=== PATIENT | female | born 1945 | race Caucasian/White ===

== ENCOUNTER → 2016-02-09 | Outpatient (CLI) | payer BC ==
[~2016-02-09] MED LIST: AMT50 PO; CALC1CHW24 PO; CALC1TAB9 PO; CHOL20007 PO; CYCL0.052 OP; FNTTP25 EX; FOLIC ACID PO; HYDR0.5T PO; HYDR200T5 PO; IBUP-1050 PO; LOSA1TAB PO; MELA1TAB3 PO; METH-848 PO; METH2.5T PO; OMEG10007 PO; ONDA4TAB46 PO; PILO5TAB2 PO; POLY1DRO OPB; ULT/50 PO; WHITOIN2 OPB; ZNTT/150 PO; [UNRECOGNIZED DRUG - OTHER] PO
[2016-02-09 11:07] LABS: BASO % 0.4 %; BASO ABS # 0.02 K/uL (0-0.2); COMPLETE YES; EOS % 2.5 %; HEMATOCRIT 38.7 % (37-47); IG% 0.4 %; LYMPH ABS # 1.76 K/uL (1.2-3.4); MEAN CELL VOLUME 89.2 fL (80-100); MEAN CORPUSCULAR HEMOGLOBIN 31.6 pg (25-34); MEAN CORPUSCULAR HGB CONC 35.4 g/dl (32-36); MEAN PLATELET VOLUME 9.4 fL (7.4-10.4); MONO % 10.6 %; NEUT % 55.1 %; PLATELET COUNT 147 K/uL (130-400); RED BLOOD COUNT 4.34 M/uL (4.2-5.4); WHITE BLOOD COUNT 5.68 K/uL (4.8-10.8)
[2016-02-09 11:36] LABS: ALT/SGPT 26 U/L (12-78); AST/SGOT 17 U/L (15-37); BLOOD UREA NITROGEN 15 mg/dl (7-18); BUN/CREATININE RATIO 23.3 (10-20); CALCIUM 8.8 mg/dl (8.5-10.1); CARBON DIOXIDE 28 mmol/L (21-32); CHLORIDE 106 mmol/L (98-107); CREATININE 0.64 mg/dl (0.60-1.20); GLUCOSE 94 mg/dl (70-99); SODIUM 142 mmol/L (136-145)
[2016-02-09 11:39] LABS: CHOLESTEROL 269 mg/dl (0-200); HDL CHOLESTEROL 67 mg/dl; LDL CHOLESTEROL CALCULATED 177 mg/dl; TRIGLYCERIDES 123 mg/dl (0-150); VERY LOW DENSITY LIPOPROT CALC 25 mg/dl
== END | disposition home or self-care (01) ==
LOC: C.LAB 09:45
DX: E78.5 Hyperlipidemia, unspecified (principal); I10 Essential (primary) hypertension; M19.90 Unspecified osteoarthritis, unspecified site

== ENCOUNTER → 2016-04-22 | Outpatient (CLI) | payer BC ==
[~2016-04-22] MED LIST changes: -AMT50 PO; -CALC1TAB9 PO; -CYCL0.052 OP; -FNTTP25 EX; -FOLIC ACID PO; -HYDR200T5 PO; -IBUP-1050 PO; -METH2.5T PO; -OMEG10007 PO; -ONDA4TAB46 PO; -ULT/50 PO; -ZNTT/150 PO; -[UNRECOGNIZED DRUG - OTHER] PO
--- NOTE | 2016-04-22 14:33 | MAMMOGRAPHY REPORT ---
UNILATERAL LEFT DIGITAL DIAGNOSTIC MAMMOGRAM WITH CAD: 04/22/2016 CLINICAL HISTORY: History of right breast cancer status post mastectomy. History of left breast can cer status post lumpectomy. The patient reports no current complaints. TECHNIQUE: Current study was also evaluated with a Computer Aided Detection (CAD) system. Left CC and MLO 2-D and tomosynthesis images were obtained. COMPARISON: Comparison is made to exams dated: 04/22/2016 breast MRI, 04/14/2015 mammogram, 05/21/2014 mammogram, 04/21/2014 mammogram, and 04/11/2014 mammogram - [facility]. BREAST COMPOSITION: The tissue of the left breast is heterogeneously dense, which may obscure small masses. FINDINGS: Status post right mastectomy. There are stable post surgical changes in the left upper in ner quadrant, including stable architectural distortion and surgical clips at the lumpectomy bed. S cattered benign-appearing calcifications are not significantly changed. There are no suspicious mas ses, calcifications, or areas of nonsurgical architectural distortion noted in the left breast. The re has been no significant interval change. IMPRESSION: ACR BI-RADS CATEGORY 2: BENIGN There is no mammographic evidence of malignancy in the left breast. A 1 year screening mammogram is recommended. The patient has been verbally notified of the results. Approximately 10% of breast cancers are not detected with mammography. A negative mammographic repor t should not delay biopsy if a clinically suggestive mass is present. Krista Souza M.D. ah/:04/22/2016 11:48:23 Facial Operator: Rosa PATEL(Keren)(Rajiv), [facility] letter sent: Normal 1/2 BI-RADS Code: ACR BI-RADS Category 2: Benign
== END | disposition home or self-care (01) ==
LOC: C.MAMM 11:20
PROVIDERS: ATTEND Surgery
DX: Z85.3 Personal history of malignant neoplasm of breast (principal); Z90.11 Acquired absence of right breast and nipple; R92.2 Inconclusive mammogram

== ENCOUNTER → 2016-04-22 | Outpatient (CLI) | payer BC ==
[~2016-04-22] MED LIST changes: +GADAVIST IV PRN
--- NOTE | 2016-04-25 13:55 | MAMMOGRAPHY REPORT ---
BREAST MRI OF BOTH BREASTS : 04/22/2016 CLINICAL HISTORY: History of bilateral breast cancer status post right mastectomy and left lumpectom y. COMPARISON: Comparison is made to exams dated: 04/14/2015 mammogram, 05/21/2014 mammogram, 04/21/2014 m ammogram, 04/11/2014 mammogram, and 04/10/2013 mammogram - [facility]. Technique: The patient was placed prone in a dedicated breast imaging coil. Precontrast axial T1-we ighted, axial T2-weighted fat saturation, and axial T1-weighted fat saturation images were obtained. After the administration of 6 mL of Gadavist IV contrast, sequential T1-weighted fat saturation im ages were obtained. Subtraction images were obtained of the dynamic contrast enhanced sequences, an d 3-D reformations were performed. The Rhythm [employer] software was used for kinetic analysis. Findings: There are post surgical changes status post right mastectomy and right axillary lymph node sampling. Additionally, there are stable postsurgical changes in the left upper inner quadrant from prior karmen mpectomy. There is mild background parenchymal enhancement involving the left breast. There are no suspicious enhancing masses or areas of abnormal non-mass enhancement involving the left breast or the right mastectomy bed. A few scattered foci of enhancement are seen within the left breast, whic h are stable compared to the 05/01/2014 MRI and are benign and consistent with normal background pare nchymal enhancement. There is no evidence of axillary adenopathy. Visualized portions of the extramammary soft tissues a re unremarkable. IMPRESSION: ACR BI-RADS CATEGORY 2: BENIGN No MRI evidence of malignancy involving the left breast or the right mastectomy bed. Recommend rout ine bilateral mammograms in one year. Also recommend screening bilateral breast MRI in one year, gi corine the history of bilateral breast cancer. Krista Souza M.D. /:04/23/2016 11:40:25 Carrier Driver: shopper's aide, [facility] letter sent: Normal 1/2 BI-RADS Code: ACR BI-RADS Category 2: Benign
== END | disposition home or self-care (01) ==
LOC: C.MRI 09:11
PROVIDERS: ATTEND Surgery
DX: Z85.3 Personal history of malignant neoplasm of breast (principal); R92.2 Inconclusive mammogram

== ENCOUNTER → 2016-05-10 | Outpatient (CLI) | payer BC ==
[~2016-05-10] MED LIST changes: -GADAVIST IV PRN
[2016-05-10 10:25] LABS: BASO % 0.4 %; BASO ABS # 0.02 K/uL (0-0.2); COMPLETE YES; HEMATOCRIT 38.3 % (37-47); IG% 0.4 %; LYMPH % 29.8 %; LYMPH ABS # 1.51 K/uL (1.2-3.4); MEAN CELL VOLUME 89.5 fL (80-100); MEAN CORPUSCULAR HEMOGLOBIN 31.3 pg (25-34); MEAN PLATELET VOLUME 9.3 fL (7.4-10.4); MONO % 8.5 %; NEUT % 57.9 %; PLATELET COUNT 158 K/uL (130-400); RED BLOOD COUNT 4.28 M/uL (4.2-5.4); WHITE BLOOD COUNT 5.06 K/uL (4.8-10.8)
[2016-05-10 10:34] LABS: ALT/SGPT 41 U/L (12-78); AST/SGOT 22 U/L (15-37); BLOOD UREA NITROGEN 12 mg/dl (7-18); BUN/CREATININE RATIO 18.8 (10-20); CALCIUM 8.9 mg/dl (8.5-10.1); CARBON DIOXIDE 32 mmol/L (21-32); CHLORIDE 107 mmol/L (98-107); CREATININE 0.65 mg/dl (0.60-1.20); GLUCOSE 102 mg/dl (70-99); POTASSIUM 3.7 mmol/L (3.5-5.1); SODIUM 144 mmol/L (136-145)
[2016-05-10 10:44] LABS: CHOLESTEROL 239 mg/dl (0-200); CHOLESTEROL/HDL RATIO 3.9; HDL CHOLESTEROL 62 mg/dl; LDL CHOLESTEROL CALCULATED 150 mg/dl; TRIGLYCERIDES 133 mg/dl (0-150); VERY LOW DENSITY LIPOPROT CALC 27 mg/dl
== END | disposition home or self-care (01) ==
LOC: C.LAB 09:18
DX: E55.9 Vitamin D deficiency, unspecified (principal); I10 Essential (primary) hypertension; M19.90 Unspecified osteoarthritis, unspecified site; E78.5 Hyperlipidemia, unspecified; E05.90 Thyrotoxicosis, unspecified without thyrotoxic crisis or storm

== ENCOUNTER → 2016-07-21 | Outpatient (CLI) | payer BC ==
[2016-07-21 16:30] LABS: FERRITIN 301.6 ng/ml (8.0-388.0); MAGNESIUM 2.5 mg/dl (1.8-2.4); THYROID STIMULATING HORMONE 2.91 uIu/ml (0.300-4.500)
[2016-07-21 17:22] LABS: LYME DISEASE AB IGM NEG (NEG)
[2016-07-21 17:25] LABS: LYME DISEASE AB IGG NEG (NEG)
--- NOTE | 2016-07-28 11:05 | CODING QUERY MEDICAL NECESSITY ---
SUPPORTING DIAGNOSIS NEEDED A supporting diagnosis is required for the test/procedure performed on this patient in order for us to be reimbursed by the patient's insurance. Please provide a supporting diagnosis for the following test/procedure listed below next to the test name along with your signature. *If there is no additional diagnosis for this patient that would support the following test/procedure please document that below next to the test/procedure. Test(s)/Procedure(s) that require a supporting diagnosis: * FOLATE DIAGNOSIS: * FERRITIN DIAGNOSIS: Provider Signature: Date: Thank you Alison Jimenez [employer] Once completed, please kindly fax back to [phone] For questions please call [phone]
== END | disposition home or self-care (01) ==
LOC: C.LAB 14:11
DX: G62.9 Polyneuropathy, unspecified (principal); R07.9 Chest pain, unspecified; M19.90 Unspecified osteoarthritis, unspecified site; E61.1 Iron deficiency

== ENCOUNTER → 2016-09-05 | Outpatient (CLI) | payer BC ==
[2016-09-05 15:15] LABS: MAGNESIUM 2.5 mg/dl (1.8-2.4); THYROID STIMULATING HORMONE 4.03 uIu/ml (0.300-4.500)
== END | disposition home or self-care (01) ==
LOC: C.LAB 12:46
DX: E05.90 Thyrotoxicosis, unspecified without thyrotoxic crisis or storm (principal); E83.41 Hypermagnesemia

== ENCOUNTER → 2016-09-08 | Outpatient (CLI) | payer BC ==
--- NOTE | 2016-09-08 11:29 | DIAGNOSTIC IMAGING REPORT ---
PELVIC COMPLETE NON OB CLINICAL HISTORY: 71 years-old Female presenting with HX ENDOMETREAL CA, history of hysterectomy. TECHNIQUE: Real-time grayscale and color and spectral Doppler ultrasound imaging of the pelvis was performed using a transabdominal probe. COMPARISON: 05/01/2014. FINDINGS: Uterus: Surgically absent. Right adnexa: Right ovary not visualized. Left adnexa: Left ovary not visualized. Other: No free fluid. Normal bladder. IMPRESSION: Postsurgical changes of hysterectomy. Nonvisualization of the ovaries. Electronically signed by: Ash Gomez M.D. 09/08/2016 11:27 AM Dictated Date/Time: 09/08/2016 11:26 AM
== END | disposition home or self-care (01) ==
LOC: C.ULTR 10:34
DX: C50.911 Malignant neoplasm of unspecified site of right female breast (principal); C50.912 Malignant neoplasm of unspecified site of left female breast; Z85.42 Personal history of malignant neoplasm of other parts of uterus; Z90.710 Acquired absence of both cervix and uterus

== ENCOUNTER → 2016-12-05 | Outpatient (CLI) | payer BC | END | disposition home or self-care (01) | LOC: C.LAB 10:01 | DX: Z08 Encounter for follow-up examination after completed treatment for malignant neoplasm (principal) ==

== ENCOUNTER → 2017-01-05 | Outpatient (CLI) | payer BC ==
--- NOTE | 2017-01-05 15:18 | DIAGNOSTIC IMAGING REPORT ---
SACROILIAC JOINTS 3 VIEWS CLINICAL HISTORY: Cough and back pain. FINDINGS: 3 views of the sacrum and sacroiliac joints are correlated with pelvic CT dated 07/30/2008. The skeletal structures are osteopenic. Mild sclerotic degenerative change is seen in the sacroiliac joints and pubic symphysis. No erosive change is seen. No fracture is identified. There is a nonobstructed abdominal bowel gas pattern. IMPRESSION: No acute bony abnormality is identified. Mild sclerotic change is noted in the sacroiliac joints. Electronically signed by: Josh Jacome M.D. 01/05/2017 3:17 PM Dictated Date/Time: 01/05/2017 3:16 PM
--- NOTE | 2017-01-05 15:19 | DIAGNOSTIC IMAGING REPORT ---
KUB CLINICAL HISTORY: Constipation. FINDINGS: 2 AP supine abdominal radiographs are correlated with abdominal CT dated 07/30/2008. There is a nonobstructed abdominal bowel gas pattern noting moderate to severe constipation. No bowel obstruction is seen. There is no evidence of intraperitoneal free air on these supine images. Vascular calcifications are seen in the left upper quadrant. The skeletal structures are osteopenic. Mild degenerative change is noted in the lumbar spine. IMPRESSION: Moderate to severe constipation. Electronically signed by: Josh Jacome M.D. 01/05/2017 3:18 PM Dictated Date/Time: 01/05/2017 3:17 PM
--- NOTE | 2017-01-05 15:25 | DIAGNOSTIC IMAGING REPORT ---
LUMBAR SPINE 5 VIEWS CLINICAL HISTORY: Low back pain. FINDINGS: Five views of the lumbar spine are correlated with abdominal CT dated 07/30/2008. The skeletal structures are osteopenic. There is no radiographic evidence of fracture or malalignment. Vertebral body height is maintained throughout the lumbar spine. Alignment is preserved. There is mild straightening of the lumbar lordosis. Minimal dextrocurvature is observed. The transverse and spinous processes appear intact. There is no evidence of spondylolysis. Only mild degenerative disc space narrowing is observed. Minimal facet arthropathy is seen in the lower lumbar region. The visualized sacrum and bony pelvis appear intact. There is a nonobstructed abdominal bowel gas pattern noting moderate to severe constipation. IMPRESSION: 1. No acute bony abnormality is seen involving the lumbar spine. 2. Osteopenia and mild spondylotic change as above. 3. Moderate to severe constipation. Dictated: 01/05/2017 3:11 PM Transcribed: 01/05/2017 3:25 PM WILLIAM_Rosalie Electronically signed by: Josh Jacome M.D. 01/05/2017 3:32 PM Dictated Date/Time: 01/05/2017 3:11 PM
--- NOTE | 2017-01-05 15:31 | DIAGNOSTIC IMAGING REPORT ---
L SHOULDER MIN 2 VIEWS ROUTINE HISTORY: 71 years-old Female COUGH,BACK PAIN,L SHOULDER/HIP PAIN,CONSTIPATION, acute cough with left shoulder pain COMPARISON: Chest radiograph of same day TECHNIQUE: 3 views of the left shoulder FINDINGS: The bones are mildly demineralized. Mild acromioclavicular and glenohumeral degenerative changes. 5 mm linear calcification caudal to the acromium suggests calcific tendinosis or bony spurring. No acute fracture or dislocation. Surgical clips project over the left axilla. Imaged lung quintero appear clear. IMPRESSION: Degenerative changes without acute fracture or dislocation. The above report was generated using voice recognition software. It may contain grammatical, syntax or spelling errors. Electronically signed by: Reid Lechuga M.D. 01/05/2017 3:29 PM Dictated Date/Time: 01/05/2017 3:28 PM
--- NOTE | 2017-01-05 15:32 | DIAGNOSTIC IMAGING REPORT ---
L HIP UNILATERAL 2 VIEWS HISTORY: 71 years-old Female COUGH,BACK PAIN,L SHOULDER/HIP PAIN,CONSTIPATION, acute left hip pain COMPARISON: Radiographs of the SI joints of same day TECHNIQUE: 2 views of the left hip FINDINGS: Moderate femoral acetabular osteoarthritis. Bones are mildly demineralized. No acute fracture or dislocation. Soft tissues are unremarkable. IMPRESSION: Moderate left hip osteoarthritis without acute fracture or dislocation. The above report was generated using voice recognition software. It may contain grammatical, syntax or spelling errors. Electronically signed by: Reid Lechuga M.D. 01/05/2017 3:31 PM Dictated Date/Time: 01/05/2017 3:29 PM
--- NOTE | 2017-01-05 15:34 | DIAGNOSTIC IMAGING REPORT ---
CHEST 2 VIEWS ROUTINE HISTORY: 71 years-old Female acute cough COMPARISON: Chest radiograph 03/13/2015 TECHNIQUE: PA and lateral views of the chest FINDINGS: Cardiac silhouette is mildly enlarged, unchanged. Surgical clips project over the left heart and left axilla. No pneumothorax or pleural effusion. Linear subsegmental left basilar and right lateral midlung opacities are noted. No lobar airspace consolidations. Bones of the chest appear grossly intact. There are degenerative changes of the shoulders and spine. IMPRESSION: Subsegmental left basilar and lateral right midlung opacities suggest atelectasis/scarring with pneumonia thought to be less likely. No lobar airspace consolidations identified. The above report was generated using voice recognition software. It may contain grammatical, syntax or spelling errors. Electronically signed by: Reid Lechuga M.D. 01/05/2017 3:33 PM Dictated Date/Time: 01/05/2017 3:31 PM
[2017-01-05 15:37] LABS: BASO % 0.3 %; BASO ABS # 0.02 K/uL (0-0.2); COMPLETE YES; EOS % 2.7 %; HEMATOCRIT 37.3 % (37-47); IG% 0.4 %; LYMPH % 24.8 %; LYMPH ABS # 1.83 K/uL (1.2-3.4); MEAN CELL VOLUME 92.8 fL (80-100); MEAN CORPUSCULAR HEMOGLOBIN 31.6 pg (25-34); MONO % 8.3 %; NEUT % 63.5 %; PLATELET COUNT 197 K/uL (130-400); RED BLOOD COUNT 4.02 M/uL (4.2-5.4); WHITE BLOOD COUNT 7.38 K/uL (4.8-10.8)
[2017-01-05 16:02] LABS: ALT/SGPT 24 U/L (12-78); AST/SGOT 10 U/L (15-37); BLOOD UREA NITROGEN 12 mg/dl (7-18); BUN/CREATININE RATIO 20.5 (10-20); CARBON DIOXIDE 29 mmol/L (21-32); CHLORIDE 103 mmol/L (98-107); GLUCOSE 91 mg/dl (70-99); POTASSIUM 3.7 mmol/L (3.5-5.1); SODIUM 135 mmol/L (136-145)
[2017-01-05 16:12] LABS: ALKALINE PHOSPHATASE 99 U/L (45-117); C-REACTIVE PROTEIN 0.44 mg/dl (0-0.29)
== END | disposition home or self-care (01) ==
LOC: C.RAD 14:10
DX: R10.9 Unspecified abdominal pain (principal); E05.90 Thyrotoxicosis, unspecified without thyrotoxic crisis or storm; R05 Cough; M54.9 Dorsalgia, unspecified; M16.12 Unilateral primary osteoarthritis, left hip; M25.512 Pain in left shoulder; K59.00 Constipation, unspecified; Z85.3 Personal history of malignant neoplasm of breast; M85.88 Other specified disorders of bone density and structure, other site

== ENCOUNTER → 2017-01-12 | Outpatient (CLI) | payer BC ==
[~2017-01-12] MED LIST changes: +OPTIRAY 320 IV PRN
--- NOTE | 2017-01-12 15:32 | DIAGNOSTIC IMAGING REPORT ---
CHEST CT WITH CONTRAST CT DOSE: 479.11 mGy.cm HISTORY: Elevated CA-125 with history of breast cancer. History of uterine cancer with prior hysterectomy NEOPLASM BREAST, CA TECHNIQUE: Multiaxial CT images of the chest were performed following the intravenous administration of contrast. A dose lowering technique was utilized adhering to the principles of ALARA. COMPARISON: CT abdomen and pelvis of same day, CTA of the chest 07/30/2008. FINDINGS: Nodules of the right thyroid are noted measuring up to 4 mm. Post surgical changes of the bilateral axilla suggest prior yusuf dissection. There are postsurgical changes of the left breast. Prior right mastectomy. Mild prominence of the bronchial arteries are again seen. Calcified mediastinal and hilar lymph nodes are seen. Lymph node of the subcarinal space measuring the upper limits of normal at 9 mm. Mildly enlarged right hilar lymph nodes are seen measuring up to 1.2 x 1.0 cm. The right hilar lymph nodes appear unchanged from comparison study 07/30/2008. Mild multichamber cardiac enlargement. There is mild fusiform dilation of the ascending thoracic aorta, 4.0 x 3.8 cm. No dissection. Imaged great vessels appear patent. The opacified pulmonary arterial tree is unremarkable. Trace right pleural effusion. Spiculated irregular soft tissue attenuating masslike consolidation of the right lower lobe measures 3.1 x 2.1 cm on image 221 series 6. 3 mm solid nodule right lower lobe seen on image 250 series 6. Multifocal areas of pleural nodularity are noted throughout the right lung base with nodules measuring up to 7 mm as seen on image 86 series 6. These findings are most pronounced at the level the right lung base. No significant pleural nodularity identified on the left. Subpleural reticular opacities are noted on the left suggesting areas of scarring. Bibasilar parenchymal cystic changes of the lungs are noted. Central airways are patent. No acute amount of the imaged upper abdomen. Soft tissues are unremarkable. No definite suspicious or lytic blastic bony lesions. IMPRESSION: 1. Focal masslike consolidative opacity of the right lower lobe with irregular margins measuring up to 3.1 cm suggests metastasis. Trace right pleural effusion is noted with multifocal pleural nodularity throughout the right lung suggesting pleural metastasis. 2. Mildly prominent subcarinal and right hilar lymph nodes with the right hilar adenopathy appearing stable from comparison chest CT 07/30/2008. 3. Prior bilateral axillary yusuf dissection with right mastectomy and left breast lumpectomy. 4. Prior granulomatous disease. Electronically signed by: Reid Lechuga M.D. 01/12/2017 3:31 PM Dictated Date/Time: 01/12/2017 3:13 PM
--- NOTE | 2017-01-12 15:34 | DIAGNOSTIC IMAGING REPORT ---
CT SCAN OF THE ABDOMEN AND PELVIS WITH IV CONTRAST CLINICAL HISTORY: Breast cancer. COMPARISON STUDY: Abdominal CT dated 07/30/2008. TECHNIQUE: Following the IV administration of 93 cc of Optiray 320, CT scan of the abdomen and pelvis is performed from the lung bases to the proximal femora. Images are reviewed in the axial, sagittal, and coronal planes. IV contrast was administered without complication. A dose lowering technique was utilized adhering to the principles of ALARA. FINDINGS: Lung bases: The heart is enlarged and without pericardial effusion. There is a small right pleural effusion. There is a heterogeneous lesion at the right lung base seen on image #16 measuring 3.1 x 2.4 cm. There is a 1.4 cm nodule suggested in the left breast on axial image #18. There are numerous foci of pleural-based nodularity seen at the right lung base involving the major and minor fissures as well as small accessory fissures. The appearance is highly concerning for pleural-based metastatic disease (axial images #20, #29, #36). The left lung base appears clear. The right breast is surgically absent. Liver: The contrast-enhanced liver is normal in size, contour, and attenuation. There is no intrahepatic biliary ductal dilatation. The hepatic veins and portal veins are patent. Gallbladder: Unremarkable. Spleen: Normal in size and attenuation. There are scattered calcified splenic granulomas. Pancreas: Unremarkable. Adrenal glands: Unremarkable. Kidneys: The contrast enhanced kidneys are normal in size and without hydronephrosis. The kidneys enhance symmetrically. A 2.3 cm cyst is noted in the right kidney. Abdominal vasculature: The abdominal aorta is normal in course and caliber noting moderate atherosclerotic calcification. Bowel: There is moderate to advanced colonic diverticulosis without CT evidence of acute diverticulitis. Moderate colonic fecal retention is observed. No bowel obstruction is seen. The appendix is well-visualized and normal. Peritoneum: There is no intraperitoneal free air or abdominal ascites. Lymphadenopathy: There are prominent retroperitoneal lymph nodes. These measure up to 8 mm in short axis as seen on images #175 and #210 there is no upper abdominal, mesenteric, pelvic sidewall, or inguinal lymphadenopathy. Pelvic viscera: The bladder is normal as visualized. The uterus is surgically absent. No adnexal lesion is seen. Skeletal structures: The skeletal structures are osteopenic. There is mild lumbosacral spondylosis. There is an osteolytic lesion within the anterior aspect of L5 seen on image #246. This measures up to 11 mm. No additional destructive bony lesion is clearly seen. IMPRESSION: 1. There is a 3.1 cm heterogeneous lesion at the right lung base consistent with metastatic disease. 2. There are numerous small foci of pleural-based nodularity at the right lung base. These are typical in appearance for pleural-based metastases. There is a trace associated right pleural effusion. 3. There is an osteolytic lesion identified in the body of L5 that is consistent with bony metastatic disease. This was not seen on the 2009 examination. No additional bony lesions are identified. 4. There is no evidence of visceral metastatic disease in the abdomen or pelvis. 5. Prominent retroperitoneal lymph nodes are indeterminant and measure up to 8 mm in short axis. 6. Moderate to advanced colonic diverticulosis without CT evidence of acute diverticulitis. 7. A 1.4 cm nodule is suggested in the left breast. This is indeterminant and neoplasm is not excluded. Correlation with any prior breast imaging will be required. 8. Additional findings as above. Electronically signed by: Josh Jacome M.D. 01/12/2017 3:33 PM Dictated Date/Time: 01/12/2017 3:18 PM
== END | disposition home or self-care (01) ==
LOC: C.CTS 14:49
PROVIDERS: ATTEND Internal Medicine Hematology & Oncology
DX: N63.20 Unspecified lump in the left breast, unspecified quadrant (principal); R91.8 Other nonspecific abnormal finding of lung field; Z85.3 Personal history of malignant neoplasm of breast; K57.90 Diverticulosis of intestine, part unspecified, without perforation or abscess without bleeding; Z85.42 Personal history of malignant neoplasm of other parts of uterus

== ENCOUNTER → 2017-01-23 | Outpatient (CLI) | payer BC ==
[~2017-01-23] MED LIST changes: -OPTIRAY 320 IV PRN
--- NOTE | 2017-01-23 14:21 | DIAGNOSTIC IMAGING REPORT ---
PET/CT SKULL-THIGH CLINICAL HISTORY: 71 years-old Female with R91.1. Solitary pulmonary nodule with history of breast cancer. Lytic lesion of L5 suspicious for metastasis. COMPARISON: CT chest, abdomen and pelvis 01/12/2017 TECHNIQUE: The patient was injected with 13.6 mCi of F-18 fluorodeoxyglucose (FDG) and an emission scan was performed from the skull vertex to the toes. Noncontrast CT was performed for attenuation correction and anatomic localization. The blood glucose level was 112 mg/dl. FINDINGS: HEAD AND NECK: There is a physiologic distribution of activity, with no hypermetabolic foci. CHEST: Hypermetabolic subcarinal lymph node measures 2.4 x 1.1 cm with SUV max of 4.6 nicely seen on image 81 series 2. 3.1 x 2.2 cm right hilar adenopathy is also markedly hypermetabolic, SUV max of 4.9. This is nicely seen on image 84 series 2. Additional lower right hilar adenopathy is seen measuring up to approximately 1 cm on image 90 series 2 with SUV max of 3.3. There is a markedly hypermetabolic irregular mass of the right lower lobe with spiculated margins and heterogeneous attenuation, 3.3 x 2.3 cm, previously 3.0 x 2.1 cm on study dated 01/12/2017. This is nicely seen on image 103 series 2 and is markedly hypermetabolic with SUV max of 5.9. Mildly hypermetabolic periesophageal lymph node seen on image 101 series 2 with ill-defined margins is only minimally hypermetabolic, SUV max 2.4 which is indeterminate. There is diffuse pleural uptake about the right lung base nicely seen on image 90 of page 267. The previously described subcentimeter pleural-based nodules of the right lung base do not demonstrate appreciable FDG uptake likely below resolution in size for PET. Focal area of increased radiotracer uptake adjacent to the left second rib is noted as seen on image 58 of series 267 without correlate on the CT portion, possibly secondary to adjacent vasculature. Mildly metabolic right pleural effusion. ABDOMEN AND PELVIS: There is a physiologic distribution of activity within the liver, spleen, adrenal glands, gastrointestinal and urinary tracts, with no hypermetabolic foci. The previously described mildly prominent retroperitoneal lymph nodes measuring up to 8 mm in short axis do not demonstrate significant hypermetabolic activity. MUSCULOSKELETAL SYSTEM AND EXTREMITIES: Hypermetabolic skeletal metastasis noted at several levels throughout the spine notably involving the vertebral bodies at T2, T3, T9, L3 and L5 and the right lamina at T10. Additional lucent metastasis involve the right iliac wing and right acetabulum. ADDITIONAL CT FINDINGS: Multifocal pleural nodularity again seen throughout the right lung. Additionally, there is a 5 mm pleural-based nodule of the superior segment left lower lobe on image 86 series 2 without definite hypermetabolic activity. Postoperative changes of the left axilla. Calcifications of the spleen. Normal appendix. Colonic diverticulosis without diverticulitis. Soft tissues are unremarkable. IMPRESSION: 1. Hypermetabolic irregular mass of the right lower lobe measuring up to 3.2 cm is compatible with metastasis. Multiple additional pleural metastasis throughout the right lung base with small mildly hypermetabolic malignant right pleural effusion. 2. Hypermetabolic metastatic mediastinal and right hilar adenopathy. 3. Multifocal skeletal metastasis as above. The above report was generated using voice recognition software. It may contain grammatical, syntax or spelling errors. Electronically signed by: Reid Lechuga M.D. 01/23/2017 2:19 PM Dictated Date/Time: 01/23/2017 12:30 PM
== END | disposition home or self-care (01) ==
LOC: C.PET 07:44
PROVIDERS: ATTEND Physician Assistant
DX: R91.1 Solitary pulmonary nodule (principal)

== ENCOUNTER → 2017-02-03 | Day surgery (SDC) | payer BC ==
[2017-02-01 15:23] VITALS: BMI 21.0
[~2017-02-03] VITALS: Ht 170.2 cm; Wt 62.7 kg
[~2017-02-03] MED LIST changes: +AMT50 PO; +ATROPINE SULFATE 0.1 MG/ML 5ML SYR IV PRN; -CALC1CHW24 PO; +CALC1TAB9 PO; +CYCL0.052 OP; +DEXAMETHASONE SOD INJ 4 MG/ML VIAL ONE; +EpHEDrine SULFATE INJ 50 MG/ML AMP IV PRN; +FENTANYL CITRATE INJ 50 MCG/1 ML 2 ML VIAL IV PRN; +FENTANYL CITRATE INJ 50 MCG/1 ML 2 ML VIAL ONE; +FNTTP25 EX; +FOLIC ACID PO; +GLYCOPYRROLATE INJ 0.2 MG/ML VIAL ONE; -HYDR0.5T PO; +HYDR200T5 PO; +IBUP-1050 PO; +LACTATED RINGER'S 1000ML 1,000 ML IV SCH; +LIDOCAINE 2% 20 MG/ML 5ML SYR IV ONE; -LOSA1TAB PO; +METH2.5T PO; +NEOSTIGMINE METHYLSULFATE 5 MG/5 ML SYR ONE; +OMEG10007 PO; +ONDA4TAB46 PO; +ONDANSETRON INJ 2 MG/ML 2 ML VIAL IV PRN; +ONDANSETRON INJ 2 MG/ML 2 ML VIAL ONE; +PHENYLEPHRINE HCL INJ 10 MG/ML VIAL ONE; -PILO5TAB2 PO; -POLY1DRO OPB; +PROMETHAZINE HCL INJ 6.25 MG in SODIUM CHLORIDE 0.9% 50ML 50 ML IV PRN; +PROPOFOL IV EMULSION 10 MG/ML 20 ML VIAL IV ONE; +ROCURONIUM BROMIDE 10 MG/ML 5 ML VIAL IV ONE; +ULT/50 PO; -WHITOIN2 OPB; +ZNTT/150 PO; +[UNRECOGNIZED DRUG - OTHER] PO
--- NOTE | 2017-02-03 07:09 | History & Physical Bridge Note ---
H&P Re-Evaluation Bridge Note: I have examined the patient, reviewed the History & Physical and in the interval since the performance of the History & Physical I have noted the following changes of clinical significance: No changes noted
[2017-02-03 07:22] VITALS: BP 179/91; PULSE 91; TEMP 36.7; O2SAT 98; Ht 170.2 cm; Wt 62.7 kg
--- NOTE | 2017-02-03 08:25 | Discharge Instructions ---
Discharge Instructions Date of Service Feb 03, 2017. Visit Reason for Visit: Right Lower Lobe Mass;Pulmonary Nodule Discharge Discharge Diagnosis / Problem: Right Lower Lobe Mass;Pulmonary Nodule Discharge Goals Goal(s): Learn about illness Activity Recommendations Activity Limitations: resume your previous activity (in 24 hours) Anesthesia . Post Anesthesia Instructions: If you have had General Anesthesia or IV Sedation: * Do not drive today. * Resume driving when surgeon permits. * Do not make important decisions or sign legal documents today. * Call surgeon for: 1. Temperature elevations greater than 101 degrees F. 2. Uncontrollable pain. 3. Excessive bleeding. 4. Persistent nausea and vomiting. 5. Medication intolerance (nausea, vomiting or rash). * For nausea and vomiting use only clear liquids such as: tea, soda, bouillon until nausea subsides, then gradually increase diet as tolerated. * If you have any concerns or questions, call your surgeon's office. If physician is unavailable and it is an emergency, call 911 or go to the nearest emergency room. . Instructions / Follow-Up Instructions / Follow-Up 1. You may cough up some blood. Call physician if excessive amount noted. 2. keep your scheduled appointment with Dr. Delacruz on February 13, 2017 @ 10: 45 am. Diet Recommendations Recommended Home Diet: resume previous diet Pending Studies Studies pending at discharge: no Medical Emergencies . Who to Call and When: Medical Emergencies: If at any time you feel your situation is an emergency, please call 911 immediately. . Non-Emergent Contact Non-Emergency issues call your: Surgeon Call Non-Emergent contact if: you have a fever, your pain is not controlled . . "Provider Documentation" section prepared by Curtis Mendes. .
[2017-02-03 12:36] VITALS: BP 156/77; PULSE 92; TEMP 36.4; O2SAT 97
--- NOTE | 2017-02-03 12:45 | DIAGNOSTIC IMAGING REPORT ---
CHEST ONE VIEW PORTABLE HISTORY: Pulmonary nodule. COMPARISON: Chest 01/05/2017. FINDINGS: No pneumothorax. No pleural effusions. The heart remains stable in size. Progressive interstitial thickening and patchy densities at the right lung base. IMPRESSION: 1. No pneumothorax. 2. Progressive interstitial thickening and right basilar densities. Electronically signed by: Jaspreet Harrell M.D. 02/03/2017 12:44 PM Dictated Date/Time: 02/03/2017 12:33 PM
--- NOTE | 2017-02-03 12:46 | DIAGNOSTIC IMAGING REPORT ---
INTRAOPERATIVE RADIOGRAPHS CLINICAL HISTORY: Navigational bronchoscopy with biopsy. Fluoroscopy time: 124 seconds. FINDINGS: 3 spot fluoroscopic images of the right lower chest are correlated with chest CT dated 01/12/2017. The bronchoscope projects over the right lower lobe. IMPRESSION: Intraoperative images from right lower lobe bronchoscopy as above. See operative report for detailed findings. Electronically signed by: Josh Jacome M.D. 02/03/2017 12:45 PM Dictated Date/Time: 02/03/2017 12:44 PM
--- NOTE | 2017-02-03 12:49 | Anesthesiology Progress Note ---
Anesthesia Post Op Note Date & Time Feb 03, 2017 at 12:49 Vital Signs Pain Intensity: 0 Vital Signs Past 12 Hours Date Time Temp Pulse Resp B/P (MAP) Pulse Ox O2 Delivery O2 Flow Rate FiO2 02/03/17 12:36 36.4 92 18 156/77 97 Room Air 02/03/17 12:30 36.4 95 14 160/92 95 Room Air 02/03/17 12:20 95 16 158/94 95 Room Air 02/03/17 12:10 87 21 160/91 100 Oxymask 10 02/03/17 12:00 97 22 160/99 99 Oxymask 10 02/03/17 11:53 36.0 95 18 173/97 100 Oxymask 10 02/03/17 07:22 36.7 91 18 179/91 (120) 98 Room Air Notes Mental Status: alert / awake / arousable, participated in evaluation Pt Amnestic to Procedure: Yes Nausea / Vomiting: adequately controlled Pain: adequately controlled Airway Patency, RR, SpO2: stable & adequate BP & HR: stable & adequate Hydration State: stable & adequate Anesthetic Complications: no major complications apparent
[2017-02-03 13:10] VITALS: BP 153/74; PULSE 90; TEMP 36.5; O2SAT 96
--- NOTE | 2017-02-03 14:00 | OPERATIVE REPORT ---
DATE OF OPERATION: 02/03/2017 PREOPERATIVE DIAGNOSIS: Hypermetabolic right lower lobe mass with mediastinal adenopathy and possible bony metastases. POSTOPERATIVE DIAGNOSIS: Same. PROCEDURE: 1. Endobronchial ultrasound with biopsy. 2. Electromagnetic navigational bronchoscopy with biopsy right lower lobe mass. SURGEON: Dr. Delacruz. TANK BUILDER: SAWYER Thomas. ANESTHESIA: General anesthesia with endotracheal intubation. SPECIFICS OF PROCEDURE: Cherelle Husain is a 71-year-old female who has a history of breast cancer and now has evidence of spine and right hip with probable bony metastases. Workup was done and she had a right lower lobe mass and had some subcarinal and hilar adenopathy on the right, which were hypermetabolic. We felt it necessary to make a diagnosis of this as we would require tissue so we recommended a navigational bronchoscopy and an endobronchial ultrasound. On 02/03/2017, the patient underwent an uncomplicated endobronchial ultrasound. I was a bit surprised that I did multiple passes without a definitive diagnosis. I did 10 passes in the level 7 node and we never did get a diagnosis of malignancy. We had good lymphocytes indicating good sampling. She really had no adenopathy on the left, I did biopsy the left level 10 side but really did not get much in the way of lymphocytes. On the right, I biopsied the right level 10 and right level 11 nodes extensively, finally I made 13th needle pass, we had a diagnosis of malignancy from the level 11 node. We had adequate lymphocytes in the level 10 node. As we had a diagnosis, I went ahead and did a navigational bronchoscopy in an attempt to get more tissue. for immunohistochemical stains and genomic testing. We did this and she tolerated it well. DESCRIPTION OF THE PROCEDURE: The patient brought to the operating room and laid in supine position. General anesthesia induced and endotracheal intubation was performed with an 8.5 endotracheal tube. After appropriate timeout had been called and clindamycin given prophylactically, the endobronchial ultrasound scope was placed and we saw no endobronchial abnormalities out to the tertiary bronchi. I then immediately went to the left side and evaluated the left level 10 nodes and this were very small. I did biopsy this one level 10 node several times but really got no lymphocytes. I then turned the scope and evaluated a large level 7 node and biopsied it on 3 separate times. I was surprised on the rapid on site evaluation that we got lymphocytes back which were benign and no evidence of malignancy. I ended up doing this 10 separate times and got lymphocytes in 3 separate passes and I did multiple nodes in the level 7 area. I then went to the level 11 area of the right, biopsied this about many times before we had adequate lymphocytes and then finally 13 biopsies were done before we had malignant cells. I also biopsied level 10 node several times and it could be seen that we had adequate lymphocytes, but no evidence of malignancy. I then switched from the endobronchial ultrasound to the navigational bronchoscopy. The endobronchial ultrasound scope was removed and a regular fiberoptic bronchoscope was placed. From going down, we really did not see much in the way of bleeding. Sucked out some old blood with the scope. Then placed a navigational probe through the working channel of scope and registered the airways. We then navigated out to the right lower lobe, medial segment and went right to the mass. A radial ultrasound showed we were in the middle of this mass. I then did brushings x3, needle biopsies x3 and forceps biopsies x3, and we did washings. We then irrigated this out and she really had no bleeding. She tolerated it well. We discharge her today and I will see her back next week to go over the results. I attest to the content of the Intraoperative Record and any orders documented therein. Any exceptions are noted below. RENA
== END | disposition home or self-care (01) ==
LOC: C.ACU 06:58
PROVIDERS: ATTEND Surgery
DX: R91.8 Other nonspecific abnormal finding of lung field (principal); J45.909 Unspecified asthma, uncomplicated; M81.0 Age-related osteoporosis without current pathological fracture; Z90.710 Acquired absence of both cervix and uterus; Z82.49 Family history of ischemic heart disease and other diseases of the circulatory system; Z82.0 Family history of epilepsy and other diseases of the nervous system; K21.9 Gastro-esophageal reflux disease without esophagitis; Z85.820 Personal history of malignant melanoma of skin; Z85.44 Personal history of malignant neoplasm of other female genital organs; Z85.3 Personal history of malignant neoplasm of breast

== ENCOUNTER 2017-02-15 10:22 | Day surgery (SDC) | payer BC ==
[~2017-02-15] VITALS: Ht 170.2 cm; Wt 62.0 kg
[~2017-02-15 10:22] MED LIST changes: -ATROPINE SULFATE 0.1 MG/ML 5ML SYR IV PRN; -DEXAMETHASONE SOD INJ 4 MG/ML VIAL ONE; -EpHEDrine SULFATE INJ 50 MG/ML AMP IV PRN; -FENTANYL CITRATE INJ 50 MCG/1 ML 2 ML VIAL IV PRN; -FENTANYL CITRATE INJ 50 MCG/1 ML 2 ML VIAL ONE; -GLYCOPYRROLATE INJ 0.2 MG/ML VIAL ONE; -LACTATED RINGER'S 1000ML 1,000 ML IV SCH; -LIDOCAINE 2% 20 MG/ML 5ML SYR IV ONE; -NEOSTIGMINE METHYLSULFATE 5 MG/5 ML SYR ONE; -ONDA4TAB46 PO; -ONDANSETRON INJ 2 MG/ML 2 ML VIAL IV PRN; -ONDANSETRON INJ 2 MG/ML 2 ML VIAL ONE; -PHENYLEPHRINE HCL INJ 10 MG/ML VIAL ONE; -PROMETHAZINE HCL INJ 6.25 MG in SODIUM CHLORIDE 0.9% 50ML 50 ML IV PRN; -PROPOFOL IV EMULSION 10 MG/ML 20 ML VIAL IV ONE; -ROCURONIUM BROMIDE 10 MG/ML 5 ML VIAL IV ONE; -ULT/50 PO
[2017-02-15] MEDS ORDERED: ONDA4TAB46 PO (10:41)
[2017-02-15 10:51] VITALS: BP 153/84; PULSE 83; TEMP 37.2; O2SAT 95; Ht 170.2 cm; Wt 62.0 kg
[2017-02-15] MEDS ORDERED: PROPOFOL IV EMULSION 10 MG/ML 20 ML VIAL IV ONE (10:51)
[2017-02-15] MEDS ORDERED: GLYCOPYRROLATE INJ 0.2 MG/ML VIAL ONE (10:51)
[2017-02-15] MEDS ORDERED: DEXAMETHASONE SOD INJ 4 MG/ML VIAL ONE (10:51)
[2017-02-15] MEDS ORDERED: NEOSTIGMINE METHYLSULFATE 5 MG/5 ML SYR ONE (10:51)
[2017-02-15] MEDS ORDERED: ONDANSETRON INJ 2 MG/ML 2 ML VIAL ONE (10:51)
[2017-02-15] MEDS ORDERED: ROCURONIUM BROMIDE 10 MG/ML 5 ML VIAL IV ONE (10:51)
[2017-02-15] MEDS ORDERED: MIDAZOLAM HCL 1 MG/ML 2ML VIAL ONE (10:52)
[2017-02-15] MEDS ORDERED: FENTANYL CITRATE INJ 50 MCG/1 ML 2 ML VIAL ONE (10:52)
--- NOTE | 2017-02-15 11:08 | Discharge Instructions ---
Discharge Instructions Date of Service Feb 15, 2017. Visit Reason for Visit: Lung Cancer Discharge Discharge Diagnosis / Problem: Lung Cancer Discharge Goals Goal(s): Learn about illness Activity Recommendations Activity Limitations: resume your previous activity (in 24 hours) [address] if taking ultram Anesthesia . Post Anesthesia Instructions: If you have had General Anesthesia or IV Sedation: * Do not drive today. * Resume driving when surgeon permits. * Do not make important decisions or sign legal documents today. * Call surgeon for: 1. Temperature elevations greater than 101 degrees F. 2. Uncontrollable pain. 3. Excessive bleeding. 4. Persistent nausea and vomiting. 5. Medication intolerance (nausea, vomiting or rash). * For nausea and vomiting use only clear liquids such as: tea, soda, bouillon until nausea subsides, then gradually increase diet as tolerated. * If you have any concerns or questions, call your surgeon's office. If physician is unavailable and it is an emergency, call 911 or go to the nearest emergency room. . Instructions / Follow-Up Instructions / Follow-Up 1. Keep your scheduled appointment with Dr. Delacruz on February 23 @ 10:00am. Diet Recommendations Recommended Home Diet: resume previous diet Pending Studies Studies pending at discharge: no Medical Emergencies . Who to Call and When: Medical Emergencies: If at any time you feel your situation is an emergency, please call 911 immediately. . Non-Emergent Contact Non-Emergency issues call your: Surgeon Call Non-Emergent contact if: you have a fever, your pain is not controlled, wound has increased drainage . . "Provider Documentation" section prepared by Curtis Mendes. .
[2017-02-15] MEDS ORDERED: ULT/50 PO (11:09)
[2017-02-15] MEDS ORDERED: CLINDAMYCIN PHOS 150 MG/ML 2 ML VIAL ONE (11:40)
[2017-02-15] MEDS ORDERED: LARYING-O-JET KIT (LTA) ONE (11:41)
[2017-02-15] MEDS ORDERED: PHENYLEPHRINE 100MCG/ML 5ML SYR ONE (11:41)
[2017-02-15] MEDS ORDERED: EpHEDrine SULFATE 50MG/5ML SYR ONE (11:41)
[2017-02-15] MEDS ORDERED: EpHEDrine SULFATE INJ 50 MG/ML AMP IV PRN (11:45)
[2017-02-15] MEDS ORDERED: FENTANYL CITRATE INJ 50 MCG/1 ML 2 ML VIAL IV PRN (11:45)
[2017-02-15] MEDS ORDERED: PROMETHAZINE HCL INJ 6.25 MG in SODIUM CHLORIDE 0.9% 50ML 50 ML IV PRN (11:45)
[2017-02-15] MEDS ORDERED: ATROPINE SULFATE 0.1 MG/ML 5ML SYR IV PRN (11:45)
[2017-02-15] MEDS ORDERED: ONDANSETRON INJ 2 MG/ML 2 ML VIAL IV PRN (11:45)
[2017-02-15] MEDS ORDERED: PHENYLEPHRINE HCL INJ 10 MG/ML VIAL ONE (11:51)
[2017-02-15] MEDS ORDERED: SURGICEL ABSORB HEMOSTAT 2IN X 14IN TOP ONE (12:00)
--- NOTE | 2017-02-15 12:10 | [facility] Post Operative Brief Note ---
Immediate Operative Summary Operative Date Feb 15, 2017. Pre-Operative Diagnosis Metastatic nonsmall cell lung carcinoma Post-Operative Diagnosis Metastatic nonsmall cell lung carcinoma Procedure(s) Performed Video Mediastinoscopy with lymph node biopsies Surgeon Dr. Micah Delacruz Food And Nutrition Professor Surgeon(s) Curtis Mendes PA-C Estimated Blood Loss mL Findings Metastatic adenocarcinoma Specimens Frozen Section #1: Level 7 Lymph node Sent to lab at 1152; carried by JULIA Horan Fresh Specimens A: R2 Lymph Node B: R10 Lymph Node
[2017-02-15] MEDS ORDERED: TRAMADOL HCL 50 MG TAB PO PRN (12:15)
--- NOTE | 2017-02-15 12:53 | OPERATIVE REPORT ---
DATE OF OPERATION: 02/15/2017 PREOPERATIVE DIAGNOSES: 1. Right lower lobe mass with mediastinal adenopathy. 2. History of breast cancer. 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 SURGEON: Dr. Delacruz. PICK UP TRUCK DRIVER: Curtis Mendes PA-C (Mr. Mendes was present during the entire case and helped with retraction and instrument passing and closing the incision at the end). ANESTHESIA: General anesthesia endotracheal intubation. SPECIFICS OF PROCEDURE: Cherelle Husain is a 72-year-old female with a history of breast cancer came in with skeletal metastases. We are looking for tissue diagnosis with an endobronchial ultrasound and a navigational bronchoscopy and got cells back on the rapid on site evaluation; however, we were unable to delineate not only the etiology but actually the exact cell type angina and did not have enough tissue for genomic testing or any history of chemical staining. For this reason, I saw the patient yesterday in the office and explained that. They would like get started the therapy and she has asked if can do video mediastinoscopy. We scheduled her for today. On 02/15/2017, the patient underwent an uncomplicated video mediastinoscopy. I biopsied it very hard level 7 node as well as a level 2 node on the right and a level 10 node on the right. I really did not biopsy level 4 as it was very fibrotic. I was just above the azygos and it was stuck to the trachea and the azygos and so I did not biopsy this node. 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 I left a small piece of Surgicel in the level 7 area. I really did not dissect anything on the left side. Really we had no bleeding. I slowly withdrew the video mediastinoscope and 3-0 Vicryl was used in running continuous fashion to close the strap muscles. A 4-0 Monocryl was used in a running subcuticular fashion to approximate the wound edges. It should be noted that I made a transverse incision one fingerbreadth above the sternal notch, the patient's neck had been extended. I was able to easily get the scope down after dividing the strap muscles in the direction of their fibers them and going below the thyroid isthmus. I used blunt dissection and dissected this down to the pretracheal plane and get the video mediastinoscope in without difficulty. This was a large level 2 node and I biopsied this multiple times. The level 7 was also very hard, enlarged and biopsied that several times. There was no significant bleeding at the conclusion of the case. A 4-0 Monocryl was used in a subcuticular fashion approximately through this. She tolerated it very well. I attest to the content of the Intraoperative Record and any orders documented therein. Any exception s are noted below.
--- NOTE | 2017-02-15 13:03 | DIAGNOSTIC IMAGING REPORT ---
CHEST ONE VIEW PORTABLE CLINICAL HISTORY: Lung carcinoma. Postop median sternotomy. COMPARISON STUDY: 02/03/2017 FINDINGS: The heart is enlarged. There is persistent interstitial thickening/edema. There is a hazy opacity of the right lung which could represent a posteriorly layering pleural effusion. Right lung airspace opacities could appear similar. There is no pneumothorax.[ IMPRESSION: 1. No evidence of pneumothorax 2. Persistent interstitial thickening/edema 3. Nonspecific hazy increased density of the right lung. This could be secondary to either airspace disease or pleural fluid. Electronically signed by: Jerod Martinez M.D. 02/15/2017 1:02 PM Dictated Date/Time: 02/15/2017 1:01 PM
--- NOTE | 2017-02-15 13:21 | Anesthesiology Progress Note ---
Anesthesia Post Op Note Date & Time Feb 15, 2017 at 13:20 Vital Signs Pain Intensity: 0 Vital Signs Past 12 Hours Date Time Temp Pulse Resp B/P (MAP) Pulse Ox O2 Delivery O2 Flow Rate FiO2 02/15/17 13:15 36.6 100 14 172/91 99 Nasal Cannula 3 02/15/17 13:05 99 14 174/94 100 Nasal Cannula 3 02/15/17 12:55 97 14 161/87 100 Oxymask 5 02/15/17 12:48 36.8 97 14 144/83 99 Oxymask 5 02/15/17 10:51 37.2 83 18 153/84 (107) 95 Room Air Notes Mental Status: alert / awake / arousable, participated in evaluation Pt Amnestic to Procedure: Yes Nausea / Vomiting: adequately controlled Pain: adequately controlled Airway Patency, RR, SpO2: stable & adequate BP & HR: stable & adequate Hydration State: stable & adequate Anesthetic Complications: no major complications apparent
[2017-02-15 13:29] VITALS: BP 142/98; PULSE 107; TEMP 36.2; O2SAT 99
[2017-02-15 14:00] VITALS: BP 152/85; PULSE 96; TEMP 36.2; O2SAT 98
[2017-02-15 14:30] VITALS: BP 149/84; PULSE 97; O2SAT 97
== END 2017-02-15 15:55 | disposition home or self-care (01) ==
LOC: C.ACU 10:22
PROVIDERS: ATTEND Surgery
DX: C34.90 Malignant neoplasm of unspecified part of unspecified bronchus or lung (principal); C77.1 Secondary and unspecified malignant neoplasm of intrathoracic lymph nodes; C79.51 Secondary malignant neoplasm of bone; Z85.3 Personal history of malignant neoplasm of breast; E05.00 Thyrotoxicosis with diffuse goiter without thyrotoxic crisis or storm; J45.909 Unspecified asthma, uncomplicated; G60.3 Idiopathic progressive neuropathy; M35.00 Sjogren syndrome, unspecified; E55.9 Vitamin D deficiency, unspecified; Z79.899 Other long term (current) drug therapy; I25.10 Atherosclerotic heart disease of native coronary artery without angina pectoris; K21.9 Gastro-esophageal reflux disease without esophagitis

== ENCOUNTER → 2017-03-01 | Outpatient (CLI) | payer BC ==
[~2017-03-01] MED LIST changes: +ACET-1311 PO; +AMIT10TA6 PO; +BENZ100C7 PO; +CEFU250T15 PO; +CMP/10 PO; -CYCL0.052 OP; +CYCL0.052 OPB; +DRGTP12 TOP; +DXM/4 PO; +FLV1 PO; +HYCUDL5 PO; +LPR25 PO; +MBXC PO; +MELA3TAB PO; +MGNO400 PO; +MTH25 PO; +ONDA4TAB46 PO; +ONDA4TAB9 PO; +POTA10LI12 PO; +PROM25SU28 PR; +PRT40 PO; +RANI150T2 PO; +TMF75 PO; +ULT/50 PO
== END | disposition home or self-care (01) ==
LOC: C.LAB 10:17
DX: D49.1 Neoplasm of unspecified behavior of respiratory system (principal)

== ENCOUNTER → 2017-03-01 | Outpatient (CLI) | payer BC ==
[~2017-03-01] MED LIST changes: -ACET-1311 PO; -AMIT10TA6 PO; -BENZ100C7 PO; -CEFU250T15 PO; -CMP/10 PO; +CYCL0.052 OP; -CYCL0.052 OPB; -DRGTP12 TOP; -DXM/4 PO; -FLV1 PO; -HYCUDL5 PO; -LPR25 PO; -MBXC PO; -MELA3TAB PO; -MGNO400 PO; -MTH25 PO; -ONDA4TAB9 PO; -POTA10LI12 PO; -PROM25SU28 PR; -PRT40 PO; -RANI150T2 PO; -TMF75 PO
--- NOTE | 2017-03-01 17:19 | DIAGNOSTIC IMAGING REPORT ---
TWO VIEW CHEST CLINICAL HISTORY: Lung cancer. FINDINGS: PA and lateral chest radiographs are compared to study dated 02/15/2017 and correlated with chest CT dated 01/12/2017. The heart is enlarged and there is atherosclerotic calcification of the thoracic aorta. The pulmonary vasculature is noncongested. Emphysema is observed. Chronic interstitial thickening and nodularity is similar to previous. A small pleural effusion is seen at the right lung base with associated consolidation. Atelectasis is noted at the left lung base. There is no pneumothorax. The skeletal structures are osteopenic. The bony thorax appears intact. Surgical clips are noted in the left axilla. IMPRESSION: 1. Cardiomegaly and emphysema. 2. Interstitial thickening and nodularity is similar to previous. 3. There is a small right pleural effusion with consolidative change at the right lung base. Electronically signed by: Josh Jacome M.D. 03/01/2017 5:17 PM Dictated Date/Time: 03/01/2017 5:15 PM
== END | disposition home or self-care (01) ==
LOC: C.RAD 16:23
DX: C34.90 Malignant neoplasm of unspecified part of unspecified bronchus or lung (principal)

== ENCOUNTER 2017-03-07 16:16 | Inpatient (IN) | payer BC, OTHER ==
[~2017-03-07] VITALS: Ht 170.2 cm; Wt 57.5 kg
[~2017-03-07 16:16] MED LIST changes: -CYCL0.052 OP; +CYCL0.052 OPB
[2017-03-07] MEDS ORDERED: SODIUM CHLORIDE 0.9% 1000ML 1,000 ML IV STA (16:38)
--- NOTE | 2017-03-07 16:53 | EMERGENCY ROOM VISIT NOTE ---
History Report prepared by Ruben: Domingo Corbin Under the Supervision of: Dr. Michael Kruger M.D. First contact with patient: 16:35 Chief Complaint: DEHYDRATION Stated Complaint: DEHYDRATION, POSS FLU, CHEMO PATIENT History of Present Illness The patient is a 72 year old white female with a past medical history of HTN, hyperthyroidism, breast and endometria CA, and melanoma who presents to the ED with a cc of intermittent vomiting beginning a couple days ago. The patient states she cannot eat or drink anything with acid because it worsens her symptoms. She reports she cannot keep anything down. Positive chemo 5 days ago, radiation prior to chemotherapy, vomiting 4 times today, fever a few days ago, being around her and sister with a fever and wet cough. Negative bowel movement in the past week, surgery on her abdomen other than a hysterectomy, sorethroat, urinary symptoms, cough, nausea, recent antibiotic use, recent travel, abdominal pain, a history of smoking. Review of EMR shows the patient follows up with Dr. Romero, Oncology, and had a recent lymph node biopsy by Dr. Delacruz on February 12. Source of History: patient Onset: couple days ago Position: other (global) Symptom Intensity: 4 times Quality: other (vomiting) Timing: intermittent Modifying Factors (Worsening): eating (anything with acid), drinking ( anything with acid) Associated Symptoms: + fevers (currently resolved), No sorethroat, No cough , No nausea, No abdominal pain, No urinary symptoms Note: Denies: recent travel Review of Systems See HPI for pertinent positives and negatives. A total of ten systems were reviewed and were otherwise negative. Past Medical & Surgical Medical Problems: (1) HTN (hypertension) (2) Hyperthyroidism (3) Influenza A (4) Melanoma (5) Troponin I above reference range Family History Cancer FHx: gallbladder disease Heart disease Hypertension Lung disease Social History Smoking Status: Never Smoker Marital Status: Housing Status: lives with significant other Current/Historical Medications Scheduled Calcium Citrate-Vitamin D (Citracal + D3 Maximum), 2 TABS PO HOLD Cholecalciferol (Vitamin D3), 1 CAP PO HOLD Cyclosporine (Ophth) (Restasis), 1 DROP OPB Q12H Fish Oil ([place]-3), 1 CAP PO HOLD Folic Acid (Folic Acid), 1 MG PO DAILY Hydroxychloroquine Sulfate (Plaquenil), 100 MG PO HS Methimazole (Methimazole), 5 MG PO HS Methotrexate (Methotrexate), 12.5 MG PO WK Scheduled PRN Acetaminophen (Tylenol), 1 DOSE PO UD PRN for Pain or Fever Amitriptyline Hcl (Elavil), 20 MG PO HS PRN for Sleep Benzonatate (Benzonatate), 100-200 MG PO TID PRN for Cough Dexamethasone (Decadron), 4 MG PO UD PRN for Chemo Treatment Fentanyl (Fentanyl), 12 MCG TOP CQ72HR PRN for Pain Melatonin (Melatonin), 3 MG PO HS PRN for Sleep Ondansetron (Ondansetron HCl), 4 MG PO Q4H PRN for Nausea Prochlorperazine Maleate (Prochlorperazine Maleate), 10 MG PO Q6H PRN for Nausea Promethazine Hcl (Phenergan Suppository), 25 MG VT Q6H PRN for Nausea Ranitidine HCl (Ranitidine HCl), 150 MG PO DAILY PRN for Heartburn/Indigestion Allergies Coded Allergies: Penicillins (Verified Allergy, Unknown, RASH, 02/01/17) Codeine (Verified Adverse Reaction, Unknown, GI UPSET, 02/01/17) Morphine and Related (Verified Adverse Reaction, Unknown, SEVERE NAUSEA, 02/01/17) Physical Exam Vital Signs Date Time Temp Pulse Resp B/P (MAP) Pulse Ox O2 Delivery O2 Flow Rate FiO2 03/07/17 18:51 100 16 122/77 98 Room Air 03/07/17 17:38 98 Room Air 03/07/17 17:33 110 03/07/17 16:27 36.5 115 20 116/76 92 Room Air Physical Exam GENERAL: Awake, alert, thin, cachetic HENT: Normocephalic, atraumatic. EYES: Normal conjunctiva. Sclera non-icteric. NECK: Supple. No nuchal rigidity. FROM. RESPIRATORY: no rhonchi, no wheezing, crackles throughout lung quintero CARDIAC: Tachy and regular, no MRG ABDOMEN: Soft, NTND, BS+ MSK: No chest wall TTP, no LE edema NEURO: GCS 15, CN 2-12 intact, moves all 4s on command SKIN: No rash or jaundice noted. Medical Decision & Procedures ER Provider Diagnostic Interpretation: X-ray: Per my interpretation, radiologist review. CHEST ONE VIEW PORTABLE CLINICAL HISTORY: Evaluate Fever/Sepsis COMPARISON STUDY: 03/01/2017 FINDINGS: The heart is normal in size. There is interval decrease in size of the small right pleural effusion. There is emphysema. There is chronic interstitial thickening. There is improving aeration of the right lung base. There is no lobar consolidation IMPRESSION: 1. Emphysema and chronic interstitial thickening 2. Interval decrease in the size of the small right pleural effusion with improving aeration of the right lung base Electronically signed by: Jerod Martinez M.D. 03/07/2017 4:55 PM Dictated Date/Time: 03/07/2017 4:54 PM Laboratory Results 03/07/17 17:22 Red Blood Count 4.26, Mean Corpuscular Volume 86.6, Mean Corpuscular Hemoglobin 31.7, Mean Corpuscular Hemoglobin Concent 36.6, Mean Platelet Volume 8.7, Neutrophils (%) (Auto) 69.8, Lymphocytes (%) (Auto) 12.4, Monocytes (%) (Auto) 14.7, Eosinophils (%) (Auto) 2.3, Basophils (%) (Auto) 0.0, Neutrophils # (Auto ) 0.90, Lymphocytes # (Auto) 0.16, Monocytes # (Auto) 0.19, Eosinophils # (Auto ) 0.03, Basophils # (Auto) 0.00 Test 03/07/17 17:22 03/07/17 17:28 03/07/17 19:30 White Blood Count 1.29 K/uL (4.8-10.8) Red Blood Count 4.26 M/uL (4.2-5.4) Hemoglobin 13.5 g/dL (12.0-16.0) Hematocrit 36.9 % (37-47) Mean Corpuscular Volume 86.6 fL (80-100) Mean Corpuscular Hemoglobin 31.7 pg (25-34) Mean Corpuscular Hemoglobin Concent 36.6 g/dl (32-36) Platelet Count 107 K/uL (130-400) Mean Platelet Volume 8.7 fL (7.4-10.4) Neutrophils (%) (Auto) 69.8 % Lymphocytes (%) (Auto) 12.4 % Monocytes (%) (Auto) 14.7 % Eosinophils (%) (Auto) 2.3 % Basophils (%) (Auto) 0.0 % Neutrophils # (Auto) 0.90 K/uL (1.4-6.5) Lymphocytes # (Auto) 0.16 K/uL (1.2-3.4) Monocytes # (Auto) 0.19 K/uL (0.11-0.59) Eosinophils # (Auto) 0.03 K/uL (0-0.5) Basophils # (Auto) 0.00 K/uL (0-0.2) RDW Standard Deviation 42.8 fL (36.4-46.3) RDW Coefficient of Variation 13.8 % (11.5-14.5) Immature Granulocyte % (Auto) 0.8 % Immature Granulocyte # (Auto) 0.01 K/uL (0.00-0.02) Platelet Estimate DECREASED Red Blood Cell Morphology Unremarkable Prothrombin Time 11.5 SECONDS (9.0-12.0) Prothromb Time International Ratio 1.1 (0.9-1.1) Activated Partial Thromboplast Time 28.7 SECONDS (21.0-31.0) Partial Thromboplastin Ratio 1.1 Lactic Acid Level 1.1 mmol/L (0.4-2.0) Total Bilirubin 0.5 mg/dl (0.2-1) Direct Bilirubin 0.1 mg/dl (0-0.2) Aspartate Amino Transf (AST/SGOT) 27 U/L (15-37) Alanine Aminotransferase (ALT/SGPT) 18 U/L (12-78) Alkaline Phosphatase 79 U/L (45-117) Total Protein 7.3 gm/dl (6.4-8.2) Albumin 3.3 gm/dl (3.4-5.0) Lipase 308 U/L (73-393) Influenza Type A Antigen POS for Influ A (NEG) Influenza Type B Antigen Neg for Influ B (NEG) Urine Color DK YELLOW Urine Appearance CLOUDY (CLEAR) Urine pH 5.5 (4.5-7.5) Urine Specific [place] 1.025 (1.000-1.030) Urine Protein 2+ (NEG) Urine Glucose (UA) TRACE (NEG) Urine Ketones 2+ (NEG) Urine Occult Blood NEG (NEG) Urine Nitrite NEG (NEG) Urine Bilirubin NEG (NEG) Urine Urobilinogen NEG (NEG) Urine Leukocyte Esterase NEG (NEG) Urine WBC (Auto) 5-10 /hpf (0-5) Urine RBC (Auto) 10-30 /hpf (0-4) Urine Hyaline Casts (Auto) 10-30 /lpf (0-5) Urine Epithelial Cells (Auto) >30 /lpf (0-5) Urine Bacteria (Auto) NEG (NEG) Urine Renal Epithelial Cells /lpf (0-5) Urine Pathogenic Casts See comments /lpf (0) Urine Mucus PRESENT (NONE PRSENT) Laboratory results reviewed by me Medications Administered Medications (Trade) Dose Ordered Sig/Stephanie Route Start Time Stop Time Status Last Admin Dose Admin Sodium Chloride 1,000 ml @ 999 mls/hr Q1H1M STAT IV 03/07/17 16:38 03/07/17 17:38 DC 03/07/17 16:38 999 MLS/HR Ondansetron HCl (Zofran Inj) 4 mg NOW STAT IV 03/07/17 17:03 03/07/17 17:04 DC 03/07/17 17:03 4 MG Magnesium Sulfate (Magnesium Sulfate) 1 gm NOW STAT IV 03/07/17 18:14 03/07/17 18:15 DC 03/07/17 18:14 1 GM Potassium Chloride (Klor-Con Tab) 40 meq NOW STAT PO 03/07/17 18:14 03/07/17 18:15 DC 03/07/17 18:14 40 MEQ Potassium Chloride (Kcl 10 Meq / Wtr) 10 meq NOW STAT IV 03/07/17 18:14 03/07/17 18:15 DC 03/07/17 18:14 10 MEQ Aspirin (Aspirin Chew) 324 mg NOW STAT PO 03/07/17 18:20 03/07/17 18:21 DC 03/07/17 18:20 324 MG Sodium Chloride 500 ml @ 500 mls/hr Q1H STAT IV 03/07/17 18:48 03/07/17 19:47 DC 03/07/17 18:48 500 MLS/HR Oseltamivir Phosphate (Tamiflu Cap) 75 mg NOW STAT PO 03/07/17 18:48 03/07/17 18:52 DC 03/07/17 18:48 75 MG Prochlorperazine Edisylate (Compazine Inj) 5 mg NOW STAT IV 03/07/17 18:48 03/07/17 18:52 DC 03/07/17 18:48 5 MG ECG Indication: vomiting Rate (beats per minute): 112 Rhythm: sinus tachycardia Findings: Q waves (V2), T-wave inversion (Lateral), left axis deviation, other (T-wave depressions in the lateral leads) Comparison ECG Date: 02/01/17 Change: left axis deviation is old. TWI and depressions are new. Patient's electrocardiogram interpreted by me. ED Course 1639: The patient was evaluated in room C07. A complete history and physical exam was performed. 182: I discussed the patient's case with Dr. Bartlett, [facility] Cardiology. He states in the absence of symptoms, it is okay to administer aspirin. 183: I reevaluated the patient. She is resting comfortably. I answered all remaining questions and explained the treatment plan. The patient will be evaluated for further management and care. 1926: I discussed the patient's case with Dr. Morris, [facility] Hospitalist. The patient will be evaluated for further management and care. Medical Decision The patient is a 72 year old white female with a past medical history of HTN, hyperthyroidism, breast and endometria CA, and melanoma who presents to the ED with a cc of intermittent vomiting beginning a couple days ago. Differential diagnosis: Etiologies such as gastroenteritis, food borne illness, infections, appendicitis , diverticulitis, inflammatory bowel disease, obstruction, GI bleed, biliary pathology, as well as others were entertained. Patient was seen and evaluated the bedside. Patient is 72-year-old who does have stage IV lung cancer with bony metastases. Of note the patient does see Dr. Wheatley with oncology had recent chemotherapy last and radiation approximately 10 days prior. Patient has had 3 nonbloody nonbilious bouts of emesis. Patient states that she feels like there is a burning. Patient denies any abdominal pain but only complains of nausea. Patient did have blood work completed along with IVF and anti-emetics. Patient did show that she was leukopenic. Patient did have neutropenia however she had a count greater than 900. Patient did have hypokalemia patient was given mag and potassium. Patient did have mild low sodium. This may be related to her lung cancer. Patient was given IVF. Patient's tachycardia improved. I discussed the patient with the roof assembler given the patient's concerning EKG changes and positive troponin. The patient does complain of some shortness of breath however this is chronic in nature without any acute changes. Given the lack of symptoms and the possible infectious etiology patient was given full dose aspirin and no other medical treatment at this time. I discussed the patient with the hospitalist and after discussion the patient was sent for CT. Patient had no evidence of PE on the CT. Patient was admitted to the medicine service. Medication Reconcilliation Current Medication List: was personally reviewed by me Blood Pressure Screening Patient's blood pressure: Normal blood pressure Blood pressure disposition: Did not require urgent referral Consults Time Called: 1823 Consulting Physician: Dr. Bartlett, [facility] Card[facility] Returned Call: 1826 I discussed the patient's case with Dr. Bartlett, [facility] Card[facility]. He states in the absence of symptoms, it is okay to administer aspirin. Additional Consults: Time Called: 1825 Consulted Physician: Dr. Morris, [facility] Hospitalist Returned Call: 1926 Additional Comments: I discussed the patient's case with Dr. Morris [facility] Hospitalist. The patient will be evaluated for further management and care. Impression Primary Impression: Influenza A Additional Impressions: Elevated troponin Hypokalemia Scribe Attestation The scribe's documentation has been prepared under my direction and personally reviewed by me in its entirety. I confirm that the note above accurately reflects all work, treatment, procedures, and medical decision making performed by me. Departure Information Dispostion Being Evaluated By Hospitalist Referrals Oni Cortes Jr,D.O. (PCP) Patient Instructions [facility] Problem Qualifiers
--- NOTE | 2017-03-07 16:56 | DIAGNOSTIC IMAGING REPORT ---
CHEST ONE VIEW PORTABLE CLINICAL HISTORY: Evaluate Fever/Sepsis COMPARISON STUDY: 03/01/2017 FINDINGS: The heart is normal in size. There is interval decrease in size of the small right pleural effusion. There is emphysema. There is chronic interstitial thickening. There is improving aeration of the right lung base. There is no lobar consolidation[ IMPRESSION: 1. Emphysema and chronic interstitial thickening 2. Interval decrease in the size of the small right pleural effusion with improving aeration of the right lung base Electronically signed by: Jerod Martinez M.D. 03/07/2017 4:55 PM Dictated Date/Time: 03/07/2017 4:54 PM
[2017-03-07] MEDS ORDERED: ONDANSETRON INJ 2 MG/ML 2 ML VIAL IV STA (17:03)
[2017-03-07] MEDS ORDERED: MTH25 PO (17:13)
[2017-03-07] MEDS ORDERED: AMIT10TA6 PO (17:13)
[2017-03-07] MEDS ORDERED: BENZ100C7 PO (17:13)
[2017-03-07] MEDS ORDERED: CMP/10 PO (17:13)
[2017-03-07] MEDS ORDERED: DXM/4 PO (17:13)
[2017-03-07] MEDS ORDERED: RANI150T2 PO (17:13)
[2017-03-07] MEDS ORDERED: ONDA4TAB9 PO (17:13)
[2017-03-07] MEDS ORDERED: FLV1 PO (17:13)
[2017-03-07] MEDS ORDERED: MELA3TAB PO (17:18)
[2017-03-07] MEDS ORDERED: PROM25SU28 PR (17:21)
[2017-03-07] MEDS ORDERED: DRGTP12 TOP (17:21)
[2017-03-07] MEDS ORDERED: ACET-1311 PO (17:22)
[2017-03-07 18:10] LABS: ALBUMIN 3.3 gm/dl (3.4-5.0); CALCIUM 9.2 mg/dl (8.5-10.1); CREATININE 0.76 mg/dl (0.60-1.20); POTASSIUM 2.7 mmol/L (3.5-5.1)
[2017-03-07 18:13] LABS: INFLUENZA B ANTIGEN Neg for Influ B (NEG)
[2017-03-07] MEDS ORDERED: POTASSIUM CHLORIDE 20 MEQ TABCR PO STA (18:14)
[2017-03-07] MEDS ORDERED: MAGNESIUM SULFATE 1GM / D5W 1 GM BAG IV STA (18:14)
[2017-03-07] MEDS ORDERED: POTASSIUM CHLORIDE 10 MEQ / 100ML WTR IV STA (18:14)
[2017-03-07 18:17] LABS: TOTAL PROTEIN 7.3 gm/dl (6.4-8.2)
[2017-03-07] MEDS ORDERED: ASPIRIN 324 MG CHEW PO STA (18:20)
[2017-03-07 18:21] LABS: HEMATOCRIT 36.9 % (37-47); HEMOGLOBIN 13.5 g/dL (12.0-16.0); MEAN CELL VOLUME 86.6 fL (80-100); MEAN CORPUSCULAR HEMOGLOBIN 31.7 pg (25-34); MEAN CORPUSCULAR HGB CONC 36.6 g/dl (32-36); MEAN PLATELET VOLUME 8.7 fL (7.4-10.4); PLATELET COUNT 107 K/uL (130-400); RED CELL DISTRIBUTION WIDTH CV 13.8 % (11.5-14.5); RED CELL DISTRIBUTION WIDTH SD 42.8 fL (36.4-46.3); WHITE BLOOD COUNT 1.29 K/uL (4.8-10.8)
[2017-03-07 18:23] LABS: EOS % 2.3 %; EOS ABS # 0.03 K/uL (0-0.5); IG# 0.01 K/uL (0.00-0.02); LYMPH % 12.4 %; LYMPH ABS # 0.16 K/uL (1.2-3.4); MONO % 14.7 %; MONO ABS # 0.19 K/uL (0.11-0.59); NEUT % 69.8 %
[2017-03-07 18:26] LABS: INR 1.1 (0.9-1.1); PTT PATIENT 28.7 SECONDS (21.0-31.0)
[2017-03-07] MEDS ORDERED: SODIUM CHLORIDE 0.9% 500ML 500 ML IV STA (18:48)
[2017-03-07] MEDS ORDERED: OSELTAMIVIR PHOSPHATE 75 MG CAP PO STA (18:48)
[2017-03-07] MEDS ORDERED: PROCHLORPERAZINE 5 MG/ML 2 ML VIAL IV STA (18:48)
--- NOTE | 2017-03-07 19:54 | History and Physical ---
History & Physical Date & Time of Service: Mar 07, 2017 at 19:51 Chief Complaint: Dehydration, Poss Flu, Chemo Patient Primary Care Physician: Oni Cortes Jr,D.O. History of Present Illness Source: patient Past Medical/Surgical History Medical Problems: (1) Hyperthyroidism Status: Chronic (2) Melanoma Status: Chronic Family History Cancer FHx: gallbladder disease Heart disease Hypertension Lung disease Social History Smoking Status: Never Smoker Marital Status: Multi-Drug Resistant Organisms History of MDRO: No Allergies Coded Allergies: Penicillins (Verified Allergy, Unknown, RASH, 02/01/17) Codeine (Verified Adverse Reaction, Unknown, GI UPSET, 02/01/17) Morphine and Related (Verified Adverse Reaction, Unknown, SEVERE NAUSEA, 02/01/17) Home Medications Scheduled Calcium Citrate-Vitamin D (Citracal + D3 Maximum), 2 TABS PO HOLD Cholecalciferol (Vitamin D3), 1 CAP PO HOLD Cyclosporine (Ophth) (Restasis), 1 DROP OPB Q12H Fish Oil ([place]-3), 1 CAP PO HOLD Folic Acid (Folic Acid), 1 MG PO DAILY Hydroxychloroquine Sulfate (Plaquenil), 100 MG PO HS Methimazole (Methimazole), 5 MG PO HS Methotrexate (Methotrexate), 12.5 MG PO WK Scheduled PRN Acetaminophen (Tylenol), 1 DOSE PO UD PRN for Pain or Fever Amitriptyline Hcl (Elavil), 20 MG PO HS PRN for Sleep Benzonatate (Benzonatate), 100-200 MG PO TID PRN for Cough Dexamethasone (Decadron), 4 MG PO UD PRN for Chemo Treatment Fentanyl (Fentanyl), 12 MCG TOP CQ72HR PRN for Pain Melatonin (Melatonin), 3 MG PO HS PRN for Sleep Ondansetron (Ondansetron HCl), 4 MG PO Q4H PRN for Nausea Prochlorperazine Maleate (Prochlorperazine Maleate), 10 MG PO Q6H PRN for Nausea Promethazine Hcl (Phenergan Suppository), 25 MG SC Q6H PRN for Nausea Ranitidine HCl (Ranitidine HCl), 150 MG PO DAILY PRN for Heartburn/Indigestion Physical Exam Vital Signs Date Time Temp Pulse Resp B/P (MAP) Pulse Ox O2 Delivery O2 Flow Rate FiO2 03/07/17 18:51 100 16 122/77 98 Room Air 03/07/17 17:38 98 Room Air 03/07/17 17:33 110 03/07/17 16:27 36.5 115 20 116/76 92 Room Air Diagnostics Laboratory Results Results Past 24 Hours Test 03/07/17 17:22 03/07/17 17:28 03/07/17 19:30 Range/Units White Blood Count 1.29 4.8-10.8 K/uL Red Blood Count 4.26 4.2-5.4 M/uL Hemoglobin 13.5 12.0-16.0 g/dL Hematocrit 36.9 37-47 % Mean Corpuscular Volume 86.6 80-100 fL Mean Corpuscular Hemoglobin 31.7 25-34 pg Mean Corpuscular Hemoglobin Concent 36.6 32-36 g/dl Platelet Count 107 130-400 K/uL Mean Platelet Volume 8.7 7.4-10.4 fL Neutrophils (%) (Auto) 69.8 % Lymphocytes (%) (Auto) 12.4 % Monocytes (%) (Auto) 14.7 % Eosinophils (%) (Auto) 2.3 % Basophils (%) (Auto) 0.0 % Neutrophils # (Auto) 0.90 1.4-6.5 K/uL Lymphocytes # (Auto) 0.16 1.2-3.4 K/uL Monocytes # (Auto) 0.19 0.11-0.59 K/uL Eosinophils # (Auto) 0.03 0-0.5 K/uL Basophils # (Auto) 0.00 0-0.2 K/uL RDW Standard Deviation 42.8 36.4-46.3 fL RDW Coefficient of Variation 13.8 11.5-14.5 % Immature Granulocyte % (Auto) 0.8 % Immature Granulocyte # (Auto) 0.01 0.00-0.02 K/uL Platelet Estimate DECREASED Red Blood Cell Morphology Unremarkable Prothrombin Time 11.5 9.0-12.0 SECONDS Prothromb Time International Ratio 1.1 0.9-1.1 Activated Partial Thromboplast Time 28.7 21.0-31.0 SECONDS Partial Thromboplastin Ratio 1.1 Sodium Level 130 136-145 mmol/L Potassium Level 2.7 3.5-5.1 mmol/L Chloride Level 87 98-107 mmol/L Carbon Dioxide Level 31 21-32 mmol/L Anion Gap 12.0 3-11 mmol/L Blood Urea Nitrogen 33 7-18 mg/dl Creatinine 0.76 0.60-1.20 mg/dl Est Creatinine Clear Calc Drug Dose 61.1 ml/min Estimated GFR () 91.5 Estimated GFR (Non- 78.9 BUN/Creatinine Ratio 43.1 10-20 Random Glucose 126 70-99 mg/dl Lactic Acid Level 1.1 0.4-2.0 mmol/L Calcium Level 9.2 8.5-10.1 mg/dl Total Bilirubin 0.5 0.2-1 mg/dl Direct Bilirubin 0.1 0-0.2 mg/dl Aspartate Amino Transf (AST/SGOT) 27 15-37 U/L Alanine Aminotransferase (ALT/SGPT) 18 12-78 U/L Alkaline Phosphatase 79 45-117 U/L Troponin I 0.212 0-0.045 ng/ml Total Protein 7.3 6.4-8.2 gm/dl Albumin 3.3 3.4-5.0 gm/dl Lipase 308 73-393 U/L Influenza Type A Antigen POS for Influ A NEG Influenza Type B Antigen Neg for Influ B NEG Urine Color DK YELLOW Urine Appearance CLOUDY CLEAR Urine pH 5.5 4.5-7.5 Urine Specific [place] 1.025 1.000-1.030 Urine Protein 2+ NEG Urine Glucose (UA) TRACE NEG Urine Ketones 2+ NEG Urine Occult Blood NEG NEG Urine Nitrite NEG NEG Urine Bilirubin NEG NEG Urine Urobilinogen NEG NEG Urine Leukocyte Esterase NEG NEG Microbiology Results 03/07/17 Blood Culture, Received Pending 03/07/17 Blood Culture, Received Pending Diagnostic Radiology CXR: 1. Emphysema and chronic interstitial thickening. 2. Interval decrease in the size of the small right pleural effusion with improving aeration of the right lung base. EKG Sinus tach at rate of 112 , lat and inf T wv inversions with minimal ST depressions - may resemble a strain pattern, LVH, QTc 521
[2017-03-07] MEDS ORDERED: ALUMINUM/MAGNESIUM/SIMETH (MAALOX MAX) 30 ML UDC PO PRN (20:00)
[2017-03-07] MEDS ORDERED: NITROGLYCERIN 0.4 MG SL PER TAB CHARGE SL PRN (20:00)
[2017-03-07] MEDS ORDERED: NON-FORMULARY MEDICATION (Melatonin 3 MG) PO PRN (20:00)
[2017-03-07] MEDS ORDERED: POLYETHYLENE (MIRALAX) 17 GM PACK PO PRN (20:00)
[2017-03-07] MEDS ORDERED: ACETAMINOPHEN 325 MG TAB PO PRN (20:00)
[2017-03-07] MEDS ORDERED: MAGNESIUM HYDROXIDE SUSP 30 ML UDC PO PRN (20:00)
[2017-03-07] MEDS ORDERED: AMITRIPTYLINE HCL 10 MG TAB PO PRN (20:00)
[2017-03-07] MEDS ORDERED: ONDANSETRON INJ 2 MG/ML 2 ML VIAL IV PRN (20:00)
--- NOTE | 2017-03-07 20:36 | History and Physical ---
History & Physical Date & Time of Service: Mar 07, 2017 at 20:17 Chief Complaint: Dehydration, Poss Flu, Chemo Patient Primary Care Physician: Oni Cortes JrD.O. History of Present Illness Source: patient, spouse 72 y/o F Hx multiple Kim including breast, endometrial, melanoma. Recent diagnosis of metastatic R lung adenocarcinoma confirmed on biopsy/pathology 11/23. Pt has commenced a tunica-biloxi-based chemo regimen. She received chemotherapy the prior and has had persistent nausea and vomiting since that time. She presents with weakness, n/v primarily and also reports a fever 2 days prior and a cough which has been present for a few months but may have worsened over the past few days. Initial labs obtained in the ER are notable for a (+) rapid flu, hypokalemia, hyponatremia, neutropenia, an elevated trop and are otherwise consistent with dehydration. An EKG displays tachycardia with widespread depressions. She denies CP. She feels chronically SOB. Past Medical/Surgical History 1) Hyperthyroidism 2) History of melanoma 3) Histroy of endometrial CA 4) Hostroy of breast CA 5) Active metastatic adenocarcinoma of lung with mets to spine. Receiving chemo and radiation 6) RA Family History Cancer FHx: gallbladder disease Heart disease Hypertension Lung disease Social History Smoking Status: Never Smoker Marital Status: Multi-Drug Resistant Organisms History of MDRO: No Allergies Coded Allergies: Penicillins (Verified Allergy, Unknown, RASH, 02/01/17) Codeine (Verified Adverse Reaction, Unknown, GI UPSET, 02/01/17) Morphine and Related (Verified Adverse Reaction, Unknown, SEVERE NAUSEA, 02/01/17) Home Medications Scheduled Calcium Citrate-Vitamin D (Citracal + D3 Maximum), 2 TABS PO HOLD Cholecalciferol (Vitamin D3), 1 CAP PO HOLD Cyclosporine (Ophth) (Restasis), 1 DROP OPB Q12H Fish Oil ([place]-3), 1 CAP PO HOLD Folic Acid (Folic Acid), 1 MG PO DAILY Hydroxychloroquine Sulfate (Plaquenil), 100 MG PO HS Methimazole (Methimazole), 5 MG PO HS Methotrexate (Methotrexate), 12.5 MG PO WK Scheduled PRN Acetaminophen (Tylenol), 1 DOSE PO UD PRN for Pain or Fever Amitriptyline Hcl (Elavil), 20 MG PO HS PRN for Sleep Benzonatate (Benzonatate), 100-200 MG PO TID PRN for Cough Dexamethasone (Decadron), 4 MG PO UD PRN for Chemo Treatment Fentanyl (Fentanyl), 12 MCG TOP [id number] PRN for Pain Melatonin (Melatonin), 3 MG PO HS PRN for Sleep Ondansetron (Ondansetron HCl), 4 MG PO Q4H PRN for Nausea Prochlorperazine Maleate (Prochlorperazine Maleate), 10 MG PO Q6H PRN for Nausea Promethazine Hcl (Phenergan Suppository), 25 MG ND Q6H PRN for Nausea Ranitidine HCl (Ranitidine HCl), 150 MG PO DAILY PRN for Heartburn/Indigestion Review of Systems Constitutional: + fever, + weakness, No chills, No sweats Eyes: No worsening of vision ENT: No hearing loss, No unusual epistaxis, No nasal symptoms Respiratory: + cough, + sputum, + shortness of breath, + dyspnea on exertion, + dyspnea at rest, No wheezing Cardiovascular: No chest pain, No orthopnea, No PND Abdomen: + nausea, + vomiting, No pain Musculoskeletal: No joint pain Genitourinary - Female: No dysuria, No urinary frequency, No urinary urgency Neurologic: + weakness, No memory loss, No paralysis Psychiatric: + depression symptoms Endocrine: + fatigue Hematologic / Lymphatic: No abnormal bleeding/bruising Integumentary: No rash Allergic / Immunologic: No environmental allergies, No seasonal allergies Physical Exam Vital Signs Date Time Temp Pulse Resp B/P (MAP) Pulse Ox O2 Delivery O2 Flow Rate FiO2 03/07/17 18:51 100 16 122/77 98 Room Air 03/07/17 17:38 98 Room Air 03/07/17 17:33 110 03/07/17 16:27 36.5 115 20 116/76 92 Room Air General Appearance: + thin, + pertinent finding (Thin, slighly distressed elderly female - coughing during exam) Eyes: normal inspection, PERRL, EOMI ENT: normal ENT inspection Neck: supple, no JVD Respiratory/Chest: chest non-tender, + pertinent finding (No air entry at R base) Cardiovascular: regular rate, rhythm, no edema Abdomen/GI: normal bowel sounds, non tender, soft Extremities/Musculoskelatal: normal inspection, no calf tenderness Neurologic/Psych: vegetable cook II-XII nml as tested, no motor/sensory deficits, oriented x 3 Skin: normal color, warm/dry Diagnostics Laboratory Results Results Past 24 Hours Test 03/07/17 17:22 03/07/17 17:28 03/07/17 19:30 Range/Units White Blood Count 1.29 4.8-10.8 K/uL Red Blood Count 4.26 4.2-5.4 M/uL Hemoglobin 13.5 12.0-16.0 g/dL Hematocrit 36.9 37-47 % Mean Corpuscular Volume 86.6 80-100 fL Mean Corpuscular Hemoglobin 31.7 25-34 pg Mean Corpuscular Hemoglobin Concent 36.6 32-36 g/dl Platelet Count 107 130-400 K/uL Mean Platelet Volume 8.7 7.4-10.4 fL Neutrophils (%) (Auto) 69.8 % Lymphocytes (%) (Auto) 12.4 % Monocytes (%) (Auto) 14.7 % Eosinophils (%) (Auto) 2.3 % Basophils (%) (Auto) 0.0 % Neutrophils # (Auto) 0.90 1.4-6.5 K/uL Lymphocytes # (Auto) 0.16 1.2-3.4 K/uL Monocytes # (Auto) 0.19 0.11-0.59 K/uL Eosinophils # (Auto) 0.03 0-0.5 K/uL Basophils # (Auto) 0.00 0-0.2 K/uL RDW Standard Deviation 42.8 36.4-46.3 fL RDW Coefficient of Variation 13.8 11.5-14.5 % Immature Granulocyte % (Auto) 0.8 % Immature Granulocyte # (Auto) 0.01 0.00-0.02 K/uL Platelet Estimate DECREASED Red Blood Cell Morphology Unremarkable Prothrombin Time 11.5 9.0-12.0 SECONDS Prothromb Time International Ratio 1.1 0.9-1.1 Activated Partial Thromboplast Time 28.7 21.0-31.0 SECONDS Partial Thromboplastin Ratio 1.1 Sodium Level 130 136-145 mmol/L Potassium Level 2.7 3.5-5.1 mmol/L Chloride Level 87 98-107 mmol/L Carbon Dioxide Level 31 21-32 mmol/L Anion Gap 12.0 3-11 mmol/L Blood Urea Nitrogen 33 7-18 mg/dl Creatinine 0.76 0.60-1.20 mg/dl Est Creatinine Clear Calc Drug Dose 61.1 ml/min Estimated GFR () 91.5 Estimated GFR (Non- 78.9 BUN/Creatinine Ratio 43.1 10-20 Random Glucose 126 70-99 mg/dl Lactic Acid Level 1.1 0.4-2.0 mmol/L Calcium Level 9.2 8.5-10.1 mg/dl Total Bilirubin 0.5 0.2-1 mg/dl Direct Bilirubin 0.1 0-0.2 mg/dl Aspartate Amino Transf (AST/SGOT) 27 15-37 U/L Alanine Aminotransferase (ALT/SGPT) 18 12-78 U/L Alkaline Phosphatase 79 45-117 U/L Troponin I 0.212 0-0.045 ng/ml Total Protein 7.3 6.4-8.2 gm/dl Albumin 3.3 3.4-5.0 gm/dl Lipase 308 73-393 U/L Influenza Type A Antigen POS for Influ A NEG Influenza Type B Antigen Neg for Influ B NEG Urine Color DK YELLOW Urine Appearance CLOUDY CLEAR Urine pH 5.5 4.5-7.5 Urine Specific [place] 1.025 1.000-1.030 Urine Protein 2+ NEG Urine Glucose (UA) TRACE NEG Urine Ketones 2+ NEG Urine Occult Blood NEG NEG Urine Nitrite NEG NEG Urine Bilirubin NEG NEG Urine Urobilinogen NEG NEG Urine Leukocyte Esterase NEG NEG Urine WBC (Auto) 5-10 0-5 /hpf Urine RBC (Auto) 10-30 0-4 /hpf Urine Hyaline Casts (Auto) 10-30 0-5 /lpf Urine Epithelial Cells (Auto) >30 0-5 /lpf Urine Bacteria (Auto) NEG NEG Urine Renal Epithelial Cells 0-5 /lpf Urine Pathogenic Casts See comments 0 /lpf Urine Mucus PRESENT NONE PRSENT Microbiology Results 03/07/17 Blood Culture, Received Pending 03/07/17 Blood Culture, Received Pending Diagnostic Radiology CXR:IMPRESSION: 1. Emphysema and chronic interstitial thickening 2. Interval decrease in the size of the small right pleural effusion with improving aeration of the right lung base EKG Sinus tach at rate of 112 , lat and inf T wv inversions with minimal ST depressions - may resemble a strain pattern, LVH, QTc 521 Impression Assessment and Plan 72 y/o F Hx multiple Kim including breast, endometrial, melanoma. Recent diagnosis of metastatic R lung adenocarcinoma confirmed on biopsy/pathology 11/23. Pt has commenced a tunica-biloxi-based chemo regimen. She received chemotherapy the prior and has had persistent nausea and vomiting since that time. She presents with weakness, n/v primarily and also reports a fever 2 days prior and a cough which has been present for a few months but may have worsened over the past few days. Initial labs obtained in the ER are notable for a (+) rapid flu, hypokalemia, hyponatremia, neutropenia, an elevated trop and are otherwise consistent with dehydration. An EKG displays tachycardia with widespread depressions. She denies CP. She feels chronically SOB. 1) SOB, tachycardia - abnormal EKG and trop elevation. This may be the effect of rate related changes and dehydration in the setting of acute illness. The EKG may also be consistent with a strain pattern and she has confirmed underlying CA and an elevated trop. We are inclined therefore to send her for a CTA. This would rule out a PE and may also reveal an occult PNM which would then have to be treated as post-viral. We will provide her with PRN nebs and place her on an 02 protocol pending the results. 2) Regarding her elevated trop. We will trend her enzymes on telemetry and provide full-dose anticoagulation. This can be DCd if no PE is present and the trop is trending down on a repeat. She will be placed on daily ASA as well and an echo will be ordered. 3) Influenza A - confirmed - receiving Tamiflu 4) Dehydration, hypokalemia, hyponatremia - aggressive IVF provided - electrolytes replaced. 5) Met CA - neutropenia - would consult oncology if there is worsening - treat N /V with IVF and antiemetics as this is likely the result of her chemo 6) Hyperthyroidism - cont Methimazole 7) RA - can cont Plaquenil, MTX as outpt if needed - she is immunosuppressed from chemo Full code - full dose Heparin Total time for this admit including review of labs, meds, imaging, records - discussion with pt, , ER attending - 45 min Level of Care Telemetry Resuscitation Status FULL RESUSCITATION VTE Prophylaxis VTE Risk Assessment Done? Y/N: Yes Risk Level: High Given or contraindicated: Other Anticoagulation
[2017-03-07] MEDS ORDERED: MAGNESIUM SULFATE 1GM / D5W 1 GM in PREMIXED IN D5W 100 ML IV SCH (20:45)
[2017-03-07] MEDS ORDERED: METOCLOPRAMIDE HCL INJ 5 MG/ML 2 ML VIAL IV. PRN (21:00)
[2017-03-07] MEDS ORDERED: OPTIRAY 320 IV PRN (21:15)
--- NOTE | 2017-03-07 21:17 | DIAGNOSTIC IMAGING REPORT ---
CT ANGIOGRAM OF THE CHEST CLINICAL HISTORY: Dehydration. Breast cancer. COMPARISON STUDY: Chest CT dated 01/12/2017. Chest x-ray dated 03/07/2017 and 07/30/2008. PET/CT dated 01/23/2017. TECHNIQUE: Following the IV administration of 76 cc of Optiray 320, CT angiogram of the chest was performed from the upper abdomen to the thoracic inlet utilizing the pulmonary embolus protocol. Images are reviewed in the axial, sagittal, and coronal planes. 3-D MIPS images are created and assessed. IV contrast was administered without complication. A dose lowering technique was utilized adhering to the principles of ALARA. CT DOSE: 189.10 mGy.cm FINDINGS: Thyroid: Imaged portions of the thyroid gland are normal in size and attenuation. Thoracic aorta: There is mild atherosclerotic calcification of the thoracic aorta, which is normal in caliber and demonstrates standard 3-vessel arch anatomy. No dissection is seen. Pulmonary vasculature: The pulmonary trunk is normal in caliber. There are no filling defects identified in main, lobar, or segmental pulmonary branches to suggest pulmonary embolus. Heart: The heart is normal in size and configuration, and without pericardial effusion. Lungs and pleural spaces: Emphysema is identified. The trachea and central airways are clear. There is a small to moderate right pleural effusion with associated basilar consolidation. A right lower lobe mass lesion is again seen on image #77. This measures approximately 4.4 x 2.5 cm. Intralobular septal thickening is seen throughout the right lower lobe. Foci of pleural-based nodularity are seen along the right major fissure. The appearance suggests lymphangitic spread of tumor. Foci of atelectasis versus scarring are present throughout both lungs. No left-sided pulmonary lesion is identified. Mediastinum: There is no mediastinal lymphadenopathy. Leslie: There are enlarged right hilar lymph nodes. These measure up to 1.2 cm in short axis. Axillae: There is no axillary lymphadenopathy. Surgical clips are identified in both axillae. Upper abdomen: There are small calcified splenic granulomas. Partially visualized upper abdominal viscera is within normal limits. Skeletal structures: The skeletal structures are osteopenic. Mild degenerative changes seen in the thoracic spine and shoulders. Numerous osteolytic bone lesions are identified. The largest lesion is seen in the body of T9. Additional lesions are seen in the body of T2, T3, and T4. Soft tissues: The right breast is surgically absent. Surgical clips are noted in the left breast. IMPRESSION: 1. There is no evidence of pulmonary embolus in the main, lobar, or segmental pulmonary arteries. 2. A small to moderate right pleural effusion has increased in size from 01/12/2017. There is associated right basilar consolidation. This could represent atelectasis versus pneumonia. Clinical correlation will be required. 3. An irregular mass lesion is again seen at the right lung base. 4. Intralobular septal thickening and nodularity as well as pleural-based nodularity is seen in the right lower lung. This likely represents metastatic disease/lymphangitic spread of tumor. 5. Emphysema. 6. No left-sided pulmonary lesion is identified. 7. 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 8. Right hilar adenopathy. 9. Additional findings as above. Electronically signed by: Josh Jacome M.D. 03/07/2017 9:16 PM Dictated Date/Time: 03/07/2017 9:04 PM
[2017-03-07 21:21] VITALS: BP 162/91; PULSE 108; TEMP 37.4; Ht 170.2 cm; Wt 57.5 kg
[2017-03-07] MEDS ORDERED: FENTANYL 12 MCG/HR TDSY TD PRN (22:00)
[2017-03-07 22:04] LABS: CALCIUM 8.7 mg/dl (8.5-10.1); CREATININE 0.64 mg/dl (0.60-1.20); POTASSIUM 2.7 mmol/L (3.5-5.1)
[2017-03-07] MEDS: HEPARIN 25,000 UNIT/500ML D5W 500 ML IV PRN (23:27)
[2017-03-07] MEDS: NSS + 20MEQ KCL 1000ML 1,000 ML IV SCH (23:29)
[2017-03-07] MEDS: OSELTAMIVIR PHOSPHATE 75 MG CAP PO SCH (23:30)
[2017-03-07] MEDS: METHIMAZOLE 5 MG TAB PO SCH (23:31)
[2017-03-07] MEDS: HYDROXYCHLOROQUINE SULFATE 200 MG TAB PO SCH (23:31)
[2017-03-07 23:48] VITALS: BP 148/89; PULSE 100; TEMP 37.5; O2SAT 95
[2017-03-08] VITALS (7 sets, daily range): BP systolic 129–150; BP diastolic 78–88; PULSE 89–110; TEMP 36.5–37.4; O2SAT 91–96
[2017-03-08] MEDS ORDERED: ALBUT/IPRATROP 3MG/0.5MG NEB 3 ML VIAL INH PRN (00:30)
[2017-03-08] MEDS ORDERED: VANCOMYCIN CONSULT ACTIVE PRN ×2 (00:30→09:15)
[2017-03-08] MEDS ORDERED: LEVOFLOXACIN CONSULT ACTIVE PRN (01:45)
[2017-03-08] MEDS ORDERED: VANCOMYCIN INJ 1,250 MG in SODIUM CHLORIDE 0.9% 250ML 250 ML IV ONE (02:00)
[2017-03-08] MEDS ORDERED: LEVOFLOXACIN / D5W 750 MG in PREMIXED IN D5W 150 ML IV SCH (04:00)
[2017-03-08 05:28] LABS: HEMOGLOBIN 10.8 g/dL (12.0-16.0); MEAN CELL VOLUME 87.7 fL (80-100); MEAN CORPUSCULAR HEMOGLOBIN 31.6 pg (25-34); RED CELL DISTRIBUTION WIDTH CV 13.6 % (11.5-14.5); RED CELL DISTRIBUTION WIDTH SD 43.5 fL (36.4-46.3); WHITE BLOOD COUNT 1.08 K/uL (4.8-10.8)
[2017-03-08 05:57] LABS: PTT PATIENT 54.4 SECONDS (21.0-31.0)
[2017-03-08 05:59] LABS: CALCIUM 7.9 mg/dl (8.5-10.1); CREATININE 0.41 mg/dl (0.60-1.20); POTASSIUM 2.7 mmol/L (3.5-5.1)
[2017-03-08] MEDS: NSS + 20MEQ KCL 1000ML 1,000 ML IV SCH ×2 (06:16→17:33)
[2017-03-08 06:32] LABS: MEAN PLATELET VOLUME 8.4 fL (7.4-10.4); PLATELET COUNT 89 K/uL (130-400)
--- NOTE | 2017-03-08 07:53 | Clinical Documentation Query ---
CLINICAL DOCUMENTATION QUERY A 72 year old white female with a past medical history of HTN, hyperthyroidism, breast and endometria CA, and melanoma who presents to the ED with a cc of intermittent vomiting beginning a couple days ago. She had chemo 5 days ago and radiation therapy. Also c/o SOB, cough and fever. In your clinical opinion is this patient being managed for: ( x ) Type 2 IA due to demand ischemia ( ) Not Agree ( ) Other explanation of clinical findings (Please Explain) ( ) Unable to determine (Please Define) ( ) Need to Discuss The medical record reflects the following clinical findings, treatment, and risk factors. Clinical Indicators: Troponins 0.212 peaking at 0.251, possible inferior/anterolateral ischemia on EKG, tachycardia, SOB, dyspnea, + influenza A, dehydration, vomiting/nausea Treatment: O2, telemetry, serial troponins, echocardiogram, serial EKGs Risk Factors: Age, current chemotherapy, + influenza A, HTN Please clarify and document your clinical opinion in the progress notes and discharge summary. Terms such as "probable", "suspected", "likely", "questionable", "possible", or "still to be ruled out" are acceptable. IF IN AGREEMENT, YOU MUST DOCUMENT ABOVE DIAGNOSTIC STATEMENT IN DAILY PROGRESS NOTES AND DISCHARGE SUMMARY. This document is not part of the patient's record. Thank You, Cheli Nickerson RN [phone]
[2017-03-08] MEDS: CHECK FENTANYL PATCH PLACEMENT SCH ×5 (08:00→22:27)
[2017-03-08] MEDS: RANITIDINE HCL 150 MG TAB PO PRN (08:29)
[2017-03-08] MEDS: OSELTAMIVIR PHOSPHATE 75 MG CAP PO SCH ×2 (08:29→20:17)
[2017-03-08] MEDS: ASPIRIN 81 MG CHEW PO SCH (08:29)
[2017-03-08] MEDS: BENZONATATE 100MG CAP PO PRN ×2 (08:30→16:34)
[2017-03-08] MEDS ORDERED: CEFEPIME IV 2,000 MG in DEXTROSE 5% 100ML 100 ML IV SCH (09:15)
[2017-03-08 09:32] LABS: EOS % 2.6 %; EOS ABS # 0.03 K/uL (0-0.5); IG# 0.01 K/uL (0.00-0.02); LYMPH % 6.9 %; LYMPH ABS # 0.08 K/uL (1.2-3.4); MONO % 22.4 %; MONO ABS # 0.26 K/uL (0.11-0.59); NEUT % 67.2 %; NEUT ABS # 0.78 K/uL (1.4-6.5)
[2017-03-08] MEDS: SUCRALFATE 1 GM/10 ML UDC PO PRN ×2 (10:04→16:35)
[2017-03-08] MEDS: CEFEPIME IV 2,000 MG in SYRINGE 7.5 ML IV SCH ×2 (10:05→17:52)
[2017-03-08] MEDS: POTASSIUM CHLR 10 MEQ / WTR 10 MEQ in PREMIXED WATER 100 ML IV SCH ×6 (10:06→18:34)
--- NOTE | 2017-03-08 11:38 | Pharmacy Progress Note ---
Pharmacy Abx Initial Consult Date of Service Mar 08, 2017. Pharmacy Dosing Scope Date of Consult: 03/08/17 Consultation requested by: Dr. Morris Pharmacy is consulted to initiate Vancomycin IV dosing therapy, order appropriate labs and adjust drug dose/frequency. Subjective The patient is a 72 year old female admitted on Mar 07, 2017 at 19:57. Objective Height (Feet): 5 Height (Inches): 7.00 Weight (Kilograms): 56.600 Vital Signs (Past 12Hrs) Vital Signs Past 12 Hours Date Time Temp Pulse Resp B/P (MAP) Pulse Ox O2 Delivery O2 Flow Rate FiO2 03/08/17 08:00 37.0 108 16 134/80 (98) 92 Room Air 03/08/17 08:00 Room Air 03/08/17 04:00 Room Air 03/08/17 03:38 37.3 99 17 143/78 (99) 91 Room Air 03/08/17 00:01 Room Air 03/07/17 23:48 37.5 100 18 148/89 (108) 95 Lab Results (24Hrs) Laboratory Tests (24 Hours) Test 03/07/17 17:22 03/08/17 04:29 Lactic Acid Level 1.1 mmol/L (0.4-2.0) White Blood Count 1.08 K/uL (4.8-10.8) L Red Blood Count 3.42 M/uL (4.2-5.4) L Hemoglobin 10.8 g/dL (12.0-16.0) L Hematocrit 30.0 % (37-47) L Mean Corpuscular Volume 87.7 fL (80-100) Mean Corpuscular Hemoglobin 31.6 pg (25-34) Mean Corpuscular Hemoglobin Concent 36.0 g/dl (32-36) Platelet Count 89 K/uL (130-400) L Mean Platelet Volume 8.4 fL (7.4-10.4) Neutrophils (%) (Auto) 67.2 % Lymphocytes (%) (Auto) 6.9 % Monocytes (%) (Auto) 22.4 % Eosinophils (%) (Auto) 2.6 % Basophils (%) (Auto) 0.0 % Neutrophils # (Auto) 0.78 K/uL (1.4-6.5) *L Lymphocytes # (Auto) 0.08 K/uL (1.2-3.4) L Monocytes # (Auto) 0.26 K/uL (0.11-0.59) Eosinophils # (Auto) 0.03 K/uL (0-0.5) Basophils # (Auto) 0.00 K/uL (0-0.2) Micro Results Date/Time Source Procedure Growth Status 03/07/17 17:32 Blood Blood Culture Pending Received 03/07/17 17:22 Blood Blood Culture Pending Received 03/08/17 10:00 Nasal MRSA DNA Surveillance Screen Pending Received Risk Factors for Resistance * Immunocompromised: chemotherapy * Antimicrobial use within the last 90 days: LVQ 750 X1 03/08/17 Assessment & Plan Assessment Pt is a 72yo F p/w SOB. Ms. Husain is immunosuppressed /2 to ChTx. She is being started on Vancomycin and Cefepime. Pt population p'kinetics: t1/2=11.1, ke=0.0625. MRSA nares and BC are both pending. No h/o MDRO. Plan Vancomycin * 1250mg (13mg/kg) IV x1 to achieve a peak ~32mcg/mL * Then 1000mg (18mg/kg) q12 set to start at 1400 * Vanco trough ordered for 03/10/17 @ 0130 * Goal trough for pulmonary source in the setting of immunocompromised pt :15- 20mcg/mL Cefepime * Not consulted but appropriately dosed for Pulmonary source Pharmacy will continue to follow and will adjust dose/frequency as necessary. Thank you.
[2017-03-08] MEDS: PANTOprazole INJ 40 MG in SYRINGE 0 ML IV SCH (12:43)
[2017-03-08 13:24] LABS: PTT PATIENT 87.7 SECONDS (21.0-31.0)
[2017-03-08] MEDS: HEPARIN 25,000 UNIT/500ML D5W 500 ML IV PRN (14:06)
[2017-03-08] MEDS: VANCOMYCIN INJ 1,000 MG in SODIUM CHLORIDE 0.9% 250ML 250 ML IV SCH (14:19)
--- NOTE | 2017-03-08 15:21 | ECHOCARDIOGRAM REPORT ---
*NOTICE TO RECEIVING [employer] This information is strictly Confidential and protected under [place] law. [place] law prohibits you from making any further disclosure of this information unless further disclosure is expressly permitted by the written consent of the person to whom it pertains or is authorized by law. A general authorization for the release of medical or other information is not sufficient for this purpose. Hospital accepts no responsibility if the information is made available to any other person, INCLUDING THE PATIENT. Interpretation Summary * Name: DIEGO WADE Study Date: 03/08/2017 02:02 PM BP: 143/78 mmHg * Patient Location: .2T\S\S232\S\1 HR: 106 * : 1945 (M/d/yyyy) Gender: Female Height: 67 in * Age: 72 yrs Ethnicity: CA Weight: 121 lb * Ordering Physician: Brandon Morris * Referring Physician: Self, Referred * Performed By: Lee Ann Bullock RCS * * Reason For Study: ELEVATED TROPONIN * BSA: 1.6 m2 * -- Conclusions -- * 1. Normal LV size. Mild concentric LVH. * 2. Normal LV systolic function. LVEF 55-60 %. Base to mid moderate inferior hypokinesis. * 3. Normal RV size and function. * 4. Mild aortic regurgitation. Trace mitral regurgitation. * 5. Normal estimated PA and RA pressures. * 6. Borderline dilated ascending aorta (3.9 cms) * 7. Compared with prior resting images from study on 04/12/2012: Inferior wall motion abnormality is new. Procedure Details * A complete two-dimensional transthoracic echocardiogram was performed (2D, M-mode, Doppler and color flow Doppler). Left Ventricle * The left ventricle is grossly normal size. * There is mild concentric left ventricular hypertrophy. * Ejection Fraction = 55-60%. * Base to mid moderate inferior hypokinesis Right Ventricle * The right ventricle is grossly normal size. Atria * The left atrial size is normal. * Right atrial size is normal. * No ASD detected; PFO is not assessed. Mitral Valve * The mitral valve is grossly normal. * There is no mitral valve stenosis. * There is trace mitral regurgitation. Tricuspid Valve * There is trace tricuspid regurgitation. * Right ventricular systolic pressure is elevated at 30-40mmHg. Aortic Valve * The aortic valve opens well. * The aortic valve is trileaflet. * No hemodynamically significant valvular aortic stenosis. * Mild aortic regurgitation. Pulmonic Valve * The pulmonary valve is inadequately visualized, but the Doppler data is adequate for interpretation. * Pulmonic stenosis is absent. * Trace pulmonic valvular regurgitation. Great Vessels * Borderline dilated ascending aorta. * Asc aorta 3.9 cm Pericardium/Pleural * There is no pericardial effusion. Great Vessels * Normal inferior vena cava size and collapsability with sniff indicates a normal right atrial pressure of 3 mmHg * There is no evidence of pulmonary hypertension. The PA systolic pressure is less than 36 mmHg. MMode 2D Measurements and Calculations IVSd 1.4 cm IVSs 1.7 cm LVIDd 4.5 cm LVIDs 3.1 cm LVPWd 1.2 cm LVPWs 1.4 cm IVS/LVPW 1.2 FS 31.7 % EDV(Teich) 93.7 ml ESV(Teich) 37.7 ml EF(Teich) 59.8 % EDV(cubed) 92.7 ml ESV(cubed) 29.6 ml EF(cubed) 68.1 % % IVS thick 23.6 % % LVPW thick 15.8 % LV mass(C)d 217.2 grams LV mass(C)dI 133.0 grams/m\S\2 LV mass(C)s 168.8 grams LV mass(C)sI 103.4 grams/m\S\2 SV(Teich) 56.0 ml SI(Teich) 34.3 ml/m\S\2 SV(cubed) 63.2 ml SI(cubed) 38.7 ml/m\S\2 Ao root diam 3.2 cm Ao root area 7.9 cm\S\2 ACS 2.1 cm LA dimension 2.7 cm LA/Ao 0.86 LVOT diam 2.0 cm LVOT area 3.3 cm\S\2 LVAd ap4 33.0 cm\S\2 LVLd ap4 7.8 cm EDV(MOD-sp4) 112.0 ml EDV(sp4-el) 117.9 ml LVAs ap4 21.9 cm\S\2 LVLs ap4 7.0 cm ESV(MOD-sp4) 57.1 ml ESV(sp4-el) 58.1 ml EF(MOD-sp4) 49.0 % EF(sp4-el) 50.7 % LVAd ap2 25.1 cm\S\2 LVLd ap2 7.0 cm EDV(MOD-sp2) 74.2 ml EDV(sp2-el) 76.8 ml LVAs ap2 14.2 cm\S\2 LVLs ap2 5.8 cm ESV(MOD-sp2) 28.0 ml ESV(sp2-el) 29.2 ml EF(MOD-sp2) 62.3 % EF(sp2-el) 61.9 % LVLd %diff -12.53 % EDV(MOD-bp) 97.2 ml LVLs %diff -20.37 % ESV(MOD-bp) 42.6 ml EF(MOD-bp) 56.2 % SV(MOD-sp4) 54.9 ml SI(MOD-sp4) 33.6 ml/m\S\2 SV(MOD-sp2) 46.3 ml SI(MOD-sp2) 28.3 ml/m\S\2 SV(MOD-bp) 54.6 ml SI(MOD-bp) 33.4 ml/m\S\2 SV(sp4-el) 59.7 ml SI(sp4-el) 36.6 ml/m\S\2 SV(sp2-el) 47.6 ml SI(sp2-el) 29.1 ml/m\S\2 Doppler Measurements and Calculations MV E max shonda 4.6 cm/sec MV A max shonda 10.5 cm/sec MV E/A 0.43 Ao V2 max 152.7 cm/sec Ao max PG 9.3 mmHg Ao max PG (full) 4.4 mmHg DAVID(V,A) 2.4 cm\S\2 DAVID(V,D) 2.4 cm\S\2 LV V1 max PG 4.9 mmHg LV V1 max 111.1 cm/sec TR max shonda 255.8 cm/sec
--- NOTE | 2017-03-08 15:24 | Palliative Care Consultation ---
Consultation Date of Consultation: Mar 08, 2017. Requesting Physician: Dr. Rodriguez Attending Physician: Dr. Rodriguez Reason for Consultation: Code status, goals of care History of Present Illness This 72 year old female patient with PMH breast cancer, endometrial cancer, melanoma, recent dx adenocarcinoma of the lung currently on chemotherapy, and s/ p radiation, presented to the hospital yesterday with dehydration, influenza A, electrolyte imbalance, N/V, weakness, and electrolyte imbalance. She has elevated troponin and EKG changes, so she was admitted to telemetry on heparin infusion. Cardiology is on board, echocardiogram to be done today. Troponin is trending down-- per cardiology, if echo is okay, will discontinue heparin infusion. Her potassium is being replaced via IV. Patient reports feeling quite ill since starting her chemotherapy. She has never had a discussion about advance care planning or code status. Palliative care is consulted to discuss goals of care. I met with the patient in room 232. She is awake, alert and oriented x4. Denies any pain or discomfort at this time. Patient states, "I feel better from when I came in." Patient expressed to me that she has not been feeling well since starting chemotherapy. She is weak, feels run down, and was experiencing nausea. She also had 10 radiation treatments and was experiencing some pain in esophagus as a result which has since subsided. She states, "I know this isn't curable, and I know it's not going to end well. I've had cancer 4 times, and this has been the worst." However, Cherelle is not ready to "throw in the towel." She says she was shocked when she was asked about code status when she was admitted, but now says she understands why. We discussed code status in detail and she states for now she wishes to remain full code/resuscitation status. However, if she were to ever end up in ICU intubated, and she was not able to recover, she would never want to live on machines long-term and would want to be made comfortable at that point. Her first, then sons, are her chosen decision makers if she is unable. Past Medical/Surgical History Medical History: Hyperthyroidism Breast cancer Endometrial cancer Melanoma Metastatic adenocarcinoma of the lung Arthritis Social History Smoking Status: Never Smoker History of Alcohol Use: Yes Marital Status: Review of Systems Constitutional: + weakness, No fever, No chills ENT: No trouble swallowing Respiratory: + cough, + dyspnea on exertion, No sputum, No wheezing, No dyspnea at rest Cardiac: No chest pain, No edema Abdomen: + nausea, No pain, No vomiting Female : No problem reported Psychiatric: No depression symptoms, No anxiety Allergies Coded Allergies: Penicillins (Verified Allergy, Unknown, RASH, 02/01/17) Codeine (Verified Adverse Reaction, Unknown, GI UPSET, 02/01/17) Morphine and Related (Verified Adverse Reaction, Unknown, SEVERE NAUSEA, 02/01/17) Medications Current Inpatient Medications Medications (Trade) Dose Ordered Sig/Stephanie Route Start Time Stop Time Status Last Admin Dose Admin Oseltamivir Phosphate (Tamiflu Cap) 75 mg BID PO 03/07/17 21:00 03/12/17 20:59 03/08/17 08:29 75 MG Benzonatate (Tessalon Perles Cap) 200 mg TID PRN PO 03/07/17 20:00 04/06/17 19:59 03/08/17 08:30 200 MG Fentanyl (Duragesic Patch) 12 mcg Q72H PRN TD 03/07/17 22:00 03/21/17 21:59 Folic Acid (Folvite Tab) 1 mg DAILY PO 03/08/17 09:00 04/07/17 08:59 03/08/17 08:29 1 MG Hydroxychloroquine Sulfate (Plaquenil Tab) 100 mg HS PO 03/07/17 21:00 04/06/17 20:59 03/07/17 23:31 100 MG Methimazole (Methimazole Tab) 5 mg HS PO 03/07/17 21:00 04/06/17 20:59 03/07/17 23:31 5 MG Ranitidine HCl (zANTac TAB) 150 mg DAILY PRN PO 03/07/17 20:00 04/06/17 19:59 03/08/17 08:29 150 MG Miscellaneous Information (Order Awaiting Action) 1 ea QS N/A 03/08/17 08:00 04/07/17 07:59 Aspirin (Aspirin Chew) 81 mg DAILY PO 03/08/17 09:00 04/07/17 08:59 03/08/17 08:29 81 MG Acetaminophen (Tylenol Tab) 650 mg Q4H PRN PO 03/07/17 20:00 04/06/17 19:59 Al Hydrox/Mg Hydrox/Simethicone (Maalox Max Susp) 15 ml Q4H PRN PO 03/07/17 20:00 04/06/17 19:59 Magnesium Hydroxide (Milk Of Magnesia Susp) 30 ml Q12H PRN PO 03/07/17 20:00 04/06/17 19:59 Ondansetron HCl (Zofran Inj) 4 mg Q6H PRN IV 03/07/17 20:00 04/06/17 19:59 03/08/17 06:16 4 MG Nitroglycerin (Nitrostat Tab) 0.4 mg UD PRN SL 03/07/17 20:00 04/06/17 19:59 Polyethylene (Miralax Powder Packet) 17 gm DAILY PRN PO 03/07/17 20:00 04/06/17 19:59 Metoclopramide HCl (Reglan Inj) 5 mg Q8H PRN IV. 03/07/17 21:00 04/06/17 20:59 03/08/17 08:33 5 MG Ioversol (Optiray 320) 76 ml UD PRN IV 03/07/17 21:15 03/11/17 21:14 Heparin Sodium/ Dextrose 500 ml @ 19 mls/hr Q24H PRN IV 03/07/17 21:30 04/06/17 21:29 03/08/17 14:06 19 MLS/HR Miscellaneous (Fentanyl Patch Remove & Waste) 1 ea Q3D@2159 N/A 03/10/17 21:59 04/09/17 21:58 Miscellaneous Information (Check Fentanyl Patch Placement) 1 ea QS N/A 03/08/17 00:00 04/07/17 00:00 Miscellaneous Information (Consult) 1 ea UD PRN N/A 03/08/17 00:30 04/07/17 00:29 Albuterol/ Ipratropium (Duoneb) 3 ml Q6H PRN INH 03/08/17 00:30 04/07/17 00:29 Sucralfate (Carafate Susp) 1 gm QID PRN PO 03/08/17 09:00 04/07/17 08:59 03/08/17 10:04 1 GM Pantoprazole Sodium 40 mg/ Syringe 10 ml @ 5 mls/min DAILY@11 IV 03/08/17 11:00 04/07/17 10:59 03/08/17 12:43 5 MLS/MIN Cefepime HCl 2000 mg/Syringe 20 ml @ 5 mls/min Q8H IV 03/08/17 10:00 03/15/17 09:59 03/08/17 10:05 5 MLS/MIN Vancomycin HCl 1000 mg/Sodium Chloride 270 ml @ 125 mls/hr Q12H IV 03/08/17 14:00 03/15/17 13:59 Physical Exam Date Time Temp Pulse Resp B/P (MAP) Pulse Ox O2 Delivery O2 Flow Rate FiO2 03/08/17 12:16 37.0 101 20 129/81 (97) 93 Room Air 03/08/17 12:00 Room Air 03/08/17 08:00 37.0 108 16 134/80 (98) 92 Room Air 03/08/17 08:00 Room Air 03/08/17 04:00 Room Air 03/08/17 03:38 37.3 99 17 143/78 (99) 91 Room Air 03/08/17 00:01 Room Air 03/07/17 23:48 37.5 100 18 148/89 (108) 95 03/07/17 21:21 37.4 108 18 162/91 Room Air 03/07/17 18:51 100 16 122/77 98 Room Air 03/07/17 17:38 98 Room Air 03/07/17 17:33 110 03/07/17 16:27 36.5 115 20 116/76 92 Room Air General Appearance: no apparent distress, + thin ENT: hearing grossly normal Neck: supple, no JVD Respiratory: lungs clear, no respiratory distress, no accessory muscle use Cardiovascular: regular rate, rhythm, no edema, + tachycardia, + normal peripheral pulses Abdomen: normal bowel sounds, non tender, soft Neurologic/Psychiatric: alert, normal mood/affect, oriented x 3 Skin: normal color Laboratory Results Last 24 Hours Test 03/07/17 17:22 03/07/17 17:28 03/07/17 19:30 03/07/17 21:25 White Blood Count 1.29 K/uL Red Blood Count 4.26 M/uL Hemoglobin 13.5 g/dL Hematocrit 36.9 % Mean Corpuscular Volume 86.6 fL Mean Corpuscular Hemoglobin 31.7 pg Mean Corpuscular Hemoglobin Concent 36.6 g/dl Platelet Count 107 K/uL Mean Platelet Volume 8.7 fL Neutrophils (%) (Auto) 69.8 % Lymphocytes (%) (Auto) 12.4 % Monocytes (%) (Auto) 14.7 % Eosinophils (%) (Auto) 2.3 % Basophils (%) (Auto) 0.0 % Neutrophils # (Auto) 0.90 K/uL Lymphocytes # (Auto) 0.16 K/uL Monocytes # (Auto) 0.19 K/uL Eosinophils # (Auto) 0.03 K/uL Basophils # (Auto) 0.00 K/uL RDW Standard Deviation 42.8 fL RDW Coefficient of Variation 13.8 % Immature Granulocyte % (Auto) 0.8 % Immature Granulocyte # (Auto) 0.01 K/uL Platelet Estimate DECREASED Red Blood Cell Morphology Unremarkable Prothrombin Time 11.5 SECONDS Prothromb Time International Ratio 1.1 Activated Partial Thromboplast Time 28.7 SECONDS Partial Thromboplastin Ratio 1.1 Sodium Level 130 mmol/L 132 mmol/L Potassium Level 2.7 mmol/L 2.7 mmol/L Chloride Level 87 mmol/L 92 mmol/L Carbon Dioxide Level 31 mmol/L 30 mmol/L Anion Gap 12.0 mmol/L 10.0 mmol/L Blood Urea Nitrogen 33 mg/dl 30 mg/dl Creatinine 0.76 mg/dl 0.64 mg/dl Est Creatinine Clear Calc Drug Dose 61.1 ml/min 70.0 ml/min Estimated GFR () 91.5 104.1 Estimated GFR (Non- 78.9 89.8 BUN/Creatinine Ratio 43.1 46.4 Random Glucose 126 mg/dl 105 mg/dl Lactic Acid Level 1.1 mmol/L Calcium Level 9.2 mg/dl 8.7 mg/dl Total Bilirubin 0.5 mg/dl Direct Bilirubin 0.1 mg/dl Aspartate Amino Transf (AST/SGOT) 27 U/L Alanine Aminotransferase (ALT/SGPT) 18 U/L Alkaline Phosphatase 79 U/L Troponin I 0.212 ng/ml 0.251 ng/ml Total Protein 7.3 gm/dl Albumin 3.3 gm/dl Lipase 308 U/L Influenza Type A Antigen POS for Influ A Influenza Type B Antigen Neg for Influ B Urine Color DK YELLOW Urine Appearance CLOUDY Urine pH 5.5 Urine Specific [place] 1.025 Urine Protein 2+ Urine Glucose (UA) TRACE Urine Ketones 2+ Urine Occult Blood NEG Urine Nitrite NEG Urine Bilirubin NEG Urine Urobilinogen NEG Urine Leukocyte Esterase NEG Urine WBC (Auto) 5-10 /hpf Urine RBC (Auto) 10-30 /hpf Urine Hyaline Casts (Auto) 10-30 /lpf Urine Epithelial Cells (Auto) >30 /lpf Urine Bacteria (Auto) NEG Urine Renal Epithelial Cells /lpf Urine Pathogenic Casts See comments /lpf Urine Mucus PRESENT Test 03/08/17 04:29 03/08/17 12:39 White Blood Count 1.08 K/uL Red Blood Count 3.42 M/uL Hemoglobin 10.8 g/dL Hematocrit 30.0 % Mean Corpuscular Volume 87.7 fL Mean Corpuscular Hemoglobin 31.6 pg Mean Corpuscular Hemoglobin Concent 36.0 g/dl Platelet Count 89 K/uL Mean Platelet Volume 8.4 fL Neutrophils (%) (Auto) 67.2 % Lymphocytes (%) (Auto) 6.9 % Monocytes (%) (Auto) 22.4 % Eosinophils (%) (Auto) 2.6 % Basophils (%) (Auto) 0.0 % Neutrophils # (Auto) 0.78 K/uL Lymphocytes # (Auto) 0.08 K/uL Monocytes # (Auto) 0.26 K/uL Eosinophils # (Auto) 0.03 K/uL Basophils # (Auto) 0.00 K/uL RDW Standard Deviation 43.5 fL RDW Coefficient of Variation 13.6 % Immature Granulocyte % (Auto) 0.9 % Immature Granulocyte # (Auto) 0.01 K/uL Platelet Estimate DECREASED Activated Partial Thromboplast Time 54.4 SECONDS 87.7 SECONDS Partial Thromboplastin Ratio 2.1 3.4 Sodium Level 132 mmol/L Potassium Level 2.7 mmol/L Chloride Level 93 mmol/L Carbon Dioxide Level 32 mmol/L Anion Gap 7.0 mmol/L Blood Urea Nitrogen 25 mg/dl Creatinine 0.41 mg/dl Est Creatinine Clear Calc Drug Dose 109.3 ml/min Estimated GFR () 120.5 Estimated GFR (Non- 103.9 BUN/Creatinine Ratio 60.3 Random Glucose 105 mg/dl Calcium Level 7.9 mg/dl Magnesium Level 2.3 mg/dl Troponin I 0.175 ng/ml Assessment & Plan Palliative Performance Scale: 60 % Problem list: Cough Fever- none since admission Nausea- improving Anemia Neutropenia Hypokalemia Hyponatremia Elevated troponin- trending down Influenza A Goals of care (Z51.5) Palliative care recs: discussed with patient and Dr. Rodriguez. -Patient wishes to remain full code at this time. -She understands that incurable nature of her disease, but wants to continue to fight for the time being. Patient still plans to pursue chemotherapy when discharged. Wants to stick with home health at discharge. -Patient asked, "So what do I do when I want to stop everything? I just want to be comfortable when the end is near." We discussed end of life planning and hospice for when the time comes. I explained hospice, their philosophy and the service they typically offer. Patient states she will talk with her oncologist when that time comes. -I did inform her of Dr. Galdamez's outpatient service which she will pursue if needed. - is first POA, then sons. If patient were to ever end up intubated in ICU, she was adamant that she would never want to be sustained on life support if there were no hope of meaningful recovery. She would want to be made comfort measures only at that point. Thank you kindly for this consult. I will follow peripherally for now. Please contact me with any further palliative care needs during this admission.
[2017-03-08 16:16] LABS: CALCIUM 7.8 mg/dl (8.5-10.1); CREATININE 0.36 mg/dl (0.60-1.20); POTASSIUM 3.2 mmol/L (3.5-5.1)
[2017-03-08] MEDS ORDERED: POTASSIUM CHLORIDE 10 MEQ TABCR PO STA (16:52)
[2017-03-08] MEDS ORDERED: PROCHLORPERAZINE INJ 5 MG in SYRINGE 4 ML IV PRN (17:15)
--- NOTE | 2017-03-08 17:31 | Hospitalist Progress Note ---
Hospitalist Progress Note Date of Service Mar 08, 2017. Subjective Pt evaluation today including: conversation w/ patient, conversation w/ specification consultant (Palliative Care, Cardiology) Was very nauseated earlier today and now tolerating some po. No chest pain. Has a bad cough. Tele with sinus tach from 90s-100s. Discussed case with Cardiology. All Other Systems: Reviewed and Negative Objective Vital Signs Date Time Temp Pulse Resp B/P (MAP) Pulse Ox O2 Delivery O2 Flow Rate FiO2 03/08/17 15:38 37.4 109 20 143/88 (106) 96 Room Air 03/08/17 12:16 37.0 101 20 129/81 (97) 93 Room Air 03/08/17 12:00 Room Air 03/08/17 08:00 37.0 108 16 134/80 (98) 92 Room Air 03/08/17 08:00 Room Air 03/08/17 04:00 Room Air 03/08/17 03:38 37.3 99 17 143/78 (99) 91 Room Air 03/08/17 00:01 Room Air 03/07/17 23:48 37.5 100 18 148/89 (108) 95 03/07/17 21:21 37.4 108 18 162/91 Room Air 03/07/17 18:51 100 16 122/77 98 Room Air 03/07/17 17:38 98 Room Air 03/07/17 17:33 110 Physical Exam General Appearance: no apparent distress (appears ill), + thin Eyes: normal inspection, sclerae normal ENT: hearing grossly normal, pharynx normal Neck: trachea midline Respiratory/Chest: no respiratory distress, no accessory muscle use, + rhonchi (diffuse) Cardiovascular: no edema, no murmur, + tachycardia (reg rhythm) Abdomen: normal bowel sounds, non tender, soft, no organomegaly Extremities: non-tender, normal inspection, no pedal edema, no calf tenderness Neurologic/Psychiatric: alert, normal mood/affect, oriented x 3 Skin: normal color, warm/dry, no rash Laboratory Results Last 24 Hours Test 03/07/17 17:22 03/07/17 17:28 03/07/17 19:30 03/07/17 21:25 White Blood Count 1.29 K/uL Red Blood Count 4.26 M/uL Hemoglobin 13.5 g/dL Hematocrit 36.9 % Mean Corpuscular Volume 86.6 fL Mean Corpuscular Hemoglobin 31.7 pg Mean Corpuscular Hemoglobin Concent 36.6 g/dl Platelet Count 107 K/uL Mean Platelet Volume 8.7 fL Neutrophils (%) (Auto) 69.8 % Lymphocytes (%) (Auto) 12.4 % Monocytes (%) (Auto) 14.7 % Eosinophils (%) (Auto) 2.3 % Basophils (%) (Auto) 0.0 % Neutrophils # (Auto) 0.90 K/uL Lymphocytes # (Auto) 0.16 K/uL Monocytes # (Auto) 0.19 K/uL Eosinophils # (Auto) 0.03 K/uL Basophils # (Auto) 0.00 K/uL RDW Standard Deviation 42.8 fL RDW Coefficient of Variation 13.8 % Immature Granulocyte % (Auto) 0.8 % Immature Granulocyte # (Auto) 0.01 K/uL Platelet Estimate DECREASED Red Blood Cell Morphology Unremarkable Prothrombin Time 11.5 SECONDS Prothromb Time International Ratio 1.1 Activated Partial Thromboplast Time 28.7 SECONDS Partial Thromboplastin Ratio 1.1 Sodium Level 130 mmol/L 132 mmol/L Potassium Level 2.7 mmol/L 2.7 mmol/L Chloride Level 87 mmol/L 92 mmol/L Carbon Dioxide Level 31 mmol/L 30 mmol/L Anion Gap 12.0 mmol/L 10.0 mmol/L Blood Urea Nitrogen 33 mg/dl 30 mg/dl Creatinine 0.76 mg/dl 0.64 mg/dl Est Creatinine Clear Calc Drug Dose 61.1 ml/min 70.0 ml/min Estimated GFR () 91.5 104.1 Estimated GFR (Non- 78.9 89.8 BUN/Creatinine Ratio 43.1 46.4 Random Glucose 126 mg/dl 105 mg/dl Lactic Acid Level 1.1 mmol/L Calcium Level 9.2 mg/dl 8.7 mg/dl Total Bilirubin 0.5 mg/dl Direct Bilirubin 0.1 mg/dl Aspartate Amino Transf (AST/SGOT) 27 U/L Alanine Aminotransferase (ALT/SGPT) 18 U/L Alkaline Phosphatase 79 U/L Troponin I 0.212 ng/ml 0.251 ng/ml Total Protein 7.3 gm/dl Albumin 3.3 gm/dl Lipase 308 U/L Influenza Type A Antigen POS for Influ A Influenza Type B Antigen Neg for Influ B Urine Color DK YELLOW Urine Appearance CLOUDY Urine pH 5.5 Urine Specific [place] 1.025 Urine Protein 2+ Urine Glucose (UA) TRACE Urine Ketones 2+ Urine Occult Blood NEG Urine Nitrite NEG Urine Bilirubin NEG Urine Urobilinogen NEG Urine Leukocyte Esterase NEG Urine WBC (Auto) 5-10 /hpf Urine RBC (Auto) 10-30 /hpf Urine Hyaline Casts (Auto) 10-30 /lpf Urine Epithelial Cells (Auto) >30 /lpf Urine Bacteria (Auto) NEG Urine Renal Epithelial Cells /lpf Urine Pathogenic Casts See comments /lpf Urine Mucus PRESENT Test 03/08/17 04:29 03/08/17 12:39 03/08/17 15:46 White Blood Count 1.08 K/uL Red Blood Count 3.42 M/uL Hemoglobin 10.8 g/dL Hematocrit 30.0 % Mean Corpuscular Volume 87.7 fL Mean Corpuscular Hemoglobin 31.6 pg Mean Corpuscular Hemoglobin Concent 36.0 g/dl Platelet Count 89 K/uL Mean Platelet Volume 8.4 fL Neutrophils (%) (Auto) 67.2 % Lymphocytes (%) (Auto) 6.9 % Monocytes (%) (Auto) 22.4 % Eosinophils (%) (Auto) 2.6 % Basophils (%) (Auto) 0.0 % Neutrophils # (Auto) 0.78 K/uL Lymphocytes # (Auto) 0.08 K/uL Monocytes # (Auto) 0.26 K/uL Eosinophils # (Auto) 0.03 K/uL Basophils # (Auto) 0.00 K/uL RDW Standard Deviation 43.5 fL RDW Coefficient of Variation 13.6 % Immature Granulocyte % (Auto) 0.9 % Immature Granulocyte # (Auto) 0.01 K/uL Platelet Estimate DECREASED Activated Partial Thromboplast Time 54.4 SECONDS 87.7 SECONDS Partial Thromboplastin Ratio 2.1 3.4 Sodium Level 132 mmol/L 132 mmol/L Potassium Level 2.7 mmol/L 3.2 mmol/L Chloride Level 93 mmol/L 97 mmol/L Carbon Dioxide Level 32 mmol/L 26 mmol/L Anion Gap 7.0 mmol/L 9.0 mmol/L Blood Urea Nitrogen 25 mg/dl 19 mg/dl Creatinine 0.41 mg/dl 0.36 mg/dl Est Creatinine Clear Calc Drug Dose 109.3 ml/min 128.1 ml/min Estimated GFR () 120.5 125.7 Estimated GFR (Non- 103.9 108.5 BUN/Creatinine Ratio 60.3 51.4 Random Glucose 105 mg/dl 113 mg/dl Calcium Level 7.9 mg/dl 7.8 mg/dl Magnesium Level 2.3 mg/dl Troponin I 0.175 ng/ml Assessment and Plan 72 y/o F Hx multiple Kim including breast, endometrial, melanoma. Recent diagnosis of metastatic R lung adenocarcinoma confirmed on biopsy/pathology 11/23 with mets in the bones. Pt has commenced a little [place] [employer]-based chemo regimen. She received chemotherapy the prior and has had persistent nausea and vomiting since that time. She presents with weakness, n/v primarily and also reports a fever 2 days prior and a cough which has been present for a few months but may have worsened over the past few days. Initial labs obtained in the ER are notable for a (+) rapid flu, hypokalemia, hyponatremia, neutropenia, an elevated trop and are otherwise consistent with dehydration. An EKG displays tachycardia with widespread depressions. She denies CP. She feels chronically SOB. SOB, tachycardia, Pneumonia, Sepsis, Influenza A - fevers at home, CTA Chest neg for PE but showed right lung mass, emphysema, and consolidation which is likely consistent with post-viral PNA. With leukopenia, neutropenia, thrombocytopenia-could be secondary to viral illness vs chemotherapy -dcd Levaquin due to prolonged QTc > 500 -start Cefepime, Vanco -continue PRN nebs -consider steroids if wheezing persists given emphysema seen on CT -continue IVFs for resuscitation as remains dry -neutropenic precautions Elevated troponin, abnormal EKG- troponin trended downward and likely secondary to demand ischemia. This may be the effect of rate related changes and dehydration in the setting of acute illness. The EKG may also be consistent with a strain pattern and she has confirmed underlying CA and an elevated trop. Seen by Cardiology, this is not consistent with ACS, but may indicate underlying CAD. ECHO with a new WMA in inferior wall, normal EF Was placed on heparin gtt but can now dc -continue ASA 81mg daily but hold if platelets decrease further -consider starting statin once influenza illness resolves as can cause myositis -start metoprolol 25mg po bid Appreciate Cardiology consult Dehydration, hypokalemia, hyponatremia - aggressive IVF provided - electrolytes replaced and are improving -follow PRP Met Lung CA/N/V likely related to recent chemotherapy/Pancytopenia- as this is likely the result of her chemo - would consult oncology if there is worsening -treat N/V with IVF and antiemetics-avoid Zofran due to prolonged QT Hyperthyroidism - cont Methimazole RA - can cont Plaquenil, hold MTX as she is immunosuppressed from chemo Full code - change to SQ Heparin Palliative Care consult requested by pt and family-plans to remain Full Code for now
--- NOTE | 2017-03-08 19:43 | CARDIOLOGY CONSULTATION ---
DATE OF CONSULTATION: 03/08/2017 CONSULTATION REQUESTED BY: Dr. Morris. REASON FOR CONSULTATION: Elevated troponin. HISTORY OF PRESENT ILLNESS: Ms. Husain is a very pleasant 72-year-old woman with a history of multiple prior malignancies including breast cancer, endometrial cancer, melanoma and now with metastatic lung adenocarcinoma with metastases to her pleura and lumbar spine actively receiving radiation and chemotherapy, who was admitted yesterday in the setting of decreased p.o. intake and was found to have active flu. As part of initial workup, was noted to have an elevated troponin which seth from 0.21 up to 0.25 and has subsequently trended down. Her initial EKG was remarkable for sinus tachycardia with diffuse ST depressions, most notably in the inferior leads. She was treated with IV fluids, Tamiflu, was started on heparin infusion for possible acute coronary syndrome. During all of this patient denies any chest pain. She reports dyspnea on exertion over the last 3 days. Denies any orthopnea, PND, palpitations or presyncope. Her prior cardiac history is remarkable for a negative stress test in 2012. She reports a remote cardiac catheterization which she was told had no significant coronary artery disease. PAST MEDICAL HISTORY: 1. Metastatic adenocarcinoma of the lung with metastases to the pleura and spine. 2. History of melanoma. 3. History of endometrial cancer. 4. History of breast cancer. 5. Rheumatoid arthritis. 6. Hypothyroidism. 7. Asthma. FAMILY HISTORY: No family history of premature coronary artery disease or sudden cardiac . SOCIAL HISTORY: No history of tobacco use. Denies any significant alcohol use or illicit drugs. She is , lives with her . HOME MEDICATIONS: Include amitriptyline, Citrucel, folic acid, hydroxychloroquine, ibuprofen, lorazepam, melatonin, methimazole, methotrexate, ranitidine, Systane and Zofran. ALLERGIES: INCLUDE CODEINE, PENICILLINS AND MORPHINE. REVIEW OF SYSTEMS: Ten point review of systems completed and otherwise negative unless stated in HPI. PHYSICAL EXAMINATION: VITAL SIGNS: Temperature 37.4, pulse 109, blood pressure 143/88 she is satting 96% on room air. GENERAL: The patient appears comfortable in no acute distress. HEENT: Sclerae are anicteric. Oropharynx is clear. Mucous membranes are moist. NECK: Supple with no lymphadenopathy. LUNGS: She has a few scattered crackles bilaterally. CARDIAC: Tachycardic but regular with no appreciable murmurs. ABDOMEN: Soft, nontender, nondistended with positive bowel sounds. EXTREMITIES: Warm. She had no significant lower extremity edema. She had intact distal pulses. SKIN: Shows no rash or lesions. NEUROLOGIC: Nonfocal. LABORATORY DATA: Sodium 132, potassium 2.7, BUN of 25, creatinine of 0.4. Troponins of 0.21-0.25-0.175, hemoglobin of 10.8, white blood cell count of 1.1 and platelets of 89. UA was unremarkable. Flu was positive. Imaging included a chest x-ray which showed emphysematous changes but no acute cardiopulmonary process. Chest CTA showed no evidence of PE. There was a small to moderate right pleural effusion which increased in size from January. Irregular mass was again seen in the right lung base. Echocardiogram showed normal LV function with new mild to moderate inferior hypokinesis. There was mild aortic regurgitation. Overall, EF was 55-60%. EKG on presentation showed sinus tachycardia with diffuse ST depressions, most notably in inferior leads and also across the precordium as well as LVH. IMPRESSION AND PLAN: 1. Metastatic adenocarcinoma of the lung. 2. Acute influenza infection. 3. Elevated troponin. 4. Dehydration. 5. Pancytopenia. 6. Rheumatoid arthritis. 7. Left ventricular wall motion abnormalities. Mrs. Husain is here in the setting of acute influenza infection after recently completing a course of radiation and chemotherapy. She has had significant decreased PO intake with dehydration and on presentation was tachycardic with notable ST changes on her presenting EKG. Her initial troponin was positive and subsequently trended down. During all of this, she has had no chest pain. Review of the patient's echocardiogram shows preserved LV function with a new subtle inferior wall motion abnormality. With the patient's EKG and wall motion abnormality on echo, likely that does have some underlying coronary artery disease however, overall suspicion for active acute coronary syndrome is relatively low. In that setting, would discontinue heparin infusion for ACS; Recommend starting low dose beta-camila and continuing aspirin. Further address cardiac risk factors when acute illness resolved. Otherwise, no additional cardiac testing necessary at this time. We will continue to follow while in the hospital. RENA
[2017-03-08] MEDS ORDERED: DEXTROMETHORPHAN POLYMR COMPLX 30 MG/5 ML UDP PO PRN (19:45)
[2017-03-08] MEDS: METOPROLOL TARTRATE 25 MG TAB PO SCH (20:16)
[2017-03-08] MEDS: METHIMAZOLE 5 MG TAB PO SCH (20:18)
[2017-03-08] MEDS: HYDROXYCHLOROQUINE SULFATE 200 MG TAB PO SCH (20:19)
[2017-03-08] MEDS: HEPARIN SOD 5000 UNIT/0.5 ML CARP SQ SCH (20:20)
[2017-03-08 20:28] LABS: PTT PATIENT 34.3 SECONDS (21.0-31.0)
[2017-03-08] MEDS ORDERED: VANCOMYCIN INJ 1,000 MG in SODIUM CHLORIDE 0.9% 250ML 250 ML IV SCH (21:00)
[2017-03-09] MEDS: NSS + 20MEQ KCL 1000ML 1,000 ML IV SCH ×3 (02:43→23:59)
[2017-03-09] MEDS: VANCOMYCIN INJ 1,000 MG in SODIUM CHLORIDE 0.9% 250ML 250 ML IV SCH ×2 (02:43→13:32)
[2017-03-09] MEDS: CEFEPIME IV 2,000 MG in SYRINGE 7.5 ML IV SCH ×3 (02:44→18:16)
[2017-03-09] MEDS ORDERED: NURSING DECISION MEDICATION ORDER SCH (03:00)
[2017-03-09 04:07] VITALS: BP 129/70; PULSE 92; TEMP 37.3; O2SAT 95
[2017-03-09 04:50] LABS: HEMATOCRIT 27.2 % (37-47); HEMOGLOBIN 9.7 g/dL (12.0-16.0); MEAN CELL VOLUME 86.3 fL (80-100); MEAN CORPUSCULAR HEMOGLOBIN 30.8 pg (25-34); RED CELL DISTRIBUTION WIDTH CV 13.4 % (11.5-14.5); RED CELL DISTRIBUTION WIDTH SD 42.3 fL (36.4-46.3); WHITE BLOOD COUNT 1.18 K/uL (4.8-10.8)
[2017-03-09 04:58] LABS: PTT PATIENT 33.5 SECONDS (21.0-31.0)
[2017-03-09 05:02] LABS: MEAN CORPUSCULAR HGB CONC 35.7 g/dl (32-36); MEAN PLATELET VOLUME 8.2 fL (7.4-10.4); PLATELET COUNT 62 K/uL (130-400)
[2017-03-09 05:06] LABS: CALCIUM 7.8 mg/dl (8.5-10.1); CREATININE 0.33 mg/dl (0.60-1.20)
[2017-03-09] MEDS ORDERED: COUGH DROP (SUGAR FREE) LOZ 24 LOZ/1 BOX LOZ PRN (05:30)
[2017-03-09] MEDS ORDERED: POTASSIUM CHLORIDE 20 MEQ TABCR PO ONE (05:45)
[2017-03-09] MEDS ORDERED: MAGNESIUM SULFATE 1GM / D5W 1 GM in PREMIXED IN D5W 100 ML IV ONE (05:45)
[2017-03-09 07:16] VITALS: BP 130/73; PULSE 99; TEMP 37; O2SAT 97
[2017-03-09] MEDS ORDERED: POTASSIUM CHLORIDE 20 MEQ TABCR PO STA (07:43)
[2017-03-09] MEDS: MAGNESIUM OXIDE 400 MG TAB PO SCH ×4 (07:51→21:11)
[2017-03-09] MEDS: OSELTAMIVIR PHOSPHATE 75 MG CAP PO SCH ×2 (07:51→21:12)
[2017-03-09] MEDS: METOPROLOL TARTRATE 25 MG TAB PO SCH ×2 (07:51→21:09)
[2017-03-09] MEDS: RANITIDINE HCL 150 MG TAB PO PRN (07:52)
[2017-03-09] MEDS: CHECK FENTANYL PATCH PLACEMENT SCH ×3 (07:53→21:17)
[2017-03-09] MEDS: ASPIRIN 81 MG CHEW PO SCH (07:53)
--- NOTE | 2017-03-09 08:29 | Hospitalist Progress Note ---
Hospitalist Progress Note Date of Service Mar 09, 2017. Subjective Pt evaluation today including: conversation w/ patient, conversation w/ family , physical exam, chart review, lab review, review of studies Pain: Back pain PO Intake: Fair Voiding: no voiding problems The patient was seen and examined this morning. Pt reports doing a little better today compared to yesterday. She has complaints of fatigue and generalized weakness today. Overnight her sleep was poor due to an ongoing dry cough. She has irritation in her throat as well from all the coughing. There is no sputum production. We discussed use of codeine cough syrup due to pts allergies. She has gotten nauseous with percocets in the past, but has not had any other reaction to codeine and certainly not anaphylaxis. She is agreeable to trial of hycodin cough syrup tonight to alleviate cough and help her sleep. She is up and ambulating but slowly compared to her baseline. She denies any lightheadedness or dizziness with standing. Her appetite is improved today. , Burt is present at bedside. All their questions and concerns were addressed. ROS: 6 point ROS reviewed and otherwise negative. Objective Vital Signs Date Time Temp Pulse Resp B/P (MAP) Pulse Ox O2 Delivery O2 Flow Rate FiO2 03/09/17 07:16 37.0 99 18 130/73 (92) 97 Room Air 03/09/17 04:07 37.3 92 18 129/70 (89) 95 Room Air 03/09/17 04:00 Room Air 03/08/17 23:59 Room Air 03/08/17 23:21 37.0 89 18 150/80 (103) 95 Room Air 03/08/17 20:00 Room Air 03/08/17 19:40 36.5 110 20 148/81 (103) 93 Room Air 03/08/17 18:03 110 18 95 Room Air 03/08/17 16:00 Room Air 03/08/17 15:38 37.4 109 20 143/88 (106) 96 Room Air 03/08/17 12:16 37.0 101 20 129/81 (97) 93 Room Air 03/08/17 12:00 Room Air Physical Exam General Appearance: WD/WN, no apparent distress, + thin, + pertinent finding ( affect somewhat flat) Eyes: PERRL, EOMI ENT: hearing grossly normal, pharynx normal, + pertinent finding (MMM) Neck: supple, no JVD Respiratory/Chest: chest non-tender, no respiratory distress, no accessory muscle use, + pertinent finding (on RA. +Rhonchi throughout ) Cardiovascular: no JVD, no murmur, + tachycardia (HR in mid 90s) Abdomen: normal bowel sounds, non tender, soft Extremities: non-tender, no pedal edema, no calf tenderness Neurologic/Psychiatric: alert, oriented x 3 Skin: normal color, warm/dry Laboratory Results Last 24 Hours Test 03/08/17 12:39 03/08/17 15:46 03/08/17 20:01 03/09/17 04:38 Activated Partial Thromboplast Time 87.7 SECONDS 34.3 SECONDS 33.5 SECONDS Partial Thromboplastin Ratio 3.4 1.3 1.3 Sodium Level 132 mmol/L 131 mmol/L Potassium Level 3.2 mmol/L 3.0 mmol/L Chloride Level 97 mmol/L 96 mmol/L Carbon Dioxide Level 26 mmol/L 28 mmol/L Anion Gap 9.0 mmol/L 7.0 mmol/L Blood Urea Nitrogen 19 mg/dl 14 mg/dl Creatinine 0.36 mg/dl 0.33 mg/dl Est Creatinine Clear Calc Drug Dose 128.1 ml/min 139.7 ml/min Estimated GFR () 125.7 129.4 Estimated GFR (Non- 108.5 111.6 BUN/Creatinine Ratio 51.4 41.0 Random Glucose 113 mg/dl 90 mg/dl Calcium Level 7.8 mg/dl 7.8 mg/dl White Blood Count 1.18 K/uL Red Blood Count 3.15 M/uL Hemoglobin 9.7 g/dL Hematocrit 27.2 % Mean Corpuscular Volume 86.3 fL Mean Corpuscular Hemoglobin 30.8 pg Mean Corpuscular Hemoglobin Concent 35.7 g/dl RDW Standard Deviation 42.3 fL RDW Coefficient of Variation 13.4 % Platelet Count 62 K/uL Mean Platelet Volume 8.2 fL Magnesium Level 1.4 mg/dl Assessment and Plan 72 y/o F Hx multiple Kim including breast, endometrial, melanoma. Recent diagnosis of metastatic R lung adenocarcinoma confirmed on biopsy/pathology 11/23 with mets in the bones. Pt has commenced a [place]-based chemo regimen. She received chemotherapy the prior and has had persistent nausea and vomiting since that time. She presents with weakness, n/v primarily and also reports a fever 2 days prior and a cough which has been present for a few months but may have worsened over the past few days. Initial labs obtained in the ER are notable for a (+) rapid flu, hypokalemia, hyponatremia, neutropenia, an elevated trop and are otherwise consistent with dehydration. An EKG displays tachycardia with widespread depressions. She denies CP. She feels chronically SOB. SOB, tachycardia, Pneumonia, Sepsis, Influenza A - CTA Chest neg for PE but showed right lung mass, emphysema, and consolidation which is likely consistent with post-viral PNA. - dcd Levaquin due to prolonged QTc > 500, start Cefepime, Vanco on 03/08 - supportive care with nebs, no steriods as pt appears to be improving - NSS + KCL at 100 ml/hr - neutropenic precautions Leukopenia, neutropenia, thrombocytopenia - could be secondary to viral illness vs chemotherapy - trend cbc - counts are slightly lower today - Pallitative care on board- appreciate recs. Elevated troponin - abnormal EKG- troponin trended downward and likely secondary to demand ischemia. - Cards on board - not consistent with ACS, but may indicate underlying CAD - appreciate recs - ECHO with a new WMA in inferior wall, normal EF, initially on heparin gtt but now off. - Hold ASA 81mg dt to PLT = 62 today - consider starting statin once influenza illness resolves as can cause myositis - start metoprolol 25mg po bid Dehydration Hypokalemia Hyponatremia Hypomagnesemia - aggressive IVF provided - electrolytes replaced as needed - follow PRP Met Lung CA - N/V likely related to recent chemotherapy/Pancytopenia- as this is likely the result of her chemo - would consult oncology if there is worsening - antiemetics on board-avoid Zofran due to prolonged QT Hyperthyroidism - cont Methimazole RA - cont Plaquenil, hold MTX as she is immunosuppressed from chemo DVT ppx: heparin subq CODE: Full code
[2017-03-09] MEDS: HEPARIN SOD 5000 UNIT/0.5 ML CARP SQ SCH ×2 (08:39→21:15)
[2017-03-09] MEDS: POTASSIUM CHLR 10 MEQ / WTR 10 MEQ in PREMIXED WATER 100 ML IV SCH ×2 (08:40→11:50)
[2017-03-09] MEDS ORDERED: MAGNESIUM OXIDE 400 MG TAB PO SCH (09:00)
[2017-03-09] MEDS ORDERED: HYDROCODONE/HOMATROPINE SYRUP 5MG/1.5MG 5ML UDP PO PRN (10:15)
[2017-03-09] MEDS ORDERED: MAGIC SWIZZLE PO PRN (10:15)
[2017-03-09] MEDS ORDERED: CHLORASEPTIC 1.4% SOLN 180 ML BTL MT PRN (10:15)
--- NOTE | 2017-03-09 10:25 | Cardiology Follow-Up ---
Subjective Subjective Date of Service: Mar 09, 2017. Pt evaluation today including: conversation w/ patient, conversation w/ family , physical exam, chart review, lab review, review of studies, review of inpatient medication list Additional Details: Had a rough night, difficulty sleeping, up coughing all night and continued pain with swallowing. Denies any chest pain. Breathing unchanged. Telemetry reviewed--sinus, sinus tachycardia Review of Systems Constitutional: + weakness, No fever, No chills ENT: No trouble swallowing Respiratory: + cough, + dyspnea on exertion, No sputum, No wheezing, No dyspnea at rest Cardiac: No chest pain, No edema Abdomen: + nausea, No pain, No vomiting Female : No problem reported Psychiatric: No depression symptoms, No anxiety Objective Vital Signs Last Vital Signs Documentation Date Time Temp Pulse Resp B/P (MAP) Pulse Ox O2 Delivery O2 Flow Rate FiO2 03/09/17 07:16 37.0 99 18 130/73 (92) 97 Room Air Physical Exam: General Appearance: no apparent distress (appears ill, uncomfortable), + thin ENT: hearing grossly normal, pharynx normal Neck: trachea midline Respiratory/Chest: no respiratory distress, no accessory muscle use, + rhonchi (diffuse) Cardiovascular: no edema, no murmur, + tachycardia (reg rhythm) Abdomen: normal bowel sounds, non tender, soft Extremities: no pedal edema, no calf tenderness Neurologic/Psychiatric: alert, normal mood/affect, oriented x 3 Skin: normal color, warm/dry, no rash Assessment and Plan 1. Metastatic adenocarcinoma of the lung. 2. Acute influenza infection. 3. Dehydration. 4. Pancytopenia. 5. Rheumatoid arthritis. 6. Elevated troponin. 7. Inferior wall motion abnormality, suspected coronary artery disease Patient has remained chest pain-free during recent illness and hospitalization. She is hemodynamically and electrically stable. No evidence of heart failure. --Continue current beta-camila --aspirin on hold in the setting of thrombocytopenia --consider addition of statin at some point when clinically improved --no additional cardiac testing necessary at this time. -- Cardiology to sign-off. Please contact as new issues arise. Medications: Current Inpatient Medications Medications (Trade) Dose Ordered Sig/Stephanie Route Start Time Stop Time Status Last Admin Dose Admin Oseltamivir Phosphate (Tamiflu Cap) 75 mg BID PO 03/07/17 21:00 03/12/17 20:59 03/09/17 07:51 75 MG Benzonatate (Tessalon Perles Cap) 200 mg TID PRN PO 03/07/17 20:00 04/06/17 19:59 03/08/17 16:34 200 MG Fentanyl (Duragesic Patch) 12 mcg Q72H PRN TD 03/07/17 22:00 03/21/17 21:59 Folic Acid (Folvite Tab) 1 mg DAILY PO 03/08/17 09:00 04/07/17 08:59 03/09/17 07:51 1 MG Hydroxychloroquine Sulfate (Plaquenil Tab) 100 mg HS PO 03/07/17 21:00 04/06/17 20:59 03/08/17 20:19 100 MG Methimazole (Methimazole Tab) 5 mg HS PO 03/07/17 21:00 04/06/17 20:59 03/08/17 20:18 5 MG Ranitidine HCl (zANTac TAB) 150 mg DAILY PRN PO 03/07/17 20:00 04/06/17 19:59 03/09/17 07:52 150 MG Miscellaneous Information (Order Awaiting Action) 1 ea QS N/A 03/08/17 08:00 04/07/17 07:59 Aspirin (Aspirin Chew) 81 mg DAILY PO 03/08/17 09:00 04/07/17 08:59 Future Hold 03/09/17 07:53 81 MG Acetaminophen (Tylenol Tab) 650 mg Q4H PRN PO 03/07/17 20:00 04/06/17 19:59 Al Hydrox/Mg Hydrox/Simethicone (Maalox Max Susp) 15 ml Q4H PRN PO 03/07/17 20:00 04/06/17 19:59 Magnesium Hydroxide (Milk Of Magnesia Susp) 30 ml Q12H PRN PO 03/07/17 20:00 04/06/17 19:59 Nitroglycerin (Nitrostat Tab) 0.4 mg UD PRN SL 03/07/17 20:00 04/06/17 19:59 Polyethylene (Miralax Powder Packet) 17 gm DAILY PRN PO 03/07/17 20:00 04/06/17 19:59 Metoclopramide HCl (Reglan Inj) 5 mg Q8H PRN IV. 03/07/17 21:00 04/06/17 20:59 03/08/17 08:33 5 MG Ioversol (Optiray 320) 76 ml UD PRN IV 03/07/17 21:15 03/11/17 21:14 Miscellaneous (Fentanyl Patch Remove & Waste) 1 ea Q3D@2159 N/A 03/10/17 21:59 04/09/17 21:58 Miscellaneous Information (Check Fentanyl Patch Placement) 1 ea QS N/A 03/08/17 00:00 04/07/17 00:00 Miscellaneous Information (Consult) 1 ea UD PRN N/A 03/08/17 00:30 04/07/17 00:29 Albuterol/ Ipratropium (Duoneb) 3 ml Q6H PRN INH 03/08/17 00:30 04/07/17 00:29 03/08/17 18:03 3 ML Sucralfate (Carafate Susp) 1 gm QID PRN PO 03/08/17 09:00 04/07/17 08:59 03/08/17 16:35 1 GM Pantoprazole Sodium 40 mg/ Syringe 10 ml @ 5 mls/min DAILY@11 IV 03/08/17 11:00 04/07/17 10:59 03/08/17 12:43 5 MLS/MIN Cefepime HCl 2000 mg/Syringe 20 ml @ 5 mls/min Q8H IV 03/08/17 10:00 03/15/17 09:59 03/09/17 02:44 5 MLS/MIN Vancomycin HCl 1000 mg/Sodium Chloride 270 ml @ 125 mls/hr Q12H IV 03/08/17 14:00 03/15/17 13:59 03/09/17 02:43 125 MLS/HR Potassium Chloride/Sodium Chloride 1,000 ml @ 100 mls/hr Q10H IV 03/08/17 17:00 04/07/17 16:59 03/09/17 02:43 100 MLS/HR Metoprolol Tartrate (Lopressor Tab) 25 mg BID PO 03/08/17 21:00 04/07/17 20:59 03/09/17 07:51 25 MG Prochlorperazine Edisylate 5 mg/ Syringe 5 ml @ 5 mls/min Q4H PRN IV 03/08/17 17:15 04/07/17 17:14 03/08/17 17:51 5 MLS/MIN Heparin Sodium (Porcine) (Heparin Sq 5000 Unit/0.5ml) 5,000 unit Q12 SQ 03/08/17 21:00 04/07/17 20:59 03/09/17 08:39 5,000 UNIT Dextromethorphan Polymer Complex (Delsym Susp) 30 mg Q8H PRN PO 03/08/17 19:45 04/07/17 19:44 03/08/17 20:15 30 MG Menthol (Nice Lsia) 1 lisa PRN PRN LISA 03/09/17 05:30 04/08/17 05:29 Magnesium Oxide (Mag-Ox Tab) 400 mg BID PO 03/09/17 09:00 03/10/17 21:01 03/09/17 07:51 400 MG Potassium Chloride (Klor-Con Tab) 20 meq BID PO 03/09/17 21:00 04/08/17 20:59 Magnesium Oxide (Mag-Ox Tab) 400 mg BID PO 03/09/17 09:00 04/08/17 08:59 03/09/17 08:01 400 MG Potassium Chloride 10 meq/ Prmx 100 ml @ 100 mls/hr 0830,0930 IV 03/09/17 08:30 03/09/17 10:29 03/09/17 08:40 100 MLS/HR Lab Results: 03/09/17 04:38 03/09/17 04:38 Test 03/09/17 04:38 Red Blood Count 3.15 M/uL (4.2-5.4) Mean Corpuscular Volume 86.3 fL (80-100) Mean Corpuscular Hemoglobin 30.8 pg (25-34) Mean Corpuscular Hemoglobin Concent 35.7 g/dl (32-36) RDW Standard Deviation 42.3 fL (36.4-46.3) RDW Coefficient of Variation 13.4 % (11.5-14.5) Mean Platelet Volume 8.2 fL (7.4-10.4) Activated Partial Thromboplast Time 33.5 SECONDS (21.0-31.0) Partial Thromboplastin Ratio 1.3 Anion Gap 7.0 mmol/L (3-11) Est Creatinine Clear Calc Drug Dose 139.7 ml/min Estimated GFR () 129.4 Estimated GFR (Non- 111.6 BUN/Creatinine Ratio 41.0 (10-20) Calcium Level 7.8 mg/dl (8.5-10.1) Magnesium Level 1.4 mg/dl (1.8-2.4)
[2017-03-09] MEDS ORDERED: LIDOCAINE HCL 2% VISCOUS SOLN 60 ML, DiphenhydrAMINE HCL SYRUP 150 MG, ALUMINUM/MAGNESI... MT PRN ×4 (10:45)
[2017-03-09] MEDS: PANTOprazole INJ 40 MG in SYRINGE 0 ML IV SCH (10:48)
[2017-03-09 11:01] VITALS: BP 134/75; PULSE 81; TEMP 36.5; O2SAT 97
[2017-03-09] MEDS: SUCRALFATE 1 GM/10 ML UDC PO SCH ×3 (11:50→21:08)
--- NOTE | 2017-03-09 12:58 | Clinical Documentation Query ---
CLINICAL DOCUMENTATION QUERY A 72 year old white female with a past medical history of HTN, hyperthyroidism, breast and endometria CA, and melanoma who presents to the ED with a cc of intermittent vomiting beginning a couple days ago. She had chemo 5 days ago and radiation therapy. Also c/o SOB, cough and fever. In your clinical opinion is this patient being managed for: (x ) Possible type 2 AR due to demand ischemia ( ) Not Agree ( ) Other explanation of clinical findings (Please Explain) ( ) Unable to determine (Please Define) ( ) Need to Discuss The medical record reflects the following clinical findings, treatment, and risk factors. Clinical Indicators: Troponins 0.212 peaking at 0.251, possible inferior/anterolateral ischemia on EKG, tachycardia, SOB, dyspnea, + influenza A, dehydration, vomiting/nausea Treatment: O2, telemetry, serial troponins, echocardiogram, serial EKGs Risk Factors: Age, current chemotherapy, + influenza A, HTN Please clarify and document your clinical opinion in the progress notes and discharge summary. Terms such as "probable", "suspected", "likely", "questionable", "possible", or "still to be ruled out" are acceptable. IF IN AGREEMENT, YOU MUST DOCUMENT ABOVE DIAGNOSTIC STATEMENT IN DAILY PROGRESS NOTES AND DISCHARGE SUMMARY. This document is not part of the patient's record. Thank You, Cheli Nickerson RN [phone]
[2017-03-09 15:49] VITALS: BP 154/80; PULSE 86; TEMP 36.8; O2SAT 98
[2017-03-09] MEDS ORDERED: NURSING VERBAL MED ORDER ONE (16:00)
--- NOTE | 2017-03-09 16:13 | Palliative Care Progress Note ---
Palliative Care Progress Note Date of Service Mar 09, 2017. Subjective Met with patient and her , Jeffrey, at bedside today at 's request. Jeffrey had some questions about palliative care/code status/hospice. We talked for about 30 minutes and all questions answered. Again, patient wishes to remain full code. She feels better today and wants to continue to try and get stronger so she can continue chemotherapy. Patient and aware of hospice option as well as outpatient palliative service. No further needs at this time.
[2017-03-09 19:29] VITALS: BP 157/77; PULSE 99; TEMP 36.9; O2SAT 98
[2017-03-09] MEDS ORDERED: FENTANYL PATCH REMOVE & WASTE SCH (20:59)
[2017-03-09] MEDS: POTASSIUM CHLORIDE 20 MEQ TABCR PO SCH (21:09)
[2017-03-09] MEDS: HYDROXYCHLOROQUINE SULFATE 200 MG TAB PO SCH (21:11)
[2017-03-09] MEDS: METHIMAZOLE 5 MG TAB PO SCH (21:11)
[2017-03-09 23:45] VITALS: BP 132/77; PULSE 84; TEMP 36.6; O2SAT 95
[2017-03-10] MEDS ORDERED: CHECK FENTANYL PATCH PLACEMENT SCH
[2017-03-10] MEDS ORDERED: VANCOMYCIN TROUGH ONE (01:30)
[2017-03-10] MEDS: VANCOMYCIN INJ 1,000 MG in SODIUM CHLORIDE 0.9% 250ML 250 ML IV SCH (02:07)
[2017-03-10] MEDS: CEFEPIME IV 2,000 MG in SYRINGE 7.5 ML IV SCH ×2 (02:07→12:20)
[2017-03-10 04:05] VITALS: BP 154/77; PULSE 99; TEMP 37.4; O2SAT 99
[2017-03-10 05:15] LABS: PTT PATIENT 37.2 SECONDS (21.0-31.0)
[2017-03-10] MEDS: CHECK FENTANYL PATCH PLACEMENT SCH ×2 (07:57→15:34)
[2017-03-10] MEDS: MAGNESIUM OXIDE 400 MG TAB PO SCH ×4 (07:59→09:00)
[2017-03-10] MEDS: OSELTAMIVIR PHOSPHATE 75 MG CAP PO SCH (08:00)
[2017-03-10] MEDS: METOPROLOL TARTRATE 25 MG TAB PO SCH (08:00)
[2017-03-10] MEDS: SUCRALFATE 1 GM/10 ML UDC PO SCH ×3 (08:00→16:12)
[2017-03-10 08:02] VITALS: BP 150/79; PULSE 100; TEMP 36.7; O2SAT 95
[2017-03-10 08:30] LABS: HEMATOCRIT 27.9 % (37-47); MEAN CELL VOLUME 85.8 fL (80-100); MEAN CORPUSCULAR HEMOGLOBIN 30.8 pg (25-34); MEAN CORPUSCULAR HGB CONC 35.8 g/dl (32-36); RED CELL DISTRIBUTION WIDTH CV 13.5 % (11.5-14.5); RED CELL DISTRIBUTION WIDTH SD 41.9 fL (36.4-46.3); WHITE BLOOD COUNT 1.87 K/uL (4.8-10.8)
--- NOTE | 2017-03-10 08:36 | Hospitalist Progress Note ---
Hospitalist Progress Note Date of Service Mar 10, 2017. Objective Vital Signs Date Time Temp Pulse Resp B/P (MAP) Pulse Ox O2 Delivery O2 Flow Rate FiO2 03/10/17 08:14 Room Air 03/10/17 08:02 36.7 100 16 150/79 (102) 95 Room Air 03/10/17 04:05 37.4 99 18 154/77 (102) 99 Room Air 03/10/17 04:00 Room Air 03/10/17 00:01 Room Air 03/09/17 23:45 36.6 84 16 132/77 (95) 95 Room Air 03/09/17 20:00 Room Air 03/09/17 19:29 36.9 99 20 157/77 (103) 98 Room Air 03/09/17 16:04 Room Air 03/09/17 15:49 36.8 86 20 154/80 (104) 98 Room Air 03/09/17 12:00 Room Air 03/09/17 11:01 36.5 81 20 134/75 (94) 97 Room Air Laboratory Results Last 24 Hours Test 03/10/17 01:17 03/10/17 04:44 03/10/17 08:13 Vancomycin Level Trough 6.9 mcg/ml Activated Partial Thromboplast Time 37.2 SECONDS Partial Thromboplastin Ratio 1.4 White Blood Count 1.87 K/uL Red Blood Count 3.25 M/uL Hemoglobin 10.0 g/dL Hematocrit 27.9 % Mean Corpuscular Volume 85.8 fL Mean Corpuscular Hemoglobin 30.8 pg Mean Corpuscular Hemoglobin Concent 35.8 g/dl RDW Standard Deviation 41.9 fL RDW Coefficient of Variation 13.5 % Assessment and Plan 72 y/o F Hx multiple Kim including breast, endometrial, melanoma. Recent diagnosis of metastatic R lung adenocarcinoma confirmed on biopsy/pathology 11/23 with mets in the bones. Pt has commenced a [place]-based chemo regimen. She received chemotherapy the prior and has had persistent nausea and vomiting since that time. She presents with weakness, n/v primarily and also reports a fever 2 days prior and a cough which has been present for a few months but may have worsened over the past few days. Initial labs obtained in the ER are notable for a (+) rapid flu, hypokalemia, hyponatremia, neutropenia, an elevated trop and are otherwise consistent with dehydration. An EKG displays tachycardia with widespread depressions. She denies CP. She feels chronically SOB. SOB, tachycardia, Pneumonia, Sepsis, Influenza A - CTA Chest neg for PE but showed right lung mass, emphysema, and consolidation which is likely consistent with post-viral PNA. - dcd Levaquin due to prolonged QTc > 500, start Cefepime, Vanco on 03/08 - supportive care with nebs, no steriods as pt appears to be improving - NSS + KCL at 100 ml/hr - neutropenic precautions Leukopenia, neutropenia, thrombocytopenia - could be secondary to viral illness vs chemotherapy - trend cbc - counts are stable today - Pallitative care on board- appreciate recs. Pt remains Full code. Elevated troponin - abnormal EKG- troponin trended downward and likely secondary to demand ischemia. - Cards on board - not consistent with ACS, but may indicate underlying CAD - appreciate recs - ECHO with a new WMA in inferior wall, normal EF, initially on heparin gtt but now off. - Hold ASA 81mg dt to PLT = 62 today - consider starting statin once influenza illness resolves as can cause myositis - start metoprolol 25mg po bid Dehydration Hypokalemia Hyponatremia Hypomagnesemia - aggressive IVF provided - electrolytes replaced as needed - follow PRP Met Lung CA - N/V likely related to recent chemotherapy/Pancytopenia- as this is likely the result of her chemo - would consult oncology if there is worsening - antiemetics on board-avoid Zofran due to prolonged QT Hyperthyroidism - cont Methimazole RA - cont Plaquenil, hold MTX as she is immunosuppressed from chemo DVT ppx: heparin subq CODE: Full code
[2017-03-10 08:41] LABS: MEAN PLATELET VOLUME 8.8 fL (7.4-10.4); PLATELET COUNT 57 K/uL (130-400)
[2017-03-10 08:53] LABS: CALCIUM 7.9 mg/dl (8.5-10.1); CREATININE 0.36 mg/dl (0.60-1.20); POTASSIUM 2.7 mmol/L (3.5-5.1)
[2017-03-10] MEDS: POTASSIUM CHLORIDE 20 MEQ TABCR PO SCH (09:00)
[2017-03-10] MEDS ORDERED: PANTOprazole SOD 40 MG TAB PO SCH (09:00)
[2017-03-10] MEDS ORDERED: NURSING VERBAL MED ORDER ONE ×2 (09:30→14:00)
[2017-03-10] MEDS ORDERED: VANCOMYCIN INJ 1,000 MG in SODIUM CHLORIDE 0.9% 250ML 250 ML IV SCH (10:00)
[2017-03-10] MEDS ORDERED: CEFU250T15 PO (10:10)
[2017-03-10] MEDS ORDERED: POTA10LI12 PO (10:10)
[2017-03-10] MEDS ORDERED: MBXC PO (10:10)
[2017-03-10] MEDS ORDERED: LPR25 PO (10:10)
[2017-03-10] MEDS ORDERED: PRT40 PO (10:10)
[2017-03-10] MEDS ORDERED: MGNO400 PO (10:10)
[2017-03-10] MEDS ORDERED: TMF75 PO (10:10)
[2017-03-10] MEDS ORDERED: HYCUDL5 PO (10:10)
--- NOTE | 2017-03-10 10:25 | Discharge Instructions ---
Discharge Instructions Date of Service Mar 10, 2017. Admission Reason for Admission: Influenza A, Troponin 1 Above Reference Range Discharge Discharge Diagnosis / Problem: Influenza A, pneumonia, neutropenia Discharge Goals Goal(s): Decrease discomfort, Improve function, Increase independence, Improve disease control Activity Recommendations Activity Limitations: resume your previous activity Lifting Limitations: no more than 10 pounds, gradually increase as tolerated Exercise/Sports Limitations: rest today, gradually increase as tolerated Shower/Bathe: no limitations (with assistance) Driving or Machine Use: Do not drive. . Instructions / Follow-Up Instructions / Follow-Up You were admitted to [facility] with Influenza A, pneumonia and had neutropenia due to acute infection in the setting of cancer history. During your stay here you were treated with supportive care, intravenous antibiotics, breathing treatments, tamiflu for the flu. You were evaluated by physical therapy and occupational therapy during your stay - a script for a rolling walker has been provided to you. Continue following with home health Cardiology was consulted due to an elevated troponin, this was determined to NOT be a heart attack. It was likely due to elevated heart rate in the setting of illness (the flu). Lab Work: Have blood work drawn on 03/11 to check a CBC with differential and CMP. Have these results faxed to your PCP. A script has been provided to you. Medications: Continue taking tamiflu x 3 more days, with the first dose tonight. Finish on 03/12. Take Ceftin (antibiotic) 500 mg twice daily x 7 more days to complete a 10 day course total. Finish on 03/16. You can use hycodin cough syrup, cough drops, and magic swizzle for throat irritation and cough relief as directed. Continue taking anti-emetics (anti-nausea) medications as needed. Continue metoprolol 25 mg twice daily per cardiology - this was started during this admission for elevated heart rate. HOLD aspirin until your platelet count improves, discuss this with your family physician at next follow up and when you may resume this. Follow up: Follow up with your Primary Care Provider within 3-4 days, an appointment has been requested for you. If you feel your status is worsening, you are weaker, have less energy or have any concerns, please call your PCP or return to the ER. Current Hospital Diet Patient's current hospital diet: AHA Diet (Heart Healthy) Discharge Diet Recommended Diet: AHA Diet (Heart Healthy) Pending Studies Studies pending at discharge: no Medical Emergencies . Who to Call and When: Medical Emergencies: If at any time you feel your situation is an emergency, please call 911 immediately. . Non-Emergent Contact Non-Emergency issues call your: Primary Care Provider Call Non-Emergent contact if: you have a fever, temperature is above 100.5, your pain is not controlled, your pain is worsening, your pain is unusual for you, your pain is concerning you, you have any medication questions other concerns with your health. Call 911 or go directly to the Emergency Department if you experience any of the following: Chest pain, chest tightness, shortness of breath, abdominal pain , lightheadedness, dizziness, gastrointestinal bleeding, or have any other concerns regarding your health. . Past History Medical & Surgical History: (1) Pneumonia (2) Influenza A (3) Troponin I above reference range (4) Breast cancer metastasized to bone (5) HTN (hypertension) (6) Hyperthyroidism . "Provider Documentation" section prepared by Olivia Longo. . VTE Core Measure Inpt VTE Proph given/why not?: Other Anticoagulation, T.E.D. Stockings, SCD's
[2017-03-10] MEDS: POTASSIUM CHLR 10MEQ / WTR IV SCH ×4 (11:08→14:21)
[2017-03-10] MEDS: MAGNESIUM SULFATE 1GM / D5W 1 GM in PREMIXED IN D5W 100 ML IV SCH ×2 (11:08→12:20)
[2017-03-10 11:39] VITALS: BP 131/79; PULSE 87; TEMP 36.7; O2SAT 96
--- NOTE | 2017-03-10 11:56 | Discharge Summary ---
Discharge Summary Date of Service Mar 10, 2017. Discharge Summary Admission Date: Mar 07, 2017 at 19:57 Discharge Date: Mar 10, 2017 Discharge Disposition: Home with services Principal Diagnosis: Influenza A, pneumonia and had neutropenia Problems/Secondary Diagnoses: Medical Problems: (1) HTN (hypertension) (2) Hyperthyroidism (3) Influenza A (4) Melanoma (5) Pneumonia (6) Troponin I above reference range (7) Breast cancer with metastasis to bone Procedures: CHEST ONE VIEW PORTABLE 03/07/17 MPRESSION: 1. Emphysema and chronic interstitial thickening 2. Interval decrease in the size of the small right pleural effusion with improving aeration of the right lung base CT ANGIOGRAM OF THE CHEST 03/07/17 IMPRESSION: 1. There is no evidence of pulmonary embolus in the main, lobar, or segmental pulmonary arteries. 2. A small to moderate right pleural effusion has increased in size from 01/12/2017. There is associated right basilar consolidation. This could represent atelectasis versus pneumonia. Clinical correlation will be required. 3. An irregular mass lesion is again seen at the right lung base. 4. Intralobular septal thickening and nodularity as well as pleural-based nodularity is seen in the right lower lung. This likely represents metastatic disease/lymphangitic spread of tumor. 5. Emphysema. 6. No left-sided pulmonary lesion is identified. 7. 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 8. Right hilar adenopathy. 9. Additional findings as above. Consultations: Cardiology Medication Reconciliation New Medications: Cefuroxime Axetil (Ceftin) 250 Mg Tab 500 MG PO BID for 7 Days, #28 TAB Take first dose tonight. Finish on 03/16. Magic Swizzle (Magic Swizzle - SUCRALFA/ALUM/MAG/DIPHEN/LIDO) 240 Ml Susp 3-4 TSP PO ACHS, #240 ML 100ml Sucralfate 50ml Maalox 50ml Diphenhydramine 40ml 2% Aq. Lidocaine Swish and Swallow Potassium Chloride 40 Meq/15 Ml (Potassium Chloride 40 Meq/15 Ml) 20 % Liq 40 MEQ PO QAM for 7 Days, #105 ML Take 15 ml (1 tablespoon) in the morning pending home health labs with low potassium. Mix with juice. Hydrocodone/Homatropine (Hydromet 5-1.5 mg/5Ml) 5 Ml/Cup Syrp 5 ML PO HS PRN for Cough for 30 Days, #100 ML Magnesium Oxide (Magnesium-Oxide) 400 Mg Tab 400 MG PO BID for 7 Days, #14 TAB Metoprolol Tartrate (Lopressor) 25 Mg Tab 25 MG PO BID for 30 Days, #60 TAB Oseltamivir Phosphate (Tamiflu) 75 Mg Cap 75 MG PO BID for 3 Days, #5 CAP Take first dose tonight. Finish on 03/12. Pantoprazole (Pantoprazole Sodium) 40 Mg Tab 40 MG PO QAM for 30 Days, #30 TAB Continued Medications: Acetaminophen (Tylenol) Unknown Strength Tab 1 DOSE PO UD PRN for Pain or Fever, TAB Amitriptyline Hcl (Elavil) 10 Mg Tab 20 MG PO HS PRN for Sleep Benzonatate (Benzonatate) 100 Mg Cap 100-200 MG PO TID PRN for Cough Calcium Citrate-Vitamin D (Citracal + D3 Maximum) 1 Tab Tab 2 TABS PO HOLD CURRENTLY BEING HELD UNTIL OTHERWISE DIRECTED TO TAKE BY Cholecalciferol (Vitamin D3) 2,000 Unit Tab 1 CAP PO HOLD CURRENTLY BEING HELD UNTIL OTHERWISE DIRECTED TO TAKE BY Cyclosporine (Ophth) (Restasis) 0.05 % Emu 1 DROP OPB Q12H, BTL Dexamethasone (Decadron) 4 Mg Tab 4 MG PO UD PRN for Chemo Treatment TAKE 4 MG ORALLY 2 TIMES PER DAY STARTING THE DAY BEFORE TREATMENT, DAY OF TREATMENT AND DAY AFTER TREATMENT Fentanyl (Fentanyl) 12 Mcg Tdsy 12 MCG TOP [id number] PRN for Pain Fish Oil ([place]-3) 1 Ea Cap 1 CAP PO HOLD, CAP CURRENTLY BEING HELD UNTIL OTHERWISE DIRECTED TO TAKE BY Folic Acid (Folic Acid) 1 Mg Tab 1 MG PO DAILY Hydroxychloroquine Sulfate (Plaquenil) 200 Mg Tab 100 MG PO HS, TAB Melatonin (Melatonin) 3 Mg Tab 3 MG PO HS PRN for Sleep Methimazole (Methimazole) 5 Mg Tab 5 MG PO HS Methotrexate (Methotrexate) 2.5 Mg Tab 12.5 MG PO WK TAKE 5 TABLETS (12.5 MG) EVERY MONDAY Ondansetron (Ondansetron HCl) 4 Mg Tab 4 MG PO Q4H PRN for Nausea Prochlorperazine Maleate (Prochlorperazine Maleate) 10 Mg Tab 10 MG PO Q6H PRN for Nausea Promethazine Hcl (Phenergan Suppository) 25 Mg Supp 25 MG CA Q6H PRN for Nausea, SUPP Ranitidine HCl (Ranitidine HCl) 150 Mg Tab 150 MG PO DAILY PRN for Heartburn/Indigestion Discharge Exam The patient was seen and examined this morning. Pt reports doing better today. Her cough is slightly improved, although still present. Cough syrup seemed to help her last night. She is having back pain and notes this is worse due to the bed in the hospital. Her is present at bedside and notes she didn't sleep much last night. She is tolerating a diet without difficulty, and bowels are moving. No fever, chills or sweats. They are both requesting discharge if at all possible. Discussion was held regarding the risk of her discharge to home today, however at this time they are willing to take the risk. We discussed using a rolling walker at all times , and having assistance with transferring from sit to stand to prevent falls. She is agreeable to this. Discussion was also held regarding having blood work checked tomorrow morning by home health. She has a PCP f/u scheduled for Monday morning. She denies any other acute complaints. ROS:ROS: 10 point ROS reviewed and otherwise negative. Physical Exam: General Appearance: WD/WN, no apparent distress, + thin, + pertinent finding ( affect brighter today) Eyes: PERRL, EOMI ENT: hearing grossly normal, pharynx normal, + pertinent finding (MMM) Neck: supple, no JVD Respiratory/Chest: chest non-tender, no respiratory distress, no accessory muscle use, + pertinent finding (on RA. +Rhonchi throughout but improved with cough, diminished at the R base) Cardiovascular: no JVD, no murmur, + tachycardia (HR in mid 90s) Abdomen: normal bowel sounds, non tender, soft Extremities: non-tender, no pedal edema, no calf tenderness Neurologic/Psychiatric: alert, oriented x 3 Skin: normal color, warm/dry Hospital Course 72 y/o F Hx multiple Kim including breast, endometrial, melanoma. Recent diagnosis of metastatic R lung adenocarcinoma confirmed on biopsy/pathology 11/23 with mets in the bones. Pt has commenced a [place]-based chemo regimen. She received chemotherapy the prior and has had persistent nausea and vomiting since that time. She presents with weakness, n/v primarily and also reports a fever 2 days prior and a cough which has been present for a few months but may have worsened over the past few days. Initial labs obtained in the ER are notable for a (+) rapid flu, hypokalemia, hyponatremia, neutropenia, an elevated trop and are otherwise consistent with dehydration. An EKG displays tachycardia with widespread depressions. She denies CP. She feels chronically SOB. Cardiology determined this was not ACS. SOB, tachycardia, Pneumonia, Sepsis, Influenza A - CTA Chest neg for PE but showed right lung mass, emphysema, and consolidation which is likely consistent with post-viral PNA. - dcd Levaquin due to prolonged QTc > 500, start Cefepime, Vanco on 03/08 - MRSA swab neg so vanc d/c. Can continue on ceftin 500 mg BID x 7 more days to complete a 10 day course. - Continue course of tamiflu, finish on 03/12. - supportive care with nebs, no steriods as pt appears to be improving - on RA at time of discharge. Supportive care with Hycodan cough syrup, magic swizzle, and chloraseptic as needed. - NSS + KCL at 100 ml/hr off. - neutropenic precautions - counts improving Leukopenia, neutropenia, thrombocytopenia - could be secondary to viral illness vs chemotherapy - trend cbc - counts are stable today. - Pallitative care on board- appreciate recs. Pt remains Full code. Elevated troponin - abnormal EKG- troponin trended downward and likely secondary to demand ischemia. - Cards on board - not consistent with ACS, but may indicate underlying CAD - appreciate recs - ECHO with a new WMA in inferior wall, normal EF, initially on heparin gtt but now off. - Hold ASA 81mg dt to PLT = 57 today, Repeat CBC w/ diff and CMP to be drawn by home health on 03/11 and fax to PCP. - consider starting statin once influenza illness resolves as can cause myositis - will ask PCP to determine when to start. - Continue metoprolol 25mg po bid for tachycardia. Pt is asymptomatic. Dehydration Hypokalemia Hyponatremia Hypomagnesemia - aggressive IVF provided - electrolytes replaced as needed - pt required replacement of potassium and mag prior to discharge. KCl- liquid was provided at time of discharge, along with mag ox tablets. Can take potassium as directed by PCP. Pt does not tolerate KCl- tablets as these irritate her throat. - follow PRP Met Lung CA - N/V likely related to recent chemotherapy/Pancytopenia- as this is likely the result of her chemo - Dr. Acevedo made courtesy visit yesterday, no formal consult. Appreciate. - antiemetics on board- can use compazine prn. Zofran - avoid if possible due to QT. Can have repeat EKG as outpatient. Hyperthyroidism - cont Methimazole RA - cont Plaquenil, hold MTX as she is immunosuppressed from chemo DVT ppx: heparin subq CODE: Full code Disposition: Discharge to home today with home health services. Total Time Spent: Greater than 30 minutes This includes examination of the patient, discharge planning, medication reconciliation, and communication with other providers. Discharge Instructions Please refer to the electronic Patient Visit Report (Discharge Instructions) for additional information. Follow-Up Follow up with your Primary Care Provider within 3-4 days, an appointment has been requested for you. Additional Copies To Oni Cortes Jr,AdelaO.
[2017-03-10] MEDS ORDERED: POTASSIUM CHLORIDE 20 MEQ/15 ML UDC PO ONE (14:15)
[2017-03-10 15:46] VITALS: BP 131/79; PULSE 87; TEMP 36.7; O2SAT 96
[2017-03-10] MEDS ORDERED: FENTANYL PATCH REMOVE & WASTE SCH (21:59)
== END 2017-03-10 16:49 | disposition home health service (06) | DRG 871 ==
LOC: C.EDB 16:17 → C.2T 19:57 → EDBEDREQ 20:00 → ENRESERV 20:41
PROVIDERS: ADMIT Internal Medicine; ATTEND Hospitalist
DX: A41.9 Sepsis, unspecified organism (principal); J18.9 Pneumonia, unspecified organism; C79.51 Secondary malignant neoplasm of bone; E87.1 Hypo-osmolality and hyponatremia; Z51.5 Encounter for palliative care; I21.A1 Myocardial infarction type 2; C78.01 Secondary malignant neoplasm of right lung; D61.810 Antineoplastic chemotherapy induced pancytopenia; J10.1 Influenza due to other identified influenza virus with other respiratory manifestations; I10 Essential (primary) hypertension; E05.90 Thyrotoxicosis, unspecified without thyrotoxic crisis or storm; E87.6 Hypokalemia; M06.9 Rheumatoid arthritis, unspecified; E03.9 Hypothyroidism, unspecified; D70.9 Neutropenia, unspecified; E86.0 Dehydration; Z85.3 Personal history of malignant neoplasm of breast; Z85.42 Personal history of malignant neoplasm of other parts of uterus; Z80.9 Family history of malignant neoplasm, unspecified; Z82.49 Family history of ischemic heart disease and other diseases of the circulatory system

== ENCOUNTER → 2017-03-11 | Outpatient (CLI) | payer BC, OTHER ==
[~2017-03-11] MED LIST changes: +ACET-1311 PO; +AMIT10TA6 PO; +AMOX400S2 PO; -AMT50 PO; +BENZ100C7 PO; +CEFU250T15 PO; +CMP/10 PO; +DRGTP12 TOP; +DXM/4 PO; +FLV1 PO; -FNTTP25 EX; -FOLIC ACID PO; +HYCUDL5 PO; -IBUP-1050 PO; +LPR25 PO; +MBXC PO; -MELA1TAB3 PO; +MELA3TAB PO; -METH2.5T PO; +MGNO400 PEG; +MGNO400 PO; +MTH25 PO; -ONDA4TAB46 PO; +ONDA4TAB9 PO; +POTA10LI12 PO; +PROM25SU28 PR; +PRT40 PO; +RANI150T2 PO; +TMF75 PO; -ULT/50 PO; -ZNTT/150 PO; -[UNRECOGNIZED DRUG - OTHER] PO
[2017-03-11 15:31] LABS: HEMATOCRIT 26.7 % (37-47); HEMOGLOBIN 9.7 g/dL (12.0-16.0); MEAN CELL VOLUME 84.2 fL (80-100); MEAN CORPUSCULAR HEMOGLOBIN 30.6 pg (25-34); MEAN CORPUSCULAR HGB CONC 36.3 g/dl (32-36); RED CELL DISTRIBUTION WIDTH CV 13.3 % (11.5-14.5); RED CELL DISTRIBUTION WIDTH SD 40.4 fL (36.4-46.3); WHITE BLOOD COUNT 3.16 K/uL (4.8-10.8)
[2017-03-11 16:16] LABS: ALBUMIN 2.6 gm/dl (3.4-5.0); ALKALINE PHOSPHATASE 75 U/L (45-117); ALT/SGPT 52 U/L (12-78); AST/SGOT 75 U/L (15-37); BLOOD UREA NITROGEN 7 mg/dl (7-18); CALCIUM 7.9 mg/dl (8.5-10.1); CARBON DIOXIDE 33 mmol/L (21-32); CREATININE 0.38 mg/dl (0.60-1.20); GLUCOSE 100 mg/dl (70-99); POTASSIUM 2.4 mmol/L (3.5-5.1); SODIUM 122 mmol/L (136-145); TOTAL PROTEIN 6.2 gm/dl (6.4-8.2)
[2017-03-11 16:42] LABS: PLATELET COUNT 58 K/uL (130-400)
[2017-03-11 16:48] LABS: IG# 0.01 K/uL (0.00-0.02); LYMPH % 5.7 %; LYMPH ABS # 0.18 K/uL (1.2-3.4); MEAN PLATELET VOLUME 9.9 fL (7.4-10.4); MONO ABS # 0.22 K/uL (0.11-0.59); NEUT ABS # 2.75 K/uL (1.4-6.5)
--- NOTE | 2017-03-21 13:06 | CODING QUERY NO DIAGNOSIS ---
TREATMENT RENDERED WITHOUT A DIAGNOSIS : 46 To promote full compliance with coding requirements relating to patient care, physician participation is requested in all cases of fruit harvester uncertainty. Please assist us with providing a diagnosis/symptom for the test(s) below: A diagnosis/symptom was not documented on your Order. A valid diagnosis/symptom is required to bill all insurances. Please remember that we are unable to code a diagnosis of rule out, probable, possible, questionable, or suspected. Tests that require a diagnosis: DOS: 03/11/17 * CBC WITH AUTO DIFFER DIAGNOSIS: * COMPREHENSIVE METABO DIAGNOSIS: Provider Signature: Date: Thank you Savannah Vera Health Information Management Once completed, please kindly fax back to [phone] For questions please call [phone]
== END | disposition home or self-care (01) ==
LOC: C.LABSPEC 12:32
DX: J18.9 Pneumonia, unspecified organism (principal); J10.1 Influenza due to other identified influenza virus with other respiratory manifestations; D72.819 Decreased white blood cell count, unspecified; D70.9 Neutropenia, unspecified; D69.6 Thrombocytopenia, unspecified

== ENCOUNTER → 2017-03-17 | Outpatient (CLI) | payer BC ==
[~2017-03-17] MED LIST changes: -AMOX400S2 PO; -MGNO400 PEG
[2017-03-17 14:25] LABS: BASO ABS # 0.03 K/uL (0-0.2); EOS % 0.7 %; EOS ABS # 0.02 K/uL (0-0.5); HEMATOCRIT 27.3 % (37-47); HEMOGLOBIN 9.7 g/dL (12.0-16.0); IG# 0.06 K/uL (0.00-0.02); LYMPH % 27.3 %; LYMPH ABS # 0.81 K/uL (1.2-3.4); MEAN CELL VOLUME 86.9 fL (80-100); MEAN CORPUSCULAR HEMOGLOBIN 30.9 pg (25-34); MEAN CORPUSCULAR HGB CONC 35.5 g/dl (32-36); MEAN PLATELET VOLUME 9.9 fL (7.4-10.4); MONO % 13.5 %; NEUT % 55.5 %; NEUT ABS # 1.65 K/uL (1.4-6.5); PLATELET COUNT 114 K/uL (130-400); RED CELL DISTRIBUTION WIDTH CV 14.8 % (11.5-14.5); RED CELL DISTRIBUTION WIDTH SD 44.6 fL (36.4-46.3); WHITE BLOOD COUNT 2.97 K/uL (4.8-10.8)
[2017-03-17 14:29] LABS: BLOOD UREA NITROGEN 7 mg/dl (7-18); CALCIUM 8.8 mg/dl (8.5-10.1); CARBON DIOXIDE 31 mmol/L (21-32); CREATININE 0.38 mg/dl (0.60-1.20); GLUCOSE 94 mg/dl (70-99); POTASSIUM 2.6 mmol/L (3.5-5.1); SODIUM 126 mmol/L (136-145)
== END | disposition home or self-care (01) ==
LOC: C.LABSPEC 13:40
DX: E86.0 Dehydration (principal)

== ENCOUNTER 2017-03-19 21:11 | Inpatient (IN) | payer BC, OTHER ==
[~2017-03-19] VITALS: Ht 170.2 cm; Wt 52.0 kg
[~2017-03-19 21:11] MED LIST changes: -CEFU250T15 PO
[2017-03-19] MEDS ORDERED: SODIUM CHLORIDE 0.9% 1000ML 500 ML IV ONE (21:39)
[2017-03-19] MEDS ORDERED: ACETAMINOPHEN 500 MG TAB PO STA (21:39)
[2017-03-19] MEDS ORDERED: CEFEPIME IV 2,000 MG in DEXTROSE 5% 100ML 100 ML IV ONE (21:45)
--- NOTE | 2017-03-19 22:27 | DIAGNOSTIC IMAGING REPORT ---
CHEST ONE VIEW PORTABLE CLINICAL HISTORY: Sepsis dyspnea COMPARISON STUDY: 03/07/2017 FINDINGS: Small developing parenchymal infiltrate right base. Chronic interstitial change both lung bases. Mid and upper lungs are clear. No significant cardiac enlargement. IMPRESSION: Small developing parenchymal infiltrate right base. This is superimposed upon chronic basilar interstitial change. The above report was generated using voice recognition software. It may contain grammatical, syntax or spelling errors. Electronically signed by: Wan Gunter M.D. 03/19/2017 10:26 PM Dictated Date/Time: 03/19/2017 10:25 PM
[2017-03-19 22:32] LABS: HEMATOCRIT 27.2 % (37-47); HEMOGLOBIN 9.8 g/dL (12.0-16.0); MEAN CELL VOLUME 86.9 fL (80-100); MEAN CORPUSCULAR HEMOGLOBIN 31.3 pg (25-34); MEAN PLATELET VOLUME 9.3 fL (7.4-10.4); PLATELET COUNT 112 K/uL (130-400); RED CELL DISTRIBUTION WIDTH CV 15.5 % (11.5-14.5); RED CELL DISTRIBUTION WIDTH SD 46.7 fL (36.4-46.3); WHITE BLOOD COUNT 5.46 K/uL (4.8-10.8)
[2017-03-19 22:45] LABS: INR 1.3 (0.9-1.1); PTT PATIENT 28.6 SECONDS (21.0-31.0)
[2017-03-19] MEDS ORDERED: SODIUM CHLORIDE 0.9% 500ML 500 ML IV STA (22:49)
[2017-03-19 22:52] LABS: ALBUMIN 2.8 gm/dl (3.4-5.0); CALCIUM 8.9 mg/dl (8.5-10.1); CREATININE 0.51 mg/dl (0.60-1.20); POTASSIUM 2.9 mmol/L (3.5-5.1)
[2017-03-19 23:02] LABS: IG# 0.03 K/uL (0.00-0.02); LYMPH % 15.9 %; LYMPH ABS # 0.87 K/uL (1.2-3.4); MONO % 8.6 %; MONO ABS # 0.47 K/uL (0.11-0.59); NEUT ABS # 4.09 K/uL (1.4-6.5)
--- NOTE | 2017-03-19 23:42 | EMERGENCY ROOM VISIT NOTE ---
History Report prepared by Ruben: Jacey Hirsch Under the Supervision of: Dr. Josh Juarez M.D. First contact with patient: 21:36 Chief Complaint: FEVER Stated Complaint: FEVER 102.7 History of Present Illness The patient is a 72 year old female who presents to the Emergency Room with complaints of worsening fever starting 5 hours ago. The patient woke up this morning feeling unwell. She had a sharp pain in her mid lower chest. 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 This pain worsened with inhaling and improved with exhaling. At 1600, they measured a temperature of 100.4. She was given Tylenol at 1630. Her temperature has increased to 102.7. She has a sore throat. She has had a cough, but it is improving. She denies any rash or urinary symptoms. The patient was discharged from the hospital 9 days ago after a 3 day admission for flu. She currently is being treated for breast cancer. Her last radiation was 2 weeks ago and she started chemo 2 weeks ago. Source of History: patient, family Onset: 5 hours ago Position: other (global) Symptom Intensity: 102.7 Quality: other (fever) Timing: worsening Associated Symptoms: + sorethroat, + cough, + chest pain, No urinary symptoms, No rash Review of Systems See HPI for pertinent positives & negatives. A total of 10 systems reviewed and were otherwise negative. Past Medical & Surgical Medical Problems: (1) HTN (hypertension) (2) Hyperthyroidism (3) Influenza A (4) Melanoma (5) Pneumonia (6) Troponin I above reference range Family History Cancer FHx: gallbladder disease Heart disease Hypertension Lung disease Social History Smoking Status: Never Smoker Marital Status: Housing Status: lives with significant other Occupation Status: retired Current/Historical Medications Scheduled Calcium Citrate-Vitamin D (Citracal + D3 Maximum), 2 TABS PO HOLD Cholecalciferol (Vitamin D3), 1 CAP PO HOLD Cyclosporine (Ophth) (Restasis), 1 DROP OPB Q12H Fish Oil ([place]-3), 1 CAP PO HOLD Folic Acid (Folic Acid), 1 MG PO DAILY Hydroxychloroquine Sulfate (Plaquenil), 100 MG PO HS Magic Swizzle (Magic Swizzle - SUCRALFA/ALUM/MAG/DIPHEN/LIDO), 3-4 TSP PO ACHS Methimazole (Methimazole), 5 MG PO HS Methotrexate (Methotrexate), 12.5 MG PO WK Metoprolol Tartrate (Lopressor), 25 MG PO BID Pantoprazole (Pantoprazole Sodium), 40 MG PO QAM Potassium Chloride 40 Meq/15 Ml (Potassium Chloride 40 Meq/15 Ml), 40 MEQ PO QAM Scheduled PRN Acetaminophen (Tylenol), 1 DOSE PO UD PRN for Pain or Fever Amitriptyline Hcl (Elavil), 20 MG PO HS PRN for Sleep Benzonatate (Benzonatate), 100-200 MG PO TID PRN for Cough Dexamethasone (Decadron), 4 MG PO UD PRN for Chemo Treatment Fentanyl (Fentanyl), 12 MCG TOP CQ72HR PRN for Pain Hydrocodone/Homatropine (Hydromet 5-1.5 mg/5Ml), 5 ML PO HS PRN for Cough Melatonin (Melatonin), 3 MG PO HS PRN for Sleep Ondansetron (Ondansetron HCl), 4 MG PO Q4H PRN for Nausea Prochlorperazine Maleate (Prochlorperazine Maleate), 10 MG PO Q6H PRN for Nausea Promethazine Hcl (Phenergan Suppository), 25 MG SC Q6H PRN for Nausea Ranitidine HCl (Ranitidine HCl), 150 MG PO DAILY PRN for Heartburn/Indigestion Allergies Coded Allergies: Penicillins (Verified Allergy, Unknown, RASH, 02/01/17) Codeine (Verified Adverse Reaction, Unknown, GI UPSET, 02/01/17) Morphine and Related (Verified Adverse Reaction, Unknown, SEVERE NAUSEA, 02/01/17) Physical Exam Vital Signs Date Time Temp Pulse Resp B/P (MAP) Pulse Ox O2 Delivery O2 Flow Rate FiO2 03/20/17 01:13 110 18 107/61 99 03/20/17 00:09 115 18 107/61 96 Room Air 03/19/17 22:31 96 Nasal Cannula 2.0 03/19/17 22:25 129 03/19/17 21:20 37.2 144 21 122/69 96 Room Air Physical Exam GENERAL: Patient is in no acute distress. HEENT: No acute trauma, normocephalic atraumatic, mucous membranes dry, no nasal congestion, no scleral icterus. NECK: No stridor, no adenopathy, no meningismus, trachea is midline. LUNGS: Diminished breath sounds bilaterally. Bilateral wheezing and bilateral crackles heard. HEART: Tachycardic with a 2/6 systolic murmur, regular rhythm ABDOMEN: Soft, nontender, bowel sounds positive, no hernias, no peritonitis. EXTREMITIES: No cyanosis or edema, full range of motion of all the joints without pain or difficulty, no signs for acute trauma. NEUROLOGIC: Oriented x 3, no acute motor or sensory deficits, no focal weakness. SKIN: No rash, no jaundice, no diaphoresis. Medical Decision & Procedures ER Provider Diagnostic Interpretation: X-ray results as stated below per interpretation by me and the radiologist: CHEST ONE VIEW PORTABLE CLINICAL HISTORY: Sepsis dyspnea COMPARISON STUDY: 03/07/2017 FINDINGS: Small developing parenchymal infiltrate right base. Chronic interstitial change both lung bases. Mid and upper lungs are clear. No significant cardiac enlargement. IMPRESSION: Small developing parenchymal infiltrate right base. This is superimposed upon chronic basilar interstitial change. The above report was generated using voice recognition software. It may contain grammatical, syntax or spelling errors. Electronically signed by: Wan Gunter M.D. 03/19/2017 10:26 PM Dictated Date/Time: 03/19/2017 10:25 PM Laboratory Results 03/19/17 21:57 Red Blood Count 3.13, Mean Corpuscular Volume 86.9, Mean Corpuscular Hemoglobin 31.3, Mean Corpuscular Hemoglobin Concent 36.0, Mean Platelet Volume 9.3, Neutrophils (%) (Auto) 75.0, Lymphocytes (%) (Auto) 15.9, Monocytes (%) (Auto) 8.6, Eosinophils (%) (Auto) 0.0, Basophils (%) (Auto) 0.0, Neutrophils # (Auto) 4.09, Lymphocytes # (Auto) 0.87, Monocytes # (Auto) 0.47, Eosinophils # (Auto) 0.00, Basophils # (Auto) 0.00 03/19/17 21:57 Test 03/19/17 21:57 03/19/17 22:18 White Blood Count 5.46 K/uL (4.8-10.8) Red Blood Count 3.13 M/uL (4.2-5.4) Hemoglobin 9.8 g/dL (12.0-16.0) Hematocrit 27.2 % (37-47) Mean Corpuscular Volume 86.9 fL (80-100) Mean Corpuscular Hemoglobin 31.3 pg (25-34) Mean Corpuscular Hemoglobin Concent 36.0 g/dl (32-36) Platelet Count 112 K/uL (130-400) Mean Platelet Volume 9.3 fL (7.4-10.4) Neutrophils (%) (Auto) 75.0 % Lymphocytes (%) (Auto) 15.9 % Monocytes (%) (Auto) 8.6 % Eosinophils (%) (Auto) 0.0 % Basophils (%) (Auto) 0.0 % Neutrophils # (Auto) 4.09 K/uL (1.4-6.5) Lymphocytes # (Auto) 0.87 K/uL (1.2-3.4) Monocytes # (Auto) 0.47 K/uL (0.11-0.59) Eosinophils # (Auto) 0.00 K/uL (0-0.5) Basophils # (Auto) 0.00 K/uL (0-0.2) RDW Standard Deviation 46.7 fL (36.4-46.3) RDW Coefficient of Variation 15.5 % (11.5-14.5) Immature Granulocyte % (Auto) 0.5 % Immature Granulocyte # (Auto) 0.03 K/uL (0.00-0.02) Hyposegmented Neutrophils 1+ Prothrombin Time 13.1 SECONDS (9.0-12.0) Prothromb Time International Ratio 1.3 (0.9-1.1) Activated Partial Thromboplast Time 28.6 SECONDS (21.0-31.0) Partial Thromboplastin Ratio 1.1 Anion Gap 11.0 mmol/L (3-11) Est Creatinine Clear Calc Drug Dose 83.1 ml/min Estimated GFR () 112.1 Estimated GFR (Non- 96.7 BUN/Creatinine Ratio 26.5 (10-20) Calcium Level 8.9 mg/dl (8.5-10.1) Magnesium Level 2.1 mg/dl (1.8-2.4) Total Bilirubin 0.7 mg/dl (0.2-1) Aspartate Amino Transf (AST/SGOT) 18 U/L (15-37) Alanine Aminotransferase (ALT/SGPT) 19 U/L (12-78) Alkaline Phosphatase 98 U/L (45-117) Troponin I 0.022 ng/ml (0-0.045) Total Protein 7.0 gm/dl (6.4-8.2) Albumin 2.8 gm/dl (3.4-5.0) Globulin 4.2 gm/dl (2.5-4.0) Albumin/Globulin Ratio 0.7 (0.9-2) Bedside Lactic Acid Venous 1.19 mmol/L (0.90-1.70) Laboratory results reviewed by me. Medications Administered Medications (Trade) Dose Ordered Sig/Stephanie Route Start Time Stop Time Status Last Admin Dose Admin Sodium Chloride 500 ml @ 999 mls/hr Q31M ONCE IV 03/19/17 21:39 03/19/17 22:09 DC 03/19/17 21:39 999 MLS/HR Cefepime HCl 2000 mg/Dextrose 112.5 ml @ 225 mls/hr NOW ONCE IV 03/19/17 21:45 03/19/17 22:14 DC 03/19/17 21:45 225 MLS/HR Acetaminophen (Tylenol Tab) 1,000 mg NOW STAT PO 03/19/17 21:39 03/19/17 21:44 DC 03/19/17 21:39 1,000 MG Sodium Chloride 500 ml @ 999 mls/hr Q31M STAT IV 03/19/17 22:49 03/19/17 23:19 DC 03/19/17 22:49 999 MLS/HR Potassium Chloride (Klor-Con M10) 40 meq NOW STAT PO 03/20/17 00:23 03/20/17 00:25 DC 03/20/17 01:03 40 MEQ ECG Indication: tachycardia Rate (beats per minute): 125 Rhythm: sinus tachycardia Findings: T-wave inversion (Anterolateral), other (LVH, no PVC) Comparison ECG Date: 08-Mar-2017 Change: Rate increased otherwise no significant change. Patient's electrocardiogram interpreted by me. ED Course 2136: The patient was evaluated in room A9B. A complete history and physical exam was performed. 2138: Acetaminophen 1000 mg PO, NSS 500 ml @ 999 mls/hr IV. 2144: Cefepime HCl 2000 mg/Dextrose 112.5 ml @ 225 mls/hr IV. 2249: NSS 500 ml @ 999 mls/hr IV. 2310: I discussed the patient's case with BELLE Mullins hospitalist. The patient will be evaluated for further management. 2313: Upon reexamination the patient is stable. I discussed results and treatment plan with the patient and her family. They verbalize agreement and understanding. The patient will be evaluated for further management. Medical Decision Differential diagnoses considered include pneumonia, failed outpatient treatment , persistent influenza, UTI, sepsis, dehydration, flu like illness, electrolyte imbalance, anemia. There is no leukocytosis. The patient is anemic but this appears baseline looking back at previous testing. Platelet count slightly low. Renal panel testing shows a low potassium, no kidney failure. There is no hepatitis. EKG shows a sinus tachycardia, no acute ischemia. Cardiac enzyme testing times one is not consistent with acute cardiac injury. Lactic acid level is not elevated making sepsis less likely. Blood cultures are pending. Chest film does show a right sided lower lung pneumonia. Urinalysis result is pending. The patient was given oral Tylenol, IV saline. She received 2 IV boluses. She was given IV cefepime as antibiotic coverage. She was given oral potassium. The patient presents with fever, tachycardia and weakness. She was just in the hospital around 10 days ago. Workup here suggests some dehydration and pneumonia. She does require a hospital stay. I did speak with the patient and the supportive employment case manager. The on-call hospitalist was consulted. The patient has improved since being treated here in the ED. Her heart rate has improved, she seems to be resting comfortably. Medication Reconcilliation Current Medication List: was personally reviewed by me Blood Pressure Screening Patient's blood pressure: Normal blood pressure Blood pressure disposition: Did not require urgent referral Consults Time Called: [id number] Consulting Physician: BELLE Mullins hospitalist Returned Call: 0 Discussed the patient's case. The patient will be evaluated for further management. Impression Primary Impression: Pneumonia Additional Impressions: Fever Tachycardia Metastatic breast cancer Scribe Attestation The scribe's documentation has been prepared under my direction and personally reviewed by me in its entirety. I confirm that the note above accurately reflects all work, treatment, procedures, and medical decision making performed by me. Departure Information Dispostion Being Evaluated By Hospitalist Referrals Oni Cortes Jr,D.O. (PCP) Patient Instructions My [facility] Problem Qualifiers
[2017-03-20] VITALS (8 sets, daily range): BP systolic 108–118; BP diastolic 72–78; PULSE 85–120; TEMP 36.4–36.9; O2SAT 97–100; Ht 170.2 cm; Wt 52.0 kg
[2017-03-20] MEDS ORDERED: RANITIDINE HCL 150 MG TAB PO PRN
[2017-03-20] MEDS ORDERED: VANCOMYCIN CONSULT ACTIVE PRN
[2017-03-20] MEDS ORDERED: MAGNESIUM HYDROXIDE SUSP 30 ML UDC PO PRN
[2017-03-20] MEDS ORDERED: PROCHLORPERAZINE MALEATE 10 MG TAB PO PRN
[2017-03-20] MEDS ORDERED: PROMETHAZINE HCL 25 MG SUPP PR PRN
[2017-03-20] MEDS ORDERED: POLYETHYLENE (MIRALAX) 17 GM PACK PO PRN
[2017-03-20] MEDS ORDERED: ALUMINUM/MAGNESIUM/SIMETH (MAALOX MAX) 30 ML UDC PO PRN
[2017-03-20] MEDS ORDERED: ONDANSETRON INJ 2 MG/ML 2 ML VIAL IV PRN
[2017-03-20] MEDS ORDERED: POTASSIUM CHLORIDE 10 MEQ TABCR PO STA (00:23)
[2017-03-20] MEDS ORDERED: IV FLUIDS COMPLETED PRN (01:00)
[2017-03-20] MEDS ORDERED: VANCOMYCIN INJ 1,250 MG in SODIUM CHLORIDE 0.9% 250ML 250 ML IV SCH (02:30)
[2017-03-20] MEDS ORDERED: CEFEPIME CONSULT ACTIVE PRN (03:45)
[2017-03-20] MEDS: LIDOCAINE HCL 2% VISCOUS SOLN 60 ML, DiphenhydrAMINE HCL SYRUP 150 MG, ALUMINUM/MAGNESI... MT SCH ×16 (05:53→21:00)
[2017-03-20 06:08] LABS: HEMATOCRIT 22.8 % (37-47); HEMOGLOBIN 8.1 g/dL (12.0-16.0); MEAN CELL VOLUME 86.4 fL (80-100); MEAN CORPUSCULAR HEMOGLOBIN 30.7 pg (25-34); MEAN CORPUSCULAR HGB CONC 35.5 g/dl (32-36); RED CELL DISTRIBUTION WIDTH CV 15.9 % (11.5-14.5); RED CELL DISTRIBUTION WIDTH SD 47.5 fL (36.4-46.3); WHITE BLOOD COUNT 3.71 K/uL (4.8-10.8)
[2017-03-20 06:12] LABS: MEAN PLATELET VOLUME 8.8 fL (7.4-10.4); PLATELET COUNT 80 K/uL (130-400)
--- NOTE | 2017-03-20 06:16 | History and Physical ---
History & Physical Date & Time of Service: Mar 20, 2017 at 00:37 Chief Complaint: Fever 102.7 Primary Care Physician: Oni Cortes Jr,D.O. History of Present Illness Source: patient, family 72 y/o F Hx multiple Kim including breast, endometrial, melanoma, metastatic R lung adenocarcinoma [place]-based chemo regimen She is s/p Radiation mar 02 followed by chemotherapy on mar 03. She was recently admitted for FLu admission Mar 07- 03/10. She is a patient of [facility] Oncology Dr. Galvan. During previous admission on Mar 07, She had presented with weakness, n/v h/o fever 2 days prior and a cough and found to be Flu positive. CT Chest was negative for PE but showed right lung mass, emphysema, and consolidation suggestive of post-viral PNA. She was treated with Cefepime, Vancomycin for PNA in addition to Tamiflu Currently She reports earlier this morning she experienced SOB, pleuritic chest pain 8/10, non-radiating intensity, fever around 6 pm 102-103. She tried Tylenol for pain but it gave her no relief. She also reports non-productive coughing. She contacted pcp and was instructed to come into hospital. She also reports ongoing epigastric burnings sensation with fluids. She is on Ranitidine , Protonix, Magic Swizzle. She denies N/v, abdominal pain, diarrhea In he ED ,she was found to be febrile, tachycardic. She received 2 IV boluses of NS. She was given dose of Cefepime IV as well. Past Medical/Surgical History Medical Problems: (1) Hyperthyroidism Status: Chronic (2) Melanoma Status: Chronic Family History Cancer FHx: gallbladder disease Heart disease Hypertension Lung disease Breast cancer Lung cancer Social History Smoking Status: Never Smoker Marital Status: Occupational Status: retired Multi-Drug Resistant Organisms History of MDRO: No Allergies Coded Allergies: Penicillins (Verified Allergy, Unknown, RASH, 02/01/17) Codeine (Verified Adverse Reaction, Unknown, GI UPSET, 02/01/17) Morphine and Related (Verified Adverse Reaction, Unknown, SEVERE NAUSEA, 02/01/17) Home Medications Scheduled Calcium Citrate-Vitamin D (Citracal + D3 Maximum), 2 TABS PO HOLD Cholecalciferol (Vitamin D3), 1 CAP PO HOLD Cyclosporine (Ophth) (Restasis), 1 DROP OPB Q12H Fish Oil ([place]-3), 1 CAP PO HOLD Folic Acid (Folic Acid), 1 MG PO DAILY Hydroxychloroquine Sulfate (Plaquenil), 100 MG PO HS Magic Swizzle (Magic Swizzle - SUCRALFA/ALUM/MAG/DIPHEN/LIDO), 3-4 TSP PO ACHS Methimazole (Methimazole), 5 MG PO HS Methotrexate (Methotrexate), 12.5 MG PO WK Metoprolol Tartrate (Lopressor), 25 MG PO BID Pantoprazole (Pantoprazole Sodium), 40 MG PO QAM Potassium Chloride 40 Meq/15 Ml (Potassium Chloride 40 Meq/15 Ml), 40 MEQ PO QAM Scheduled PRN Acetaminophen (Tylenol), 1 DOSE PO UD PRN for Pain or Fever Amitriptyline Hcl (Elavil), 20 MG PO HS PRN for Sleep Benzonatate (Benzonatate), 100-200 MG PO TID PRN for Cough Dexamethasone (Decadron), 4 MG PO UD PRN for Chemo Treatment Fentanyl (Fentanyl), 12 MCG TOP CQ72HR PRN for Pain Hydrocodone/Homatropine (Hydromet 5-1.5 mg/5Ml), 5 ML PO HS PRN for Cough Melatonin (Melatonin), 3 MG PO HS PRN for Sleep Ondansetron (Ondansetron HCl), 4 MG PO Q4H PRN for Nausea Prochlorperazine Maleate (Prochlorperazine Maleate), 10 MG PO Q6H PRN for Nausea Promethazine Hcl (Phenergan Suppository), 25 MG [place] Q6H PRN for Nausea Ranitidine HCl (Ranitidine HCl), 150 MG PO DAILY PRN for Heartburn/Indigestion Review of Systems Constitutional: + fever, + chills, + weakness Respiratory: + cough, + shortness of breath Cardiovascular: + chest pain Abdomen: No pain, No nausea, No vomiting Genitourinary - Female: No dysuria, No urinary frequency, No urinary urgency Integumentary: No rash, No itch Physical Exam Vital Signs Date Time Temp Pulse Resp B/P (MAP) Pulse Ox O2 Delivery O2 Flow Rate FiO2 03/20/17 00:09 115 18 107/61 96 Room Air 03/19/17 22:31 96 Nasal Cannula 2.0 2/11/18 22:25 129 03/19/17 21:20 37.2 144 21 122/69 96 Room Air GENERAL: alert, no distress EYE EXAM: normal conjunctiva, PERRL and EOM's grossly intact OROPHARYNX: no exudate, no erythema, lips, buccal mucosa, and tongue normal and mucous membranes are moist NECK: supple, no nuchal rigidity, no adenopathy, non-tender LUNGS: Bilateral crackles, scattered wheezing HEART: systolic murmur, S1 normal and S2 normal ABDOMEN: abdomen soft, non-tender, normo-active bowel sounds, no masses, no rebound or guarding. SKIN: no rashes no jaundice UPPER EXTREMITIES: upper extremities are grossly normal. LOWER EXTREMITIES: No pitting edema. NEURO EXAM: Normal sensorium, cranial nerves II-XII grossly intact, normal speech Diagnostics Laboratory Results Results Past 24 Hours Test 03/19/17 21:57 03/19/17 22:18 Range/Units White Blood Count 5.46 4.8-10.8 K/uL Red Blood Count 3.13 4.2-5.4 M/uL Hemoglobin 9.8 12.0-16.0 g/dL Hematocrit 27.2 37-47 % Mean Corpuscular Volume 86.9 80-100 fL Mean Corpuscular Hemoglobin 31.3 25-34 pg Mean Corpuscular Hemoglobin Concent 36.0 32-36 g/dl Platelet Count 112 130-400 K/uL Mean Platelet Volume 9.3 7.4-10.4 fL Neutrophils (%) (Auto) 75.0 % Lymphocytes (%) (Auto) 15.9 % Monocytes (%) (Auto) 8.6 % Eosinophils (%) (Auto) 0.0 % Basophils (%) (Auto) 0.0 % Neutrophils # (Auto) 4.09 1.4-6.5 K/uL Lymphocytes # (Auto) 0.87 1.2-3.4 K/uL Monocytes # (Auto) 0.47 0.11-0.59 K/uL Eosinophils # (Auto) 0.00 0-0.5 K/uL Basophils # (Auto) 0.00 0-0.2 K/uL RDW Standard Deviation 46.7 36.4-46.3 fL RDW Coefficient of Variation 15.5 11.5-14.5 % Immature Granulocyte % (Auto) 0.5 % Immature Granulocyte # (Auto) 0.03 0.00-0.02 K/uL Hyposegmented Neutrophils 1+ Prothrombin Time 13.1 9.0-12.0 SECONDS Prothromb Time International Ratio 1.3 0.9-1.1 Activated Partial Thromboplast Time 28.6 21.0-31.0 SECONDS Partial Thromboplastin Ratio 1.1 Sodium Level 125 136-145 mmol/L Potassium Level 2.9 3.5-5.1 mmol/L Chloride Level 82 98-107 mmol/L Carbon Dioxide Level 32 21-32 mmol/L Anion Gap 11.0 3-11 mmol/L Blood Urea Nitrogen 14 7-18 mg/dl Creatinine 0.51 0.60-1.20 mg/dl Est Creatinine Clear Calc Drug Dose 83.1 ml/min Estimated GFR () 112.1 Estimated GFR (Non- 96.7 BUN/Creatinine Ratio 26.5 10-20 Random Glucose 109 70-99 mg/dl Calcium Level 8.9 8.5-10.1 mg/dl Magnesium Level 2.1 1.8-2.4 mg/dl Total Bilirubin 0.7 0.2-1 mg/dl Aspartate Amino Transf (AST/SGOT) 18 15-37 U/L Alanine Aminotransferase (ALT/SGPT) 19 12-78 U/L Alkaline Phosphatase 98 45-117 U/L Troponin I 0.022 0-0.045 ng/ml Total Protein 7.0 6.4-8.2 gm/dl Albumin 2.8 3.4-5.0 gm/dl Globulin 4.2 2.5-4.0 gm/dl Albumin/Globulin Ratio 0.7 0.9-2 Bedside Lactic Acid Venous 1.19 0.90-1.70 mmol/L Microbiology Results 03/19/17 Blood Culture, Received Pending 03/19/17 Blood Culture, Received Pending Diagnostic Radiology CHEST ONE VIEW PORTABLE CLINICAL HISTORY: Sepsis dyspnea COMPARISON STUDY: 03/07/2017 FINDINGS: Small developing parenchymal infiltrate right base. Chronic interstitial change both lung bases. Mid and upper lungs are clear. No significant cardiac enlargement. IMPRESSION: Small developing parenchymal infiltrate right base. This is superimposed upon chronic basilar interstitial change. Impression Assessment and Plan 72 yo Hx multiple Kim including breast, endometrial, melanoma. Recent diagnosis of metastatic R lung adenocarcinoma confirmed on biopsy/pathology 11/23 on chemotherapy presenting with weakness, tachycardia, cough, pleuritic Chest pain w with CXR showing Small developing parenchymal infiltrate right base. SOB, Pleuritic Chest Pain, Tachycardia -history of fever , crackles on exam, RLL infiltrate consistent with Pneumonia -Started Vancomycin, Cefepime, Azithromycin -previous history of Influenza s/p Tamiflu treatment on previous admission, no swab collected on arrival, CXR more consistent with bacterial cause -Blood cs pending -Sinus Tachycardia, Recent CT for PE on 03/07 negative for PE, PE less likely -Troponin unremarkable Metastatic Cancer - Neutropenia likely secondary to Bone marrow suppression in setting of Chemotherapy Hyperthyroidism -methimazole RA -Cont Plaquenil - MTC held due to immunosuppressed state GERD -Ranitidine, Protonix DVT Prophtylaxis - SCDs Code Status - Full Resuscitation Disposition - Admit to Med/Surg Level of Care Med/Surg Resuscitation Status FULL RESUSCITATION VTE Prophylaxis VTE Risk Assessment Done? Y/N: Yes Risk Level: High Given or contraindicated: SCD's Resident Tracking Resident Involvement: Resident Care Provided Care Provided: Adult Hospital Medicine
[2017-03-20 06:44] LABS: CALCIUM 8.2 mg/dl (8.5-10.1); CREATININE 0.35 mg/dl (0.60-1.20); POTASSIUM 3.1 mmol/L (3.5-5.1)
[2017-03-20 06:57] LABS: BASO % 0.5 %; BASO ABS # 0.02 K/uL (0-0.2); EOS % 0.3 %; EOS ABS # 0.01 K/uL (0-0.5); IG# 0.03 K/uL (0.00-0.02); LYMPH % 19.4 %; LYMPH ABS # 0.72 K/uL (1.2-3.4); MONO % 13.5 %; NEUT % 65.5 %; NEUT ABS # 2.43 K/uL (1.4-6.5)
[2017-03-20] MEDS: ALBUT/IPRATROP 3MG/0.5MG NEB 3 ML VIAL INH SCH ×5 (07:18→20:13)
[2017-03-20] MEDS: RESTASIS~ORDER AWAITING ACTION SCH ×2 (08:00→16:00)
[2017-03-20] MEDS ORDERED: CEFEPIME IV 2,000 MG in DEXTROSE 5% 100ML 100 ML IV SCH (08:00)
[2017-03-20] MEDS: PANTOprazole SOD 40 MG TAB PO SCH (08:10)
[2017-03-20] MEDS: METOPROLOL TARTRATE 25 MG TAB PO SCH ×2 (08:11→21:32)
[2017-03-20] MEDS: AZITHROMYCIN IV 500 MG in DEXTROSE 5% 250ML 250 ML IV SCH (08:12)
[2017-03-20] MEDS: HEPARIN SOD 5000 UNIT/0.5 ML CARP SQ SCH ×2 (08:22→21:38)
[2017-03-20] MEDS: ACETAMINOPHEN 325 MG TAB PO PRN ×2 (08:23→21:36)
--- NOTE | 2017-03-20 09:17 | Pharmacy Progress Note ---
Pharmacy Abx Initial Consult Date of Service Mar 20, 2017. Pharmacy Dosing Scope Date of Consult: 03/20/17 Consultation requested by: Dr. Julien Pharmacy is consulted to initiate vancomycin/Zosyn IV dosing therapy, order appropriate labs and adjust drug dose/frequency. Subjective The patient is a 72 year old female admitted on Mar 20, 2017 at 00:31. Objective Height (Feet): 5 Height (Inches): 7.00 Weight (Kilograms): 52.000 Vital Signs (Past 12Hrs) Vital Signs Past 12 Hours Date Time Temp Pulse Resp B/P (MAP) Pulse Ox O2 Delivery O2 Flow Rate FiO2 03/20/17 07:58 36.4 116 18 110/72 (85) 97 Room Air 03/20/17 01:45 36.9 120 18 118/78 Room Air 03/20/17 01:45 99 Nasal Cannula 2.0 03/20/17 01:13 110 18 107/61 99 03/20/17 00:09 115 18 107/61 96 Room Air 03/19/17 22:31 96 Nasal Cannula 2.0 03/19/17 22:25 129 03/19/17 21:20 37.2 144 21 122/69 96 Room Air Lab Results (24Hrs) Laboratory Tests (24 Hours) Test 03/20/17 05:55 White Blood Count 3.71 K/uL (4.8-10.8) L Red Blood Count 2.64 M/uL (4.2-5.4) L Hemoglobin 8.1 g/dL (12.0-16.0) L Hematocrit 22.8 % (37-47) L Mean Corpuscular Volume 86.4 fL (80-100) Mean Corpuscular Hemoglobin 30.7 pg (25-34) Mean Corpuscular Hemoglobin Concent 35.5 g/dl (32-36) Platelet Count 80 K/uL (130-400) L Mean Platelet Volume 8.8 fL (7.4-10.4) Neutrophils (%) (Auto) 65.5 % Lymphocytes (%) (Auto) 19.4 % Monocytes (%) (Auto) 13.5 % Eosinophils (%) (Auto) 0.3 % Basophils (%) (Auto) 0.5 % Neutrophils # (Auto) 2.43 K/uL (1.4-6.5) Lymphocytes # (Auto) 0.72 K/uL (1.2-3.4) L Monocytes # (Auto) 0.50 K/uL (0.11-0.59) Eosinophils # (Auto) 0.01 K/uL (0-0.5) Basophils # (Auto) 0.02 K/uL (0-0.2) Micro Results Date/Time Source Procedure Growth Status 03/19/17 22:09 Blood Blood Culture Pending Received 03/19/17 21:57 Blood Blood Culture Pending Received Risk Factors for Resistance * Hospitalization for 48 hours or more within the past 90 days * Immunocompromised (chemotherapy, radiation therapy) * Antimicrobial use within the last 90 days cefepime and vancomycin during last hospital admission Assessment & Plan Assessment 72 year old female with a PMH of numerous types of CA on chemo and radiation, recent hospitalization for the flu and treatment with cefepime, vancomycin, and Tamiflu who presents with increasing weakness and SOB. Concern for post-viral pneumonia. Plan vancomycin/cefepime/azithromycin for treatment of post-viral pneumonia Vancomycin IV * Loading dose: 1250 mg (24 mg/kg) * Maintenance dose: 1000 mg IV (17 mg/kg) every 8 hours (previous patient specific pharmacokinetic values indicate that a vancomycin 1 gm IV q12 hours produces trough of 6.9 mcg/mL which is not appropriate for pneumonia. Attempt q8 dosing) * Goal trough level for pneumonia : 15 to 20 mcg/mL * Trough ordered for 03/20/17 * MRSA nasal swab and procalcitonin ordered. Pharmacy will continue to follow and will adjust dose/frequency as necessary. Thank you.
[2017-03-20] MEDS: VANCOMYCIN INJ 1,000 MG in SODIUM CHLORIDE 0.9% 250ML 250 ML IV SCH ×2 (10:34→19:11)
[2017-03-20] MEDS: CEFEPIME IV 2,000 MG in SYRINGE 7.5 ML IV SCH ×2 (10:34→21:34)
[2017-03-20] MEDS ORDERED: POTASSIUM CHLORIDE PWD 20 MEQ PACK PO ONE (15:15)
[2017-03-20] MEDS ORDERED: MAGIC SWIZZLE PO PRN (15:15)
[2017-03-20] MEDS ORDERED: LIDOCAINE HCL 2% VISCOUS SOLN 1.25 ML, DiphenhydrAMINE HCL SYRUP 3.125 MG, ALUMINUM/MAG... MT PRN ×4 (15:30)
[2017-03-20] MEDS ORDERED: LIDOCAINE HCL 2% VISCOUS SOLN 60 ML, DiphenhydrAMINE HCL SYRUP 150 MG, ALUMINUM/MAGNESI... MT PRN ×4 (15:45)
--- NOTE | 2017-03-20 17:13 | Gastrointestinal Consultation ---
Gastrointestinal Consultation Date of Consultation: Mar 20, 2017 Attending Physician: DR Cory Lara Consulting Physician: Dr Serjio Thakur Reason for Consultation: dysphagia post radiation History of Present Illness Patient is a 72 year old female with CC of pain with swallowing. HPI Pt getting chemo and completed 10 day radiation of lung mass 03/02/17. Shortly after completing radiation she developed burning pain with swallowing and has avoided food with 30 lbs wt loss. No abd pain. Some fever from recent flu and pneumonia. Hx of GERD. Review of EMR EGD 06/2014 for hx of premalignant condition does not give findings but states GE and antrum bx done. Colonoscopy 01/2015 for hx of polyps sigmoid diverticula an internal hemorrhoids. Pt with hx of breast cancer and now metastatic lung cancer. CXR on admit infiltrate R lung base. 03/07/[address] RLL mass, emphsema.01/2017 A/P CT diverticulosis, lung nodule, breast mass. Some N/V but no hematemsis. No blood nor black stools. Past Medical/Surgical History Medical Problems: (1) Fever Status: Acute (2) Metastatic breast cancer Status: Acute (3) Tachycardia Status: Acute Family History Cancer FHx: gallbladder disease Heart disease Hypertension Lung disease Social History Smoking Status: Never Smoker Marital Status: Housing Status: lives with significant other Occupation Status: retired Allergies Coded Allergies: Penicillins (Verified Allergy, Unknown, RASH, 02/01/17) Codeine (Verified Adverse Reaction, Unknown, GI UPSET, 02/01/17) Morphine and Related (Verified Adverse Reaction, Unknown, SEVERE NAUSEA, 02/01/17) Current Medications Home Meds and Scripts Medications Dose Route/Sig Max Daily Dose Days Date Category Dose Instructions Potassium Chloride 40 Meq/15 Ml (Potassium Chloride) 20 % Liq 40 Meq PO QAM 7 03/10/17 Rx Take 15 ml (1 tablespoon) in the morning pending home health labs with low potassium. Mix with juice. Hydromet 5-1.5 mg/5Ml (Hydrocodone Bit/Homatropine Methylb) 5 Ml/Cup Syrp 5 Ml PO HS PRN 30 03/10/17 Rx Magic Swizzle - SUCRALFA/ALUM/MAG/DIPHEN/LIDO (Magic Swizzle) 240 Ml Susp 3-4 Tsp PO ACHS 2/2/18 Rx 100ml Sucralfate 50ml Maalox 50ml Diphenhydramine 40ml 2% Aq. Lidocaine Swish and Swallow Pantoprazole Sodium (Pantoprazole) 40 Mg Tab 40 Mg PO QAM 30 03/10/17 Rx Lopressor (Metoprolol Tartrate) 25 Mg Tab 25 Mg PO BID 30 03/10/17 Rx Tylenol (Acetaminophen) Unknown Strength Tab 1 Dose PO UD PRN 03/07/17 Reported Phenergan Suppository (Promethazine HCl) 25 Mg Supp 25 Mg [place] Q6H PRN 03/07/17 Reported Fentanyl 12 Mcg Tdsy 12 Mcg TOP [id number] PRN 03/07/17 Reported Melatonin 3 Mg Tab 3 Mg PO HS PRN 03/07/17 Reported Ranitidine HCl 150 Mg Tab 150 Mg PO DAILY PRN 03/07/17 Reported Elavil (Amitriptyline Hcl) 10 Mg Tab 20 Mg PO HS PRN 03/07/17 Reported Methotrexate 2.5 Mg Tab 12.5 Mg PO WK 03/07/17 Reported TAKE 5 TABLETS (12.5 MG) EVERY MONDAY Ondansetron HCl (Ondansetron) 4 Mg Tab 4 Mg PO Q4H PRN 03/07/17 Reported Prochlorperazine Maleate 10 Mg Tab 10 Mg PO Q6H PRN 03/07/17 Reported Benzonatate 100 Mg Cap 100-200 Mg PO TID PRN 03/07/17 Reported Decadron (Dexamethasone) 4 Mg Tab 4 Mg PO UD PRN 03/07/17 Reported TAKE 4 MG ORALLY 2 TIMES PER DAY STARTING THE DAY BEFORE TREATMENT, DAY OF TREATMENT AND DAY AFTER TREATMENT Folic Acid 1 Mg Tab 1 Mg PO DAILY 03/07/17 Reported Plaquenil (Hydroxychloroquine Sulfate) 200 Mg Tab 100 Mg PO HS 02/01/17 Reported [place]-3 (Fish Oil) 1 Ea Cap 1 Cap PO HOLD 02/01/17 Reported CURRENTLY BEING HELD UNTIL OTHERWISE DIRECTED TO TAKE BY Citracal + D3 Maximum (Calcium Citrate-Vitamin D) 1 Tab Tab 2 Tabs PO HOLD 02/01/17 Reported CURRENTLY BEING HELD UNTIL OTHERWISE DIRECTED TO TAKE BY MD Smiley (Cyclosporine (Ophth)) 0.05 % Emu 1 Drop OPB Q12H 02/01/17 Reported Vitamin D3 (Cholecalciferol) 2,000 Unit Tab 1 Cap PO HOLD 06/25/14 Reported CURRENTLY BEING HELD UNTIL OTHERWISE DIRECTED TO TAKE BY Methimazole 5 Mg Tab 5 Mg PO HS 06/25/14 Reported Review of Systems see HPI. Otherwise 10 ROS neg. Physical Exam Date Time Temp Pulse Resp B/P (MAP) Pulse Ox O2 Delivery O2 Flow Rate FiO2 03/20/17 15:55 36.8 113 18 108/72 (84) 99 2.0 03/20/17 15:13 89 16 99 Nasal Cannula 2.0 03/20/17 11:10 97 16 100 Nasal Cannula 2.0 03/20/17 09:25 97 Room Air 03/20/17 08:15 Nasal Cannula 2.0 03/20/17 07:58 36.4 116 18 110/72 (85) 97 Room Air 03/20/17 07:18 112 16 100 Nasal Cannula 2.0 03/20/17 01:45 36.9 120 18 118/78 Room Air 03/20/17 01:45 99 Nasal Cannula 2.0 03/20/17 01:13 110 18 107/61 99 03/20/17 00:09 115 18 107/61 96 Room Air 03/19/17 22:31 96 Nasal Cannula 2.0 03/19/17 22:25 129 03/19/17 21:20 37.2 144 21 122/69 96 Room Air General Appearance: WD/WN, no apparent distress Eyes: normal inspection, PERRL ENT: hearing grossly normal Neck: no adenopathy, trachea midline Respiratory/Chest: lungs clear, no respiratory distress Cardiovascular: regular rate, rhythm, no edema Abdomen: normal bowel sounds, non tender, soft, no organomegaly, no pulsatile mass Extremities: normal range of motion, non-tender Neurologic/Psych: cryogenics engineer II-XII nml as tested, alert, normal mood/affect, oriented x 3 Skin: normal color, no jaundice Laboratory Results Last 24 Hours Test 03/19/17 21:57 03/19/17 22:18 03/20/17 05:55 White Blood Count 5.46 K/uL 3.71 K/uL Red Blood Count 3.13 M/uL 2.64 M/uL Hemoglobin 9.8 g/dL 8.1 g/dL Hematocrit 27.2 % 22.8 % Mean Corpuscular Volume 86.9 fL 86.4 fL Mean Corpuscular Hemoglobin 31.3 pg 30.7 pg Mean Corpuscular Hemoglobin Concent 36.0 g/dl 35.5 g/dl Platelet Count 112 K/uL 80 K/uL Mean Platelet Volume 9.3 fL 8.8 fL Neutrophils (%) (Auto) 75.0 % 65.5 % Lymphocytes (%) (Auto) 15.9 % 19.4 % Monocytes (%) (Auto) 8.6 % 13.5 % Eosinophils (%) (Auto) 0.0 % 0.3 % Basophils (%) (Auto) 0.0 % 0.5 % Neutrophils # (Auto) 4.09 K/uL 2.43 K/uL Lymphocytes # (Auto) 0.87 K/uL 0.72 K/uL Monocytes # (Auto) 0.47 K/uL 0.50 K/uL Eosinophils # (Auto) 0.00 K/uL 0.01 K/uL Basophils # (Auto) 0.00 K/uL 0.02 K/uL RDW Standard Deviation 46.7 fL 47.5 fL RDW Coefficient of Variation 15.5 % 15.9 % Immature Granulocyte % (Auto) 0.5 % 0.8 % Immature Granulocyte # (Auto) 0.03 K/uL 0.03 K/uL Hyposegmented Neutrophils 1+ Prothrombin Time 13.1 SECONDS Prothromb Time International Ratio 1.3 Activated Partial Thromboplast Time 28.6 SECONDS Partial Thromboplastin Ratio 1.1 Sodium Level 125 mmol/L 132 mmol/L Potassium Level 2.9 mmol/L 3.1 mmol/L Chloride Level 82 mmol/L 93 mmol/L Carbon Dioxide Level 32 mmol/L 30 mmol/L Anion Gap 11.0 mmol/L 9.0 mmol/L Blood Urea Nitrogen 14 mg/dl 11 mg/dl Creatinine 0.51 mg/dl 0.35 mg/dl Est Creatinine Clear Calc Drug Dose 83.1 ml/min 121.0 ml/min Estimated GFR () 112.1 126.9 Estimated GFR (Non- 96.7 109.5 BUN/Creatinine Ratio 26.5 32.0 Random Glucose 109 mg/dl 93 mg/dl Calcium Level 8.9 mg/dl 8.2 mg/dl Magnesium Level 2.1 mg/dl Total Bilirubin 0.7 mg/dl Aspartate Amino Transf (AST/SGOT) 18 U/L Alanine Aminotransferase (ALT/SGPT) 19 U/L Alkaline Phosphatase 98 U/L Troponin I 0.022 ng/ml Total Protein 7.0 gm/dl Albumin 2.8 gm/dl Globulin 4.2 gm/dl Albumin/Globulin Ratio 0.7 Bedside Lactic Acid Venous 1.19 mmol/L Red Blood Cell Morphology Unremarkable Impression Odynophagia--most likely from radiation. fungal and viral in the differential. Discusse options are to treat fungal emprically vs EGD to look for treatable disease vs EGD with PEG. Pt want to speak with before making decision. PPI and Magic Swizzle will continue. Explained EGD/PEG to patient which indclude but not limited to med reaction, bleeding, perforation, aspiration, and infection. Will make pt NPO pos MN so if clinically stable and at least wants and EGD can do it. GERD-PPI anemia--no gross GI bleeding noted clinically
--- NOTE | 2017-03-20 18:52 | Family Medicine Progress Note ---
Progress Note Date of Service Mar 20, 2017. Subjective Pt evaluation today including: conversation w/ patient, physical exam, chart review Pain: Patient denies pain PO Intake: Difficulty swallowing 2/2 dysphagia Voiding: no voiding problems Patient states she as no complaints aside from dysphagia and recent weight loss a/w inability to swallow Constitutional: + weight loss Abdomen: + problem reported (Dysphagia) All Other Systems: Reviewed and Negative Medications Current Inpatient Medications Medications (Trade) Dose Ordered Sig/Stephanie Route Start Time Stop Time Status Last Admin Dose Admin Acetaminophen (Tylenol Tab) 650 mg Q4H PRN PO 03/20/17 00:00 04/19/17 00:00 03/20/17 21:36 650 MG Al Hydrox/Mg Hydrox/Simethicone (Maalox Max Susp) 15 ml Q4H PRN PO 03/20/17 00:00 04/19/17 00:00 Magnesium Hydroxide (Milk Of Magnesia Susp) 30 ml Q6H PRN PO 03/20/17 00:00 04/19/17 00:00 Polyethylene (Miralax Powder Packet) 17 gm DAILY PRN PO 03/20/17 00:00 04/19/17 00:00 Ondansetron HCl (Zofran Inj) 4 mg Q6H PRN IV 03/20/17 00:00 04/19/17 00:00 Heparin Sodium (Porcine) (Heparin Sq 5000 Unit/0.5ml) 5,000 unit Q12H SQ 03/20/17 09:00 04/19/17 08:59 03/20/17 21:38 5,000 UNIT Azithromycin 500 mg/Dextrose 255 ml @ 125 mls/hr DAILY IV 03/20/17 08:00 03/27/17 08:59 03/20/17 08:12 125 MLS/HR Miscellaneous Information (Consult) 1 ea UD PRN N/A 03/20/17 00:00 04/19/17 00:00 Albuterol/ Ipratropium (Duoneb) 3 ml QIDR INH 03/20/17 08:00 04/19/17 07:59 03/20/17 20:13 3 ML Amitriptyline HCl (Elavil Tab) 20 mg HS PRN PO 03/20/17 00:00 04/19/17 00:00 03/20/17 21:33 20 MG Hydroxychloroquine Sulfate (Plaquenil Tab) 100 mg HS PO 03/20/17 21:00 04/19/17 20:59 03/20/17 21:34 100 MG Methimazole (Methimazole Tab) 5 mg HS PO 03/20/17 21:00 04/19/17 20:59 03/20/17 21:33 5 MG Metoprolol Tartrate (Lopressor Tab) 25 mg BID PO 03/20/17 08:00 04/19/17 08:59 03/20/17 21:32 25 MG Pantoprazole Sodium (Protonix Tab) 40 mg QAM PO 03/20/17 08:00 04/19/17 08:59 03/20/17 08:10 40 MG Prochlorperazine Maleate (Compazine Tab) 10 mg Q6H PRN PO 03/20/17 00:00 04/19/17 00:00 Promethazine HCl (Phenergan Supp) 25 mg Q6H PRN CA 03/20/17 00:00 04/19/17 00:00 Ranitidine HCl (zANTac TAB) 150 mg DAILY PRN PO 03/20/17 00:00 04/19/17 00:00 Miscellaneous Information (Order Awaiting Action) 1 ea QS N/A 03/20/17 08:00 04/19/17 07:59 Miscellaneous (Iv Fluids Completed) 1 ea PRN PRN N/A 03/20/17 01:00 03/20/18 00:59 Lidocaine HCl/ Diphenhydramine HCl/Al Hydroxide/ Mg Hydroxide/ Glycerin/Barcode ACHS MT 03/20/17 06:30 04/19/17 06:29 03/20/17 21:00 15 ML Cefepime HCl 2000 mg/Syringe 20 ml @ 5 mls/min Q12H IV 03/20/17 09:00 03/27/17 08:59 03/20/17 21:34 5 MLS/MIN Vancomycin HCl 1000 mg/Sodium Chloride 270 ml @ 125 mls/hr Q8H IV 03/20/17 10:00 03/27/17 09:59 03/20/17 19:11 125 MLS/HR Lidocaine HCl/ Diphenhydramine HCl/Al Hydroxide/ Mg Hydroxide/ Glycerin/Barcode BID PRN MT 03/20/17 15:45 04/19/17 15:44 Objective Vital Signs Date Time Temp Pulse Resp B/P (MAP) Pulse Ox O2 Delivery O2 Flow Rate FiO2 03/20/17 20:13 85 16 100 Nasal Cannula 2.0 03/20/17 16:10 Nasal Cannula 2.0 03/20/17 15:55 36.8 113 18 108/72 (84) 99 2.0 03/20/17 15:13 89 16 99 Nasal Cannula 2.0 03/20/17 11:10 97 16 100 Nasal Cannula 2.0 03/20/17 09:25 97 Room Air 03/20/17 08:15 Nasal Cannula 2.0 03/20/17 07:58 36.4 116 18 110/72 (85) 97 Room Air 03/20/17 07:18 112 16 100 Nasal Cannula 2.0 03/20/17 01:45 36.9 120 18 118/78 Room Air 03/20/17 01:45 99 Nasal Cannula 2.0 03/20/17 01:13 110 18 107/61 99 03/20/17 00:09 115 18 107/61 96 Room Air Physical Exam General Appearance: WD/WN, no apparent distress Eyes: normal inspection, PERRL, EOMI, sclerae normal ENT: normal ENT inspection, hearing grossly normal, pharynx normal Neck: supple, no adenopathy, no JVD, no carotid bruits, trachea midline Respiratory/Chest: chest non-tender, no respiratory distress, no accessory muscle use, + crackles (R>L) Cardiovascular: regular rate, rhythm, no edema, no gallop, no JVD, no murmur Abdomen: normal bowel sounds, non tender, soft, no organomegaly, no pulsatile mass Extremities: normal range of motion, non-tender, normal inspection, no pedal edema Neurologic/Psychiatric: rn telehealth II-XII nml as tested, no motor/sensory deficits, alert, normal mood/affect, oriented x 3 Skin: normal color, warm/dry, no rash Laboratory Results Last Resulted 03/20/17 05:55 Red Blood Count 2.64, Mean Corpuscular Volume 86.4, Mean Corpuscular Hemoglobin 30.7, Mean Corpuscular Hemoglobin Concent 35.5, Mean Platelet Volume 8.8, Neutrophils (%) (Auto) 65.5, Lymphocytes (%) (Auto) 19.4, Monocytes (%) (Auto) 13.5, Eosinophils (%) (Auto) 0.3, Basophils (%) (Auto) 0.5, Neutrophils # (Auto ) 2.43, Lymphocytes # (Auto) 0.72, Monocytes # (Auto) 0.50, Eosinophils # (Auto ) 0.01, Basophils # (Auto) 0.02 Last Resulted 03/20/17 05:55 Assessment and Plan 72 yo Hx multiple Kim including breast, endometrial, melanoma. Recent diagnosis of metastatic R lung adenocarcinoma confirmed on biopsy/pathology 11/23 on chemotherapy presenting with weakness, tachycardia, cough, pleuritic Chest pain w with CXR showing Small developing parenchymal infiltrate right base. SOB, Pleuritic Chest Pain, Tachycardia -history of fever , crackles on exam, RLL infiltrate consistent with Pneumonia -Started Vancomycin, Cefepime -previous history of Influenza s/p Tamiflu treatment on previous admission, no swab collected on arrival, CXR more consistent with bacterial cause -Blood cs pending -Sinus Tachycardia, Recent CT for PE on 03/07 negative for PE, PE less likely -Troponin unremarkable Dysphagia Full liquid diet SALT consult Ayanna ochoa ordered GI consult, appreciate recs: NPO from midnight if patient wishes to proceed with EGD Hypokalemia Repleted Metastatic Cancer - Neutropenia likely secondary to Bone marrow suppression in setting of Chemotherapy Hyperthyroidism -methimazole RA -Cont Plaquenil - MTX held due to immunosuppressed state GERD -Ranitidine, Protonix DVT Prophtylaxis - SCDs Code Status - Full Resuscitation Disposition - Med/Surg Resident Tracking Resident Involvement: Resident Care Provided Care Provided: Adult Hospital Medicine
[2017-03-20] MEDS: METHIMAZOLE 5 MG TAB PO SCH (21:33)
[2017-03-20] MEDS: AMITRIPTYLINE HCL 10 MG TAB PO PRN (21:33)
[2017-03-20] MEDS: HYDROXYCHLOROQUINE SULFATE 200 MG TAB PO SCH (21:34)
[2017-03-21] VITALS (8 sets, daily range): BP systolic 114–126; BP diastolic 73–81; PULSE 84–111; TEMP 36.2–37; O2SAT 96–99
[2017-03-21] MEDS: VANCOMYCIN INJ 1,000 MG in SODIUM CHLORIDE 0.9% 250ML 250 ML IV SCH ×3 (02:40→17:49)
[2017-03-21] MEDS: LIDOCAINE HCL 2% VISCOUS SOLN 60 ML, DiphenhydrAMINE HCL SYRUP 150 MG, ALUMINUM/MAGNESI... MT SCH ×16 (06:30→19:51)
[2017-03-21] MEDS: ALBUT/IPRATROP 3MG/0.5MG NEB 3 ML VIAL INH SCH ×4 (07:25→19:18)
[2017-03-21] MEDS: HEPARIN SOD 5000 UNIT/0.5 ML CARP SQ SCH ×2 (07:42→19:46)
[2017-03-21] MEDS: RESTASIS~ORDER AWAITING ACTION SCH ×4 (07:42→23:05)
[2017-03-21] MEDS: METOPROLOL TARTRATE 25 MG TAB PO SCH ×2 (08:49→19:38)
[2017-03-21] MEDS: CEFEPIME IV 2,000 MG in SYRINGE 7.5 ML IV SCH (08:49)
[2017-03-21] MEDS: PANTOprazole SOD 40 MG TAB PO SCH (08:50)
[2017-03-21] MEDS: AZITHROMYCIN IV 500 MG in DEXTROSE 5% 250ML 250 ML IV SCH (08:50)
[2017-03-21] MEDS ORDERED: VANCOMYCIN TROUGH ONE (09:30)
[2017-03-21 09:51] LABS: HEMATOCRIT 21.1 % (37-47); HEMOGLOBIN 7.5 g/dL (12.0-16.0); MEAN CELL VOLUME 87.9 fL (80-100); MEAN CORPUSCULAR HEMOGLOBIN 31.3 pg (25-34); MEAN CORPUSCULAR HGB CONC 35.5 g/dl (32-36); RED CELL DISTRIBUTION WIDTH CV 16.1 % (11.5-14.5); RED CELL DISTRIBUTION WIDTH SD 49.4 fL (36.4-46.3)
[2017-03-21 09:53] LABS: MEAN PLATELET VOLUME 8.8 fL (7.4-10.4); PLATELET COUNT 82 K/uL (130-400)
[2017-03-21 10:11] LABS: CALCIUM 7.9 mg/dl (8.5-10.1); CREATININE 0.33 mg/dl (0.60-1.20); POTASSIUM 2.8 mmol/L (3.5-5.1)
[2017-03-21 10:13] LABS: BASO % 0.7 %; BASO ABS # 0.02 K/uL (0-0.2); EOS % 0.3 %; EOS ABS # 0.01 K/uL (0-0.5); IG# 0.02 K/uL (0.00-0.02); LYMPH % 10.7 %; LYMPH ABS # 0.32 K/uL (1.2-3.4); MONO ABS # 0.36 K/uL (0.11-0.59); NEUT % 75.6 %; NEUT ABS # 2.27 K/uL (1.4-6.5)
[2017-03-21 10:15] LABS: TOTAL PROTEIN 5.5 gm/dl (6.4-8.2)
--- NOTE | 2017-03-21 11:20 | Pharmacy Progress Note ---
Pharmacy Abx Dose Short Note Date of Service Mar 21, 2017. Assessment & Plan Assessment Ms. Husain's trough came back therapeutic at 18.4mcg/mL for pulmonary etiology. Her renal fxn looks excellent, body habitus not indicative of vancomycin accumulation. Plan Continue current Vanco/Zithromax/Cefepime regimen. Vanco trough ordered for @ 0130 to ensure therapeutic concentrations are being achieved. Pharmacy will continue to follow and will adjust dose/frequency as necessary. Thank you.
[2017-03-21] MEDS ORDERED: POTASSIUM CHLORIDE 20 MEQ TABCR PO STA (11:32)
[2017-03-21] MEDS: POTASSIUM CHLR 10 MEQ / WTR 10 MEQ in PREMIXED WATER 100 ML IV SCH ×2 (12:40→16:59)
[2017-03-21] MEDS ORDERED: LIDOCAINE HCL 2% 2 ML VIAL (20MG/ML) ONE (14:38)
[2017-03-21] MEDS ORDERED: PROPOFOL IV EMULSION 10 MG/ML 20 ML VIAL IV ONE (14:38)
[2017-03-21] MEDS ORDERED: MIDAZOLAM HCL 1 MG/ML 2ML VIAL ONE (14:38)
[2017-03-21] MEDS ORDERED: FENTANYL CITRATE INJ 50 MCG/1 ML 2 ML VIAL ONE (14:38)
--- NOTE | 2017-03-21 14:54 | History & Physical Bridge Note ---
H&P Re-Evaluation Bridge Note: I have examined the patient, reviewed the History & Physical and in the interval since the performance of the History & Physical I have noted the following changes of clinical significance: Chart reviewed pt examined. [t agrreable to EGD/ with PEG placement; risks , benefits and al;ternatives discussed with patient pt agrees to proceed rosalinda
--- NOTE | 2017-03-21 15:46 | GI REPORT ---
Procedure Date: 03/21/2017 2:19 PM Procedure: Upper GI endoscopy Indications: Esophageal dysphagia Medicines: Propofol per Anesthesia, pt receiveing Vanco IV, Azithromycin and Augmentin PO currently Complications: No immediate complications. Estimated blood loss: Minimal. Estimated Blood Loss: Estimated blood loss was minimal. Procedure: Pre-Anesthesia Assessment: - Prior to the procedure, a History and Physical was performed, and patient medications and allergies were reviewed. The patient's tolerance of previous anesthesia was also reviewed. The risks and benefits of the procedure and the sedation options and risks were discussed with the patient. All questions were answered, and informed consent was obtained. Prior Anticoagulants: The patient has taken no previous anticoagulant or antiplatelet agents. ASA Grade Assessment: III - A patient with severe systemic disease. After reviewing the risks and benefits, the patient was deemed in satisfactory condition to undergo the procedure. After obtaining informed consent, the endoscope was passed under direct vision. Throughout the procedure, the patient's blood pressure, pulse, and oxygen saturations were monitored continuously. The scope was introduced through the mouth, and advanced to the second part of duodenum. The upper GI endoscopy was accomplished without difficulty. The patient tolerated the procedure well. Findings: LA Grade A (one or more mucosal breaks less than 5 mm, not extending between tops of 2 mucosal folds) esophagitis with no bleeding was found in the middle third of the esophagus. The entire examined stomach was normal. The duodenal bulb was normal. Diffuse moderate mucosal changes characterized by congestion, erosion, inflammation and scalloping were found in the second portion of the duodenum and in the third portion of the duodenum. Biopsies were taken with a cold forceps for histology. Estimated blood loss was minimal. Biopsies were taken with a cold forceps for histology. Verification of patient identification for the specimen was done by the physician and cardiac catheterization technician using the patient's name and medical record number. The gastric body was normal. The patient was placed in the supine position for PEG placement. The stomach was insufflated to appose gastric and abdominal ayala. A site was located in the body of the stomach with good transillumination and manual external pressure for placement. The abdominal wall was marked and prepped in a sterile manner. The area was anesthetized with 2 mL of 1% lidocaine. The trocar needle was introduced through the abdominal wall and into the stomach under direct endoscopic view. A snare was introduced through the endoscope and opened in the gastric lumen. The guide wire was passed through the trocar and into the open snare. The snare was closed around the guide wire. The endoscope and snare were removed, pulling the wire out through the mouth. A skin incision was made at the site of needle insertion. The externally removable 20 Fr Fernando-Cook gastrostomy tube was lubricated. The G-tube was tied to the guide wire and pulled through the mouth and into the stomach. The trocar needle was removed, and the gastrostomy tube was pulled out from the stomach through the skin. The external bumper was attached to the gastrostomy tube, and the tube was cut to remove the guide wire. The final position of the gastrostomy tube was confirmed by relook endoscopy, and skin marking noted to be 3.5 cm at the external bumper. The final tension and compression of the abdominal wall by the PEG tube and external bumper were checked and revealed that the bumper was loose and lightly touching the skin and that the PEG balloon was loose and lightly touching the stomach. The feeding tube was capped, and the tube site cleaned and dressed. The cardia and gastric fundus were normal on retroflexion. Retained gastric contents are not identified on this exam. Impression: - LA Grade A esophagitis. - Normal stomach. - Normal duodenal bulb. - Mucosal changes in the duodenum. Biopsied. - Normal gastric body. - An externally removable PEG placement was successfully completed. Recommendation: - Return patient to [facility] for [facility] care. - Clear liquid diet. - Please follow the post-PEG recommendations including: may use PEG today for meds and water and check site for bleeding q 4 hrs. - Await pathology results. MD Domingo Aguilar MD 03/21/2017 3:45:44 PM This report has been signed electronically. Note Initiated On: 03/21/2017 2:19 PM I attest to the content of the Intraoperative Record and orders documented therein, exceptions below
--- NOTE | 2017-03-21 16:13 | Anesthesiology Progress Note ---
Anesthesia Post Op Note Date & Time Mar 21, 2017 at 16:12 Vital Signs Pain Intensity: 0.0 Vital Signs Past 12 Hours Date Time Temp Pulse Resp B/P (MAP) Pulse Ox O2 Delivery O2 Flow Rate FiO2 03/21/17 15:57 113 24 123/68 (86) 97 Room Air 03/21/17 15:41 113 24 114/69 (84) 98 Room Air 03/21/17 14:03 36.9 116 24 134/80 (98) 99 Room Air 03/21/17 11:47 103 16 96 Room Air 03/21/17 08:50 Nasal Cannula 2.0 03/21/17 07:25 84 16 99 Nasal Cannula 2.0 03/21/17 07:21 36.6 107 18 126/81 (96) 97 Nasal Cannula 2.0 Notes Mental Status: alert / awake / arousable, participated in evaluation Pt Amnestic to Procedure: Yes Nausea / Vomiting: adequately controlled Pain: adequately controlled Airway Patency, RR, SpO2: stable & adequate BP & HR: stable & adequate Hydration State: stable & adequate Anesthetic Complications: no major complications apparent
--- NOTE | 2017-03-21 17:25 | Family Medicine Progress Note ---
Progress Note Date of Service Mar 21, 2017. Subjective Pt evaluation today including: conversation w/ patient, conversation w/ family , physical exam, chart review, lab review, review of studies, conversation w/ [employer] consultant, review of inpatient medication list Pain: continues to report dysphagia but no other pain PO Intake: unable to swallow food Voiding: no voiding problems Patient states no change from yesterday. She continues to have problems with dysphagia Constitutional: No fever, No chills, No sweats, No weight loss, No weakness , No fatigue, No problem reported Respiratory: + cough Cardiovascular: + problem reported (R-sided Chest wall tenderness) Abdomen: + problem reported (Dysphagia), No pain, No nausea, No vomiting, No diarrhea, No constipation, No GI bleeding All Other Systems: Reviewed and Negative Medications Current Inpatient Medications Medications (Trade) Dose Ordered Sig/Stephanie Route Start Time Stop Time Status Last Admin Dose Admin Acetaminophen (Tylenol Tab) 650 mg Q4H PRN PO 03/20/17 00:00 04/19/17 00:00 03/20/17 21:36 650 MG Al Hydrox/Mg Hydrox/Simethicone (Maalox Max Susp) 15 ml Q4H PRN PO 03/20/17 00:00 04/19/17 00:00 Magnesium Hydroxide (Milk Of Magnesia Susp) 30 ml Q6H PRN PO 03/20/17 00:00 04/19/17 00:00 Polyethylene (Miralax Powder Packet) 17 gm DAILY PRN PO 03/20/17 00:00 04/19/17 00:00 Ondansetron HCl (Zofran Inj) 4 mg Q6H PRN IV 03/20/17 00:00 04/19/17 00:00 Heparin Sodium (Porcine) (Heparin Sq 5000 Unit/0.5ml) 5,000 unit Q12H SQ 03/20/17 09:00 04/19/17 08:59 03/20/17 21:38 5,000 UNIT Azithromycin 500 mg/Dextrose 255 ml @ 125 mls/hr DAILY IV 03/20/17 08:00 03/20/18 21:00 03/21/17 08:50 125 MLS/HR Miscellaneous Information (Consult) 1 ea UD PRN N/A 03/20/17 00:00 03/21/17 21:00 Albuterol/ Ipratropium (Duoneb) 3 ml QIDR INH 03/20/17 08:00 04/19/17 07:59 03/21/17 11:47 3 ML Amitriptyline HCl (Elavil Tab) 20 mg HS PRN PO 03/20/17 00:00 04/19/17 00:00 03/20/17 21:33 20 MG Hydroxychloroquine Sulfate (Plaquenil Tab) 100 mg HS PO 03/20/17 21:00 04/19/17 20:59 03/20/17 21:34 100 MG Methimazole (Methimazole Tab) 5 mg HS PO 03/20/17 21:00 04/19/17 20:59 03/20/17 21:33 5 MG Metoprolol Tartrate (Lopressor Tab) 25 mg BID PO 03/20/17 08:00 04/19/17 08:59 03/21/17 08:49 25 MG Pantoprazole Sodium (Protonix Tab) 40 mg QAM PO 03/20/17 08:00 04/19/17 08:59 03/21/17 08:50 40 MG Prochlorperazine Maleate (Compazine Tab) 10 mg Q6H PRN PO 03/20/17 00:00 04/19/17 00:00 Promethazine HCl (Phenergan Supp) 25 mg Q6H PRN [place] 03/20/17 00:00 04/19/17 00:00 Ranitidine HCl (zANTac TAB) 150 mg DAILY PRN PO 03/20/17 00:00 04/19/17 00:00 Miscellaneous Information (Order Awaiting Action) 1 ea QS N/A 03/20/17 08:00 04/19/17 07:59 Miscellaneous (Iv Fluids Completed) 1 ea PRN PRN N/A 03/20/17 01:00 03/20/18 00:59 Lidocaine HCl/ Diphenhydramine HCl/Al Hydroxide/ Mg Hydroxide/ Glycerin/Barcode ACHS MT 03/20/17 06:30 04/19/17 06:29 03/20/17 21:00 15 ML Vancomycin HCl 1000 mg/Sodium Chloride 270 ml @ 125 mls/hr Q8H IV 03/20/17 10:00 03/21/17 21:00 03/21/17 11:13 125 MLS/HR Lidocaine HCl/ Diphenhydramine HCl/Al Hydroxide/ Mg Hydroxide/ Glycerin/Barcode BID PRN MT 03/20/17 15:45 04/19/17 15:44 Amoxicillin/ Clavulanate Potassium (Augmentin Tab) 875 mg BID PO 03/21/17 21:00 03/28/17 20:59 Objective Vital Signs Date Time Temp Pulse Resp B/P (MAP) Pulse Ox O2 Delivery O2 Flow Rate FiO2 03/21/17 16:47 36.8 111 16 122/73 (89) 97 Room Air 03/21/17 16:11 110 24 122/72 (89) 96 Room Air 03/21/17 15:57 113 24 123/68 (86) 97 Room Air 03/21/17 15:41 113 24 114/69 (84) 98 Room Air 03/21/17 14:03 36.9 116 24 134/80 (98) 99 Room Air 03/21/17 11:47 103 16 96 Room Air 03/21/17 08:50 Nasal Cannula 2.0 03/21/17 07:25 84 16 99 Nasal Cannula 2.0 03/21/17 07:21 36.6 107 18 126/81 (96) 97 Nasal Cannula 2.0 03/21/17 01:25 36.6 98 18 114/73 (87) 98 2.0 03/21/17 00:01 Nasal Cannula 2.0 03/20/17 20:13 85 16 100 Nasal Cannula 2.0 Physical Exam General Appearance: WD/WN, no apparent distress Eyes: normal inspection, PERRL, EOMI, sclerae normal ENT: hearing grossly normal, pharynx normal Neck: supple, no adenopathy, no JVD, no carotid bruits, trachea midline Respiratory/Chest: no respiratory distress, no accessory muscle use, + crackles (bilaterally, r>l), + pertinent finding (tenderness to palpation of sternum and right side of chest where she feels her dysphagia) Cardiovascular: regular rate, rhythm, no edema, no gallop, no JVD, no murmur Abdomen: normal bowel sounds, non tender, soft, no organomegaly, no pulsatile mass Extremities: normal range of motion, non-tender, normal inspection, no pedal edema, no calf tenderness Neurologic/Psychiatric: patient access associate II-XII nml as tested, no motor/sensory deficits, alert, normal mood/affect, oriented x 3 Skin: normal color, warm/dry, no rash Laboratory Results Last Resulted 03/21/17 09:36 Red Blood Count 2.40, Mean Corpuscular Volume 87.9, Mean Corpuscular Hemoglobin 31.3, Mean Corpuscular Hemoglobin Concent 35.5, Mean Platelet Volume 8.8, Neutrophils (%) (Auto) 75.6, Lymphocytes (%) (Auto) 10.7, Monocytes (%) (Auto) 12.0, Eosinophils (%) (Auto) 0.3, Basophils (%) (Auto) 0.7, Neutrophils # (Auto ) 2.27, Lymphocytes # (Auto) 0.32, Monocytes # (Auto) 0.36, Eosinophils # (Auto ) 0.01, Basophils # (Auto) 0.02 Last Resulted 03/21/17 09:36 Assessment and Plan 72 yo Hx multiple Kim including breast, endometrial, melanoma. Recent diagnosis of metastatic R lung adenocarcinoma confirmed on biopsy/pathology 11/23 on chemotherapy presenting with weakness, tachycardia, cough, pleuritic Chest pain w with CXR showing Small developing parenchymal infiltrate right base. SOB, Pleuritic Chest Pain, Tachycardia -history of fever , crackles on exam, RLL infiltrate consistent with Pneumonia -Started Vancomycin, Cefepime, azithromycin on admission and converted to Augmentin today (Day 1, day 2 of overall Abx) -previous history of Influenza s/p Tamiflu treatment on previous admission, no swab collected on arrival, CXR more consistent with bacterial cause -Blood cx pending -Sinus Tachycardia, Recent CT for PE on 03/07 negative for PE, PE less likely -Troponin unremarkable Dysphagia Resultant 10+ lb weight loss in last 3 weeks. GI consulted EGD today to examine esophagus and for PEG placement. Esophagitis seen along with duodenal changes, sent for biopsy Clear liquid diet and peg for meds only today SALT consult Ayanna ochoa ordered Hypokalemia Replace with 20 IV and 40 PO today Recheck BMP this evening along with magnesium Microcytic Anemia Trending downward historically from december 2016 Today 7.5. Will recheck this pm No obvious source on EGD Consider other source, i.e. rectal, chronic disease Consider need for blood transfusion prn tomorrow Metastatic Cancer - Neutropenia likely secondary to Bone marrow suppression in setting of Chemotherapy Hyperthyroidism -methimazole RA -Cont Plaquenil - MTX held due to immunosuppressed state GERD -Ranitidine, Protonix DVT Prophtylaxis - SCDs Code Status - Full Resuscitation Disposition - Med/Surg Resident Tracking Resident Involvement: Resident Care Provided Care Provided: Adult Hospital Medicine
[2017-03-21] MEDS ORDERED: PROMETHAZINE HCL INJ 12.5 MG in SODIUM CHLORIDE 0.9% 50ML 50 ML IV PRN (18:45)
[2017-03-21] MEDS: ACETAMINOPHEN 325 MG TAB PO PRN (19:34)
[2017-03-21] MEDS: AMOXICILLIN/CLAVULANATE TAB 875 MG TAB PO SCH (19:34)
[2017-03-21] MEDS: METHIMAZOLE 5 MG TAB PO SCH (19:40)
[2017-03-21] MEDS: HYDROXYCHLOROQUINE SULFATE 200 MG TAB PO SCH (19:40)
[2017-03-21 19:41] LABS: HEMATOCRIT 21.9 % (37-47); HEMOGLOBIN 7.7 g/dL (12.0-16.0); MEAN CELL VOLUME 88.7 fL (80-100); MEAN CORPUSCULAR HEMOGLOBIN 31.2 pg (25-34); MEAN CORPUSCULAR HGB CONC 35.2 g/dl (32-36); RED CELL DISTRIBUTION WIDTH SD 50.5 fL (36.4-46.3); WHITE BLOOD COUNT 3.14 K/uL (4.8-10.8)
[2017-03-21 20:08] LABS: MEAN PLATELET VOLUME 8.5 fL (7.4-10.4); PLATELET COUNT 85 K/uL (130-400)
[2017-03-21 20:09] LABS: CALCIUM 8.2 mg/dl (8.5-10.1); CREATININE 0.28 mg/dl (0.60-1.20)
[2017-03-21 20:10] LABS: BASO % 0.3 %; BASO ABS # 0.01 K/uL (0-0.2); EOS % 0.3 %; EOS ABS # 0.01 K/uL (0-0.5); IG# 0.02 K/uL (0.00-0.02); LYMPH % 18.2 %; LYMPH ABS # 0.57 K/uL (1.2-3.4); MONO % 11.1 %; MONO ABS # 0.35 K/uL (0.11-0.59); NEUT % 69.5 %; NEUT ABS # 2.18 K/uL (1.4-6.5)
[2017-03-22] VITALS (12 sets, daily range): BP systolic 120–143; BP diastolic 68–89; PULSE 72–125; TEMP 36.9–37.1; O2SAT 94–100
[2017-03-22] MEDS: ACETAMINOPHEN 325 MG TAB PO PRN ×3 (06:12→21:16)
[2017-03-22] MEDS: LIDOCAINE HCL 2% VISCOUS SOLN 60 ML, DiphenhydrAMINE HCL SYRUP 150 MG, ALUMINUM/MAGNESI... MT SCH ×16 (06:13→21:00)
[2017-03-22 06:44] LABS: BASO % 0.6 %; BASO ABS # 0.02 K/uL (0-0.2); EOS % 0.9 %; EOS ABS # 0.03 K/uL (0-0.5); HEMATOCRIT 23.5 % (37-47); HEMOGLOBIN 8.2 g/dL (12.0-16.0); IG# 0.05 K/uL (0.00-0.02); LYMPH % 22.9 %; LYMPH ABS # 0.74 K/uL (1.2-3.4); MEAN CORPUSCULAR HEMOGLOBIN 31.1 pg (25-34); MEAN CORPUSCULAR HGB CONC 34.9 g/dl (32-36); MEAN PLATELET VOLUME 9.1 fL (7.4-10.4); MONO ABS # 0.42 K/uL (0.11-0.59); NEUT % 61.1 %; NEUT ABS # 1.97 K/uL (1.4-6.5); PLATELET COUNT 109 K/uL (130-400); RED CELL DISTRIBUTION WIDTH CV 15.9 % (11.5-14.5); RED CELL DISTRIBUTION WIDTH SD 50.8 fL (36.4-46.3); WHITE BLOOD COUNT 3.23 K/uL (4.8-10.8)
[2017-03-22] MEDS: ALBUT/IPRATROP 3MG/0.5MG NEB 3 ML VIAL INH SCH ×4 (07:12→19:10)
[2017-03-22 07:20] LABS: CALCIUM 8.3 mg/dl (8.5-10.1); CREATININE 0.24 mg/dl (0.60-1.20); POTASSIUM 2.8 mmol/L (3.5-5.1)
[2017-03-22] MEDS: RESTASIS~ORDER AWAITING ACTION SCH ×2 (08:00→16:00)
[2017-03-22] MEDS: METOPROLOL TARTRATE 25 MG TAB PO SCH ×2 (08:21→21:18)
[2017-03-22] MEDS: PANTOprazole SOD 40 MG TAB PO SCH (08:22)
[2017-03-22] MEDS: AMOXICILLIN/CLAVULANATE TAB 875 MG TAB PO SCH ×2 (08:22→21:18)
[2017-03-22] MEDS: HEPARIN SOD 5000 UNIT/0.5 ML CARP SQ SCH ×2 (08:28→21:22)
[2017-03-22] MEDS: POTASSIUM CHLR 10 MEQ / WTR 10 MEQ in PREMIXED WATER 100 ML IV SCH ×4 (09:28→17:17)
--- NOTE | 2017-03-22 10:11 | Gastroenterology Progress Note ---
Progress Note Date of Service: Mar 22, 2017 Subjective Pt evaluation today including: conversation w/ patient, conversation w/ family , physical exam, chart review, lab review, review of studies, review of inpatient medication list CC f/u odynophagia HPI Pt s/p EGD with PEG yesterday. Some incisional abd pain othewise no new symptoms.Still with pain in chest with eating. Review of Systems Respiratory: No shortness of breath Cardiac: No chest pain Medications Current Inpatient Medications Medications (Trade) Dose Ordered Sig/Stephanie Route Start Time Stop Time Status Last Admin Dose Admin Acetaminophen (Tylenol Tab) 650 mg Q4H PRN PO 03/20/17 00:00 04/19/17 00:00 03/22/17 06:12 650 MG Al Hydrox/Mg Hydrox/Simethicone (Maalox Max Susp) 15 ml Q4H PRN PO 03/20/17 00:00 04/19/17 00:00 Magnesium Hydroxide (Milk Of Magnesia Susp) 30 ml Q6H PRN PO 03/20/17 00:00 04/19/17 00:00 Polyethylene (Miralax Powder Packet) 17 gm DAILY PRN PO 03/20/17 00:00 04/19/17 00:00 Ondansetron HCl (Zofran Inj) 4 mg Q6H PRN IV 03/20/17 00:00 04/19/17 00:00 Heparin Sodium (Porcine) (Heparin Sq 5000 Unit/0.5ml) 5,000 unit Q12H SQ 03/20/17 09:00 04/19/17 08:59 03/22/17 08:28 5,000 UNIT Albuterol/ Ipratropium (Duoneb) 3 ml QIDR INH 03/20/17 08:00 04/19/17 07:59 03/22/17 07:12 3 ML Amitriptyline HCl (Elavil Tab) 20 mg HS PRN PO 03/20/17 00:00 04/19/17 00:00 03/20/17 21:33 20 MG Hydroxychloroquine Sulfate (Plaquenil Tab) 100 mg HS PO 03/20/17 21:00 04/19/17 20:59 03/21/17 19:40 100 MG Methimazole (Methimazole Tab) 5 mg HS PO 03/20/17 21:00 04/19/17 20:59 03/21/17 19:40 5 MG Metoprolol Tartrate (Lopressor Tab) 25 mg BID PO 03/20/17 08:00 04/19/17 08:59 03/22/17 08:21 25 MG Pantoprazole Sodium (Protonix Tab) 40 mg QAM PO 03/20/17 08:00 04/19/17 08:59 03/22/17 08:22 40 MG Prochlorperazine Maleate (Compazine Tab) 10 mg Q6H PRN PO 03/20/17 00:00 04/19/17 00:00 Promethazine HCl (Phenergan Supp) [address] 03/20/17 00:00 04/19/17 00:00 Ranitidine HCl (zANTac TAB) 150 mg DAILY PRN PO 03/20/17 00:00 04/19/17 00:00 Miscellaneous Information (Order Awaiting Action) 1 ea QS N/A 03/20/17 08:00 04/19/17 07:59 Miscellaneous (Iv Fluids Completed) 1 ea PRN PRN N/A 03/20/17 01:00 03/20/18 00:59 Lidocaine HCl/ Diphenhydramine HCl/Al Hydroxide/ Mg Hydroxide/ Glycerin/Barcode ACHS MT 03/20/17 06:30 04/19/17 06:29 03/20/17 21:00 15 ML Lidocaine HCl/ Diphenhydramine HCl/Al Hydroxide/ Mg Hydroxide/ Glycerin/Barcode BID PRN MT 03/20/17 15:45 04/19/17 15:44 Amoxicillin/ Clavulanate Potassium (Augmentin Tab) 875 mg BID PO 03/21/17 21:00 03/28/17 20:59 03/22/17 08:22 875 MG Potassium Chloride 10 meq/ Prmx 100 ml @ 100 mls/hr Q1H IV 03/22/17 08:45 03/22/17 12:44 03/22/17 09:28 100 MLS/HR Objective Vital Signs Date Time Temp Pulse Resp B/P (MAP) Pulse Ox O2 Delivery O2 Flow Rate FiO2 03/22/17 07:43 36.9 105 22 125/74 (91) 100 Nebulizer 4.0 03/22/17 07:37 36.9 105 22 125/74 (91) 100 4.0 03/22/17 07:12 84 16 98 Room Air 03/22/17 00:33 37.0 96 18 131/80 (97) 98 Room Air 03/22/17 00:00 Room Air 03/21/17 20:00 Room Air 03/21/17 19:18 85 16 96 Room Air 03/21/17 18:34 37.0 110 18 117/73 (88) 97 Room Air 03/21/17 17:50 36.2 109 18 123/74 (90) 99 Room Air 03/21/17 17:40 Room Air 03/21/17 16:47 36.8 111 16 122/73 (89) 97 Room Air 03/21/17 16:11 110 24 122/72 (89) 96 Room Air 03/21/17 15:57 113 24 123/68 (86) 97 Room Air 03/21/17 15:41 113 24 114/69 (84) 98 Room Air 03/21/17 14:03 36.9 116 24 134/80 (98) 99 Room Air 03/21/17 11:47 103 16 96 Room Air Physical Exam General Appearance: WD/WN, no apparent distress Respiratory/Chest: lungs clear, no respiratory distress Cardiovascular: regular rate, rhythm, no edema Abdomen: normal bowel sounds, soft, no organomegaly, no pulsatile mass, + pertinent finding (mild guarding at PEG site but no rebound, no evidence of infection at PEG site. ) Neurologic/Psych: normal mood/affect, oriented x 3 Skin: warm/dry Laboratory Results Last 24 Hours Test 03/21/17 19:27 03/22/17 05:57 White Blood Count 3.14 K/uL 3.23 K/uL Red Blood Count 2.47 M/uL 2.64 M/uL Hemoglobin 7.7 g/dL 8.2 g/dL Hematocrit 21.9 % 23.5 % Mean Corpuscular Volume 88.7 fL 89.0 fL Mean Corpuscular Hemoglobin 31.2 pg 31.1 pg Mean Corpuscular Hemoglobin Concent 35.2 g/dl 34.9 g/dl Platelet Count 85 K/uL 109 K/uL Mean Platelet Volume 8.5 fL 9.1 fL Neutrophils (%) (Auto) 69.5 % 61.1 % Lymphocytes (%) (Auto) 18.2 % 22.9 % Monocytes (%) (Auto) 11.1 % 13.0 % Eosinophils (%) (Auto) 0.3 % 0.9 % Basophils (%) (Auto) 0.3 % 0.6 % Neutrophils # (Auto) 2.18 K/uL 1.97 K/uL Lymphocytes # (Auto) 0.57 K/uL 0.74 K/uL Monocytes # (Auto) 0.35 K/uL 0.42 K/uL Eosinophils # (Auto) 0.01 K/uL 0.03 K/uL Basophils # (Auto) 0.01 K/uL 0.02 K/uL RDW Standard Deviation 50.5 fL 50.8 fL RDW Coefficient of Variation 16.0 % 15.9 % Immature Granulocyte % (Auto) 0.6 % 1.5 % Immature Granulocyte # (Auto) 0.02 K/uL 0.05 K/uL Red Blood Cell Morphology Unremarkable Sodium Level 130 mmol/L 130 mmol/L Potassium Level 3.0 mmol/L 2.8 mmol/L Chloride Level 92 mmol/L 89 mmol/L Carbon Dioxide Level 28 mmol/L 27 mmol/L Anion Gap 10.0 mmol/L 14.0 mmol/L Blood Urea Nitrogen 6 mg/dl 4 mg/dl Creatinine 0.28 mg/dl 0.24 mg/dl Est Creatinine Clear Calc Drug Dose 151.3 ml/min 176.5 ml/min Estimated GFR () 136.6 143.7 Estimated GFR (Non- 117.8 124.0 BUN/Creatinine Ratio 21.8 17.6 Random Glucose 89 mg/dl 81 mg/dl Calcium Level 8.2 mg/dl 8.3 mg/dl Magnesium Level 1.7 mg/dl 1.7 mg/dl Assessment and Plan odynophagia--reflux esophagitis but no obvious radiation damage on EGD reflux esophagitis---PPI dudoenitis--path pending, check stool for h.pylori, continue ppI wt loss--PEG in place, start tube feeds today. She can eat as desired also po.
[2017-03-22] MEDS ORDERED: MAGNESIUM SULFATE 1GM / D5W 1 GM in PREMIXED IN D5W 100 ML IV ONE (11:30)
[2017-03-22] MEDS: FIBERSOURCE HN 1000ML BAG OG SCH ×2 (16:17→19:00)
[2017-03-22] MEDS ORDERED: THIAMINE HCL 100 MG TAB PEG ONE (17:30)
[2017-03-22 20:39] LABS: CALCIUM 8.2 mg/dl (8.5-10.1); CREATININE 0.36 mg/dl (0.60-1.20); PHOSPHORUS 2.6 mg/dl (2.5-4.9); POTASSIUM 2.9 mmol/L (3.5-5.1)
[2017-03-22] MEDS: HYDROXYCHLOROQUINE SULFATE 200 MG TAB PO SCH (21:19)
[2017-03-22] MEDS: METHIMAZOLE 5 MG TAB PO SCH (21:19)
--- NOTE | 2017-03-22 22:49 | Family Medicine Progress Note ---
Progress Note Date of Service Mar 22, 2017. Subjective Pt evaluation today including: conversation w/ patient, conversation w/ family , physical exam, chart review, lab review, review of inpatient medication list Pain: Continued dysphagia, but minimal pain at PEG insertion PO Intake: PEG meds only , convert to increased diet via PEG tonight Voiding: no voiding problems Patient continues to feel well. Glad she had PEG placed, in no discomfort. Continues to report dysphagia Constitutional: + weight loss, No fever, No chills, No sweats, No weakness, No fatigue, No problem reported ENT: + sore throat, + trouble swallowing Respiratory: + cough Abdomen: No pain, No nausea, No vomiting, No diarrhea, No constipation, No GI bleeding, No problem reported All Other Systems: Reviewed and Negative Medications Current Inpatient Medications Medications (Trade) Dose Ordered Sig/Stephanie Route Start Time Stop Time Status Last Admin Dose Admin Acetaminophen (Tylenol Tab) 650 mg Q4H PRN PO 03/20/17 00:00 04/19/17 00:00 03/22/17 21:16 650 MG Al Hydrox/Mg Hydrox/Simethicone (Maalox Max Susp) 15 ml Q4H PRN PO 03/20/17 00:00 04/19/17 00:00 Magnesium Hydroxide (Milk Of Magnesia Susp) 30 ml Q6H PRN PO 03/20/17 00:00 04/19/17 00:00 Polyethylene (Miralax Powder Packet) 17 gm DAILY PRN PO 03/20/17 00:00 04/19/17 00:00 Ondansetron HCl (Zofran Inj) 4 mg Q6H PRN IV 03/20/17 00:00 04/19/17 00:00 Heparin Sodium (Porcine) (Heparin Sq 5000 Unit/0.5ml) 5,000 unit Q12H SQ 03/20/17 09:00 04/19/17 08:59 03/22/17 21:22 5,000 UNIT Albuterol/ Ipratropium (Duoneb) 3 ml QIDR INH 03/20/17 08:00 04/19/17 07:59 03/22/17 19:10 3 ML Amitriptyline HCl (Elavil Tab) 20 mg HS PRN PO 03/20/17 00:00 04/19/17 00:00 03/20/17 21:33 20 MG Hydroxychloroquine Sulfate (Plaquenil Tab) 100 mg HS PO 03/20/17 21:00 04/19/17 20:59 03/22/17 21:19 100 MG Methimazole (Methimazole Tab) 5 mg HS PO 03/20/17 21:00 04/19/17 20:59 03/22/17 21:19 5 MG Metoprolol Tartrate (Lopressor Tab) 25 mg BID PO 03/20/17 08:00 04/19/17 08:59 03/22/17 21:18 25 MG Pantoprazole Sodium (Protonix Tab) 40 mg QAM PO 03/20/17 08:00 04/19/17 08:59 03/22/17 08:22 40 MG Prochlorperazine Maleate (Compazine Tab) 10 mg Q6H PRN PO 03/20/17 00:00 04/19/17 00:00 03/22/17 21:20 10 MG Promethazine HCl (Phenergan Supp) 25 mg Q6H PRN [place] 03/20/17 00:00 04/19/17 00:00 Ranitidine HCl (zANTac TAB) 150 mg DAILY PRN PO 03/20/17 00:00 04/19/17 00:00 Miscellaneous Information (Order Awaiting Action) 1 ea QS N/A 03/20/17 08:00 04/19/17 07:59 Miscellaneous (Iv Fluids Completed) 1 ea PRN PRN N/A 03/20/17 01:00 03/20/18 00:59 Lidocaine HCl/ Diphenhydramine HCl/Al Hydroxide/ Mg Hydroxide/ Glycerin/Barcode ACHS MT 03/20/17 06:30 04/19/17 06:29 03/20/17 21:00 15 ML Lidocaine HCl/ Diphenhydramine HCl/Al Hydroxide/ Mg Hydroxide/ Glycerin/Barcode BID PRN MT 03/20/17 15:45 04/19/17 15:44 Amoxicillin/ Clavulanate Potassium (Augmentin Tab) 875 mg BID PO 03/21/17 21:00 03/28/17 20:59 03/22/17 21:18 875 MG Enteral Nutritional Formula (Fibersource Hn) 260 ml [id number] OG 03/22/17 16:00 04/21/17 15:59 03/22/17 16:17 260 ML Thiamine HCl (Vitamin B-1 Tab) 200 mg QAM PEG 03/23/17 08:00 03/28/17 07:59 Objective Vital Signs Date Time Temp Pulse Resp B/P (MAP) Pulse Ox O2 Delivery O2 Flow Rate FiO2 03/22/17 21:40 125 136/83 (100) 03/22/17 20:05 Room Air 03/22/17 19:12 112 16 98 Room Air 03/22/17 16:30 Room Air 03/22/17 15:01 36.9 110 14 120/68 (85) 97 Room Air 03/22/17 14:29 104 16 94 Room Air 03/22/17 11:15 72 16 98 Room Air 03/22/17 09:30 92 03/22/17 08:15 125 03/22/17 08:15 Room Air 03/22/17 07:43 36.9 105 22 125/74 (91) 100 Nebulizer 4.0 03/22/17 07:37 36.9 105 22 125/74 (91) 100 4.0 03/22/17 07:12 84 16 98 Room Air 03/22/17 00:33 37.0 96 18 131/80 (97) 98 Room Air 03/22/17 00:00 Room Air Physical Exam General Appearance: WD/WN, no apparent distress Eyes: normal inspection, PERRL, EOMI, sclerae normal ENT: hearing grossly normal, pharynx normal Neck: supple, no adenopathy, no carotid bruits, trachea midline Respiratory/Chest: chest non-tender, no respiratory distress, no accessory muscle use, + crackles (bibasilar) Cardiovascular: regular rate, rhythm, no edema, no gallop, no JVD, no murmur Abdomen: normal bowel sounds, non tender, soft, + pertinent finding (PEG insertion minimally tender; site is clean/dry) Extremities: normal range of motion, non-tender, normal inspection, no pedal edema, no calf tenderness Neurologic/Psychiatric: enzyme chemist II-XII nml as tested, no motor/sensory deficits, alert, normal mood/affect, oriented x 3 Skin: normal color, warm/dry, no rash Laboratory Results Last Resulted 03/22/17 05:57 Red Blood Count 2.64, Mean Corpuscular Volume 89.0, Mean Corpuscular Hemoglobin 31.1, Mean Corpuscular Hemoglobin Concent 34.9, Mean Platelet Volume 9.1, Neutrophils (%) (Auto) 61.1, Lymphocytes (%) (Auto) 22.9, Monocytes (%) (Auto) 13.0, Eosinophils (%) (Auto) 0.9, Basophils (%) (Auto) 0.6, Neutrophils # (Auto ) 1.97, Lymphocytes # (Auto) 0.74, Monocytes # (Auto) 0.42, Eosinophils # (Auto ) 0.03, Basophils # (Auto) 0.02 Last Resulted 03/22/17 20:12 Assessment and Plan 72 yo Hx multiple Kim including breast, endometrial, melanoma. Recent diagnosis of metastatic R lung adenocarcinoma confirmed on biopsy/pathology 11/23 on chemotherapy presenting with weakness, tachycardia, cough, pleuritic Chest pain w with CXR showing Small developing parenchymal infiltrate right base. SOB, Pleuritic Chest Pain, Tachycardia -history of fever , crackles on exam, RLL infiltrate consistent with Pneumonia -Started Vancomycin, Cefepime, azithromycin on admission and converted to Augmentin today (Day 2, day 3 of overall Abx) -previous history of Influenza s/p Tamiflu treatment on previous admission, no swab collected on arrival, CXR more consistent with bacterial cause -Blood cx pending, NGTD -Sinus Tachycardia, Recent CT for PE on 03/07 negative for PE, PE less likely -Troponin unremarkable -PT/OT ordered Dysphagia Resultant 10+ lb weight loss in last 3 weeks. GI consulted PEG placement; dietary consult ordered Esophagitis seen along with duodenal changes, sent for biopsy SALT consult Ayanna ochoa ordered, reiterated need to utilize for symptom relief Hypokalemia Replace with 40 IV today Patient reportedly refused PO potassium yesterday Recheck BMP this evening along with magnesium Hypomagnesemia 1.7 today; replaced 1 gram today Recheck tomorrow am Microcytic Anemia Trending downward historically from december 2016 Today 8.2. Will recheck daily; patient would prefer to not have transfusion unless <7.0 No obvious source on EGD Consider other source, i.e. rectal, chronic disease, recent chemo Metastatic Cancer - Neutropenia likely secondary to Bone marrow suppression in setting of Chemotherapy Hyperthyroidism -methimazole RA -Cont Plaquenil - MTX held due to immunosuppressed state GERD -Ranitidine, Protonix DVT Prophtylaxis - SCDs Code Status - Full Resuscitation Disposition - Med/Surg Resident Tracking Resident Involvement: Resident Care Provided Care Provided: Adult Hospital Medicine
[2017-03-23] VITALS (8 sets, daily range): BP systolic 112–136; BP diastolic 73–81; PULSE 91–130; TEMP 37.1–37.2; O2SAT 96–99
[2017-03-23 00:21] LABS: CALCIUM 8.2 mg/dl (8.5-10.1); CREATININE 0.27 mg/dl (0.60-1.20)
[2017-03-23] MEDS ORDERED: VANCOMYCIN TROUGH ONE (01:30)
[2017-03-23] MEDS: LIDOCAINE HCL 2% VISCOUS SOLN 60 ML, DiphenhydrAMINE HCL SYRUP 150 MG, ALUMINUM/MAGNESI... MT SCH ×16 (05:23→21:00)
[2017-03-23] MEDS: ACETAMINOPHEN 325 MG TAB PO PRN ×3 (06:25→22:39)
[2017-03-23 06:35] LABS: BASO % 0.3 %; BASO ABS # 0.01 K/uL (0-0.2); EOS % 1.3 %; EOS ABS # 0.04 K/uL (0-0.5); HEMATOCRIT 23.5 % (37-47); HEMOGLOBIN 8.3 g/dL (12.0-16.0); IG# 0.05 K/uL (0.00-0.02); LYMPH % 25.4 %; LYMPH ABS # 0.76 K/uL (1.2-3.4); MEAN CORPUSCULAR HEMOGLOBIN 31.1 pg (25-34); MEAN CORPUSCULAR HGB CONC 35.3 g/dl (32-36); MEAN PLATELET VOLUME 8.9 fL (7.4-10.4); MONO ABS # 0.39 K/uL (0.11-0.59); NEUT % 58.3 %; NEUT ABS # 1.74 K/uL (1.4-6.5); PLATELET COUNT 122 K/uL (130-400); RED CELL DISTRIBUTION WIDTH CV 16.1 % (11.5-14.5); RED CELL DISTRIBUTION WIDTH SD 50.2 fL (36.4-46.3); WHITE BLOOD COUNT 2.99 K/uL (4.8-10.8)
[2017-03-23 07:01] LABS: CALCIUM 8.2 mg/dl (8.5-10.1); CREATININE 0.23 mg/dl (0.60-1.20); POTASSIUM 2.8 mmol/L (3.5-5.1)
[2017-03-23] MEDS: FIBERSOURCE HN 1000ML BAG OG SCH ×5 (07:02→20:45)
[2017-03-23 07:04] LABS: PHOSPHORUS 2.8 mg/dl (2.5-4.9); TOTAL PROTEIN 5.8 gm/dl (6.4-8.2)
[2017-03-23] MEDS: ALBUT/IPRATROP 3MG/0.5MG NEB 3 ML VIAL INH SCH ×2 (07:11→11:52)
[2017-03-23] MEDS: THIAMINE HCL 100 MG TAB PEG SCH (07:42)
[2017-03-23] MEDS: METOPROLOL TARTRATE 25 MG TAB PO SCH ×2 (07:43→20:47)
[2017-03-23] MEDS: AMOXICILLIN/CLAVULANATE TAB 875 MG TAB PO SCH ×2 (07:43→20:46)
[2017-03-23] MEDS: RESTASIS~ORDER AWAITING ACTION SCH ×3 (07:43→16:00)
[2017-03-23] MEDS: PANTOprazole SOD 40 MG TAB PO SCH (07:43)
[2017-03-23] MEDS: HEPARIN SOD 5000 UNIT/0.5 ML CARP SQ SCH ×2 (07:49→20:53)
[2017-03-23] MEDS ORDERED: POTASSIUM CHLORIDE 20 MEQ TABCR PO ONE (08:45)
--- NOTE | 2017-03-23 09:04 | GASTROENTEROLOGY PROGRESS NOTE ---
DATE: 03/23/2017 Chart reviewed, the patient examined. The patient is doing well, is tolerating foods well by mouth as well as tube feeds. She has no discomfort at the PEG tube site. Biopsies from the duodenum that had an abnormal appearance endoscopically, revealed nonspecific acute and chronic duodenitis. TODAY'S VITAL SIGNS: Blood pressure 125/76, heart rate 116, respirations 16, temperature 37.2, 97% on room air. LABORATORY STUDIES: White count today 2.99, hemoglobin 8.3 which is up from a low of 7.5, platelets 122,000. BUN and creatinine are 5 and 0.23. Her potassium today is low at 2.8 and this will need replacement. Vanco trough level was 3.7 this morning at 1:00 a.m. There are no new imaging studies. REVIEW OF SYSTEMS: Otherwise noncontributory based on 13-point exam except for mentioned above. MEDICATIONS: Reviewed. She is receiving oral potassium and also is on Augmentin, vancomycin and continues on Zantac, Phenergan, Elavil, Zofran, MiraLax, Lopressor, pantoprazole, subcu heparin for DVT prophylaxis, methimazole, hydroxychloroquine and enteral feeds. PHYSICAL EXAMINATION: GENERAL: The patient is awake, alert and oriented x3. HEENT: Sclerae anicteric. Conjunctivae moist. Oral mucosa moist. HEART: Normal S1, S2. LUNGS: Clear to auscultation without rales, rhonchi or wheeze. ABDOMEN: Soft, nontender, nondistended, with positive bowel sounds. The PEG tube site is inspected and is clean and intact. EXTREMITIES: Without clubbing, cyanosis or edema. RECTAL: Deferred. IMPRESSION AND PLAN: The patient tolerating tube feeds as well as oral intake at the present time. She will continue with her regimen of chemotherapy and XRT as prescribed. At some point in the future, if her oral intake is consistently adequate for nutrition and hydration purposes, then the PEG tube can be discontinued. We will be happy to see the patient in the office at that time once PEG tube removal is considered. Please contact our office. I will sign off at this time. Thank you for allowing us to participate in this pleasant lady's care. RENA
[2017-03-23] MEDS: POTASSIUM CHLR 10 MEQ / WTR 10 MEQ in PREMIXED WATER 100 ML IV SCH ×2 (09:53→14:02)
[2017-03-23] MEDS: LEVALBUTEROL 0.63MG/3 ML NEB INH SCH ×2 (14:54→19:14)
[2017-03-23] MEDS: IPRATROPIUM BROMIDE NEB SOLN 0.02% 2.5 ML VIAL INH SCH ×2 (14:54→19:14)
[2017-03-23] MEDS ORDERED: LEVALBUTEROL/IPRATROPIUM NEB INH SCH (15:00)
--- NOTE | 2017-03-23 16:03 | Family Medicine Progress Note ---
Progress Note Date of Service Mar 23, 2017. Subjective Pt evaluation today including: conversation w/ patient, physical exam, chart review, lab review, review of inpatient medication list Pain: Minimal pain at PEG insertion site PO Intake: Increasing liquids PO and tolerating PEG feeds well Voiding: no voiding problems Patient states she feels well. She is getting used to the PEG tube and feel more and more comfortable with it. She also reports her dysphagia is improving slightly and she has been able to tolerate some liquids. She reports some pain at source of PEG Constitutional: + weight loss, + weakness, + fatigue, No fever, No chills, No sweats, No problem reported Respiratory: + cough, No sputum, No wheezing, No shortness of breath, No dyspnea on exertion, No dyspnea at rest, No hemoptysis, No problem reported Cardiovascular: No chest pain, No orthopnea, No PND, No edema, No claudication, No palpitations, No problem reported Abdomen: + pain (at insertion site) All Other Systems: Reviewed and Negative Medications Current Inpatient Medications Medications (Trade) Dose Ordered Sig/Stephanie Route Start Time Stop Time Status Last Admin Dose Admin Acetaminophen (Tylenol Tab) 650 mg Q4H PRN PO 03/20/17 00:00 04/19/17 00:00 03/23/17 14:01 650 MG Al Hydrox/Mg Hydrox/Simethicone (Maalox Max Susp) 15 ml Q4H PRN PO 03/20/17 00:00 04/19/17 00:00 Magnesium Hydroxide (Milk Of Magnesia Susp) 30 ml Q6H PRN PO 03/20/17 00:00 04/19/17 00:00 Polyethylene (Miralax Powder Packet) 17 gm DAILY PRN PO 03/20/17 00:00 04/19/17 00:00 Ondansetron HCl (Zofran Inj) 4 mg Q6H PRN IV 03/20/17 00:00 04/19/17 00:00 Heparin Sodium (Porcine) (Heparin Sq 5000 Unit/0.5ml) 5,000 unit Q12H SQ 03/20/17 09:00 04/19/17 08:59 03/23/17 07:49 5,000 UNIT Amitriptyline HCl (Elavil Tab) 20 mg HS PRN PO 03/20/17 00:00 3/14/18 00:00 03/20/17 21:33 20 MG Hydroxychloroquine Sulfate (Plaquenil Tab) 100 mg HS PO 03/20/17 21:00 04/19/17 20:59 03/22/17 21:19 100 MG Methimazole (Methimazole Tab) 5 mg HS PO 03/20/17 21:00 04/19/17 20:59 03/22/17 21:19 5 MG Metoprolol Tartrate (Lopressor Tab) 25 mg BID PO 03/20/17 08:00 04/19/17 08:59 03/23/17 07:43 25 MG Pantoprazole Sodium (Protonix Tab) 40 mg QAM PO 03/20/17 08:00 04/19/17 08:59 03/23/17 07:43 40 MG Prochlorperazine Maleate (Compazine Tab) 10 mg Q6H PRN PO 03/20/17 00:00 04/19/17 00:00 03/22/17 21:20 10 MG Promethazine HCl (Phenergan Supp) 25 mg Q6H PRN IA 03/20/17 00:00 04/19/17 00:00 Ranitidine HCl (zANTac TAB) 150 mg DAILY PRN PO 03/20/17 00:00 04/19/17 00:00 Miscellaneous Information (Order Awaiting Action) 1 ea QS N/A 03/20/17 08:00 04/19/17 07:59 Miscellaneous (Iv Fluids Completed) 1 ea PRN PRN N/A 03/20/17 01:00 03/20/18 00:59 Lidocaine HCl/ Diphenhydramine HCl/Al Hydroxide/ Mg Hydroxide/ Glycerin/Barcode ACHS MT 03/20/17 06:30 04/19/17 06:29 03/20/17 21:00 15 ML Lidocaine HCl/ Diphenhydramine HCl/Al Hydroxide/ Mg Hydroxide/ Glycerin/Barcode BID PRN MT 03/20/17 15:45 04/19/17 15:44 Amoxicillin/ Clavulanate Potassium (Augmentin Tab) 875 mg BID PO 03/21/17 21:00 03/28/17 20:59 03/23/17 07:43 875 MG Enteral Nutritional Formula (Fibersource Hn) 260 ml [id number] OG 03/22/17 16:00 04/21/17 15:59 03/23/17 14:01 160 ML Thiamine HCl (Vitamin B-1 Tab) 200 mg QAM PEG 03/23/17 08:00 03/28/17 07:59 03/23/17 07:42 200 MG Potassium Chloride (Cecilia Ciel Elix) 40 meq BID PEG 03/23/17 20:00 04/22/17 19:59 Ipratropium Dixon (Atrovent 0.02% 0.5MG/2.5ML Neb) 0.5 mg Q6R INH 03/23/17 15:00 04/22/17 14:59 Levalbuterol (Xopenex 0.63 Mg/ 3 Ml Neb) 0.63 mg Q6R INH 03/23/17 15:00 04/22/17 14:59 Objective Vital Signs Date Time Temp Pulse Resp B/P (MAP) Pulse Ox O2 Delivery O2 Flow Rate FiO2 03/23/17 11:54 91 15 97 Room Air 03/23/17 11:44 102 98 03/23/17 08:00 Room Air 03/23/17 07:23 37.2 116 16 125/76 (92) 97 Room Air 03/23/17 07:14 118 16 98 Room Air 03/23/17 00:00 Room Air 03/22/17 23:33 37.1 107 16 143/89 (107) 95 Room Air 03/22/17 21:40 125 136/83 (100) 03/22/17 20:05 Room Air 03/22/17 19:12 112 16 98 Room Air 03/22/17 16:30 Room Air Physical Exam General Appearance: WD/WN, no apparent distress Eyes: normal inspection, PERRL, EOMI, sclerae normal ENT: normal ENT inspection, hearing grossly normal, pharynx normal Neck: supple, no adenopathy, no JVD, no carotid bruits, trachea midline Respiratory/Chest: chest non-tender, no respiratory distress, no accessory muscle use, + crackles (bibasilar, r>l; improving) Cardiovascular: regular rate, rhythm, no edema, no gallop, no JVD, no murmur Abdomen: normal bowel sounds, soft, + tenderness (around new PEG), + pertinent finding (PEG tube left center/epigastrium) Extremities: normal range of motion, non-tender, normal inspection, no pedal edema, no calf tenderness Neurologic/Psychiatric: fruit shipper II-XII nml as tested, no motor/sensory deficits, alert, normal mood/affect, oriented x 3 Skin: normal color, warm/dry, no rash Laboratory Results Last Resulted 03/23/17 05:53 Red Blood Count 2.67, Mean Corpuscular Volume 88.0, Mean Corpuscular Hemoglobin 31.1, Mean Corpuscular Hemoglobin Concent 35.3, Mean Platelet Volume 8.9, Neutrophils (%) (Auto) 58.3, Lymphocytes (%) (Auto) 25.4, Monocytes (%) (Auto) 13.0, Eosinophils (%) (Auto) 1.3, Basophils (%) (Auto) 0.3, Neutrophils # (Auto ) 1.74, Lymphocytes # (Auto) 0.76, Monocytes # (Auto) 0.39, Eosinophils # (Auto ) 0.04, Basophils # (Auto) 0.01 Assessment and Plan 72 yo Hx multiple Kim including breast, endometrial, melanoma. Recent diagnosis of metastatic R lung adenocarcinoma confirmed on biopsy/pathology 11/23 on chemotherapy presenting with weakness, tachycardia, cough, pleuritic Chest pain w with CXR showing Small developing parenchymal infiltrate right base. Patient's dysphagia preventing her from oral intake and has had resultant weight loss. PEG placed 03/22/17. SOB, Pleuritic Chest Pain, Tachycardia -history of fever, crackles on exam, RLL infiltrate consistent with Pneumonia -Started Vancomycin, Cefepime, azithromycin on admission and converted to Augmentin today (Day 3, day 4 of overall Abx) -previous history of Influenza s/p Tamiflu treatment on previous admission, no swab collected on arrival, CXR more consistent with bacterial cause -Blood cx pending, NGTD -Sinus Tachycardia, Recent CT for PE on 03/07 negative for PE, PE less likely -Troponin unremarkable -PT/OT ordered Dysphagia Resultant 10+ lb weight loss in last 3 weeks. GI consulted PEG placement; dietary consult ordered Esophagitis seen along with duodenal changes, sent for biopsy If patient starts tolerating PO intake well for nutritional and hydration status, can consider removal; contact outpatient GI office Dietary education regarding tube feeds on discharge and care as outpatient required; chartwell referral placed SALT consult Magic swizzle ordered, reiterated need to utilize for symptom relief Hypokalemia K 2.8 today Replace with 20 IV today and 40 mg PO Daily 40 mg K+ PO BID started; use caution on discharge to ensure hyperkalemia does not ensue Patient reportedly refused PO potassium yesterday Recheck BMP this afternoon Wary of refeeding syndrome Hypomagnesemia 1.9 today Recheck tomorrow am Microcytic Anemia Trending downward historically from december 2016 Today 8.3. Will recheck daily; patient would prefer to not have transfusion unless <7.0 No obvious source on EGD Consider other source, i.e. rectal, chronic disease, recent chemo Metastatic Cancer - Neutropenia likely secondary to Bone marrow suppression in setting of Chemotherapy Hyperthyroidism -methimazole RA - Cont Plaquenil - MTX held due to immunosuppressed state GERD -Ranitidine, Protonix DVT Prophtylaxis - SCDs Code Status - Full Resuscitation Disposition - Med/Surg, likely DC home tomorrow Resident Tracking Resident Involvement: Resident Care Provided Care Provided: Adult Hospital Medicine
[2017-03-23 19:42] LABS: CALCIUM 8.6 mg/dl (8.5-10.1); CREATININE 0.37 mg/dl (0.60-1.20); POTASSIUM 3.5 mmol/L (3.5-5.1)
[2017-03-23 20:00] LABS: PHOSPHORUS 1.3 mg/dl (2.5-4.9)
[2017-03-23] MEDS: POTASSIUM CHLORIDE 20 MEQ/15 ML UDC PEG SCH (20:45)
[2017-03-23] MEDS: METHIMAZOLE 5 MG TAB PO SCH (20:49)
[2017-03-23] MEDS: HYDROXYCHLOROQUINE SULFATE 200 MG TAB PO SCH (20:49)
[2017-03-23] MEDS ORDERED: POTASSIUM PHOS 3 MMOL/1 ML INFUSION IV STA (21:39)
[2017-03-23] MEDS ORDERED: POTASSIUM PHOSPHATE INJ 15 MMOL in SODIUM CHLORIDE 0.9% 250ML 250 ML IV ONE (22:15)
[2017-03-23] MEDS: AMITRIPTYLINE HCL 10 MG TAB PO PRN (23:14)
[2017-03-24] MEDS: RESTASIS~ORDER AWAITING ACTION SCH ×3 (01:02→16:00)
[2017-03-24] MEDS: LEVALBUTEROL 0.63MG/3 ML NEB INH SCH ×3 (02:00→14:22)
[2017-03-24] MEDS: IPRATROPIUM BROMIDE NEB SOLN 0.02% 2.5 ML VIAL INH SCH ×3 (02:00→14:22)
[2017-03-24] MEDS ORDERED: LORAZEPAM 0.5 MG TAB PO ONE (02:30)
[2017-03-24] MEDS ORDERED: NURSING VERBAL MED ORDER ONE (02:30)
[2017-03-24] MEDS: LIDOCAINE HCL 2% VISCOUS SOLN 60 ML, DiphenhydrAMINE HCL SYRUP 150 MG, ALUMINUM/MAGNESI... MT SCH ×12 (06:30→16:30)
[2017-03-24 06:33] LABS: CALCIUM 8.3 mg/dl (8.5-10.1); CREATININE 0.37 mg/dl (0.60-1.20); PHOSPHORUS 2.1 mg/dl (2.5-4.9); POTASSIUM 4.1 mmol/L (3.5-5.1)
--- NOTE | 2017-03-24 06:59 | Clinical Documentation Query ---
GERMAN Trotter : CLINICAL DOCUMENTATION QUERIES QUERY 1 OF 3 Patient is a 72 year old female undergoing chemo and radiation for multiple loci of cancer including metastatic lung CA, admitted with fever, shortness of breath, pleuritic chest pain, and a non-productive cough. Chest radiograph demonstrated a RLL infiltrate and exam demonstrated crackles. As appropriate, consider clarification of types of specific pneumonia for which you were treating as this affects accurate DRG assignment. Thank you. In your clinical opinion is this patient being managed for: ( ) Pneumonia (possibly) due to gram-negative and/or MRSA pneumonia, treated with Cefepime and Vancomycin ( ) Not Agree (x ) Other explanation of clinical findings (Please Explain)-likely CAP ( ) Unable to determine (Please Define) ( ) Need to Discuss The medical record reflects the following clinical findings, treatment, and risk factors. Clinical Indicators: As above Treatment: Blood cultures, Cefepime, Vancomycin Risk Factors: Age, cancer, immunosuppression, recent hospitalization QUERY 2 OF 3 As stated, patient undergoing chemotherapy and radiation. Patient reported burning pain with swallowing and avoided foods with a noted "30 pound weight loss". GI workers compensation consultant performed EGD and subsequently inserted a PEG tube. Weight loss noted to be "from food avoidance secondary to odynophagia". Freight Associate consulted. Noted ~12% weight loss in last 30 days. Estimated meal intake only 25-50% of meals. Freight Associate noted "Pt. meets criteria for severe malnutrition in the context of acute illness d/t recent viral illness (influenza) and secondary bacterial infection (PNA) with a PMH of metastatic CA s/p CTX & RT. Her energy intake is estimated to be < 50% of her est. energy requirements for > 5 days as evidenced by meal intake 0-25% today per I/O sheets, diet hx, c/o dysphagia since 03/02/17 and 12% wt loss w/in the past 30 days. She has evidence of moderate depletion of body fat seen in orbital region and moderate loss of muscle mass seen in the temporal region." In your clinical opinion is this patient being managed for: ( x ) Severe protein-calorie malnutrition, underweight, BMI 18.0 kg/m*m ( ) Not Agree ( ) Other explanation of clinical findings (Please Explain) ( ) Unable to determine (Please Define) ( ) Need to Discuss The medical record reflects the following clinical findings, treatment, and risk factors. Clinical Indicators: As above Treatment: GI, RD consultation. Zantac, PPI, Magic Swizzle, diet downgraded to FL, PEG tube, serial labs, MVI Risk Factors: Age, cancer undergoing chemotherapy and radiation. QUERY 3 OF 3 Documentation includes the following: "Microcytic Anemia Trending downward historically from december 2016 Today 8.3. Will recheck daily; patient would prefer to not have transfusion unless <7.0 No obvious source on EGD Consider other source, i.e. rectal, chronic disease, recent chemo Metastatic Cancer - Neutropenia likely secondary to Bone marrow suppression in setting of Chemotherapy" Additionally, patient noted to be thrombocytopenic as well since admission. As appropriate, consider capture of this clinical picture as suggested below. Thank you. In your clinical opinion is this patient being managed for: ( x ) Antineoplastic chemotherapy induced pancytopenia ( ) Not Agree ( ) Other explanation of clinical findings (Please Explain) ( ) Unable to determine (Please Define) ( ) Need to Discuss The medical record reflects the following clinical findings, treatment, and risk factors. Clinical Indicators: Pancytopenia in the setting of chemotherapy Treatment: Serial hematology, serial hematology Risk Factors: Chemotherapy Please clarify and document your clinical opinion in the progress notes and discharge summary. Terms such as "probable", "suspected", "likely", "questionable", "possible", or "still to be ruled out" are acceptable. IF IN AGREEMENT, YOU MUST DOCUMENT ABOVE DIAGNOSTIC STATEMENT IN DAILY PROGRESS NOTES AND DISCHARGE SUMMARY. This document is not part of the patient's record. Thank You, Serjio Ferrell, RN [phone]
[2017-03-24] MEDS: FIBERSOURCE HN 1000ML BAG OG SCH ×4 (07:00→16:00)
[2017-03-24 07:18] VITALS: PULSE 105; O2SAT 95
[2017-03-24 07:57] VITALS: BP 118/76; PULSE 98; TEMP 36.5; O2SAT 97
[2017-03-24 08:26] VITALS: O2SAT 97
--- NOTE | 2017-03-24 08:35 | Clinical Documentation Query ---
DEREK Fields : CLINICAL DOCUMENTATION QUERIES QUERY 1 OF 3 Patient is a 72 year old female undergoing chemo and radiation for multiple loci of cancer including metastatic lung CA, admitted with fever, shortness of breath, pleuritic chest pain, and a non-productive cough. Chest radiograph demonstrated a RLL infiltrate and exam demonstrated crackles. As appropriate, consider clarification of types of specific pneumonia for which you were treating as this affects accurate DRG assignment. Thank you. In your clinical opinion is this patient being managed for: ( x ) Pneumonia (possibly) due to gram-negative and/or MRSA pneumonia, treated with Cefepime and Vancomycin ( ) Not Agree ( ) Other explanation of clinical findings (Please Explain) ( ) Unable to determine (Please Define) ( ) Need to Discuss The medical record reflects the following clinical findings, treatment, and risk factors. Clinical Indicators: As above Treatment: Blood cultures, Cefepime, Vancomycin Risk Factors: Age, cancer, immunosuppression, recent hospitalization QUERY 2 OF 3 As stated, patient undergoing chemotherapy and radiation. Patient reported burning pain with swallowing and avoided foods with a noted "30 pound weight loss". GI sap basis consultant performed EGD and subsequently inserted a PEG tube. Weight loss noted to be "from food avoidance secondary to odynophagia". Channel Opener consulted. Noted ~12% weight loss in last 30 days. Estimated meal intake only 25-50% of meals. Channel Opener noted "Pt. meets criteria for severe malnutrition in the context of acute illness d/t recent viral illness (influenza) and secondary bacterial infection (PNA) with a PMH of metastatic CA s/p CTX & RT. Her energy intake is estimated to be < 50% of her est. energy requirements for > 5 days as evidenced by meal intake 0-25% today per I/O sheets, diet hx, c/o dysphagia since 03/02/17 and 12% wt loss w/in the past 30 days. She has evidence of moderate depletion of body fat seen in orbital region and moderate loss of muscle mass seen in the temporal region." In your clinical opinion is this patient being managed for: ( x ) Severe protein-calorie malnutrition, underweight, BMI 18.0 kg/m*m ( ) Not Agree ( ) Other explanation of clinical findings (Please Explain) ( ) Unable to determine (Please Define) ( ) Need to Discuss The medical record reflects the following clinical findings, treatment, and risk factors. Clinical Indicators: As above Treatment: GI, RD consultation. Zantac, PPI, Magic Swizzle, diet downgraded to FL, PEG tube, serial labs, MVI Risk Factors: Age, cancer undergoing chemotherapy and radiation. QUERY 3 OF 3 Documentation includes the following: "Microcytic Anemia Trending downward historically from december 2016 Today 8.3. Will recheck daily; patient would prefer to not have transfusion unless <7.0 No obvious source on EGD Consider other source, i.e. rectal, chronic disease, recent chemo Metastatic Cancer - Neutropenia likely secondary to Bone marrow suppression in setting of Chemotherapy" Additionally, patient noted to be thrombocytopenic as well since admission. As appropriate, consider capture of this clinical picture as suggested below. Thank you. In your clinical opinion is this patient being managed for: ( x) Antineoplastic chemotherapy induced pancytopenia ( ) Not Agree ( ) Other explanation of clinical findings (Please Explain) ( ) Unable to determine (Please Define) ( ) Need to Discuss The medical record reflects the following clinical findings, treatment, and risk factors. Clinical Indicators: Pancytopenia in the setting of chemotherapy Treatment: Serial hematology, serial hematology Risk Factors: Chemotherapy Please clarify and document your clinical opinion in the progress notes and discharge summary. Terms such as "probable", "suspected", "likely", "questionable", "possible", or "still to be ruled out" are acceptable. IF IN AGREEMENT, YOU MUST DOCUMENT ABOVE DIAGNOSTIC STATEMENT IN DAILY PROGRESS NOTES AND DISCHARGE SUMMARY. This document is not part of the patient's record. Thank You, Serjio Ferrell, RN [phone]
[2017-03-24] MEDS: THIAMINE HCL 100 MG TAB PEG SCH (08:59)
[2017-03-24] MEDS: PANTOprazole SOD 40 MG TAB PO SCH (08:59)
[2017-03-24] MEDS: POTASSIUM CHLORIDE 20 MEQ/15 ML UDC PEG SCH (08:59)
[2017-03-24] MEDS: METOPROLOL TARTRATE 25 MG TAB PO SCH (09:00)
[2017-03-24] MEDS: AMOXICILLIN/CLAVULANATE TAB 875 MG TAB PO SCH (09:00)
[2017-03-24] MEDS ORDERED: POTASSIUM PHOS 3 MMOL/1 ML INFUSION IV STA (11:07)
[2017-03-24] MEDS: HEPARIN SOD 5000 UNIT/0.5 ML CARP SQ SCH (11:12)
[2017-03-24] MEDS ORDERED: POTASSIUM PHOSPHATE INJ 15 MMOL in SODIUM CHLORIDE 0.9% 250ML 250 ML IV ONE (11:30)
[2017-03-24] MEDS ORDERED: MGNO400 PEG (13:42)
[2017-03-24] MEDS ORDERED: AMOX400S2 PO (13:42)
[2017-03-24 14:23] VITALS: PULSE 111; O2SAT 97
[2017-03-24 14:50] VITALS: BP 117/75; PULSE 112; TEMP 36.9; O2SAT 98
--- NOTE | 2017-03-24 15:56 | Discharge Instructions ---
Discharge Instructions Date of Service Mar 24, 2017. Admission Reason for Admission: Pneumonia Discharge Discharge Diagnosis / Problem: Pneumonia, PEG tube placement Discharge Goals Goal(s): Decrease discomfort, Improve function, Increase independence, Improve disease control Activity Recommendations Activity Limitations: per Instructions/Follow-up section . Instructions / Follow-Up Instructions / Follow-Up During this admission, you were evaluated for pneumonia and painful swallowing. The pneumonia was treated with antibiotics, and you should continue the antibiotic as prescribed. As discussed, the cough from pneumonia may persist for several weeks. For your swallowing, a PEG tube has been placed. Continue to use tube feeds until you are stable from a nutrition and hydration standpoint, which your PCP and oncologist will help to decide. More oral intake will help to hasten this process and can help to eventually remove the PEG tube. Once that time comes, contact Dr. Cornell's office to have the PEG removed. Having a PEG tube means your electrolytes might be a little "off" for the first few days. You should have some labwork drawn on March 27, the order for which will be given on a prescription. These results will go to your primary care doctor who will determine if you need to supplement your electrolytes. Some supplements will also be prescribed for you. Take these twice daily for [address] Cortes tells you otherwise. Use a warm washcloth and bacitracin as needed to clean the area around your PEG tube. Home health has been set up to help with your tube feeds. Follow up with your PCP as scheduled. Current Hospital Diet Patient's current hospital diet: Clear Liquid Diet Discharge Diet Recommended Diet: Full Liquid Diet Procedures Procedures Performed: EGD W/Biopsies and PEG tube placement Pending Studies Studies pending at discharge: no Medical Emergencies . Who to Call and When: Medical Emergencies: If at any time you feel your situation is an emergency, please call 911 immediately. . Non-Emergent Contact Non-Emergency issues call your: Primary Care Provider . . "Provider Documentation" section prepared by Ann Marie Crocker. . VTE Core Measure Inpt VTE Proph given/why not?: SCD's
[2017-03-24 16:15] VITALS: BP 117/75; PULSE 112; TEMP 36.9; O2SAT 98
[2017-03-24] MEDS ORDERED: AMOXICILLIN/CLAVULANATE SUSP 400 MG/5 ML PO SCH (17:00)
[2017-03-24] MEDS ORDERED: MAGNESIUM OXIDE 400 MG TAB PEG SCH (20:00)
--- NOTE | 2017-03-24 23:36 | Discharge Summary ---
Discharge Summary Date of Service Mar 24, 2017. Discharge Summary Admission Date: Mar 20, 2017 at 00:31 Discharge Date: Mar 24, 2017 Discharge Disposition: Home with services Principal Diagnosis: Pneumonia, PEG placement Problems/Secondary Diagnoses: Severe protein-calorie malnutrition, underweight, BMI 18.0 kg/m*m SOB, Pleuritic Chest Pain, Tachycardia Dysphagia Hypokalemia Hypomagnesemia Microcytic Anemia Antineoplastic chemotherapy induced pancytopenia Metastatic Cancer Hyperthyroidism RA GERD Consultations: Gastroenterology Medication Reconciliation New Medications: Amoxicillin & Pot Clavulanate (Amoxicillin/Clavulanate P) 1 Kezia Kezia 10.9 ML PO BIDM for 5 Days, #10 DOSE Magnesium Oxide (Magnesium-Oxide) 400 Mg Tab 400 MG PEG BID for 7 Days, #14 TAB Continued Medications: Acetaminophen (Tylenol) Unknown Strength Tab 1 DOSE PO UD PRN for Pain or Fever, TAB Amitriptyline Hcl (Elavil) 10 Mg Tab 20 MG PO HS PRN for Sleep Benzonatate (Benzonatate) 100 Mg Cap 100-200 MG PO TID PRN for Cough Calcium Citrate-Vitamin D (Citracal + D3 Maximum) 1 Tab Tab 2 TABS PO HOLD CURRENTLY BEING HELD UNTIL OTHERWISE DIRECTED TO TAKE BY Cholecalciferol (Vitamin D3) 2,000 Unit Tab 1 CAP PO HOLD CURRENTLY BEING HELD UNTIL OTHERWISE DIRECTED TO TAKE BY Cyclosporine (Ophth) (Restasis) 0.05 % Emu 1 DROP OPB Q12H, BTL Dexamethasone (Decadron) 4 Mg Tab 4 MG PO UD PRN for Chemo Treatment TAKE 4 MG ORALLY 2 TIMES PER DAY STARTING THE DAY BEFORE TREATMENT, DAY OF TREATMENT AND DAY AFTER TREATMENT Fentanyl (Fentanyl) 12 Mcg Tdsy 12 MCG TOP [id number] PRN for Pain Fish Oil ([place]-3) 1 Ea Cap 1 CAP PO HOLD, CAP CURRENTLY BEING HELD UNTIL OTHERWISE DIRECTED TO TAKE BY Folic Acid (Folic Acid) 1 Mg Tab 1 MG PO DAILY Hydrocodone/Homatropine (Hydromet 5-1.5 mg/5Ml) 5 Ml/Cup Syrp 5 ML PO HS PRN for Cough for 30 Days, #100 ML Hydroxychloroquine Sulfate (Plaquenil) 200 Mg Tab 100 MG PO HS, TAB Magic Swizzle (Magic Swizzle - SUCRALFA/ALUM/MAG/DIPHEN/LIDO) 240 Ml Susp 3-4 TSP PO ACHS, #240 ML 100ml Sucralfate 50ml Maalox 50ml Diphenhydramine 40ml 2% Aq. Lidocaine Swish and Swallow Melatonin (Melatonin) 3 Mg Tab 3 MG PO HS PRN for Sleep Methimazole (Methimazole) 5 Mg Tab 5 MG PO HS Methotrexate (Methotrexate) 2.5 Mg Tab 12.5 MG PO WK TAKE 5 TABLETS (12.5 MG) EVERY MONDAY Metoprolol Tartrate (Lopressor) 25 Mg Tab 25 MG PO BID for 30 Days, #60 TAB Ondansetron (Ondansetron HCl) 4 Mg Tab 4 MG PO Q4H PRN for Nausea Pantoprazole (Pantoprazole Sodium) 40 Mg Tab 40 MG PO QAM for 30 Days, #30 TAB Potassium Chloride 40 Meq/15 Ml (Potassium Chloride 40 Meq/15 Ml) 20 % Liq 40 MEQ PO QAM for 7 Days, #105 ML Take 15 ml (1 tablespoon) in the morning pending home health labs with low potassium. Mix with juice. Prochlorperazine Maleate (Prochlorperazine Maleate) 10 Mg Tab 10 MG PO Q6H PRN for Nausea Promethazine Hcl (Phenergan Suppository) 25 Mg Supp 25 MG NC Q6H PRN for Nausea, SUPP Ranitidine HCl (Ranitidine HCl) 150 Mg Tab 150 MG PO DAILY PRN for Heartburn/Indigestion Discharge Exam ROS: Constitutional: + weight loss, + weakness, + fatigue, No fever, No chills, No sweats, No problem reported Respiratory: + cough, No sputum, No wheezing, No shortness of breath, No dyspnea on exertion, No dyspnea at rest, No hemoptysis, No problem reported Cardiovascular: No chest pain, No orthopnea, No PND, No edema, No claudication, No palpitations, No problem reported Abdomen: + pain (at insertion site) All Other Systems: Reviewed and Negative PE General Appearance: WD/WN, no apparent distress Eyes: normal inspection, PERRL, EOMI, sclerae normal ENT: normal ENT inspection, hearing grossly normal, pharynx normal Neck: supple, no adenopathy, no JVD, no carotid bruits, trachea midline Respiratory/Chest: chest non-tender, no respiratory distress, no accessory muscle use, + crackles (bibasilar, r>l; improving) Cardiovascular: regular rate, rhythm, no edema, no gallop, no JVD, no murmur Abdomen: normal bowel sounds, soft, + tenderness (around new PEG), + pertinent finding (PEG tube left center/epigastrium) Extremities: normal range of motion, non-tender, normal inspection, no pedal edema, no calf tenderness Neurologic/Psychiatric: director workers compensation II-XII nml as tested, no motor/sensory deficits, alert, normal mood/affect, oriented x 3 Skin: normal color, warm/dry, no rash Hospital Course 72 yo Hx multiple Kim including breast, endometrial, melanoma. Recent diagnosis of metastatic R lung adenocarcinoma confirmed on biopsy/pathology 11/23 on chemotherapy presenting with weakness, tachycardia, cough, pleuritic Chest pain with CXR showing Small developing parenchymal infiltrate right base. Patient's dysphagia preventing her from oral intake and has had resultant weight loss. PEG placed 03/22/17 and monitored/treated for refeeding syndrome SOB, Pleuritic Chest Pain, Tachycardia -history of fever, crackles on exam, RLL infiltrate consistent with Pneumonia, likely CAP and not necessarily MRSA or gram negative -Started Vancomycin, Cefepime, azithromycin on admission and converted to Augmentin; complete 10 day course -previous history of Influenza s/p Tamiflu treatment on previous admission, no swab collected on arrival, CXR more consistent with bacterial cause -Blood cx pending, NGTD Dysphagia Resultant 10+ lb weight loss in last 3 weeks. GI consulted PEG placement; dietary consult ordered Esophagitis seen along with duodenal changes, sent for biopsy If patient starts tolerating PO intake well for nutritional and hydration status, can consider removal; contact outpatient GI office Dietary education regarding tube feeds on discharge and care as outpatient required; [facility] referral placed Patient prefers bolus feeds by gravity Magic swizzle ordered, reiterated need to utilize for symptom relief Hypokalemia K stabilized at 4.1 Replace prn; resumed home dose Wary of refeeding syndrome: BMP, Mag, Phos for monday 03/27 Hypomagnesemia 1.7 today Supplement max oxide 400 BID x 7 days recheck monday 03/27 Microcytic Anemia Trending downward historically from december 2016 No obvious source on EGD Consider other source, i.e. rectal, chronic disease, recent chemo, Antineoplastic chemotherapy induced pancytopenia Metastatic Cancer - Neutropenia likely secondary to Bone marrow suppression in setting of Chemotherapy Hyperthyroidism -methimazole, cont home dose Total Time Spent: Less than 30 minutes This includes examination of the patient, discharge planning, medication reconciliation, and communication with other providers. Discharge Instructions Please refer to the electronic Patient Visit Report (Discharge Instructions) for additional information. Follow-Up Labwork on Monday 03/27 Dr. Cortes within 7-10 days Oncology as planned GI for peg removal in future when appropriate Additional Copies To Oni Cortes Jr,D.O. Resident Tracking Resident Involvement: Resident Care Provided Care Provided: [facility]
== END 2017-03-24 18:05 | disposition home health service (06) | DRG 177 ==
LOC: C.EDB 21:12 → OBSVTOIN 03-20 00:31 → C.4E 03-20 00:31 → EDBEDREQ 03-20 00:36 → ENRESERV 03-20 00:58
PROVIDERS: ADMIT Hospitalist; ATTEND Hospitalist
PROC: 0DB98ZX Excision of Duodenum, Via Natural or Artificial Opening Endoscopic, Diagnostic (ICD-10-PCS; principal; 2017-03-21 14:00)
PROC: 0DH64UZ Insertion of Feeding Device into Stomach, Percutaneous Endoscopic Approach (ICD-10-PCS; principal; 2017-03-21 14:00)
DX: J15.6 Pneumonia due to other Gram-negative bacteria (principal); E43 Unspecified severe protein-calorie malnutrition; Z68.1 Body mass index [BMI] 19.9 or less, adult; C78.01 Secondary malignant neoplasm of right lung; R13.10 Dysphagia, unspecified; K21.0 Gastro-esophageal reflux disease with esophagitis; K29.80 Duodenitis without bleeding; D70.1 Agranulocytosis secondary to cancer chemotherapy; E87.6 Hypokalemia; D50.9 Iron deficiency anemia, unspecified; E83.42 Hypomagnesemia; E05.90 Thyrotoxicosis, unspecified without thyrotoxic crisis or storm; M06.9 Rheumatoid arthritis, unspecified; Z85.3 Personal history of malignant neoplasm of breast; Z85.42 Personal history of malignant neoplasm of other parts of uterus; Z85.820 Personal history of malignant melanoma of skin; Z92.3 Personal history of irradiation; Z92.21 Personal history of antineoplastic chemotherapy; Z87.01 Personal history of pneumonia (recurrent); Z79.899 Other long term (current) drug therapy; Z88.0 Allergy status to penicillin; Z88.5 Allergy status to narcotic agent; Z80.3 Family history of malignant neoplasm of breast; Z80.1 Family history of malignant neoplasm of trachea, bronchus and lung; Z83.6 Family history of other diseases of the respiratory system; Z82.49 Family history of ischemic heart disease and other diseases of the circulatory system; Z83.79 Family history of other diseases of the digestive system

== ENCOUNTER → 2017-03-27 | Outpatient (CLI) | payer BC ==
[~2017-03-27] MED LIST changes: +AMOX400S2 PO; +ATV5 PO; +GUAISYP4 PO; +LDDP5 TD; +MGNO400 PEG; -MGNO400 PO; +MRLP17X PO; +ONDA8TAB62 SL; +RXNS10 PO; +SENN-61 PO; -TMF75 PO; +ULT50 PO; +[UNRECOGNIZED DRUG - OTHER]
[2017-03-27 18:11] LABS: ALBUMIN 2.4 gm/dl (3.4-5.0); ALT/SGPT 22 U/L (12-78); BLOOD UREA NITROGEN 15 mg/dl (7-18); CALCIUM 9.1 mg/dl (8.5-10.1); CARBON DIOXIDE 30 mmol/L (21-32); GLUCOSE 106 mg/dl (70-99); POTASSIUM 4.6 mmol/L (3.5-5.1); SODIUM 131 mmol/L (136-145)
[2017-03-27 18:13] LABS: ALKALINE PHOSPHATASE 134 U/L (45-117); AST/SGOT 25 U/L (15-37)
== END | disposition home or self-care (01) ==
LOC: C.LABSPEC 03-11 17:26
PROVIDERS: ATTEND Physician Assistant
DX: Z01.89 Encounter for other specified special examinations (principal)

== ENCOUNTER 2017-04-17 13:54 | Inpatient (IN) | payer BC, OTHER ==
[~2017-04-17] VITALS: Ht 170.2 cm; Wt 51.2 kg
[~2017-04-17 13:54] MED LIST changes: -ACET-1311 PO; -AMIT10TA6 PO; -ATV5 PO; -BENZ100C7 PO; -CMP/10 PO; -CYCL0.052 OPB; -DXM/4 PO; -FLV1 PO; -GUAISYP4 PO; -HYDR200T5 PO; -LDDP5 TD; -MELA3TAB PO; -MRLP17X PO; -ONDA4TAB9 PO; -ONDA8TAB62 SL; -RANI150T2 PO; -RXNS10 PO; -SENN-61 PO; -ULT50 PO; -[UNRECOGNIZED DRUG - OTHER]
--- NOTE | 2017-04-17 14:20 | EMERGENCY ROOM VISIT NOTE ---
History Report prepared by Ruben: Handy Reyes Under the Supervision of: Dr. Cedric Page D.O. First contact with patient: 14:09 Chief Complaint: SHORTNESS OF BREATH Stated Complaint: SOB(HAS LUNG CANCER & HAD PNEUMONIA 2X'S) History of Present Illness The patient is a 72 year old female who presents to the Emergency Room with complaints of persistent shortness of breath for two weeks. She reports a non- productive cough. She notes weakness in arms and legs. She reports weight loss. She notes chest tightness. She feels like her heart is racing. She denies any fevers. She was recently diagnosed with stage 4 metastatic lung cancer. She had chemotherapy five weeks ago. She has a history of influenza. She notes her ankles are swollen. She denies any history of blood clots. She notes shortness of breath worsened with lying flat and on exertion. She denies any history of smoking. She denies any underlying lung problems in the past. Source of History: patient Onset: two weeks Position: other (global) Quality: other (shortness of breath) Timing: other (persistent) Modifying Factors (Worsening): exertion, other (lying flat) Associated Symptoms: + cough, + weakness, No fevers Note: She notes ankle swelling. Review of Systems See HPI for pertinent positives & negatives. A total of 10 systems reviewed and were otherwise negative. Past Medical & Surgical Medical Problems: (1) Adenocarcinoma of lung, stage 4 (2) Breast cancer metastasized to bone (3) Endometrial cancer (4) HTN (hypertension) (5) Hyperthyroidism (6) Influenza A (7) Melanoma (8) Pneumonia (9) Rheumatoid arthritis (10) Shortness of breath (11) Sjoegren syndrome (12) Troponin I above reference range Surgical Problems: (1) S/P right mastectomy Family History Cancer FHx: gallbladder disease Heart disease Hypertension Lung disease Social History Smoking Status: Never Smoker Smokeless Tobacco Use: No Alcohol Use: none Drug Use: none Marital Status: Housing Status: lives with significant other Occupation Status: retired Current/Historical Medications Scheduled Cyclosporine (Ophth) (Restasis), 1 DROP OPB Q12H Folic Acid (Folic Acid), 1 MG PO DAILY Hydroxychloroquine Sulfate (Plaquenil), 100 MG PO HS Methimazole (Methimazole), 5 MG PO HS Metoprolol Tartrate (Lopressor), 25 MG PO BID Pantoprazole (Pantoprazole Sodium), 40 MG PO QAM Scheduled PRN Acetaminophen (Tylenol), 1 DOSE PO UD PRN for Pain or Fever Amitriptyline Hcl (Elavil), 20 MG PO HS PRN for Sleep Benzonatate (Benzonatate), 100-200 MG PO TID PRN for Cough Dexamethasone (Decadron), 4 MG PO UD PRN for Chemo Treatment Melatonin (Melatonin), 3 MG PO HS PRN for Sleep Ondansetron (Ondansetron HCl), 4 MG PO Q4H PRN for Nausea Prochlorperazine Maleate (Prochlorperazine Maleate), 10 MG PO Q6H PRN for Nausea Ranitidine HCl (Ranitidine HCl), 150 MG PO DAILY PRN for Heartburn/Indigestion Tramadol HCl (Tramadol HCl), 50 MG PO Q6H PRN for Pain Miscellaneous Medications [Tube Feed] Allergies Coded Allergies: Penicillins (Verified Allergy, Intermediate, RASH, 04/17/17) Morphine and Related (Verified Adverse Reaction, Intermediate, SEVERE NAUSEA, 04/17/17) Codeine (Verified Adverse Reaction, Mild, GI UPSET, 04/17/17) Physical Exam Vital Signs Date Time Temp Pulse Resp B/P (MAP) Pulse Ox O2 Delivery O2 Flow Rate FiO2 04/17/17 17:30 123 20 148/98 93 Room Air 04/17/17 16:13 126 24 157/84 93 Room Air 04/17/17 15:47 118 22 143/85 92 Room Air 04/17/17 14:42 95 Room Air 04/17/17 14:39 95 Room Air 04/17/17 14:36 120 04/17/17 14:30 123 24 95 04/17/17 14:23 95 Room Air 04/17/17 14:04 36.4 128 20 108/61 94 Room Air Physical Exam GENERAL: Patient is awake, alert, and in no acute distress. Patient is mildly anxious appearing. EYES: The conjunctivae are clear. The pupils are round and reactive. EARS, NOSE, MOUTH AND THROAT: The nose is without any evidence of any deformity. Mucous membranes are moist tongue is midline NECK: The neck is nontender and supple. RESPIRATORY: Lung sounds diminished throughout, absent breath sounds at right base, mild tachypnea appreciated. CARDIOVASCULAR: Tachycardic rate and regular rhythm noted, no definite murmur noted. GASTROINTESTINAL: The abdomen is soft. Bowel sounds are present in all quadrants. Abdomen is nontender MUSCULOSKELETAL/EXTREMITIES: There is no evidence of gross deformity full range of motion is noted in the hips and shoulders SKIN: Trace pedal edema bilaterally. NEUROLOGIC: Patient is awake alert and oriented x3. Medical Decision & Procedures ER Provider Diagnostic Interpretation: Radiology results as stated below per my review and radiologist interpretation: CHEST ONE VIEW PORTABLE HISTORY: 72 years-old Female EVALUATE RESPIRATORY DISTRESS.DYSPNEA acute shortness of breath with respiratory distress COMPARISON: Chest radiograph 03/19/2017, CTA chest 03/07/2017 TECHNIQUE: Portable AP view of the chest FINDINGS: Cardiac silhouette is again mildly enlarged. Atherosclerosis of the aorta. There is no pneumothorax. Moderate-sized right pleural effusion has increased in size from comparison. Previous noted lobular mass of the right lower lobe is not definitively seen on today's study. Bilateral mixed interstitial and alveolar opacities are noted, right greater than left with right basilar consolidation. Surgical clips project over the lower left heart border and bilateral axillary regions. 6 mm lucent lesion of the posterior right second rib. IMPRESSION: 1. Moderate size right pleural effusion with right basilar consolidation. 2. Mixed interstitial and alveolar opacities noted bilaterally suggesting infectious or inflammatory pneumonitis or metastatic disease as described on CT exam dated 03/07/2017. 3. 6 mm lucent lesion of the posterior right rib is suspicious for bony metastasis. The above report was generated using voice recognition software. It may contain grammatical, syntax or spelling errors. Electronically signed by: Reid Lechuga M.D. 04/17/2017 2:45 PM Dictated Date/Time: 04/17/2017 2:40 PM (CHEST FOR PE) ANGIO WITH CT DOSE: 175.59 mGy.cm HISTORY: 72 years-old Female presents with acute atypical chest pain. History of breast cancer. TECHNIQUE: Multiple CTA images of the chest were obtained after the intravenous administration of 83 ml Optiray 320. Coronal and sagittal MIPS were obtained from the axial data set and were submitted for review. A dose lowering technique was utilized adhering to the principles of ALARA. COMPARISON: Chest radiograph of same day, CTA chest 03/07/2017. FINDINGS: CTA: There is mild to moderate multichamber cardiac enlargement. Trace pericardial effusion. Mild to moderate atherosclerosis of the aorta. The imaged great vessels appear to be patent. There is no aortic aneurysm or dissection identified. The pulmonary arterial tree is opacified to level of the distal segmental branches. Study is moderately limited secondary to respiratory motion. No focal filling defects identified to suggest pulmonary thromboembolic disease. CT CHEST: Heterogeneous appearance of the thyroid without dominant nodule identified. Evaluation for adenopathy is limited secondary to respiratory motion. There is suggested large subcarinal lymph node measuring approximately 1.6 x 1.2 cm. Moderate to large sized right pleural effusion. No pneumothorax. There are multifocal groundglass and consolidative opacities throughout the lungs bilaterally with many of the consolidations demonstrating a somewhat peripheral distribution. Additionally, there is mild intralobular septal thickening, notably within the right lung. There is complete right middle lobe and near-complete right lower lobe consolidation with atelectasis and volume loss demonstrating heterogeneous enhancement. No definite obstructing bronchial lesion identified. Somewhat nodular densities are seen layering along the right age or fissure. Calcifications are seen throughout the spleen. No acute amount of the imaged upper abdomen. Postoperative changes from prior right mastectomy. Surgical clips project over the bilateral axilla compatible with prior axillary node dissection. There are multiple lytic metastatic lesions present including a destructive 2.8 x 1.6 cm lesion of the anterior and mid portions of the T2 vertebral body with cortical breakthrough anteriorly. Additional lytic lesion involves the T3 vertebral body. Destructive lytic lesions are also noted within the right second, and fifth ribs with additional lesions seen within the proximal portion of the left 12th rib. There is a suggested ill-defined lytic lesion of the mid sternum, image 91 of series 4. IMPRESSION: 1. Motion degraded exam. Moderate to large right-sided pleural effusion with near-total right upper lobe and total right middle lobe collapse with atelectasis demonstrating heterogeneous enhancement suggesting associated airspace disease. 2. Scattered multifocal groundglass and consolidative opacities throughout the lungs bilaterally suggest infectious or inflammatory pneumonitis with metastatic disease also in the differential. 3. Multiple lytic destructive bony lesions compatible with metastasis. 4. Prior right-sided mastectomy with bilateral axillary node dissection. 5. Cardiomegaly without acute aortic pathology or evidence of pulmonary thromboembolic disease. The above report was generated using voice recognition software. It may contain grammatical, syntax or spelling errors. Electronically signed by: Reid Lechuga M.D. 04/17/2017 4:19 PM Dictated Date/Time: 04/17/2017 4:05 PM Laboratory Results 04/17/17 14:30 Red Blood Count 3.21, Mean Corpuscular Volume 92.2, Mean Corpuscular Hemoglobin 30.8, Mean Corpuscular Hemoglobin Concent 33.4, Mean Platelet Volume 8.2, Neutrophils (%) (Auto) 92.7, Lymphocytes (%) (Auto) 4.6, Monocytes (%) (Auto) 1.9, Eosinophils (%) (Auto) 0.6, Basophils (%) (Auto) 0.0, Neutrophils # (Auto) 9.99, Lymphocytes # (Auto) 0.50, Monocytes # (Auto) 0.20, Eosinophils # (Auto) 0.07, Basophils # (Auto) 0.00 04/17/17 14:30 Test 04/17/17 14:30 04/17/17 14:37 04/17/17 15:15 White Blood Count 10.78 K/uL (4.8-10.8) Red Blood Count 3.21 M/uL (4.2-5.4) Hemoglobin 9.9 g/dL (12.0-16.0) Hematocrit 29.6 % (37-47) Mean Corpuscular Volume 92.2 fL (80-100) Mean Corpuscular Hemoglobin 30.8 pg (25-34) Mean Corpuscular Hemoglobin Concent 33.4 g/dl (32-36) Platelet Count 243 K/uL (130-400) Mean Platelet Volume 8.2 fL (7.4-10.4) Neutrophils (%) (Auto) 92.7 % Lymphocytes (%) (Auto) 4.6 % Monocytes (%) (Auto) 1.9 % Eosinophils (%) (Auto) 0.6 % Basophils (%) (Auto) 0.0 % Neutrophils # (Auto) 9.99 K/uL (1.4-6.5) Lymphocytes # (Auto) 0.50 K/uL (1.2-3.4) Monocytes # (Auto) 0.20 K/uL (0.11-0.59) Eosinophils # (Auto) 0.07 K/uL (0-0.5) Basophils # (Auto) 0.00 K/uL (0-0.2) RDW Standard Deviation 55.7 fL (36.4-46.3) RDW Coefficient of Variation 16.4 % (11.5-14.5) Immature Granulocyte % (Auto) 0.2 % Immature Granulocyte # (Auto) 0.02 K/uL (0.00-0.02) Prothrombin Time 11.0 SECONDS (9.0-12.0) Prothromb Time International Ratio 1.0 (0.9-1.1) Activated Partial Thromboplast Time 25.1 SECONDS (21.0-31.0) Partial Thromboplastin Ratio 1.0 Anion Gap 9.0 mmol/L (3-11) Est Creatinine Clear Calc Drug Dose 91.0 ml/min Estimated GFR () 112.1 Estimated GFR (Non- 96.7 BUN/Creatinine Ratio 37.2 (10-20) Calcium Level 9.0 mg/dl (8.5-10.1) Total Bilirubin 0.4 mg/dl (0.2-1) Aspartate Amino Transf (AST/SGOT) 13 U/L (15-37) Alanine Aminotransferase (ALT/SGPT) 17 U/L (12-78) Alkaline Phosphatase 108 U/L (45-117) Troponin I 0.016 ng/ml (0-0.045) Pro-B-Type Natriuretic Peptide 1448 pg/ml (0-900) Total Protein 7.1 gm/dl (6.4-8.2) Albumin 2.6 gm/dl (3.4-5.0) Globulin 4.5 gm/dl (2.5-4.0) Albumin/Globulin Ratio 0.6 (0.9-2) Bedside D-Dimer > 450 ng/mlFEU (0-450) Urine Color DK YELLOW Urine Appearance CLOUDY (CLEAR) Urine pH 7.5 (4.5-7.5) Urine Specific [place] 1.019 (1.000-1.030) Urine Protein NEG (NEG) Urine Glucose (UA) NEG (NEG) Urine Ketones NEG (NEG) Urine Occult Blood NEG (NEG) Urine Nitrite NEG (NEG) Urine Bilirubin NEG (NEG) Urine Urobilinogen NEG (NEG) Urine Leukocyte Esterase SMALL (NEG) Urine WBC (Auto) 1-5 /hpf (0-5) Urine RBC (Auto) 0-4 /hpf (0-4) Urine Hyaline Casts (Auto) 5-10 /lpf (0-5) Urine Epithelial Cells (Auto) >30 /lpf (0-5) Urine Bacteria (Auto) NEG (NEG) Urine Renal Epithelial Cells 0-5 /lpf (0-5) Urine Crystals See comments (NONE PRSENT) Laboratory results per my review. Medications Administered Medications (Trade) Dose Ordered Sig/Stephanie Route Start Time Stop Time Status Last Admin Dose Admin Sodium Chloride 1,000 ml @ 999 mls/hr Q1H1M STAT IV 04/17/17 16:22 04/17/17 17:22 DC 04/17/17 16:28 999 MLS/HR Levofloxacin (Levaquin / D5W) 750 mg NOW ONCE IV 04/17/17 16:30 04/17/17 16:31 DC 04/17/17 17:09 750 MG ECG Per My Interpretation Indication: SOB/dyspnea Rate (beats per minute): 130 Rhythm: sinus tachycardia Findings: ST depression (Lateral), T-wave inversion, other (LVH noted by voltage criteria) Change: no significant change (when compared to 03/19/2017) ED Course 1415: The patient was evaluated in room C5. A complete history and physical examination were performed. 1622: Ordered NSS 1,000 ml @ 999 mls/hr IV 1630: Ordered Levofloxacin 750 mg IV 1625: I reassessed the patient at this time. She is resting comfortably. I discussed the results and treatment plan with the patient. I answered all pertaining questions that she had. She expressed understanding and verbalized agreement. The patient will be further evaluated. 1636: I spoke with Dr. Bozena Marie, [facility] hospitalist. We discussed the patient's case. The patient will be evaluated by the [facility] for further management. Medical Decision Prior records/ancillary studies reviewed. Triage Nursing notes reviewed. The patient's history was concerning for respiratory difficulties. Differential diagnosis: Etiologies such as infections, reactive airway disease, pneumonia, pneumothorax , COPD, CHF, cardiac ischemia, pulmonary embolism, musculoskeletal, gastrointestinal, as well as others were entertained. The patient is a 72-year-old female who presented to the emergency department with difficulty breathing. The patient unfortunately has very advanced lung cancer. She was found to be tachycardic and her chest x-ray appeared to be consistent with her previous cancer history as well as possible pneumonia. For this reason CT the chest was obtained as well as to ensure there was no thromboembolic disease. The patient was treated with IV fluids and IV antibiotics. She was reevaluated multiple times. I discussed her laboratory and radiographic studies with her and her . I also discussed this case with the on-call [facility] hospitalist group. They have agreed to evaluate the patient in the emergency department for further management and disposition. Medication Reconcilliation Current Medication List: was personally reviewed by me Blood Pressure Screening Patient's blood pressure: Elevated blood pressure Blood pressure disposition: Elevated BP felt to be situational Consults Time Called: 1626 Consulting Physician: Dr. Bozena Marie [facility] hospitalist Returned Call: [address] Bozena Marie [facility] hospitalist. We discussed the patient's case. The patient will be evaluated by the [facility] for further management. Impression Primary Impression: PNA (pneumonia) Additional Impressions: Tachycardia Hypoxia Hyponatremia Scribe Attestation The scribe's documentation has been prepared under my direction and personally reviewed by me in its entirety. I confirm that the note above accurately reflects all work, treatment, procedures, and medical decision making performed by me. Departure Information Dispostion Being Evaluated By Hospitalist Referrals Oni Cortes Jr,D.O. (PCP) Patient Instructions My [facility] Problem Qualifiers Primary Impression: PNA (pneumonia) Pneumonia type: due to unspecified organism Laterality: unspecified laterality Lung location: unspecified part of lung Qualified Codes: J18.9 - Pneumonia, unspecified organism
[2017-04-17] MEDS ORDERED: [UNRECOGNIZED DRUG - OTHER] (14:41)
[2017-04-17] MEDS ORDERED: ULT50 PO (14:41)
[2017-04-17 14:45] LABS: EOS % 0.6 %; EOS ABS # 0.07 K/uL (0-0.5); HEMATOCRIT 29.6 % (37-47); HEMOGLOBIN 9.9 g/dL (12.0-16.0); IG# 0.02 K/uL (0.00-0.02); LYMPH % 4.6 %; MEAN CELL VOLUME 92.2 fL (80-100); MEAN CORPUSCULAR HEMOGLOBIN 30.8 pg (25-34); MEAN CORPUSCULAR HGB CONC 33.4 g/dl (32-36); MEAN PLATELET VOLUME 8.2 fL (7.4-10.4); MONO % 1.9 %; NEUT % 92.7 %; NEUT ABS # 9.99 K/uL (1.4-6.5); PLATELET COUNT 243 K/uL (130-400); RED CELL DISTRIBUTION WIDTH CV 16.4 % (11.5-14.5); RED CELL DISTRIBUTION WIDTH SD 55.7 fL (36.4-46.3); WHITE BLOOD COUNT 10.78 K/uL (4.8-10.8)
--- NOTE | 2017-04-17 14:47 | DIAGNOSTIC IMAGING REPORT ---
CHEST ONE VIEW PORTABLE HISTORY: 72 years-old Female EVALUATE RESPIRATORY DISTRESS.DYSPNEA acute shortness of breath with respiratory distress COMPARISON: Chest radiograph 03/19/2017, CTA chest 03/07/2017 TECHNIQUE: Portable AP view of the chest FINDINGS: Cardiac silhouette is again mildly enlarged. Atherosclerosis of the aorta. There is no pneumothorax. Moderate-sized right pleural effusion has increased in size from comparison. Previous noted lobular mass of the right lower lobe is not definitively seen on today's study. Bilateral mixed interstitial and alveolar opacities are noted, right greater than left with right basilar consolidation. Surgical clips project over the lower left heart border and bilateral axillary regions. 6 mm lucent lesion of the posterior right second rib. IMPRESSION: 1. Moderate size right pleural effusion with right basilar consolidation. 2. Mixed interstitial and alveolar opacities noted bilaterally suggesting infectious or inflammatory pneumonitis or metastatic disease as described on CT exam dated 03/07/2017. 3. 6 mm lucent lesion of the posterior right rib is suspicious for bony metastasis. The above report was generated using voice recognition software. It may contain grammatical, syntax or spelling errors. Electronically signed by: Reid Lechuga M.D. 04/17/2017 2:45 PM Dictated Date/Time: 04/17/2017 2:40 PM
[2017-04-17 14:54] LABS: PTT PATIENT 25.1 SECONDS (21.0-31.0)
[2017-04-17 15:09] LABS: ALBUMIN 2.6 gm/dl (3.4-5.0); CREATININE 0.51 mg/dl (0.60-1.20); POTASSIUM 3.4 mmol/L (3.5-5.1)
[2017-04-17 15:15] LABS: TOTAL PROTEIN 7.1 gm/dl (6.4-8.2)
[2017-04-17] MEDS ORDERED: OPTIRAY 320 IV PRN (15:15)
[2017-04-17] MEDS ORDERED: CYCL0.052 OPB (15:19)
[2017-04-17] MEDS ORDERED: HYDR200T5 PO (15:55)
--- NOTE | 2017-04-17 16:20 | DIAGNOSTIC IMAGING REPORT ---
(CHEST FOR PE) ANGIO WITH CT DOSE: 175.59 mGy.cm HISTORY: 72 years-old Female presents with acute atypical chest pain. History of breast cancer. TECHNIQUE: Multiple CTA images of the chest were obtained after the intravenous administration of 83 ml Optiray 320. Coronal and sagittal MIPS were obtained from the axial data set and were submitted for review. A dose lowering technique was utilized adhering to the principles of ALARA. COMPARISON: Chest radiograph of same day, CTA chest 03/07/2017. FINDINGS: CTA: There is mild to moderate multichamber cardiac enlargement. Trace pericardial effusion. Mild to moderate atherosclerosis of the aorta. The imaged great vessels appear to be patent. There is no aortic aneurysm or dissection identified. The pulmonary arterial tree is opacified to level of the distal segmental branches. Study is moderately limited secondary to respiratory motion. No focal filling defects identified to suggest pulmonary thromboembolic disease. CT CHEST: Heterogeneous appearance of the thyroid without dominant nodule identified. Evaluation for adenopathy is limited secondary to respiratory motion. There is suggested large subcarinal lymph node measuring approximately 1.6 x 1.2 cm. Moderate to large sized right pleural effusion. No pneumothorax. There are multifocal groundglass and consolidative opacities throughout the lungs bilaterally with many of the consolidations demonstrating a somewhat peripheral distribution. Additionally, there is mild intralobular septal thickening, notably within the right lung. There is complete right middle lobe and near-complete right lower lobe consolidation with atelectasis and volume loss demonstrating heterogeneous enhancement. No definite obstructing bronchial lesion identified. Somewhat nodular densities are seen layering along the right age or fissure. Calcifications are seen throughout the spleen. No acute amount of the imaged upper abdomen. Postoperative changes from prior right mastectomy. Surgical clips project over the bilateral axilla compatible with prior axillary node dissection. There are multiple lytic metastatic lesions present including a destructive 2.8 x 1.6 cm lesion of the anterior and mid portions of the T2 vertebral body with cortical breakthrough anteriorly. Additional lytic lesion involves the T3 vertebral body. Destructive lytic lesions are also noted within the right second, and fifth ribs with additional lesions seen within the proximal portion of the left 12th rib. There is a suggested ill-defined lytic lesion of the mid sternum, image 91 of series 4. IMPRESSION: 1. Motion degraded exam. Moderate to large right-sided pleural effusion with near-total right upper lobe and total right middle lobe collapse with atelectasis demonstrating heterogeneous enhancement suggesting associated airspace disease. 2. Scattered multifocal groundglass and consolidative opacities throughout the lungs bilaterally suggest infectious or inflammatory pneumonitis with metastatic disease also in the differential. 3. Multiple lytic destructive bony lesions compatible with metastasis. 4. Prior right-sided mastectomy with bilateral axillary node dissection. 5. Cardiomegaly without acute aortic pathology or evidence of pulmonary thromboembolic disease. The above report was generated using voice recognition software. It may contain grammatical, syntax or spelling errors. Electronically signed by: Reid Lechuga M.D. 04/17/2017 4:19 PM Dictated Date/Time: 04/17/2017 4:05 PM
[2017-04-17] MEDS ORDERED: SODIUM CHLORIDE 0.9% 1000ML 1,000 ML IV STA (16:22)
[2017-04-17] MEDS ORDERED: LEVAQUIN 750MG / 150ML D5W IV ONE (16:30)
[2017-04-17] MEDS ORDERED: FLV1 PO (17:13)
[2017-04-17] MEDS ORDERED: DXM/4 PO (17:13)
[2017-04-17] MEDS ORDERED: BENZ100C7 PO (17:13)
[2017-04-17] MEDS ORDERED: AMIT10TA6 PO (17:13)
[2017-04-17] MEDS ORDERED: RANI150T2 PO (17:13)
[2017-04-17] MEDS ORDERED: ONDA4TAB9 PO (17:13)
[2017-04-17] MEDS ORDERED: CMP/10 PO (17:13)
[2017-04-17] MEDS ORDERED: MELA3TAB PO (17:18)
[2017-04-17] MEDS ORDERED: ACET-1311 PO (17:22)
--- NOTE | 2017-04-17 17:53 | History and Physical ---
History & Physical Date & Time of Service: Apr 17, 2017 at 17:45 Chief Complaint: Sob(Has Lung Cancer & Had Pneumonia 2X's) Primary Care Physician: Oni Cortes Jr, D.O. History of Present Illness This is a 72 yo F with PMHx of breast, endometrial and melanoma with recent diagnosis of metastatic R lung adenocarcinoma stg IV, confirmed on biopsy/ pathology 02/15/17 with multiple mets to the bones. She has completed 10 radiation treatments to the spine for pain relief. Pt has commenced a kiana -based chemo regimen and follows with Dr. Valdovinos. Past medical history also includes anemia, osteoporosis, vitamin D deficiency, Sjogrens syndrome and rheumatoid arthritis. Pt notes her shortness of breath started last evening has worsened over the last 24 hours. She denies any sick or ill contacts and has not ventured outside her home recently. Patient notes that she has been unable to participate minimal activity. She does not wear supplemental O2 at baseline. Patient reports feeling extremely short of breath and is unable to talk in long sentences without feeling winded. She also describes a chest pressure however denies any pain. Patient has a dry cough which has been slightly relieved with taking tramadol for her pain at night. She has tried other agents such as Tessalon Perles and Robitussin but without relief. She recently had chemotherapy last , cycle 2/4, and this was the first session since previous admission. She has been using a tube feed as directed for daily nutritional supplementation, and using free water flushes 4-5x per day. She denies any issues with the tube itself. She denies any difficulty with swallowing food or medications. Recent admits: Mar 07-Mar 10 for influenza, pneumonia, pancytopenia Mar 20-14 for pneumonia and had tube feed placed for poor intake/nutritional deficiency Past Medical/Surgical History Medical Problems: (1) Adenocarcinoma of lung, stage 4 (2) Breast cancer metastasized to bone (3) Endometrial cancer (4) HTN (hypertension) (5) Hyperthyroidism (6) Influenza A (7) Melanoma (8) Pneumonia (9) Rheumatoid arthritis (10) Sjoegren syndrome (11) Troponin I above reference range Surgical Problems: (1) S/P right mastectomy Family History Cancer FHx: gallbladder disease Heart disease Hypertension Lung disease Social History Smoking Status: Never Smoker Smokeless Tobacco Use: No Drug Use: none Marital Status: Housing status: lives with family Occupational Status: retired Allergies Coded Allergies: Penicillins (Verified Allergy, Intermediate, RASH, 04/17/17) Morphine and Related (Verified Adverse Reaction, Intermediate, SEVERE NAUSEA, 04/17/17) Codeine (Verified Adverse Reaction, Mild, GI UPSET, 04/17/17) Home Medications Scheduled Cyclosporine (Ophth) (Restasis), 1 DROP OPB Q12H Folic Acid (Folic Acid), 1 MG PO DAILY Hydroxychloroquine Sulfate (Plaquenil), 100 MG PO HS Methimazole (Methimazole), 5 MG PO HS Metoprolol Tartrate (Lopressor), 25 MG PO BID Pantoprazole (Pantoprazole Sodium), 40 MG PO QAM Scheduled PRN Acetaminophen (Tylenol), 1 DOSE PO UD PRN for Pain or Fever Amitriptyline Hcl (Elavil), 20 MG PO HS PRN for Sleep Benzonatate (Benzonatate), 100-200 MG PO TID PRN for Cough Dexamethasone (Decadron), 4 MG PO UD PRN for Chemo Treatment Melatonin (Melatonin), 3 MG PO HS PRN for Sleep Ondansetron (Ondansetron HCl), 4 MG PO Q4H PRN for Nausea Prochlorperazine Maleate (Prochlorperazine Maleate), 10 MG PO Q6H PRN for Nausea Ranitidine HCl (Ranitidine HCl), 150 MG PO DAILY PRN for Heartburn/Indigestion Tramadol HCl (Tramadol HCl), 50 MG PO Q6H PRN for Pain Miscellaneous Medications [Tube Feed] Review of Systems Constitutional: No fever, sweats or chills Eyes: No diplopia, no worsening or blurred vision ENT: normal hearing, no trouble swallowing - can take pills and food orally Respiratory: + dry cough, no sputum, + dyspnea at rest and minimal exertion Cardiovascular: + chest pressure, No chest pain, tightness or palpitations Abdomen: No pain, nausea, vomiting, diarrhea or constipation Musculoskeletal: No joint pain, calf pain, + peripheral swelling Neurologic: No weakness, numbness/tingling, or balance problems Psychiatric: No anxiety or depression Skin: No rash or itch Physical Exam Vital Signs Date Time Temp Pulse Resp B/P (MAP) Pulse Ox O2 Delivery O2 Flow Rate FiO2 04/17/17 16:13 126 24 157/84 93 Room Air 04/17/17 15:47 118 22 143/85 92 Room Air 04/17/17 14:42 95 Room Air 04/17/17 14:39 95 Room Air 04/17/17 14:36 120 04/17/17 14:30 123 24 95 04/17/17 14:23 95 Room Air 04/17/17 14:04 36.4 128 20 108/61 94 Room Air General: awake, alert, no apparent distress Head: Normocephalic, atraumatic ENT: PERRL, EOMI, no pharyngeal exudate, mucous membranes moist Chest: + on RA, diminished breath sounds bibasilarly and upwards into RML, difficulty with deep breaths, no wheezing or rhonchi. Cardiac: Tachycardic, no murmur, no JVD, normal peripheral pulses, good capillary refill Abdominal: NABS x 4 quadrants, soft, + Peg tube in LUQ intact, no surrounding erythema, nontender to palpation, no rebound, guarding or tenderness Extremities: Normal inspection, + peripheral edema 2+ mid tibial region bilaterally, no erythema, calfs nontender to palpation Psych: Normal mood and affect Neuro: AAO x 3, no motor deficits, speech is clear, no peripheral sensory deficits Diagnostics Laboratory Results Results Past 24 Hours Test 04/17/17 14:30 04/17/17 14:37 04/17/17 15:15 Range/Units White Blood Count 10.78 4.8-10.8 K/uL Red Blood Count 3.21 4.2-5.4 M/uL Hemoglobin 9.9 12.0-16.0 g/dL Hematocrit 29.6 37-47 % Mean Corpuscular Volume 92.2 80-100 fL Mean Corpuscular Hemoglobin 30.8 25-34 pg Mean Corpuscular Hemoglobin Concent 33.4 32-36 g/dl Platelet Count 243 130-400 K/uL Mean Platelet Volume 8.2 7.4-10.4 fL Neutrophils (%) (Auto) 92.7 % Lymphocytes (%) (Auto) 4.6 % Monocytes (%) (Auto) 1.9 % Eosinophils (%) (Auto) 0.6 % Basophils (%) (Auto) 0.0 % Neutrophils # (Auto) 9.99 1.4-6.5 K/uL Lymphocytes # (Auto) 0.50 1.2-3.4 K/uL Monocytes # (Auto) 0.20 0.11-0.59 K/uL Eosinophils # (Auto) 0.07 0-0.5 K/uL Basophils # (Auto) 0.00 0-0.2 K/uL RDW Standard Deviation 55.7 36.4-46.3 fL RDW Coefficient of Variation 16.4 11.5-14.5 % Immature Granulocyte % (Auto) 0.2 % Immature Granulocyte # (Auto) 0.02 0.00-0.02 K/uL Prothrombin Time 11.0 9.0-12.0 SECONDS Prothromb Time International Ratio 1.0 0.9-1.1 Activated Partial Thromboplast Time 25.1 21.0-31.0 SECONDS Partial Thromboplastin Ratio 1.0 Sodium Level 128 136-145 mmol/L Potassium Level 3.4 3.5-5.1 mmol/L Chloride Level 89 98-107 mmol/L Carbon Dioxide Level 30 21-32 mmol/L Anion Gap 9.0 3-11 mmol/L Blood Urea Nitrogen 19 7-18 mg/dl Creatinine 0.51 0.60-1.20 mg/dl Est Creatinine Clear Calc Drug Dose 91.0 ml/min Estimated GFR () 112.1 Estimated GFR (Non- 96.7 BUN/Creatinine Ratio 37.2 10-20 Random Glucose 169 70-99 mg/dl Calcium Level 9.0 8.5-10.1 mg/dl Total Bilirubin 0.4 0.2-1 mg/dl Aspartate Amino Transf (AST/SGOT) 13 15-37 U/L Alanine Aminotransferase (ALT/SGPT) 17 12-78 U/L Alkaline Phosphatase 108 45-117 U/L Troponin I 0.016 0-0.045 ng/ml Pro-B-Type Natriuretic Peptide 1448 0-900 pg/ml Total Protein 7.1 6.4-8.2 gm/dl Albumin 2.6 3.4-5.0 gm/dl Globulin 4.5 2.5-4.0 gm/dl Albumin/Globulin Ratio 0.6 0.9-2 Bedside D-Dimer > 450 0-450 ng/mlFEU Urine Color DK YELLOW Urine Appearance CLOUDY CLEAR Urine pH 7.5 4.5-7.5 Urine Specific [place] 1.019 1.000-1.030 Urine Protein NEG NEG Urine Glucose (UA) NEG NEG Urine Ketones NEG NEG Urine Occult Blood NEG NEG Urine Nitrite NEG NEG Urine Bilirubin NEG NEG Urine Urobilinogen NEG NEG Urine Leukocyte Esterase SMALL NEG Urine WBC (Auto) 1-5 0-5 /hpf Urine RBC (Auto) 0-4 0-4 /hpf Urine Hyaline Casts (Auto) 5-10 0-5 /lpf Urine Epithelial Cells (Auto) >30 0-5 /lpf Urine Bacteria (Auto) NEG NEG Urine Renal Epithelial Cells 0-5 0-5 /lpf Urine Crystals See comments NONE PRSENT Microbiology Results 04/17/17 Blood Culture, Received Pending 04/17/17 Blood Culture, Received Pending Diagnostic Radiology CHEST ONE VIEW PORTABLE HISTORY: 72 years-old Female EVALUATE RESPIRATORY DISTRESS.DYSPNEA acute shortness of breath with respiratory distress COMPARISON: Chest radiograph 03/19/2017, CTA chest 03/07/2017 TECHNIQUE: Portable AP view of the chest FINDINGS: Cardiac silhouette is again mildly enlarged. Atherosclerosis of the aorta. There is no pneumothorax. Moderate-sized right pleural effusion has increased in size from comparison. Previous noted lobular mass of the right lower lobe is not definitively seen on today's study. Bilateral mixed interstitial and alveolar opacities are noted, right greater than left with right basilar consolidation. Surgical clips project over the lower left heart border and bilateral axillary regions. 6 mm lucent lesion of the posterior right second rib. IMPRESSION: 1. Moderate size right pleural effusion with right basilar consolidation. 2. Mixed interstitial and alveolar opacities noted bilaterally suggesting infectious or inflammatory pneumonitis or metastatic disease as described on CT exam dated 03/07/2017. 3. 6 mm lucent lesion of the posterior right rib is suspicious for bony metastasis. The above report was generated using voice recognition software. It may contain grammatical, syntax or spelling errors. Electronically signed by: Reid Lechuga M.D. 04/17/2017 2:45 PM Dictated Date/Time: 04/17/2017 2:40 PM The status of this report is Signed. (CHEST FOR PE) ANGIO WITH CT DOSE: 175.59 mGy.cm HISTORY: 72 years-old Female presents with acute atypical chest pain. History of breast cancer. TECHNIQUE: Multiple CTA images of the chest were obtained after the intravenous administration of 83 ml Optiray 320. Coronal and sagittal MIPS were obtained from the axial data set and were submitted for review. A dose lowering technique was utilized adhering to the principles of ALARA. COMPARISON: Chest radiograph of same day, CTA chest 03/07/2017. FINDINGS: CTA: There is mild to moderate multichamber cardiac enlargement. Trace pericardial effusion. Mild to moderate atherosclerosis of the aorta. The imaged great vessels appear to be patent. There is no aortic aneurysm or dissection identified. The pulmonary arterial tree is opacified to level of the distal segmental branches. Study is moderately limited secondary to respiratory motion. No focal filling defects identified to suggest pulmonary thromboembolic disease. CT CHEST: Heterogeneous appearance of the thyroid without dominant nodule identified. Evaluation for adenopathy is limited secondary to respiratory motion. There is suggested large subcarinal lymph node measuring approximately 1.6 x 1.2 cm. Moderate to large sized right pleural effusion. No pneumothorax. There are multifocal groundglass and consolidative opacities throughout the lungs bilaterally with many of the consolidations demonstrating a somewhat peripheral distribution. Additionally, there is mild intralobular septal thickening, notably within the right lung. There is complete right middle lobe and near-complete right lower lobe consolidation with atelectasis and volume loss demonstrating heterogeneous enhancement. No definite obstructing bronchial lesion identified. Somewhat nodular densities are seen layering along the right age or fissure. Calcifications are seen throughout the spleen. No acute amount of the imaged upper abdomen. Postoperative changes from prior right mastectomy. Surgical clips project over the bilateral axilla compatible with prior axillary node dissection. There are multiple lytic metastatic lesions present including a destructive 2.8 x 1.6 cm lesion of the anterior and mid portions of the T2 vertebral body with cortical breakthrough anteriorly. Additional lytic lesion involves the T3 vertebral body. Destructive lytic lesions are also noted within the right second, and fifth ribs with additional lesions seen within the proximal portion of the left 12th rib. There is a suggested ill-defined lytic lesion of the mid sternum, image 91 of series 4. IMPRESSION: 1. Motion degraded exam. Moderate to large right-sided pleural effusion with near-total right upper lobe and total right middle lobe collapse with atelectasis demonstrating heterogeneous enhancement suggesting associated airspace disease. 2. Scattered multifocal groundglass and consolidative opacities throughout the lungs bilaterally suggest infectious or inflammatory pneumonitis with metastatic disease also in the differential. 3. Multiple lytic destructive bony lesions compatible with metastasis. 4. Prior right-sided mastectomy with bilateral axillary node dissection. 5. Cardiomegaly without acute aortic pathology or evidence of pulmonary thromboembolic disease. The above report was generated using voice recognition software. It may contain grammatical, syntax or spelling errors. Electronically signed by: Reid Lechuga M.D. 04/17/2017 4:19 PM Dictated Date/Time: 04/17/2017 4:05 PM The status of this report is Signed. EKG Sinus tachycardia with occasional Premature ventricular complexes Left ventricular hypertrophy with repolarization abnormality Abnormal ECG When compared with ECG of 19-MAR-2017 22:26, Premature ventricular complexes are now Present ST now depressed in Lateral leads T wave inversion no longer evident in Inferior leads T wave inversion less evident in Anterior leads T wave inversion more evident in Lateral leads Vent. rate 132 BPM AK interval 156 ms QRS duration 84 ms QT/QTc 282/417 ms P-R-T axes 42 -25 163 Impression Assessment and Plan This is a 72 yo F with PMHx of breast, endometrial and melanoma with recent diagnosis of metastatic R lung adenocarcinoma stg IV, confirmed on biopsy/ pathology 02/15/17 with multiple mets to the bones. She has completed 10 radiation treatments to the spine for pain relief. Pt has commenced a kiana -based chemo regimen and follows with Dr. Valdovinos. Past medical history also includes anemia, osteoporosis, vitamin D deficiency, Sjogrens syndrome and rheumatoid arthritis. Pt notes her shortness of breath started last evening has worsened over the last 24 hours. Shortness of breath Tachycardia ? Possible pneumonia vs inflammatory pneumonitis with metastatic disease - Admit the patient to telemetry - Possible that this is an acute lung injury/reaction to recent chemotherapy administered last . - CT PE completed: negative for PE however showing moderate to large right- sided pleural effusion with near-total right upper lobe and total right middle lobe collapse with atelectasis demonstrating heterogeneous enhancement suggesting associated airspace disease. Scattered multifocal groundglass and consolidative opacities throughout the lungs bilaterally. Multiple lytic destructive bony lesions. - WBC = 10K, however this is improved compared to previous admission - will hold on other antibiotics at this time. - Tachycardia remains in with heart rate in the 120s - xopenex nebs Q4Hwa and Q2h prn for shortness of breath - O2 protocol prn Hyponatremia - Patient has been placed on normal saline in the ER, so we will continue this at 80ml/hr x 24 hours - it is possible that this is a response from free water flushes through the tube feed as she has been doing this 4-5 times per day. - Encourage oral intake if possible - Trend prp with am labs - Check urine osm and serum osm Multiple carcinomas: breast, endometrial and melanoma with recent diagnosis of metastatic R lung adenocarcinoma stg IV - Follows with Dr. Valdovinos as an outpatient - Most recent chemotherapy was on 04/13 - Consider palliative care consultation as pt would like to further discuss her CODE status with , this may also aid in further goals of care. Anemia - Hgb stable at 9.9 today, appears improved compared to previous labs however she is likely intravascularly depleted to some extent, so will expect this to drop with IVFs. - Trend am labs Osteoporosis Vitamin D deficiency - Continue vit d Sjogrens syndrome and rheumatoid arthritis - Will hold plaquenil at this time, restart if r/o pneumonia DVT ppx: teds, scds, heparin subq CODE STATUS: DNR - pt has decided after discussion with her to be DNR. - may benefit from palliative consult. Disposition: From home, lives with , CM to assist with dc planning. I personally interviewed and examined the patient. I agree with history of present illness and physical exam mentioned above, I also performed my own history taking and examination. Past medical history and review of system has been obtained by myself I reviewed all pertinent labs and studies Reviewed current medications I discussed and formulated of the assessment and plan mentioned above mentioned by PA Mrs. Olivia Longo. Please refer to the Summary mentioned below. 72 yo F with Hx of metastatic R lung adenocarcinoma stg IV, also has Hx of breast, endometrial cancer and melanoma with recent admission for pneumonia. presented with SOB and tachycardia. likely inflammatory process secondary to her cancer and possible underlying bronchospasm. hold off Abx, start bronchodilators , hold off steroids due to the active cancer have low threshold to start Abx if density got worse. General Appearance: in mild acute distress Eyes: normal Sclerae, extraocular muscle intact ENT: hearing grossly normal Neck: supple Respiratory/Chest: slight decrease air entry bilateral ,no respiratory distress , no accessory muscle use but has scattered Rhonchi Cardiovascular: tachycardia, regular rate, rhythm, no murmur Abdomen: non tender, soft, no masses Extremities: no edema Neurologic/Psychiatric: Awake alert oriented times place and person moves all extremities sensation intact cranial nerves II-12 appear to be intact Skin: normal color, warm/dry, no rash Hong Marie MD, [facility] Resuscitation Status VTE Prophylaxis Will order VTE Prophylaxis: Yes
[2017-04-17] MEDS ORDERED: AMITRIPTYLINE HCL 10 MG TAB PO PRN (18:00)
[2017-04-17] MEDS ORDERED: ONDANSETRON INJ 2 MG/ML 2 ML VIAL IV PRN (18:00)
[2017-04-17] MEDS ORDERED: NON-FORMULARY MEDICATION (Cyclosporine (Ophth) (Restasis) 1 DROP) OPB SCH (18:00)
[2017-04-17] MEDS ORDERED: ONDANSETRON 4 MG TAB PO PRN (18:00)
[2017-04-17] MEDS ORDERED: ACETAMINOPHEN 325 MG TAB PO PRN (18:00)
[2017-04-17] MEDS ORDERED: RANITIDINE HCL 150 MG TAB PO PRN (18:00)
[2017-04-17] MEDS ORDERED: POLYETHYLENE (MIRALAX) 17 GM PACK PO PRN (18:00)
[2017-04-17] MEDS: SODIUM CHLORIDE 0.9% 1000ML 1,000 ML IV SCH (19:41)
[2017-04-17 19:45] VITALS: BP 170/101; PULSE 129; TEMP 36.7; O2SAT 93; BMI 19.6
[2017-04-17 19:49] VITALS: PULSE 118; O2SAT 98
[2017-04-17] MEDS: TRAMADOL HCL 50 MG TAB PO PRN (19:49)
[2017-04-17] MEDS: LEVALBUTEROL 1.25MG/3ML NEB INH SCH (19:49)
[2017-04-17] MEDS ORDERED: BOOST VANILLA PEG ONE (20:00)
[2017-04-17] MEDS: HEPARIN SOD 5000 UNIT/0.5 ML CARP SQ SCH (21:00)
[2017-04-17] MEDS ORDERED: HYDROXYCHLOROQUINE SULFATE 200 MG TAB PO SCH (21:00)
[2017-04-17] MEDS: METOPROLOL TARTRATE 25 MG TAB PO SCH (21:27)
[2017-04-17] MEDS: METHIMAZOLE 5 MG TAB PO SCH (21:27)
[2017-04-17 22:08] VITALS: BP 126/78; PULSE 93; O2SAT 97
[2017-04-17] MEDS: BENZONATATE 100MG CAP PO PRN (22:29)
[2017-04-17 23:49] VITALS: BP 120/78; PULSE 92; TEMP 36.5; O2SAT 96
[2017-04-18] VITALS (10 sets, daily range): BP systolic 127–152; BP diastolic 72–89; PULSE 86–114; TEMP 36.3–37.1; O2SAT 87–98; Ht 170.2 cm; Wt 51.2 kg
[2017-04-18] MEDS ORDERED: TRAZODONE HCL 50 MG TAB PO ONE (01:45)
[2017-04-18] MEDS: TRAMADOL HCL 50 MG TAB PO PRN ×3 (01:51→13:59)
[2017-04-18] MEDS: LEVALBUTEROL 1.25MG/3ML NEB INH SCH ×4 (03:00→19:21)
[2017-04-18 05:49] LABS: EOS % 1.5 %; EOS ABS # 0.11 K/uL (0-0.5); HEMATOCRIT 25.8 % (37-47); HEMOGLOBIN 8.7 g/dL (12.0-16.0); IG# 0.02 K/uL (0.00-0.02); LYMPH % 6.2 %; LYMPH ABS # 0.44 K/uL (1.2-3.4); MEAN CELL VOLUME 91.5 fL (80-100); MEAN CORPUSCULAR HEMOGLOBIN 30.9 pg (25-34); MEAN CORPUSCULAR HGB CONC 33.7 g/dl (32-36); MEAN PLATELET VOLUME 8.2 fL (7.4-10.4); MONO % 2.1 %; MONO ABS # 0.15 K/uL (0.11-0.59); NEUT % 89.9 %; NEUT ABS # 6.43 K/uL (1.4-6.5); PLATELET COUNT 188 K/uL (130-400); RED CELL DISTRIBUTION WIDTH CV 16.3 % (11.5-14.5); RED CELL DISTRIBUTION WIDTH SD 54.9 fL (36.4-46.3); WHITE BLOOD COUNT 7.15 K/uL (4.8-10.8)
[2017-04-18 06:38] LABS: CREATININE 0.31 mg/dl (0.60-1.20)
[2017-04-18 06:39] LABS: CALCIUM 8.5 mg/dl (8.5-10.1); POTASSIUM 3.2 mmol/L (3.5-5.1)
[2017-04-18] MEDS ORDERED: ACETAMINOPHEN 500 MG TAB PO ONE (07:00)
[2017-04-18] MEDS ORDERED: NURSING VERBAL MED ORDER ONE ×3 (07:00→21:00)
[2017-04-18] MEDS: HEPARIN SOD 5000 UNIT/0.5 ML CARP SQ SCH ×2 (07:54→20:20)
[2017-04-18] MEDS: BENZONATATE 100MG CAP PO PRN (07:59)
[2017-04-18] MEDS: METOPROLOL TARTRATE 25 MG TAB PO SCH ×2 (07:59→20:15)
[2017-04-18] MEDS: PANTOprazole SOD 40 MG TAB PO SCH (08:00)
--- NOTE | 2017-04-18 08:28 | Hospitalist Progress Note ---
Hospitalist Progress Note Date of Service Apr 18, 2017. (Vi Kumar PA-C) Subjective Pt evaluation today including: conversation w/ patient, conversation w/ family , physical exam, chart review, lab review, review of studies, conversation w/ independent consultant (CT Surg), review of inpatient medication list Patient seen and evaluated. Had Pleur-X catheter placed. Having some incisional pain. Drained 1300 mL but was stopped due to re- expansion pain and coughing. Plan for further draining tomorrow. Showed and explained the CT to and patient as they had questions about the underlying malignancy. Currently hard to fully assess given significant fluid. Constitutional: No fever, No chills Respiratory: + cough, + shortness of breath Cardiovascular: No chest pain Abdomen: No pain, No nausea, No vomiting, No diarrhea, No constipation Musculoskeletal: No swelling, No calf pain Female : No dysuria Heme: No abnormal bleeding/bruising Skin: No rash (Vi Kumar PA-C) Medications Current Inpatient Medications Medications (Trade) Dose Ordered Sig/Stephanie Route Start Time Stop Time Status Last Admin Dose Admin Ioversol (Optiray 320) 125 ml UD PRN IV 04/17/17 15:15 04/21/17 15:14 Heparin Sodium (Porcine) (Heparin Sq 5000 Unit/0.5ml) 5,000 unit Q12 SQ 04/17/17 21:00 05/17/17 20:59 Acetaminophen (Tylenol Tab) 650 mg Q4H PRN PO 04/17/17 18:00 05/17/17 17:59 04/17/17 22:29 650 MG Polyethylene (Miralax Powder Packet) 17 gm DAILY PRN PO 04/17/17 18:00 05/17/17 17:59 Amitriptyline HCl (Elavil Tab) 20 mg HS PRN PO 04/17/17 18:00 05/17/17 17:59 04/17/17 21:50 20 MG Benzonatate (Tessalon Perles Cap) 100 mg TID PRN PO 04/17/17 18:00 05/17/17 17:59 04/18/17 07:59 100 MG Folic Acid (Folvite Tab) 1 mg DAILY PO 04/18/17 09:00 05/18/17 08:59 04/18/17 07:59 1 MG Methimazole (Methimazole Tab) 5 mg HS PO 04/17/17 21:00 05/17/17 20:59 04/17/17 21:27 5 MG Metoprolol Tartrate (Lopressor Tab) 25 mg BID PO 04/17/17 21:00 05/17/17 20:59 04/18/17 07:59 25 MG Ondansetron HCl (Zofran Tab) 4 mg Q4H PRN PO 04/17/17 18:00 05/17/17 17:59 Pantoprazole Sodium (Protonix Tab) 40 mg QAM PO 04/18/17 09:00 05/18/17 08:59 04/18/17 08:00 40 MG Prochlorperazine Maleate (Compazine Tab) 10 mg Q6H PRN PO 04/17/17 18:00 05/17/17 17:59 Ranitidine HCl (zANTac TAB) 150 mg DAILY PRN PO 04/17/17 18:00 05/17/17 17:59 Sodium Chloride 1,000 ml @ 80 mls/hr [id number] IV 04/17/17 17:55 04/18/17 17:54 04/18/17 09:17 80 MLS/HR Levalbuterol (Xopenex 1.25MG/ 3ML Neb) 1.25 mg Q6R INH 04/17/17 21:00 05/17/17 20:59 04/18/17 14:16 1.25 MG Miscellaneous Information (Order Awaiting Action) 1 ea QS N/A 04/18/17 00:00 05/18/17 00:00 Potassium Chloride (Cecilia Ciel Elix) 40 meq BID PEG 04/18/17 09:00 05/18/17 08:59 04/18/17 09:12 40 MEQ Cholecalciferol (Vitamin D Tab) 1,000 inter.unit QAM PO 04/18/17 09:00 05/18/17 08:59 04/18/17 10:34 1,000 INTER.UNIT Lidocaine HCl (Lidocaine 2% Preserved Inj) 50 ml TODAY INFIL 04/18/17 13:00 04/18/17 23:59 Tramadol HCl (Ultram Tab) 50 mg Q4H PRN PO 04/18/17 13:45 05/17/17 17:59 04/18/17 13:59 50 MG Hydromorphone HCl (Dilaudid Inj) 0.25 mg Q4H PRN IV 04/18/17 14:45 05/02/17 14:44 UNV (Vi Kumar PA-C) Objective Vital Signs Date Time Temp Pulse Resp B/P (MAP) Pulse Ox O2 Delivery O2 Flow Rate FiO2 04/18/17 07:52 37.1 109 16 146/89 (108) 95 Nasal Cannula 2.0 04/18/17 07:10 110 18 96 Nasal Cannula 2.0 04/18/17 04:00 Nasal Cannula 2.0 Humidified Oxygen 04/18/17 02:58 36.3 106 18 144/87 (106) 95 Nasal Cannula 2.0 04/17/17 23:59 Nasal Cannula 2.0 Humidified Oxygen 04/17/17 23:49 36.5 92 18 120/78 (92) 96 Nasal Cannula 2.0 04/17/17 22:08 93 126/78 (94) 97 Nasal Cannula 2.0 04/17/17 19:49 118 18 98 Nasal Cannula 3.0 04/17/17 19:45 36.7 129 22 170/101 93 Nasal Cannula 3.0 04/17/17 18:44 122 24 134/84 93 Room Air 04/17/17 18:39 132 04/17/17 18:06 120 24 162/100 94 Room Air 04/17/17 17:30 123 20 148/98 93 Room Air 04/17/17 16:13 126 24 157/84 93 Room Air 04/17/17 15:47 118 22 143/85 92 Room Air 04/17/17 14:42 95 Room Air 04/17/17 14:39 95 Room Air 04/17/17 14:36 120 04/17/17 14:30 123 24 95 04/17/17 14:23 95 Room Air 04/17/17 14:04 36.4 128 20 108/61 94 Room Air (Vi Kumar PA-C) Physical Exam General Appearance: no apparent distress, + thin Eyes: sclerae normal ENT: hearing grossly normal Neck: supple, no JVD, trachea midline Respiratory/Chest: no respiratory distress, no accessory muscle use, + decreased breath sounds (R lung quintero except for apices) Cardiovascular: regular rate, rhythm, no gallop, no murmur Abdomen: normal bowel sounds, non tender, soft Extremities: no pedal edema Neurologic/Psychiatric: alert Skin: normal color, warm/dry (Vi Kumar, SUZANNE) Laboratory Results Last 24 Hours Test 04/17/17 14:30 04/17/17 14:37 04/17/17 15:15 04/18/17 02:59 White Blood Count 10.78 K/uL Red Blood Count 3.21 M/uL Hemoglobin 9.9 g/dL Hematocrit 29.6 % Mean Corpuscular Volume 92.2 fL Mean Corpuscular Hemoglobin 30.8 pg Mean Corpuscular Hemoglobin Concent 33.4 g/dl Platelet Count 243 K/uL Mean Platelet Volume 8.2 fL Neutrophils (%) (Auto) 92.7 % Lymphocytes (%) (Auto) 4.6 % Monocytes (%) (Auto) 1.9 % Eosinophils (%) (Auto) 0.6 % Basophils (%) (Auto) 0.0 % Neutrophils # (Auto) 9.99 K/uL Lymphocytes # (Auto) 0.50 K/uL Monocytes # (Auto) 0.20 K/uL Eosinophils # (Auto) 0.07 K/uL Basophils # (Auto) 0.00 K/uL RDW Standard Deviation 55.7 fL RDW Coefficient of Variation 16.4 % Immature Granulocyte % (Auto) 0.2 % Immature Granulocyte # (Auto) 0.02 K/uL Prothrombin Time 11.0 SECONDS Prothromb Time International Ratio 1.0 Activated Partial Thromboplast Time 25.1 SECONDS Partial Thromboplastin Ratio 1.0 Sodium Level 128 mmol/L Potassium Level 3.4 mmol/L Chloride Level 89 mmol/L Carbon Dioxide Level 30 mmol/L Anion Gap 9.0 mmol/L Blood Urea Nitrogen 19 mg/dl Creatinine 0.51 mg/dl Est Creatinine Clear Calc Drug Dose 91.0 ml/min Estimated GFR () 112.1 Estimated GFR (Non- 96.7 BUN/Creatinine Ratio 37.2 Random Glucose 169 mg/dl Osmolality 277 mOsm/kg Calcium Level 9.0 mg/dl Total Bilirubin 0.4 mg/dl Aspartate Amino Transf (AST/SGOT) 13 U/L Alanine Aminotransferase (ALT/SGPT) 17 U/L Alkaline Phosphatase 108 U/L Troponin I 0.016 ng/ml Pro-B-Type Natriuretic Peptide 1448 pg/ml Total Protein 7.1 gm/dl Albumin 2.6 gm/dl Globulin 4.5 gm/dl Albumin/Globulin Ratio 0.6 Bedside D-Dimer > 450 ng/mlFEU Urine Color DK YELLOW Urine Appearance CLOUDY Urine pH 7.5 Urine Specific Royal 1.019 Urine Protein NEG Urine Glucose (UA) NEG Urine Ketones NEG Urine Occult Blood NEG Urine Nitrite NEG Urine Bilirubin NEG Urine Urobilinogen NEG Urine Leukocyte Esterase SMALL Urine WBC (Auto) 1-5 /hpf Urine RBC (Auto) 0-4 /hpf Urine Hyaline Casts (Auto) 5-10 /lpf Urine Epithelial Cells (Auto) >30 /lpf Urine Bacteria (Auto) NEG Urine Renal Epithelial Cells 0-5 /lpf Urine Crystals See comments Urine Osmolality 180 mOms/kg Test 04/18/17 05:19 04/18/17 08:10 White Blood Count 7.15 K/uL Red Blood Count 2.82 M/uL Hemoglobin 8.7 g/dL Hematocrit 25.8 % Mean Corpuscular Volume 91.5 fL Mean Corpuscular Hemoglobin 30.9 pg Mean Corpuscular Hemoglobin Concent 33.7 g/dl Platelet Count 188 K/uL Mean Platelet Volume 8.2 fL Neutrophils (%) (Auto) 89.9 % Lymphocytes (%) (Auto) 6.2 % Monocytes (%) (Auto) 2.1 % Eosinophils (%) (Auto) 1.5 % Basophils (%) (Auto) 0.0 % Neutrophils # (Auto) 6.43 K/uL Lymphocytes # (Auto) 0.44 K/uL Monocytes # (Auto) 0.15 K/uL Eosinophils # (Auto) 0.11 K/uL Basophils # (Auto) 0.00 K/uL RDW Standard Deviation 54.9 fL RDW Coefficient of Variation 16.3 % Immature Granulocyte % (Auto) 0.3 % Immature Granulocyte # (Auto) 0.02 K/uL Red Blood Cell Morphology Unremarkable Sodium Level 131 mmol/L Potassium Level 3.2 mmol/L Chloride Level 94 mmol/L Carbon Dioxide Level 29 mmol/L Anion Gap 8.0 mmol/L Blood Urea Nitrogen 8 mg/dl Creatinine 0.31 mg/dl Est Creatinine Clear Calc Drug Dose 149.3 ml/min Estimated GFR () 132.1 Estimated GFR (Non- 114.0 BUN/Creatinine Ratio 25.8 Random Glucose 102 mg/dl Calcium Level 8.5 mg/dl (Vi Kumar PA-C) Assessment and Plan This is a 72 yo F with PMHx of breast, endometrial and melanoma with recent diagnosis of metastatic R lung adenocarcinoma stg IV, confirmed on biopsy/ pathology 02/15/17 with multiple mets to the bones. She has completed 10 radiation treatments to the spine for pain relief. Pt has commenced a [place] -based chemo regimen and follows with Dr. Valdovinos. Past medical history also includes anemia, osteoporosis, vitamin D deficiency, Sjogrens syndrome and rheumatoid arthritis. Pt notes her shortness of breath started last evening has worsened over the last 24 hours. Acute Hypoxic Respiratory Failure 2/2 Large R Pleural Effusion and Subsequent Atelectasis: - Remains afebrile and without leukocytosis - may need further imaging to assess for any superimposed infection however will defer antibiotics at this time - May be the result of recent chemotherapy agents vs exudative given lung CA - Consult CT Surg - planned for R Pleur-X catheter insertion and continued monitoring of output Hyponatremia: Possible SIADH - Na is improving at this time - low urine and serum osm - is possible given lung CA - Will continue to monitor off fluids and re-assess labs in AM Breast/Endometrial/Melanoma/Metastatic R Lung Adenocarcinoma Stage IV - Bone: Follows with Dr. Valdovinos - Last chemotherapy 04/13 Chronic Anemia likely of Chronic Disease: STABLE - Folic acid 1 mg daily - Continue to monitor - no indication for transfusion at this time Osteoporosis/Vitamin D Deficiency/Bone Mets: - Vitamin D supplementation Sjogrens and RA: - Plaquenil 100 mg HS Hyperthyroidism: - Methimazole 5 mg HS HTN: - Lopressor 25 mg BID DVT Prophylaxis: Heparin 5000 units SC Q12H Code Status: DO NOT RESUSCITATE Disposition: From home with - await clinical course - Possible palliative care consultation? Continued [facility] stay due to: abnormal vital signs Discharge planning: home (Vi Kumar PA-C) Attending Attestation: Pt seen/examined, chart reviewed, care plan d/w SAWYER Kumar. I agree w/ the merino components of her documentation. Pt with severe right-sided pleuritic chest pain s/p pleurX insertion this am by Dr. Delacruz. She has dyspnea with minimal exertion. Tele with sinus tach. Pt reports was scheduled for outpatient MRI brain today to r/o mets. c/o nausea vitals - tachy, hypoxic, BP wnl gen - ill-appearing, uncomfortable neck - borderline JVD heart - tachy, s1, s2 lungs - significantly diminished lung sounds on right, minimal airation anteriorly; posteriorly poor air movement; left lung - mild rales base abd - slightly distended, BS+, NT ext - no edema A/P: 1. stage 4 lung cancer 2. large pleural effusion on right, s/p pleurX insertion today - most likely effusion will be malignancy related; defer management to Dr. Delacruz 3. pain related to #2 - increase dilaudid 4. hyperthyroidism - methimazole - TSH 12/2016 wnl 5. acute hypoxic resp failure 2nd to #1, #2 - supportive care 6. I have ordered brain MRI at her request, but this is not urgent by any means 7. h/o CHF - watch for volume overload carefully 8. hyponatremia - agree w/ MsVu Kumar this could be SIADH; would repeat urine osm, urine Na, etc in AM for confirmation updated Neisha DEXTER MD (Brad Dexter MD)
[2017-04-18] MEDS ORDERED: POTASSIUM CHLORIDE 20 MEQ/15 ML UDC PEG SCH (09:00)
[2017-04-18] MEDS: SODIUM CHLORIDE 0.9% 1000ML 1,000 ML IV SCH (09:17)
[2017-04-18] MEDS: CHOLECALCIFEROL 1000 INTER.UNIT TAB PO SCH (10:34)
[2017-04-18] MEDS ORDERED: LIDOCAINE HCL 2% LOCAL 50ML VIAL ONE (11:06)
[2017-04-18] MEDS ORDERED: LIDOCAINE HCL 2% LOCAL 50ML VIAL INFIL SCH (13:00)
--- NOTE | 2017-04-18 13:13 | [facility] Post Operative Brief Note ---
Immediate Operative Summary Operative Date Apr 18, 2017. Pre-Operative Diagnosis right pleural effusion Post-Operative Diagnosis same Procedure(s) Performed Insertion of right pleurx catheter Surgeon Nubia Digital Account Coordinator Surgeon(s) Cinthya Estimated Blood Loss 1 cc Findings Consistent with Post-Op Diagnosis Specimens 1,300 cc's davis serous fluid Drains One right pleural catheter Anesthesia Type Local Complication(s) none
--- NOTE | 2017-04-18 13:16 | Medical Consult ---
Consultation Note Date of Service Apr 18, 2017. Consultation Note Consult Dictated #[id number]
--- NOTE | 2017-04-18 13:22 | SURGICAL CONSULTATION ---
DATE OF CONSULTATION: 04/18/2017 REASON FOR CONSULTATION: Right pleural effusion in the patient with metastatic lung cancer. HISTORY OF PRESENT ILLNESS: This is a 72-year-old female who was found to have a metastatic lung cancer. We performed staging procedures on her several weeks ago. She is undergoing therapy. She presented with a large right pleural effusion. It has gotten larger. Given her disease, I feel we are probably dealing with a malignant unilateral effusion. She has no fluid on the left. We are going to proceed with a PleurX catheter insertion. For details of this consultation, please see Mr. Macario Mendes's note.
--- NOTE | 2017-04-18 13:44 | DIAGNOSTIC IMAGING REPORT ---
SINGLE VIEW CHEST CLINICAL HISTORY: Pleural effusion. FINDINGS: An AP, portable, upright chest radiograph is compared to chest x-ray and chest CT dated 04/17/2017. The examination is degraded by portable technique and patient rotation. The cardiomediastinal silhouette is unremarkable. A pleural drain has been placed at the right lung base. There is a small right apical pneumothorax. There is a small to moderate residual right pleural effusion with associated basilar consolidation. Patchy consolidative change is identified at the left lung base. The skeletal structures are osteopenic. The bony thorax is grossly intact. A small lytic lesion is again seen in the right second rib. Surgical clips are present in the left breast and the right axilla. IMPRESSION: 1. A pleural drain has been placed at the right lung base. A small right apical pneumothorax is identified. 2. There is a small to moderate residual right pleural effusion with associated consolidation. 3. Patchy airspace consolidation is again seen at the left lung base. Electronically signed by: Josh Jacome M.D. 04/18/2017 1:43 PM Dictated Date/Time: 04/18/2017 1:28 PM
--- NOTE | 2017-04-18 13:46 | CONSULTATION REPORT ---
DATE OF CONSULTATION: 04/18/2017 REASON FOR CONSULTATION: Pleural effusion. HISTORY OF PRESENT ILLNESS: This is a 72-year-old female known to our service. The patient recently underwent surgical biopsy by Dr. Delacruz, confirmed that she had a right lung adenocarcinoma, which is a stage IV. The patient recently commenced [place] based chemotherapy with Dr. Valdovinos and was recently admitted to the hospital due to worsening shortness of breath that she notes is present even with minimal activity. The patient says in addition to short of breath, she notes some generalized fatigue. The patient was questioned on numerous symptoms. There were no falls, head injuries, visual changes, tinnitus, sore throat or chest pain. She is short of breath as noted above. She denies fever, shakes, or chills. She denies abdominal pain or dysphagia. She denies dysuria, history of DVT, PE, anxiety, or depression. Upon presentation to the Emergency Department, a CT scan of the chest was performed, which showed that the patient had a moderate to large right-sided pleural effusion. She had multiple lytic bony destructive lesions consistent with her stage IV cancer. In addition, she has had labs, where her CBC revealed hemoglobin and hematocrit of 8.7 and 25.8. Platelet count and white blood cell count were normal. Coagulation studies revealed INR and PTT were within normal range and a chemistry profile showed sodium and potassium of 131 and 3.2. BUN and creatinine were 8 and 0.3. Because of her pleural effusion, we were asked to evaluate for possible drainage of this effusion. At time of my visit at bedside, the patient was resting comfortably in bed and does not have any significant shortness of breath while at rest. PAST MEDICAL HISTORY: Includes the followin. History of breast cancer. 2. History of adenocarcinoma of the lung, stage IV. 3. History of endometrial cancer. 4. Hypertension. 5. Hypothyroidism. 6. History of melanoma. 7. Rheumatoid arthritis. 8. Sjogren's syndrome. PAST SURGICAL HISTORY: Includes, 1. Right mastectomy. 2. Bronchoscopy with biopsy. ALLERGIES: SHE HAS LISTED ALLERGIES TO CODEINE, MORPHINE AND PENICILLIN. OUTPATIENT MEDICATION REGIMEN: Includes the followin. Tylenol as needed. 2. Elavil 20 mg at bedtime as needed. 3. Benzonatate as needed for cough. 4. Restasis eyedrops every 12 hours. 5. Dexamethasone concurrent with her chemotherapy. 6. Folic acid 1 mg daily. 7. Plaquenil 100 mg daily. 8. Melatonin at bedtime. 9. Methimazole 5 mg at bedtime. 10. Lopressor 25 mg twice daily. 11. Zofran as needed. 12. Protonix 40 mg daily. 13. Phenergan as needed. 14. Ranitidine as needed. 15. Tramadol as needed. SOCIAL HISTORY: The patient is a lifetime nonsmoker. FAMILY HISTORY: Significant for hypertension and heart disease. REVIEW OF SYSTEMS: As noted above. PHYSICAL EXAMINATION: VITAL SIGNS: The patient is afebrile with a temperature 37.1, pulse 86 and regular, respirations are 16 and unlabored, blood pressure 129/80, and pulse ox 96% on 2 liters. SKIN: Warm with good turgor. GENERAL: She is alert. She is oriented x3. She is in no distress. HEENT: Head is atraumatic and normocephalic. Eyes: Pupils are equal, round and reactive to light and accommodation. Extraocular motions are intact. Ears: Auditory acuity is grossly intact. Nose: Nasal patency was intact. Sinuses are nontender. Mouth is moist without exudates. NECK: Supple. There is no JVD. CARDIOVASCULAR: Regular rate and rhythm. LUNGS: Revealed markedly decreased breath sounds at the bases. She was not using accessory muscles to aid in respiration. ABDOMEN: Soft and nontender. EXTREMITIES: Revealed no cyanosis, clubbing, edema. NEUROLOGIC: Revealed no focal deficits. DIAGNOSTIC DATA: As noted above. IMPRESSION: A 72-year-old female with a large right pleural effusion. PLAN: We will perform a right-sided PleurX catheter insertion. I have gone over the procedure in detail with the patient and her and they are in agreement. We will send the fluid for appropriate analysis, although given her underlying history of malignancy, this is the most likely cause of her effusion. We will drain the PleurX catheter daily and further recommendations will be forthcoming based on the drainage amount and how the patient tolerates her drainage. For detailed description of PleurX catheter insertion, please refer to Dr. Delacruz's operative report.
--- NOTE | 2017-04-18 13:46 | OPERATIVE REPORT ---
DATE OF OPERATION: 04/18/2017 PREOPERATIVE DIAGNOSIS: Enlarging right pleural effusion. POSTOPERATIVE DIAGNOSIS: Same. PROCEDURE: Insertion of right PleurX catheter. SURGEON: Micah Delacruz MD CO-SURGEON: SAWYER Thomas ANESTHESIA: Local. SPECIFICS OF PROCEDURE: This is a 72-year-old with probable metastatic malignant right pleural effusion. She has metastatic lung cancer. She is undergoing therapy. She is quite short of breath. We are going to insert a right PleurX catheter today. I discussed this in detail with the patient and she is agreeable. DESCRIPTION OF PROCEDURE: With the patient in left lateral decubitus position, right chest was prepped and draped in usual sterile fashion. Under ultrasound guidance, a skin wheal was raised approximately the posterior axillary line at about the eighth interspace. This was done after an ultrasound showed this to be a good window. A 22-gauge needle was used to raise a skin wheal and then a larger needle was used to anesthetize the deeper muscles and subcutaneous tissues and pleura. Free-flowing fluid was obtained and a guidewire inserted through the needle and needle removed. Approximately 10 cm anterior and inferior to this, another skin wheal was raised 25 gauge needle, 1% Xylocaine. 1 cm incisions were made at both of these skin wheals. A long needle with 1% Xylocaine without epinephrine was used to anesthetize the subcutaneous tissues between these 2 incisions. A tunneler was attached to the PleurX catheter and dragged from the anterior to posterior incision and the tunneler removed. An introducer sheath and inner cannula was slid over the guidewire into the pleural cavity and inner cannula and guidewire removed and the PleurX catheter was slid into the peel-away sheath which was removed. Two separate 3-0 silk sutures were used to close the skin posteriorly and 3-0 silk was used to anchor the catheter to the patient's skin anteriorly. 1300 mL of davis fluid was obtained. She had some reexpansion pain and coughing, so we stopped at this point. She tolerated it quite well. A chest x-ray is pending at this time. She had very little pain and in fact she feels that she is breathing better already. I attest to the content of the Intraoperative Record and any orders documented therein. Any exception s are noted below.
[2017-04-18] MEDS ORDERED: HYDROmorphone INJ 0.5 MG/0.5 ML SYR IV PRN (14:45)
[2017-04-18] MEDS: PROCHLORPERAZINE MALEATE 10 MG TAB PO PRN ×2 (15:20→21:00)
[2017-04-18] MEDS ORDERED: HYDROmorphone INJ 0.5 MG/0.5 ML SYR ONE (17:38)
[2017-04-18] MEDS ORDERED: LORAZEPAM 0.5 MG TAB PO SCH (17:45)
[2017-04-18] MEDS: HYDROmorphone INJ 0.5 MG/0.5 ML SYR IV PRN ×2 (18:04→20:58)
[2017-04-18] MEDS: METHIMAZOLE 5 MG TAB PO SCH (20:15)
[2017-04-18] MEDS: HYDROXYCHLOROQUINE SULFATE 200 MG TAB PO SCH (20:57)
[2017-04-18] MEDS: POTASSIUM CHLORIDE 20 MEQ TABCR PO SCH (23:38)
[2017-04-19] VITALS (10 sets, daily range): BP systolic 123–160; BP diastolic 80–101; PULSE 78–129; TEMP 36.7–37.4; O2SAT 92–99
[2017-04-19] MEDS: LEVALBUTEROL 1.25MG/3ML NEB INH SCH ×4 (01:57→19:23)
[2017-04-19] MEDS: HYDROmorphone INJ 0.5 MG/0.5 ML SYR IV PRN (04:05)
--- NOTE | 2017-04-19 07:06 | DIAGNOSTIC IMAGING REPORT ---
CHEST ONE VIEW PORTABLE CLINICAL HISTORY: effusion pneumothorax COMPARISON STUDY: 04/18/2017 FINDINGS: Unchanging bibasilar parenchymal infiltrative change. Right basilar chest drainage tube unchanged in position. Slight improvement in aeration right base Small right apical pneumothorax demonstrated persistent pleural separation of 1.5 cm. IMPRESSION: Slight improvement in aeration right base with a slight decrease in right pleural effusion-type change. Unchanging basilar infiltrative change. Stable focal pneumothorax right pulmonary apex with a maximum pleural separation of 1.5 cm. The above report was generated using voice recognition software. It may contain grammatical, syntax or spelling errors. Electronically signed by: Wan Gunter M.D. 04/19/2017 7:05 AM Dictated Date/Time: 04/19/2017 7:03 AM
--- NOTE | 2017-04-19 09:21 | SURGERY PROGRESS NOTE ---
DATE: 04/19/2017 Ms. Husain was seen today on 04/19/2017. We inserted a PleurX catheter yesterday and she was drained for over a liter, but put out 500 mL a day. She states that her breathing is better, but she does have some pain at the site. It is clean. Our Gram stain was negative for any organisms. Reviewing the pleural fluid analysis, her pH was 7.47. Her LDH was 190, glucose is 106, total protein was 4. Cholesterol is still pending. This is a borderline exudate and I would not be surprised if we are dealing with a malignant effusion. The cytology is still pending. Her x-ray looks better on the right. She is still requiring oxygen. At 2 liters, she goes anywhere from 92-99%. Her heart rate has been anywhere from 86-123. We will continue to follow along. I think this has helped her.
[2017-04-19 09:50] LABS: EOS % 2.4 %; EOS ABS # 0.13 K/uL (0-0.5); HEMATOCRIT 26.9 % (37-47); HEMOGLOBIN 9.1 g/dL (12.0-16.0); IG# 0.02 K/uL (0.00-0.02); LYMPH % 8.3 %; LYMPH ABS # 0.46 K/uL (1.2-3.4); MEAN CELL VOLUME 92.1 fL (80-100); MEAN CORPUSCULAR HEMOGLOBIN 31.2 pg (25-34); MEAN CORPUSCULAR HGB CONC 33.8 g/dl (32-36); MEAN PLATELET VOLUME 8.2 fL (7.4-10.4); MONO % 8.3 %; MONO ABS # 0.46 K/uL (0.11-0.59); NEUT % 80.6 %; NEUT ABS # 4.44 K/uL (1.4-6.5); PLATELET COUNT 181 K/uL (130-400); RED CELL DISTRIBUTION WIDTH CV 16.1 % (11.5-14.5); RED CELL DISTRIBUTION WIDTH SD 54.5 fL (36.4-46.3); WHITE BLOOD COUNT 5.51 K/uL (4.8-10.8)
[2017-04-19] MEDS: POTASSIUM CHLORIDE 20 MEQ TABCR PO SCH ×2 (09:53→21:22)
[2017-04-19] MEDS: PANTOprazole SOD 40 MG TAB PO SCH (09:54)
[2017-04-19] MEDS: METOPROLOL TARTRATE 25 MG TAB PO SCH ×2 (09:54→21:24)
[2017-04-19] MEDS: CHOLECALCIFEROL 1000 INTER.UNIT TAB PO SCH (09:54)
[2017-04-19] MEDS: HEPARIN SOD 5000 UNIT/0.5 ML CARP SQ SCH ×2 (09:55→21:42)
[2017-04-19] MEDS: TRAMADOL HCL 50 MG TAB PO PRN (09:59)
[2017-04-19 10:17] LABS: CALCIUM 8.8 mg/dl (8.5-10.1); CREATININE 0.29 mg/dl (0.60-1.20)
[2017-04-19 10:49] LABS: POTASSIUM 3.7 mmol/L (3.5-5.1)
[2017-04-19] MEDS ORDERED: LIDODERM (LIDOCAINE) PATCH 5% TD ONE (12:31)
--- NOTE | 2017-04-19 12:33 | Hospitalist Progress Note ---
Hospitalist Progress Note Date of Service Apr 19, 2017. (Vi Kumar PA-C) Subjective Pt evaluation today including: conversation w/ patient, conversation w/ family , physical exam, chart review, lab review, review of studies, review of inpatient medication list Patient seen and evaluated. Standing up in room in no acute distress. Having intermittent pain that the Tramadol isn't taking away and Dilaudid is just making her sleepy. Will give one dose of Toradol and use Lidocaine patch. States her breathing is a lot better but still reporting some SOB. Constitutional: No fever, No chills Respiratory: + cough, + shortness of breath (improving), No sputum Cardiovascular: No chest pain Abdomen: No pain, No nausea, No vomiting, No diarrhea, No constipation Musculoskeletal: + problem reported (back wall pain at site of pleur-x) Female : No dysuria Heme: No abnormal bleeding/bruising Skin: No rash (Vi Kumar, BRANDONC) Medications Current Inpatient Medications Medications (Trade) Dose Ordered Sig/Stephanie Route Start Time Stop Time Status Last Admin Dose Admin Ioversol (Optiray 320) 125 ml UD PRN IV 04/17/17 15:15 04/21/17 15:14 Heparin Sodium (Porcine) (Heparin Sq 5000 Unit/0.5ml) 5,000 unit Q12 SQ 04/17/17 21:00 05/17/17 20:59 04/19/17 09:55 5,000 UNIT Acetaminophen (Tylenol Tab) 650 mg Q4H PRN PO 04/17/17 18:00 05/17/17 17:59 04/17/17 22:29 650 MG Polyethylene (Miralax Powder Packet) 17 gm DAILY PRN PO 04/17/17 18:00 05/17/17 17:59 Amitriptyline HCl (Elavil Tab) 20 mg HS PRN PO 04/17/17 18:00 05/17/17 17:59 04/17/17 21:50 20 MG Benzonatate (Tessalon Perles Cap) 100 mg TID PRN PO 04/17/17 18:00 05/17/17 17:59 04/18/17 07:59 100 MG Folic Acid (Folvite Tab) 1 mg DAILY PO 04/18/17 09:00 05/18/17 08:59 04/19/17 09:52 1 MG Methimazole (Methimazole Tab) 5 mg HS PO 04/17/17 21:00 05/17/17 20:59 04/18/17 20:15 5 MG Metoprolol Tartrate (Lopressor Tab) 25 mg BID PO 04/17/17 21:00 05/17/17 20:59 04/19/17 09:54 25 MG Ondansetron HCl (Zofran Tab) 4 mg Q4H PRN PO 04/17/17 18:00 05/17/17 17:59 Pantoprazole Sodium (Protonix Tab) 40 mg QAM PO 04/18/17 09:00 05/18/17 08:59 04/19/17 09:54 40 MG Prochlorperazine Maleate (Compazine Tab) 10 mg Q6H PRN PO 04/17/17 18:00 05/17/17 17:59 04/18/17 21:00 10 MG Ranitidine HCl (zANTac TAB) 150 mg DAILY PRN PO 04/17/17 18:00 05/17/17 17:59 Levalbuterol (Xopenex 1.25MG/ 3ML Neb) 1.25 mg Q6R INH 04/17/17 21:00 05/17/17 20:59 04/19/17 14:13 1.25 MG Miscellaneous Information (Order Awaiting Action) 1 ea QS N/A 04/18/17 00:00 05/18/17 00:00 Cholecalciferol (Vitamin D Tab) 1,000 inter.unit QAM PO 04/18/17 09:00 05/18/17 08:59 04/19/17 09:54 1,000 INTER.UNIT Tramadol HCl (Ultram Tab) 50 mg Q4H PRN PO 04/18/17 13:45 05/17/17 17:59 04/19/17 09:59 50 MG Hydroxychloroquine Sulfate (Plaquenil Tab) 100 mg HS PO 04/18/17 21:00 05/18/17 20:59 04/18/17 20:57 100 MG Hydromorphone HCl (Dilaudid Inj) 0.5 mg Q4H PRN IV 04/18/17 17:45 05/02/17 14:44 04/19/17 04:05 0.5 MG Potassium Chloride (Klor-Con Tab) 40 meq BID PO 04/18/17 22:00 05/18/17 21:59 04/19/17 09:53 40 MEQ Lidocaine (Lidoderm Patch 5%) 1 patch QAM TD 04/20/17 09:00 05/20/17 08:59 Miscellaneous (Remove Lidoderm Patch) 1 ea DAILY@21 N/A 04/19/17 21:00 05/19/17 20:59 (Vi Kumar, PA-C) Objective Vital Signs Date Time Temp Pulse Resp B/P (MAP) Pulse Ox O2 Delivery O2 Flow Rate FiO2 04/19/17 11:30 Nasal Cannula 2.0 04/19/17 11:03 36.7 101 18 123/80 (94) 99 Nasal Cannula 2.0 04/19/17 10:28 Nasal Cannula 2.0 04/19/17 08:10 Nasal Cannula 2.0 04/19/17 07:40 36.7 123 20 141/101 (114) 96 04/19/17 07:13 118 18 92 Nasal Cannula 2.0 04/19/17 04:00 Nasal Cannula 2.0 04/19/17 03:48 36.8 126 24 156/89 (111) 99 Nasal Cannula 2.0 04/19/17 01:57 105 18 98 Nasal Cannula 2.0 04/18/17 23:59 Nasal Cannula 2.0 04/18/17 23:31 36.6 89 18 127/72 (90) 98 Nasal Cannula 2.0 Humidified Oxygen 04/18/17 20:10 93 Nasal Cannula 2.0 Humidified Oxygen 04/18/17 20:05 36.7 114 20 152/87 (108) 87 Room Air 04/18/17 20:00 Nasal Cannula 2.0 04/18/17 19:21 111 18 98 Nasal Cannula 1.0 04/18/17 15:31 36.7 112 20 138/82 (100) 97 Nasal Cannula 2.0 04/18/17 14:17 105 18 98 Nasal Cannula 1.0 (Vi Kumar, PA-C) Physical Exam General Appearance: no apparent distress, + thin Eyes: sclerae normal ENT: hearing grossly normal Neck: supple, no JVD, trachea midline Respiratory/Chest: no respiratory distress, no accessory muscle use, + decreased breath sounds (R lung quintero with some improvement in aeration) Cardiovascular: regular rate, rhythm, no gallop, no murmur Abdomen: normal bowel sounds, non tender, soft Extremities: no pedal edema Neurologic/Psychiatric: alert Skin: normal color (Vi Kumar PA-C) Laboratory Results Last 24 Hours Test 04/19/17 09:35 White Blood Count 5.51 K/uL Red Blood Count 2.92 M/uL Hemoglobin 9.1 g/dL Hematocrit 26.9 % Mean Corpuscular Volume 92.1 fL Mean Corpuscular Hemoglobin 31.2 pg Mean Corpuscular Hemoglobin Concent 33.8 g/dl Platelet Count 181 K/uL Mean Platelet Volume 8.2 fL Neutrophils (%) (Auto) 80.6 % Lymphocytes (%) (Auto) 8.3 % Monocytes (%) (Auto) 8.3 % Eosinophils (%) (Auto) 2.4 % Basophils (%) (Auto) 0.0 % Neutrophils # (Auto) 4.44 K/uL Lymphocytes # (Auto) 0.46 K/uL Monocytes # (Auto) 0.46 K/uL Eosinophils # (Auto) 0.13 K/uL Basophils # (Auto) 0.00 K/uL RDW Standard Deviation 54.5 fL RDW Coefficient of Variation 16.1 % Immature Granulocyte % (Auto) 0.4 % Immature Granulocyte # (Auto) 0.02 K/uL Sodium Level 128 mmol/L Potassium Level 3.7 mmol/L Chloride Level 91 mmol/L Carbon Dioxide Level 28 mmol/L Anion Gap 9.0 mmol/L Blood Urea Nitrogen 8 mg/dl Creatinine 0.29 mg/dl Est Creatinine Clear Calc Drug Dose 153.4 ml/min Estimated GFR () 135.0 Estimated GFR (Non- 116.5 BUN/Creatinine Ratio 26.9 Random Glucose 113 mg/dl Calcium Level 8.8 mg/dl (Vi Kumar PA-C) Assessment and Plan This is a 72 yo F with PMHx of breast, endometrial and melanoma with recent diagnosis of metastatic R lung adenocarcinoma stg IV, confirmed on biopsy/ pathology 02/15/17 with multiple mets to the bones. She has completed 10 radiation treatments to the spine for pain relief. Pt has commenced a [place] -based chemo regimen and follows with Dr. Valdovinos. Past medical history also includes anemia, osteoporosis, vitamin D deficiency, Sjogrens syndrome and rheumatoid arthritis. Pt notes her shortness of breath started last evening has worsened over the last 24 hours. Acute Hypoxic Respiratory Failure 2/2 Large R Pleural Effusion and Subsequent Atelectasis: - Appears that this is likely malignant effusion - cx still pending - Pulled 500 cc out today - total of approx. 1800 cc pulled - Consult CT Surg - continues to follow Pneumothorax likely Trapped Lung: - There is evidence of PTX on imaging this AM. Will utilize incentive spirometry and encourage ambulation to promote good lung expansion; given fluid and tumor burden this may be limited Chest Wall Pain: - Will continue Tramadol and Dilaudid PRN; Add Lidocaine patch and x 1 dose of Toradol Hyponatremia likely SIADH: - Mild fluid restriction and will place on daily salt tablets - Will continue to monitor Severe Protein-Calorie Malnutrition: - Encourage oral intake; Boost supplementation Breast/Endometrial/Melanoma/Metastatic R Lung Adenocarcinoma Stage IV - Bone: Follows with Dr. Valdovinos - Last chemotherapy 04/13 Chronic Anemia likely of Chronic Disease: STABLE - Folic acid 1 mg daily - Continue to monitor - no indication for transfusion at this time Osteoporosis/Vitamin D Deficiency/Bone Mets: - Vitamin D supplementation Sjogrens and RA: - Plaquenil 100 mg HS Hyperthyroidism: - Methimazole 5 mg HS HTN: - Lopressor 25 mg BID DVT Prophylaxis: Heparin 5000 units SC Q12H Code Status: DO NOT RESUSCITATE Disposition: From home with - await clinical course - plans to return home with home services - Possible palliative care consultation? Continued [facility] stay due to: abnormal vital signs Discharge planning: home with home health (Vi Kumar, PACheC) Attending Attestation: Pt seen/examined, chart reviewed, care plan d/w SAWYER Kumar. I agree w/ the merino components of her documentation. Pt with ongoing right-sided chest wall pain/pleuritic pain - although toradol ordered by Ms. Kumar helped considerably. Dyspnea improved. Appetite ok. Tele - sinus tach vitals - tachy o2 sats in RA wnl gen - ill-appearing, but more comfortable appearing today neck - no JVD heart - tachy, s1, s2 lungs - improved airation RUL (anteriorly); improved airation RML posteriorly; RLL still quite diminished abd - slightly distended, BS+, NT ext - no edema A/P: 1. stage 4 lung cancer 2. large pleural effusion on right, s/p pleurX insertion - fluid exudative; no evidence of empyema; suspect malignancy related - awaiting cytologies 3. pain related to #2 - cont toradol 15mg IV q6h prn; lidoderm patches; dilaudid IV prn 4. hyperthyroidism - methimazole - TSH 12/2016 wnl 5. acute hypoxic resp failure 2nd to #1, #2 - improved/resolved s/p pleurX insertion 6. MRI brain with bony mets but no intra-cranial mets; results passed on to patient 7. constipation - needs bowel regimen 8. DVT proph - heparin BID Neisha DEXTER MD (Brad Dexter MD)
[2017-04-19] MEDS ORDERED: KETOROLAC TROMETHAMINE 15 MG/ML VIAL IV ONE (12:45)
--- NOTE | 2017-04-19 13:48 | Clinical Documentation Query ---
CLINICAL DOCUMENTATION QUERY Dr. GORDILLO, In your clinical opinion is this patient being managed for: ( ) severe protein-calorie malnutrition ( ) Not Agree ( ) Other explanation of clinical findings (Please Explain) ( ) Unable to determine (Please Define) ( ) Need to Discuss The medical record reflects the following clinical findings, treatment, and risk factors. Clinical Indicators: 72 yo female presenting with dyspnea. Known history of stage IV metastatic lung cancer. Dietary consult indicates pt with early satiety with meals with average intake of 25% of meals. Pt self reported wt loss and weakness. Wt loss of 7.45% since February 2017 Treatment:outpatient jevity tube feeds, dietary consult, 5-6 small frequent meals, monitor weight Risk Factors: metastatic lung cancer Severe Malnutrition Criteria: (2 criteria needed) Energy intake: <50% of estimated energy requirement for > 5 days Wt loss: 1-2% in 1 wk, 5% in 1 month, or 7.5% in 3 months Body fat: moderate loss of SQ fat from the orbits, triceps or fat overlying the ribs Muscle mass: moderate muscle wasting at the temples, clavicles, shoulders, interosseous spaces, scapula, thigh, calf Fluid accumulation: moderate to severe localized or generalized edema of the extremities, vulva, scrotum-wt loss may be masked by edema Brim Buster strength: measurably decreased per the devices standards Please clarify and document your clinical opinion in the progress notes and discharge summary. Terms such as "probable", "suspected", "likely", "questionable", "possible", or "still to be ruled out" are acceptable. IF IN AGREEMENT, YOU MUST DOCUMENT ABOVE DIAGNOSTIC STATEMENT IN DAILY PROGRESS NOTES AND DISCHARGE SUMMARY. This document is not part of the patient's record. Thank You, Hilary Mehta, RN [phone]
--- NOTE | 2017-04-19 13:49 | Clinical Documentation Query ---
CLINICAL DOCUMENTATION QUERY Ms. SOLIS, In your clinical opinion is this patient being managed for: ( x ) severe protein-calorie malnutrition ( ) Not Agree ( ) Other explanation of clinical findings (Please Explain) ( ) Unable to determine (Please Define) ( ) Need to Discuss The medical record reflects the following clinical findings, treatment, and risk factors. Clinical Indicators: 72 yo female presenting with dyspnea. Known history of stage IV metastatic lung cancer. Dietary consult indicates pt with early satiety with meals with average intake of 25% of meals. Pt self reported wt loss and weakness. Wt loss of 7.45% since February 2017 Treatment:outpatient jevity tube feeds, dietary consult, 5-6 small frequent meals, monitor weight Risk Factors: metastatic lung cancer Severe Malnutrition Criteria: (2 criteria needed) Energy intake: <50% of estimated energy requirement for > 5 days Wt loss: 1-2% in 1 wk, 5% in 1 month, or 7.5% in 3 months Body fat: moderate loss of SQ fat from the orbits, triceps or fat overlying the ribs Muscle mass: moderate muscle wasting at the temples, clavicles, shoulders, interosseous spaces, scapula, thigh, calf Fluid accumulation: moderate to severe localized or generalized edema of the extremities, vulva, scrotum-wt loss may be masked by edema Napping Machine Operator strength: measurably decreased per the devices standards Please clarify and document your clinical opinion in the progress notes and discharge summary. Terms such as "probable", "suspected", "likely", "questionable", "possible", or "still to be ruled out" are acceptable. IF IN AGREEMENT, YOU MUST DOCUMENT ABOVE DIAGNOSTIC STATEMENT IN DAILY PROGRESS NOTES AND DISCHARGE SUMMARY. This document is not part of the patient's record. Thank You, Hilary Mehta, RN [phone]
[2017-04-19] MEDS ORDERED: LORAZEPAM 0.5 MG TAB ONE (15:37)
[2017-04-19] MEDS ORDERED: LORAZEPAM 0.5 MG TAB PO STA (15:45)
[2017-04-19] MEDS ORDERED: GADAVIST IV PRN (16:30)
--- NOTE | 2017-04-19 17:26 | DIAGNOSTIC IMAGING REPORT ---
MRI OF THE BRAIN WITHOUT AND WITH IV CONTRAST CLINICAL HISTORY: Metastatic cancer, evaluate for intracranial metastases. COMPARISON STUDY: No previous studies for comparison. TECHNIQUE: Utilizing a 1.5 Renata magnet and dedicated coil, multiplanar, multiecho imaging of the brain was performed pre and postcontrast administration. IV administration of 5.5 mL of Gadavist contrast was uneventful. FINDINGS: No foci of restricted diffusion. Note is made of a 9 mm enhancing extra-axial lesion along the undersurface of the left tentorium shown best on coronal postcontrast image 21of 26. No additional intracranial masses are present. Ventricular system is unremarkable. The basilar cisterns are patent. Orbits are unremarkable. Sinuses and mastoid air cells are unremarkable. Note is made of a 1.8 cm focus of marrow replacement within the lateral aspect of the right occipital condyle shown best on axial image 3 of 23. There is also a 5 mm enhancing right parietal calvarial lesion shown on coronal image 21of 26. IMPRESSION: 1. 9 mm enhancing lesion along the undersurface of the left tentorium which is likely extra-axial. This favors a meningioma although a metastasis could appear similar. No associated edema. No additional intracranial masses. 2. 1.8 cm focus of marrow placement within the right occipital condyle consistent with a skeletal metastasis. Minimal extension into the adjacent soft tissues. 3. Possible 5 mm calvarial metastasis within the right parietal bone. Electronically signed by: Saleem Galindo M.D. 04/19/2017 5:24 PM Dictated Date/Time: 04/19/2017 4:31 PM
[2017-04-19] MEDS: KETOROLAC TROMETHAMINE 15 MG/ML VIAL IV PRN (21:19)
[2017-04-19] MEDS: HYDROXYCHLOROQUINE SULFATE 200 MG TAB PO SCH (21:22)
[2017-04-19] MEDS: METHIMAZOLE 5 MG TAB PO SCH (21:22)
[2017-04-20] VITALS (15 sets, daily range): BP systolic 133–159; BP diastolic 80–86; PULSE 92–130; TEMP 36.4–37.3; O2SAT 86–100
[2017-04-20] MEDS: LEVALBUTEROL 1.25MG/3ML NEB INH SCH ×4 (01:50→19:25)
[2017-04-20 06:38] LABS: EOS % 2.1 %; EOS ABS # 0.09 K/uL (0-0.5); HEMATOCRIT 26.8 % (37-47); IG# 0.01 K/uL (0.00-0.02); LYMPH % 12.1 %; LYMPH ABS # 0.51 K/uL (1.2-3.4); MEAN CELL VOLUME 91.5 fL (80-100); MEAN CORPUSCULAR HEMOGLOBIN 30.7 pg (25-34); MEAN CORPUSCULAR HGB CONC 33.6 g/dl (32-36); MEAN PLATELET VOLUME 8.6 fL (7.4-10.4); MONO % 11.9 %; NEUT % 73.7 %; PLATELET COUNT 162 K/uL (130-400); RED CELL DISTRIBUTION WIDTH SD 53.2 fL (36.4-46.3); WHITE BLOOD COUNT 4.21 K/uL (4.8-10.8)
[2017-04-20] MEDS: KETOROLAC TROMETHAMINE 15 MG/ML VIAL IV PRN (06:38)
[2017-04-20 07:09] LABS: CALCIUM 8.9 mg/dl (8.5-10.1); CREATININE 0.29 mg/dl (0.60-1.20); POTASSIUM 3.7 mmol/L (3.5-5.1)
[2017-04-20] MEDS: CHOLECALCIFEROL 1000 INTER.UNIT TAB PO SCH (07:54)
[2017-04-20] MEDS: POTASSIUM CHLORIDE 20 MEQ TABCR PO SCH ×2 (07:55→20:40)
[2017-04-20] MEDS: PANTOprazole SOD 40 MG TAB PO SCH (07:55)
[2017-04-20] MEDS: METOPROLOL TARTRATE 25 MG TAB PO SCH ×2 (07:55→20:40)
[2017-04-20] MEDS: LIDODERM (LIDOCAINE) PATCH 5% TD SCH (07:56)
[2017-04-20] MEDS: HEPARIN SOD 5000 UNIT/0.5 ML CARP SQ SCH ×2 (08:02→20:46)
[2017-04-20] MEDS: BENZONATATE 100MG CAP PO PRN (08:02)
--- NOTE | 2017-04-20 08:30 | SURGERY PROGRESS NOTE ---
DATE: 04/20/2017 Ms. Husain was seen today. She is on room air with good saturations. She feels better. Her pain is better. Unfortunately, it appears that she has cerebral metastases based on my reviewing the x-rays and the x-ray reports. She had an MRI of her brain yesterday. At this point, I would continue the PleurX catheter. It only drained about 250 mL this morning. She had less pain with it. She looks better to me and is finished eating her breakfast this morning. We will continue to follow her as an outpatient with this PleurX catheter. I would like to get an x-ray if she is going to be here tomorrow.
[2017-04-20] MEDS ORDERED: BISACODYL 5 MG TABEC PO ONE (15:00)
[2017-04-20] MEDS ORDERED: GUAIFENESIN/CODEINE 100MG/10MG 5ML UDC PO PRN (15:15)
[2017-04-20] MEDS ORDERED: LORAZEPAM 0.5 MG TAB PO PRN (15:15)
--- NOTE | 2017-04-20 15:18 | Hospitalist Progress Note ---
Hospitalist Progress Note Date of Service Apr 20, 2017. (Vi Kumar PA-C) Subjective Pt evaluation today including: conversation w/ patient, conversation w/ family , physical exam, chart review, lab review, review of studies, review of inpatient medication list Patient seen and evaluated. No acute events overnight. Had another 200 cc pulled this AM and it was easier to tolerate Patient can barely speak more than a couple words without getting coughing spells. She however is on RA but still feeling SOB. Aeration is improving to the bases but still diminished in comparison to mid and upper lungs. Constitutional: No fever, No chills Respiratory: + cough, + shortness of breath, No sputum Cardiovascular: No chest pain Abdomen: + constipation, No pain, No nausea, No vomiting, No diarrhea Musculoskeletal: No swelling, No calf pain Female : No dysuria (Vi Kumar, BRANDONC) Medications Current Inpatient Medications Medications (Trade) Dose Ordered Sig/Stephanie Route Start Time Stop Time Status Last Admin Dose Admin Ioversol (Optiray 320) 125 ml UD PRN IV 04/17/17 15:15 04/21/17 15:14 Heparin Sodium (Porcine) (Heparin Sq 5000 Unit/0.5ml) 5,000 unit Q12 SQ 04/17/17 21:00 05/17/17 20:59 04/20/17 08:02 5,000 UNIT Acetaminophen (Tylenol Tab) 650 mg Q4H PRN PO 04/17/17 18:00 05/17/17 17:59 04/17/17 22:29 650 MG Polyethylene (Miralax Powder Packet) 17 gm DAILY PRN PO 04/17/17 18:00 05/17/17 17:59 Amitriptyline HCl (Elavil Tab) 20 mg HS PRN PO 04/17/17 18:00 05/17/17 17:59 04/17/17 21:50 20 MG Folic Acid (Folvite Tab) 1 mg DAILY PO 04/18/17 09:00 05/18/17 08:59 04/20/17 07:56 1 MG Methimazole (Methimazole Tab) 5 mg HS PO 04/17/17 21:00 05/17/17 20:59 04/19/17 21:22 5 MG Ondansetron HCl (Zofran Tab) 4 mg Q4H PRN PO 04/17/17 18:00 05/17/17 17:59 Pantoprazole Sodium (Protonix Tab) 40 mg QAM PO 04/18/17 09:00 05/18/17 08:59 04/20/17 07:55 40 MG Prochlorperazine Maleate (Compazine Tab) 10 mg Q6H PRN PO 04/17/17 18:00 05/17/17 17:59 04/18/17 21:00 10 MG Ranitidine HCl (zANTac TAB) 150 mg DAILY PRN PO 04/17/17 18:00 05/17/17 17:59 Levalbuterol (Xopenex 1.25MG/ 3ML Neb) 1.25 mg Q6R INH 04/17/17 21:00 05/17/17 20:59 04/20/17 06:58 1.25 MG Miscellaneous Information (Order Awaiting Action) 1 ea QS N/A 04/18/17 00:00 05/18/17 00:00 Cholecalciferol (Vitamin D Tab) 1,000 inter.unit QAM PO 04/18/17 09:00 05/18/17 08:59 04/20/17 07:54 1,000 INTER.UNIT Tramadol HCl (Ultram Tab) 50 mg Q4H PRN PO 04/18/17 13:45 05/17/17 17:59 04/19/17 09:59 50 MG Hydroxychloroquine Sulfate (Plaquenil Tab) 100 mg HS PO 04/18/17 21:00 05/18/17 20:59 04/19/17 21:22 100 MG Hydromorphone HCl (Dilaudid Inj) 0.5 mg Q4H PRN IV 04/18/17 17:45 05/02/17 14:44 04/19/17 04:05 0.5 MG Potassium Chloride (Klor-Con Tab) 40 meq BID PO 04/18/17 22:00 05/18/17 21:59 04/20/17 07:55 40 MEQ Lidocaine (Lidoderm Patch 5%) 1 patch QAM TD 04/20/17 09:00 05/20/17 08:59 04/20/17 07:56 1 PATCH Miscellaneous (Remove Lidoderm Patch) 1 ea DAILY@21 N/A 04/19/17 21:00 05/19/17 20:59 04/19/17 21:42 1 EA Gadobutrol (Gadavist) 5.5 mmol UD PRN IV 04/19/17 16:30 04/23/17 16:29 Ketorolac Tromethamine (Toradol Inj) 15 mg Q6H PRN IV 04/19/17 18:00 04/24/17 17:59 04/20/17 06:38 15 MG Metoprolol Tartrate (Lopressor Tab) 37.5 mg BID PO 04/19/17 21:00 05/17/17 20:59 04/20/17 07:55 37.5 MG Benzonatate (Tessalon Perles Cap) 200 mg TID PO 04/20/17 15:00 05/17/17 17:59 (Vi Kumar PA-C) Objective Vital Signs Date Time Temp Pulse Resp B/P (MAP) Pulse Ox O2 Delivery O2 Flow Rate FiO2 04/20/17 12:11 36.4 92 16 134/81 (98) 95 Room Air 04/20/17 12:00 Room Air 04/20/17 08:00 Room Air 04/20/17 07:32 36.9 112 22 153/85 (107) 96 Room Air 04/20/17 06:58 112 16 94 Room Air 04/20/17 05:51 37.0 111 21 157/85 (109) 94 Room Air 04/20/17 04:08 94 Room Air 04/20/17 01:51 106 16 93 Room Air 04/20/17 00:32 36.7 98 21 133/80 (97) 94 Room Air 04/20/17 00:01 94 Room Air 04/19/17 20:00 94 Room Air 04/19/17 19:25 78 16 94 Room Air 04/19/17 19:09 37.4 129 18 160/83 (108) 94 Room Air 04/19/17 16:00 Room Air 04/19/17 15:14 36.9 115 24 155/88 (110) 97 Nasal Cannula 2.0 (Vi Kumar PA-C) Physical Exam General Appearance: no apparent distress, + thin ENT: hearing grossly normal Neck: supple, no JVD, trachea midline Respiratory/Chest: no respiratory distress, no accessory muscle use, + decreased breath sounds (with some aeration at bases), + crackles (bases), + pertinent finding (improving aeration in all lung quintero compared to previous exam) Cardiovascular: no gallop, no murmur, + tachycardia Abdomen: normal bowel sounds, non tender, soft Extremities: no pedal edema Neurologic/Psychiatric: alert (Vi Kumar PA-C) Laboratory Results Last 24 Hours Test 04/20/17 06:11 White Blood Count 4.21 K/uL Red Blood Count 2.93 M/uL Hemoglobin 9.0 g/dL Hematocrit 26.8 % Mean Corpuscular Volume 91.5 fL Mean Corpuscular Hemoglobin 30.7 pg Mean Corpuscular Hemoglobin Concent 33.6 g/dl Platelet Count 162 K/uL Mean Platelet Volume 8.6 fL Neutrophils (%) (Auto) 73.7 % Lymphocytes (%) (Auto) 12.1 % Monocytes (%) (Auto) 11.9 % Eosinophils (%) (Auto) 2.1 % Basophils (%) (Auto) 0.0 % Neutrophils # (Auto) 3.10 K/uL Lymphocytes # (Auto) 0.51 K/uL Monocytes # (Auto) 0.50 K/uL Eosinophils # (Auto) 0.09 K/uL Basophils # (Auto) 0.00 K/uL RDW Standard Deviation 53.2 fL RDW Coefficient of Variation 16.0 % Immature Granulocyte % (Auto) 0.2 % Immature Granulocyte # (Auto) 0.01 K/uL Sodium Level 128 mmol/L Potassium Level 3.7 mmol/L Chloride Level 91 mmol/L Carbon Dioxide Level 29 mmol/L Anion Gap 8.0 mmol/L Blood Urea Nitrogen 7 mg/dl Creatinine 0.29 mg/dl Est Creatinine Clear Calc Drug Dose 153.4 ml/min Estimated GFR () 135.0 Estimated GFR (Non- 116.5 BUN/Creatinine Ratio 24.3 Random Glucose 109 mg/dl Calcium Level 8.9 mg/dl (Vi Kumar PA-C) Assessment and Plan This is a 72 yo F with PMHx of breast, endometrial and melanoma with recent diagnosis of metastatic R lung adenocarcinoma stg IV, confirmed on biopsy/ pathology 02/15/17 with multiple mets to the bones. She has completed 10 radiation treatments to the spine for pain relief. Pt has commenced a [place] -based chemo regimen and follows with Dr. Valdovinos. Past medical history also includes anemia, osteoporosis, vitamin D deficiency, Sjogrens syndrome and rheumatoid arthritis. Pt notes her shortness of breath started last evening has worsened over the last 24 hours. Acute Hypoxic Respiratory Failure 2/2 Large R Pleural Effusion and Subsequent Atelectasis: RESOLVING - Appears that this is likely malignant effusion; improving aeration and appropriate saturations however still feels SOB - Pulled 200 cc out today - total of approx. 2 L pulled; Will obtain F/U CXR tomorrow morning - Roxanol 5 mg PRN SOB/Air Hunger; Ativan PRN - Palliative care consultation - appreciate assistance with goals of care on palliative measures - Consult CT Surg - continues to follow - plans to assist with outpatient monitoring Pneumothorax likely Trapped Lung: - Utilize incentive spirometry and encourage ambulation to promote good lung expansion; given fluid and tumor burden this may be limited - follow-up CXR in AM Sinus Tachycardia: - Increased home dosing of Metoprolol to 37.5 mg BID Chest Wall Pain: IMPROVING - Will continue Tramadol and Dilaudid PRN; Add Lidocaine patch and x 1 dose of Toradol - Toradol seems to be the most beneficial and will continue this Hyponatremia likely SIADH: STABLE - Mild fluid restriction and will place on daily salt tablets - Will continue to monitor Severe Protein-Calorie Malnutrition: - Encourage oral intake; Boost supplementation Breast/Endometrial/Melanoma/Metastatic R Lung Adenocarcinoma Stage IV - Bone: Follows with Dr. Valdovinos - Last chemotherapy 04/13 Chronic Anemia likely of Chronic Disease: STABLE - Folic acid 1 mg daily - Continue to monitor - no indication for transfusion at this time Osteoporosis/Vitamin D Deficiency/Bone Mets: - Vitamin D supplementation Sjogrens and RA: - Plaquenil 100 mg HS Hyperthyroidism: - Methimazole 5 mg HS HTN: - Lopressor 25 mg BID DVT Prophylaxis: Heparin 5000 units SC Q12H Code Status: DO NOT RESUSCITATE Disposition: From home with - await clinical course - plans to return home with home services - Possible palliative care consultation? Continued [facility] stay due to: abnormal vital signs Discharge planning: home with home health (Vi Kumar PA-C) Attending Attestation: Pt seen/examined, chart reviewed, care plan d/w SAWYER Kumar. I agree w/ the merino components of her documentation. Pt is uncomfortable -- is dyspneic, has pleuritic right-sided pain, and has orthopnea. She feels depressed. at bedside - they report they were going to meet with Dr. Galdamez from palliative earlier this week to discuss possible palliative care/hospice. They are open to palliative care at this time. tele w/ ongoing tachycardia. vitals - tachy o2 sats acceptable gen - ill-appearing, thin, coughing, uncomfortable neck - no JVD heart - tachy, s1, s2 lungs - improved airation on right, but still decreased in the right base; left base w/ mild rales abd - slightly distended, BS+, NT ext - no edema A/P: 1. stage 4 lung cancer 2. large pleural effusion on right, s/p pleurX insertion - fluid exudative; no evidence of empyema; suspect malignancy related (cytologies negative, but still quite suspicious for malignancy) 3. pain related to #2 - cont toradol 15mg IV q6h prn; lidoderm patches; dilaudid IV prn; add roxinol q3h prn for pain and/or air hunger 4. hyperthyroidism - methimazole - TSH 12/2016 wnl; due to tachycardia will repeat the TSH in am 5. acute hypoxic resp failure 2nd to #1, #2 - improved/resolved s/p pleurX insertion 6. MRI brain with bony mets but no intra-cranial mets 7. constipation - bowel regimen 8. DVT proph - heparin BID lengthy discussion held about palliative care/hospice pt/pt's desire consult with palliative care; spoke with Susie Rowan from palliative and she will meet with them repeat cxr in am Neisha DEXTER MD (Brad Dexter MD)
[2017-04-20] MEDS ORDERED: SODIUM CHLORIDE 1 GM TAB PO ONE (15:20)
[2017-04-20] MEDS: BENZONATATE 100MG CAP PO SCH ×2 (16:14→20:43)
--- NOTE | 2017-04-20 16:31 | Palliative Care Consultation ---
Consultation Date of Consultation: Apr 20, 2017. Requesting Physician: Dr. Dexter Attending Physician: Dr. Dexter Reason for Consultation: Goals of care, pain management History of Present Illness This 72 year old female patient with PMH stage IV adenocarcinoma of right lung currently on chemo s/p radiation, hx breast and endometrial cancer, melanoma and others listed below, presented to the hospital several days ago with increased SOB. Patient has recently been in the hospital several times for pneumonia, influenza and nutritional deficit for which she received a PEG tube. CT PE completed: "negative for PE however showing moderate to large right-sided pleural effusion with near-total right upper lobe and total right middle lobe collapse with atelectasis demonstrating heterogeneous enhancement suggesting associated airspace disease. Scattered multifocal ground glass and consolidative opacities throughout the lungs bilaterally. Multiple lytic destructive bony lesions." Dr. Delacruz consulted and performed thoracentesis- 1300ml fluid drained from right side and received a Pleur-x catheter. Patient reported less SOB but still with cough. Patient is reporting she would now like to be DNR, considering hospice care and she has not been well since starting chemotherapy and continues to deteriorate. Palliative care is consulted. I met with the patient and her , Jeffrey, in room 206. Patient is awake alert and oriented, somewhat of a flat affect. I was consulted on patient two admissions ago, so I am familiar with her history. Patient confirmed that she wants to be DNR/DNI. She has pain in her spine (from mets) and now also at right Pleur-x site. She had been taking Tramadol at home which worked well, but now does not seem to be working. Pain is 7/10 in back, patient wishes for it to be 3-4/10. We discussed goals of care including hospice care. Patient states she feels ready for hospice, her is uncertain. They would like further time to discuss. They might wait to make decision until patient is discharged so they are able to discuss it with Dr. Valdovinos. See below. Past Medical/Surgical History Medical History: Adenocarcinoma of lung, stage 4 Breast cancer metastasized to bone Endometrial cancer HTN Hyperthyroidism Influenza A Melanoma Pneumonia Rheumatoid arthritis Sjoegren syndrome Surgical History: Mastectomy Social History Smoking Status: Smoker Current Status UNK History of Alcohol Use: Yes Drug Use: none Marital Status: Housing Status: lives with family Occupation Status: retired Review of Systems Constitutional: + weakness ENT: No trouble swallowing Respiratory: + cough, + shortness of breath, + dyspnea on exertion, No wheezing Cardiac: No chest pain, No edema Abdomen: + pain, No nausea, No vomiting Musculoskeletal: + problem reported (back pain) Female : No problem reported Psychiatric: No depression symptoms, No anxiety Allergies Coded Allergies: Penicillins (Verified Allergy, Intermediate, RASH, 04/17/17) Morphine and Related (Verified Adverse Reaction, Intermediate, SEVERE NAUSEA, 04/17/17) Codeine (Verified Adverse Reaction, Mild, GI UPSET, 04/17/17) Medications Current Inpatient Medications Medications (Trade) Dose Ordered Sig/Stephanie Route Start Time Stop Time Status Last Admin Dose Admin Ioversol (Optiray 320) 125 ml UD PRN IV 04/17/17 15:15 04/21/17 15:14 Heparin Sodium (Porcine) (Heparin Sq 5000 Unit/0.5ml) 5,000 unit Q12 SQ 04/17/17 21:00 05/17/17 20:59 04/20/17 08:02 5,000 UNIT Acetaminophen (Tylenol Tab) 650 mg Q4H PRN PO 04/17/17 18:00 05/17/17 17:59 04/17/17 22:29 650 MG Polyethylene (Miralax Powder Packet) 17 gm DAILY PRN PO 04/17/17 18:00 05/17/17 17:59 Amitriptyline HCl (Elavil Tab) 20 mg HS PRN PO 04/17/17 18:00 05/17/17 17:59 04/17/17 21:50 20 MG Folic Acid (Folvite Tab) 1 mg DAILY PO 04/18/17 09:00 05/18/17 08:59 04/20/17 07:56 1 MG Methimazole (Methimazole Tab) 5 mg HS PO 04/17/17 21:00 05/17/17 20:59 04/19/17 21:22 5 MG Ondansetron HCl (Zofran Tab) 4 mg Q4H PRN PO 04/17/17 18:00 05/17/17 17:59 Pantoprazole Sodium (Protonix Tab) 40 mg QAM PO 04/18/17 09:00 05/18/17 08:59 04/20/17 07:55 40 MG Prochlorperazine Maleate (Compazine Tab) 10 mg Q6H PRN PO 04/17/17 18:00 05/17/17 17:59 04/18/17 21:00 10 MG Ranitidine HCl (zANTac TAB) 150 mg DAILY PRN PO 04/17/17 18:00 05/17/17 17:59 Levalbuterol (Xopenex 1.25MG/ 3ML Neb) 1.25 mg Q6R INH 04/17/17 21:00 05/17/17 20:59 04/20/17 15:14 1.25 MG Miscellaneous Information (Order Awaiting Action) 1 ea QS N/A 04/18/17 00:00 05/18/17 00:00 Cholecalciferol (Vitamin D Tab) 1,000 inter.unit QAM PO 04/18/17 09:00 05/18/17 08:59 04/20/17 07:54 1,000 INTER.UNIT Tramadol HCl (Ultram Tab) 50 mg Q4H PRN PO 04/18/17 13:45 05/17/17 17:59 04/19/17 09:59 50 MG Hydroxychloroquine Sulfate (Plaquenil Tab) 100 mg HS PO 04/18/17 21:00 05/18/17 20:59 04/19/17 21:22 100 MG Hydromorphone HCl (Dilaudid Inj) 0.5 mg Q4H PRN IV 04/18/17 17:45 05/02/17 14:44 04/19/17 04:05 0.5 MG Potassium Chloride (Klor-Con Tab) 40 meq BID PO 04/18/17 22:00 05/18/17 21:59 04/20/17 07:55 40 MEQ Lidocaine (Lidoderm Patch 5%) 1 patch QAM TD 04/20/17 09:00 05/20/17 08:59 04/20/17 07:56 1 PATCH Miscellaneous (Remove Lidoderm Patch) 1 ea DAILY@21 N/A 04/19/17 21:00 05/19/17 20:59 04/19/17 21:42 1 EA Gadobutrol (Gadavist) 5.5 mmol UD PRN IV 04/19/17 16:30 04/23/17 16:29 Ketorolac Tromethamine (Toradol Inj) 15 mg Q6H PRN IV 04/19/17 18:00 04/24/17 17:59 04/20/17 06:38 15 MG Metoprolol Tartrate (Lopressor Tab) 37.5 mg BID PO 04/19/17 21:00 05/17/17 20:59 04/20/17 07:55 37.5 MG Benzonatate (Tessalon Perles Cap) 200 mg TID PO 04/20/17 15:00 05/17/17 17:59 Senna (Senokot Tab) 17.2 mg HS PO 04/20/17 21:00 05/20/17 20:59 Morphine Sulfate (Roxanol Oral Soln) 5 mg Q3H PRN PO 04/20/17 15:15 05/04/17 15:14 Lorazepam (Ativan Tab) 0.5 mg Q6H PRN PO 04/20/17 15:15 05/20/17 15:14 Codeine Phosphate/ Guaifenesin (Robitussin-AC Sugar Free Syrup) 5 ml Q6H PRN PO 04/20/17 15:15 05/20/17 15:14 Sodium Chloride (Sodium Chloride Tab) 1 gm DAILY PO 04/21/17 09:00 05/21/17 08:59 Physical Exam Date Time Temp Pulse Resp B/P (MAP) Pulse Ox O2 Delivery O2 Flow Rate FiO2 04/20/17 15:14 112 16 94 Room Air 04/20/17 12:11 36.4 92 16 134/81 (98) 95 Room Air 04/20/17 12:00 Room Air 04/20/17 08:00 Room Air 04/20/17 07:32 36.9 112 22 153/85 (107) 96 Room Air 04/20/17 06:58 112 16 94 Room Air 04/20/17 05:51 37.0 111 21 157/85 (109) 94 Room Air 04/20/17 04:08 94 Room Air 04/20/17 01:51 106 16 93 Room Air 04/20/17 00:32 36.7 98 21 133/80 (97) 94 Room Air 04/20/17 00:01 94 Room Air 04/19/17 20:00 94 Room Air 04/19/17 19:25 78 16 94 Room Air 04/19/17 19:09 37.4 129 18 160/83 (108) 94 Room Air General Appearance: no apparent distress ENT: hearing grossly normal Neck: supple, no JVD Respiratory: no respiratory distress, no accessory muscle use, + decreased breath sounds (very diminished air exchange in bilateral bases), + pertinent finding (right pleur-x catheter present) Cardiovascular: no edema, + tachycardia, + normal peripheral pulses Abdomen: normal bowel sounds, non tender, soft Neurologic/Psychiatric: alert, normal mood/affect, oriented x 3 Skin: normal color Laboratory Results Last 24 Hours Test 04/20/17 06:11 White Blood Count 4.21 K/uL Red Blood Count 2.93 M/uL Hemoglobin 9.0 g/dL Hematocrit 26.8 % Mean Corpuscular Volume 91.5 fL Mean Corpuscular Hemoglobin 30.7 pg Mean Corpuscular Hemoglobin Concent 33.6 g/dl Platelet Count 162 K/uL Mean Platelet Volume 8.6 fL Neutrophils (%) (Auto) 73.7 % Lymphocytes (%) (Auto) 12.1 % Monocytes (%) (Auto) 11.9 % Eosinophils (%) (Auto) 2.1 % Basophils (%) (Auto) 0.0 % Neutrophils # (Auto) 3.10 K/uL Lymphocytes # (Auto) 0.51 K/uL Monocytes # (Auto) 0.50 K/uL Eosinophils # (Auto) 0.09 K/uL Basophils # (Auto) 0.00 K/uL RDW Standard Deviation 53.2 fL RDW Coefficient of Variation 16.0 % Immature Granulocyte % (Auto) 0.2 % Immature Granulocyte # (Auto) 0.01 K/uL Sodium Level 128 mmol/L Potassium Level 3.7 mmol/L Chloride Level 91 mmol/L Carbon Dioxide Level 29 mmol/L Anion Gap 8.0 mmol/L Blood Urea Nitrogen 7 mg/dl Creatinine 0.29 mg/dl Est Creatinine Clear Calc Drug Dose 153.4 ml/min Estimated GFR () 135.0 Estimated GFR (Non- 116.5 BUN/Creatinine Ratio 24.3 Random Glucose 109 mg/dl Calcium Level 8.9 mg/dl Assessment & Plan Palliative Performance Scale: 50 % Problem list: 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 -Agree with Roxanol 5mg PO Q3h PRN pain or SOB. Allergy to morphine was nausea post-surgery in the past. -Discontinue Dilaudid. -Will see what 24 hour pain medication needs are tomorrow and go from there as far as further recommendations. -Per patient and , will likely transition to hospice care upon discharge. They will let us know their decision. -Patient does not think they want to continue chemotherapy. She has follow up with [facility] on 05/04. -Support and education given to patient and . Thank you kindly for consulting me on this nice patient and her . I will follow as needed. Total time spent 70 minutes with >50% of time spent at bedside with patient and discussing goals of care and pain management.
[2017-04-20] MEDS: MoRPHine SULFATE 5 MG/0.25 ML UDP PO PRN ×3 (16:42→23:40)
[2017-04-20] MEDS: METHIMAZOLE 5 MG TAB PO SCH (20:41)
[2017-04-20] MEDS: HYDROXYCHLOROQUINE SULFATE 200 MG TAB PO SCH (20:41)
[2017-04-20] MEDS: SENNA 8.6 MG TAB PO SCH (20:43)
[2017-04-21] VITALS (8 sets, daily range): BP systolic 118–136; BP diastolic 71–81; PULSE 92–117; TEMP 36.3–36.8; O2SAT 90–100
[2017-04-21] MEDS: LEVALBUTEROL 1.25MG/3ML NEB INH SCH ×4 (03:00→18:54)
[2017-04-21 07:15] LABS: CALCIUM 8.8 mg/dl (8.5-10.1); CREATININE 0.25 mg/dl (0.60-1.20)
--- NOTE | 2017-04-21 07:28 | DIAGNOSTIC IMAGING REPORT ---
CHEST ONE VIEW PORTABLE CLINICAL HISTORY: Effusion. Breast cancer. COMPARISON STUDY: Chest CT April 17, 2017 and chest radiograph April 19, 2017. FINDINGS: Right basilar pleural catheter is in place. A small residual right pleural effusion is noted. This has markedly decreased in size since chest CT of April 17, 2017. A small right hydropneumothorax is noted. This is similar to previous exam. Multifocal left lung airspace opacities persist or there is pulmonary vascular congestion with possible mild edema. Cardiomediastinal silhouette is stable. IMPRESSION: 1. No significant change in a small right hydropneumothorax. Right basilar chest tube in place. 2. Pulmonary vascular congestion with possible mild pleural edema. 3. Left lower lung airspace opacities which may reflect pneumonia. Electronically signed by: Saleem Galindo M.D. 04/21/2017 7:27 AM Dictated Date/Time: 04/21/2017 7:24 AM
[2017-04-21] MEDS: PANTOprazole SOD 40 MG TAB PO SCH (07:59)
[2017-04-21] MEDS: METOPROLOL TARTRATE 25 MG TAB PO SCH ×2 (07:59→21:21)
[2017-04-21] MEDS: CHOLECALCIFEROL 1000 INTER.UNIT TAB PO SCH (07:59)
[2017-04-21] MEDS: BENZONATATE 100MG CAP PO SCH ×3 (08:00→21:17)
[2017-04-21] MEDS: SODIUM CHLORIDE 1 GM TAB PO SCH (08:00)
[2017-04-21] MEDS: POTASSIUM CHLORIDE 20 MEQ TABCR PO SCH ×2 (08:01→21:18)
[2017-04-21] MEDS: LIDODERM (LIDOCAINE) PATCH 5% TD SCH (08:01)
[2017-04-21] MEDS: HEPARIN SOD 5000 UNIT/0.5 ML CARP SQ SCH ×2 (08:05→21:23)
[2017-04-21] MEDS ORDERED: FUROSEMIDE INJ 20 MG in SYRINGE 0 ML IV SCH (08:45)
[2017-04-21] MEDS ORDERED: LORAZEPAM 0.5 MG TAB PO PRN (12:00)
--- NOTE | 2017-04-21 15:56 | SURGERY PROGRESS NOTE ---
DATE: 04/21/2017 SUBJECTIVE: Mrs. Husain is seen today. She is still quite feeble. The drainage is only about 300 mL from her PleurX. She is better from a pulmonary standpoint. She is still quite weak. The fluid has not definitively been defined as malignant. I think her CXR looks very good. Upon discharge, I am going to want to see her back in the office in 2 weeks. We would like for her to be drained every day until that time. RENA
--- NOTE | 2017-04-21 16:08 | Palliative Care Progress Note ---
Palliative Care Progress Note Date of Service Apr 21, 2017. Subjective Pt evaluation today including: conversation w/ patient, conversation w/ family (, Terry), physical exam, chart review, review of inpatient medication list Pain: 0/10 PO Intake: tolerating diet -Patient is drowsy today after having a dose of 0.5mg PO Ativan. -Her pain is 0/10 at this time. -Has not had dose of Roxanol since last evening around 2300. She states it did work well for her. -Discussed hospice and goals of care with patient and along with Dr. Galdamez and Yael Benitez, funeral location manager. Review of Systems Constitutional: + weakness, + fatigue ENT: No trouble swallowing Respiratory: + cough, + dyspnea on exertion, No sputum, No wheezing Cardiac: No chest pain, No edema Abdomen: No pain, No nausea, No vomiting Psychiatric: + anxiety Objective Vital Signs Date Time Temp Pulse Resp B/P (MAP) Pulse Ox O2 Delivery O2 Flow Rate FiO2 04/21/17 12:00 Nasal Cannula 1.5 04/21/17 11:32 36.5 101 20 136/81 (99) 97 Nasal Cannula 1.5 04/21/17 08:00 Nasal Cannula 1.5 04/21/17 07:52 36.3 117 19 125/73 (90) 98 Nasal Cannula 1.5 04/21/17 07:11 92 18 90 Nasal Cannula 2.0 04/21/17 04:17 36.6 112 21 129/71 (90) 99 Nasal Cannula 1.5 Humidified Oxygen 04/21/17 04:00 Room Air 04/21/17 00:01 Room Air 04/20/17 23:57 37.2 104 20 137/84 (101) 96 Nasal Cannula 1.5 04/20/17 20:00 100 Nasal Cannula 2.0 04/20/17 19:53 36.8 130 22 142/82 (102) 100 Nasal Cannula 1.5 Humidified Air 04/20/17 19:25 98 20 86 Room Air 04/20/17 16:00 94 Room Air 04/20/17 15:58 37.3 120 22 159/86 (110) 94 Room Air 04/20/17 15:14 112 16 94 Room Air Physical Exam General Appearance: no apparent distress, + thin, + pertinent finding ( deconditioned) ENT: hearing grossly normal Neck: supple, no JVD Respiratory/Chest: no respiratory distress, no accessory muscle use, + pertinent finding (cough noted, no sputum production) Cardiovascular: regular rate, rhythm, no edema, + tachycardia, + normal peripheral pulses Abdomen: normal bowel sounds, non tender, soft Neurologic/Psychiatric: normal mood/affect, oriented x 3, + pertinent finding ( drowsy but awake) Skin: + pallor Laboratory Results Last 24 Hours Test 04/21/17 06:26 Sodium Level 129 mmol/L Potassium Level 4.0 mmol/L Chloride Level 94 mmol/L Carbon Dioxide Level 28 mmol/L Anion Gap 7.0 mmol/L Blood Urea Nitrogen 10 mg/dl Creatinine 0.25 mg/dl Est Creatinine Clear Calc Drug Dose 171.1 ml/min Estimated GFR () 141.8 Estimated GFR (Non- 122.3 BUN/Creatinine Ratio 40.2 Random Glucose 121 mg/dl Calcium Level 8.8 mg/dl Thyroid Stimulating Hormone (TSH) 2.200 uIu/ml Assessment and Plan Problem list: 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 Galdamez, and Dr. Dexter. deployment manager updated as well. -Patient is DNR. -She is now ready for hospice when she goes home. Referral will be made by nurse outreach case manager. -Ativan was too strong, dose was cut to 0.25mg PO. -Continue Roxanol 5mg PO/SL Q3h PRN-- worked well for patient. No nausea associated. -Patient's will set up private pay caregivers. Thank you again for this consult. Total time spent 35 minutes with >50% of time spent with patient and family at bedside counseling/discussing goals of care. Palliative Performance Scale: 50 % Continued [facility] stay due to: abnormal vital signs Discharge planning: home with home health
--- NOTE | 2017-04-21 17:21 | Hospitalist Progress Note ---
Hospitalist Progress Note Date of Service Apr 21, 2017. (Vi Kumar, BRANDONC) Subjective Pt evaluation today including: conversation w/ patient, conversation w/ family , physical exam, chart review, lab review, review of studies, review of inpatient medication list Patient seen and evaluated. Was very sleepy during lunch but was re-visited later in the afternoon and at baseline mentation. She took Ativan last night and was very lethargic from it. Reduced the dose. Patient feels her breathing is still getting better but still SOB. Utilizing O2 for comfort and feels this is helping. Patient plans to return home with hospice services. Trying to work out the fine details to make for a safe transition home. [facility] may not be able to take patient until Monday but patient and family are putting in referrals to other agencies as well. states that if shown he could manage the Pleur-X at home until a visit is given. The biggest concern will be O2. Will attempt two-step and see if she qualifies for it through her insurance and then apply for Hospice on Monday so she can return home tomorrow with it. If not she would not get O2 until seen by hospice visit. Will continue to work these details Constitutional: No fever, No chills Respiratory: + cough, + shortness of breath Cardiovascular: No chest pain Abdomen: No pain, No nausea, No vomiting Female : No dysuria Heme: No abnormal bleeding/bruising (Vi Kumar, SAWYER-C) Medications Current Inpatient Medications Medications (Trade) Dose Ordered Sig/Stephanie Route Start Time Stop Time Status Last Admin Dose Admin Heparin Sodium (Porcine) (Heparin Sq 5000 Unit/0.5ml) 5,000 unit Q12 SQ 04/17/17 21:00 05/17/17 20:59 04/21/17 08:05 5,000 UNIT Acetaminophen (Tylenol Tab) 650 mg Q4H PRN PO 04/17/17 18:00 05/17/17 17:59 04/17/17 22:29 650 MG Polyethylene (Miralax Powder Packet) 17 gm DAILY PRN PO 04/17/17 18:00 05/17/17 17:59 Amitriptyline HCl (Elavil Tab) 20 mg HS PRN PO 04/17/17 18:00 05/17/17 17:59 04/17/17 21:50 20 MG Folic Acid (Folvite Tab) 1 mg DAILY PO 04/18/17 09:00 05/18/17 08:59 04/21/17 08:00 1 MG Methimazole (Methimazole Tab) 5 mg HS PO 04/17/17 21:00 05/17/17 20:59 04/20/17 20:41 5 MG Ondansetron HCl (Zofran Tab) 4 mg Q4H PRN PO 04/17/17 18:00 05/17/17 17:59 Pantoprazole Sodium (Protonix Tab) 40 mg QAM PO 04/18/17 09:00 05/18/17 08:59 04/21/17 07:59 40 MG Prochlorperazine Maleate (Compazine Tab) 10 mg Q6H PRN PO 04/17/17 18:00 05/17/17 17:59 04/18/17 21:00 10 MG Ranitidine HCl (zANTac TAB) 150 mg DAILY PRN PO 04/17/17 18:00 05/17/17 17:59 Levalbuterol (Xopenex 1.25MG/ 3ML Neb) 1.25 mg Q6R INH 04/17/17 21:00 05/17/17 20:59 04/21/17 07:11 1.25 MG Miscellaneous Information (Order Awaiting Action) 1 ea QS N/A 04/18/17 00:00 05/18/17 00:00 Cholecalciferol (Vitamin D Tab) 1,000 inter.unit QAM PO 04/18/17 09:00 05/18/17 08:59 04/21/17 07:59 1,000 INTER.UNIT Tramadol HCl (Ultram Tab) 50 mg Q4H PRN PO 04/18/17 13:45 05/17/17 17:59 04/19/17 09:59 50 MG Hydroxychloroquine Sulfate (Plaquenil Tab) 100 mg HS PO 04/18/17 21:00 05/18/17 20:59 04/20/17 20:41 100 MG Hydromorphone HCl (Dilaudid Inj) 0.5 mg Q4H PRN IV 04/18/17 17:45 05/02/17 14:44 04/19/17 04:05 0.5 MG Potassium Chloride (Klor-Con Tab) 40 meq BID PO 04/18/17 22:00 05/18/17 21:59 04/21/17 08:01 40 MEQ Lidocaine (Lidoderm Patch 5%) 1 patch QAM TD 04/20/17 09:00 05/20/17 08:59 04/21/17 08:01 1 PATCH Miscellaneous (Remove Lidoderm Patch) 1 ea DAILY@21 N/A 04/19/17 21:00 05/19/17 20:59 04/20/17 20:38 1 EA Gadobutrol (Gadavist) 5.5 mmol UD PRN IV 04/19/17 16:30 04/23/17 16:29 Ketorolac Tromethamine (Toradol Inj) 15 mg Q6H PRN IV 04/19/17 18:00 04/24/17 17:59 04/20/17 06:38 15 MG Metoprolol Tartrate (Lopressor Tab) 37.5 mg BID PO 04/19/17 21:00 05/17/17 20:59 04/21/17 07:59 37.5 MG Benzonatate (Tessalon Perles Cap) 200 mg TID PO 04/20/17 15:00 05/17/17 17:59 04/21/17 13:17 200 MG Senna (Senokot Tab) 17.2 mg HS PO 04/20/17 21:00 05/20/17 20:59 04/20/17 20:43 17.2 MG Morphine Sulfate (Roxanol Oral Soln) 5 mg Q3H PRN PO 04/20/17 15:15 05/04/17 15:14 04/20/17 23:40 5 MG Codeine Phosphate/ Guaifenesin (Robitussin-AC Sugar Free Syrup) 5 ml Q6H PRN PO 04/20/17 15:15 05/20/17 15:14 Sodium Chloride (Sodium Chloride Tab) 1 gm DAILY PO 04/21/17 09:00 05/21/17 08:59 04/21/17 08:00 1 GM Lorazepam (Ativan Tab) 0.25 mg Q8H PRN PO 04/21/17 12:00 05/20/17 15:14 (Vi Kumar, PA-C) Objective Vital Signs Date Time Temp Pulse Resp B/P (MAP) Pulse Ox O2 Delivery O2 Flow Rate FiO2 04/21/17 15:36 36.8 103 22 130/72 (91) 100 Nasal Cannula 2.0 Humidified Oxygen 04/21/17 12:00 Nasal Cannula 1.5 04/21/17 11:32 36.5 101 20 136/81 (99) 97 Nasal Cannula 1.5 04/21/17 08:00 Nasal Cannula 1.5 04/21/17 07:52 36.3 117 19 125/73 (90) 98 Nasal Cannula 1.5 04/21/17 07:11 92 18 90 Nasal Cannula 2.0 04/21/17 04:17 36.6 112 21 129/71 (90) 99 Nasal Cannula 1.5 Humidified Oxygen 04/21/17 04:00 Room Air 04/21/17 00:01 Room Air 04/20/17 23:57 37.2 104 20 137/84 (101) 96 Nasal Cannula 1.5 04/20/17 20:00 100 Nasal Cannula 2.0 04/20/17 19:53 36.8 130 22 142/82 (102) 100 Nasal Cannula 1.5 Humidified Air 04/20/17 19:25 98 20 86 Room Air (Vi Kumar PA-C) Physical Exam General Appearance: no apparent distress, + thin ENT: hearing grossly normal Neck: supple, no JVD, trachea midline Respiratory/Chest: no respiratory distress, no accessory muscle use, + crackles , + pertinent finding (diminished at bases; some aeration in R base; R pleur-x dressing C/D/I) Cardiovascular: + tachycardia Abdomen: normal bowel sounds, non tender, soft Neurologic/Psychiatric: alert Skin: normal color, warm/dry (Vi Kumar, PA-C) Laboratory Results Last 24 Hours Test 04/21/17 06:26 Sodium Level 129 mmol/L Potassium Level 4.0 mmol/L Chloride Level 94 mmol/L Carbon Dioxide Level 28 mmol/L Anion Gap 7.0 mmol/L Blood Urea Nitrogen 10 mg/dl Creatinine 0.25 mg/dl Est Creatinine Clear Calc Drug Dose 171.1 ml/min Estimated GFR () 141.8 Estimated GFR (Non- 122.3 BUN/Creatinine Ratio 40.2 Random Glucose 121 mg/dl Calcium Level 8.8 mg/dl Thyroid Stimulating Hormone (TSH) 2.200 uIu/ml (Vi Kumar PA-C) Assessment and Plan This is a 72 yo F with PMHx of breast, endometrial and melanoma with recent diagnosis of metastatic R lung adenocarcinoma stg IV, confirmed on biopsy/ pathology 02/15/17 with multiple mets to the bones. She has completed 10 radiation treatments to the spine for pain relief. Pt has commenced a lummi -based chemo regimen and follows with Dr. Valdovinos. Past medical history also includes anemia, osteoporosis, vitamin D deficiency, Sjogrens syndrome and rheumatoid arthritis. Pt notes her shortness of breath started last evening has worsened over the last 24 hours. Acute Hypoxic Respiratory Failure 2/2 Large R Pleural Effusion and Subsequent Atelectasis: RESOLVING - Continues with supplemental O2 for comfort - does intermittently desaturate on RA - Roxanol 5 mg PRN SOB/Air Hunger; Ativan PRN - Palliative care consultation - appreciate assistance - plan for home with hospice - Consult CT Surg - continues to follow - plans to assist with outpatient monitoring Pneumothorax likely Trapped Lung: - Utilize incentive spirometry and encourage ambulation to promote good lung expansion; given fluid and tumor burden this may be limited - follow-up CXR in AM Sinus Tachycardia: - Increased home dosing of Metoprolol to 37.5 mg BID Chest Wall Pain: IMPROVING - Continue pain management - will try to encourage Roxanol as first choice given this can be easily continued with hospice Hyponatremia likely SIADH: STABLE - Mild fluid restriction and will place on daily salt tablets - Will continue to monitor Severe Protein-Calorie Malnutrition: - Encourage oral intake; Boost supplementation - intake as tolerated to promote comfort Breast/Endometrial/Melanoma/Metastatic R Lung Adenocarcinoma Stage IV - Bone: Follows with Dr. Valdovinos - Last chemotherapy 04/13 Chronic Anemia likely of Chronic Disease: STABLE - Folic acid 1 mg daily - Continue to monitor - no indication for transfusion at this time Osteoporosis/Vitamin D Deficiency/Bone Mets: - Vitamin D supplementation Sjogrens and RA: - Plaquenil 100 mg HS Hyperthyroidism: - Methimazole 5 mg HS HTN: - Lopressor 37.5 mg BID DVT Prophylaxis: Heparin 5000 units SC Q12H Code Status: DO NOT RESUSCITATE Disposition: Home with Hospice possibly tomorrow - Will need to discuss what medications she would like to continue on vs stopping non-essentials (would encourage cessation of non-essentials) - Await new input from another Hospice agency if they can visit on Monday - if not there may not be a visit until Monday - Will do two-step to see if she qualifies for home O2 through her insurance and apply for hospice on Monday vs obtaining O2 strictly from hospice services - O2 and Hospice Rx in patient chart - Would like to try and be discharged by 10 AM if possible Prolonged service time of 45 minutes. This includes chart review, patient assessment, discussion with patient and family, coordination with other providers, and coordination with case management to assist with discharge planning. Continued [facility] stay due to: other (Hospice set-up) Discharge planning: home with Hospice (Vi Kumar, SUZANNE) Attending Attestation: Pt seen/examined, chart reviewed, care plan d/w SAWYER Kumar. I agree w/ the merino components of her documentation. Pt and her have met with palliative care - they wish to return home with hospice. She slept "very good" w/ ativan last pm - in fact slept most of the am and awoke early afternoon. reports they are "relieved" about decision to transition to hospice. Her breathing and pain are both more comfortable today. They have picked a hospice company. vitals - tachy o2 sats acceptable on NC o2 gen - ill-appearing, thin, coughs when she talks - more comfortable today neck - no JVD heart - tachy, s1, s2 lungs - improved airation on right upper lobe, but still decreased in the right base; left base w/ mild rales - no change abd - slightly distended, BS+, NT ext - no edema A/P: 1. stage 4 lung cancer 2. large pleural effusion on right, s/p pleurX insertion - fluid exudative; no evidence of empyema; suspect malignancy related (cytologies negative, but still quite suspicious for malignancy) 3. pain related to #2 - improved; cont toradol 15mg IV q6h prn; lidoderm patches; dilaudid IV prn; roxinol q3h prn for pain and/or air hunger 4. hyperthyroidism - methimazole - TSH 12/2016 wnl and TSH today wnl 5. acute hypoxic resp failure 2nd to #1, #2 - improved/resolved s/p pleurX insertion 6. MRI brain with bony mets but no intra-cranial mets 7. constipation - bowel regimen 8. DVT proph - heparin BID in addition to Ms Kumar's 45 minutes of time I spent 20 minutes of time with pt / discussing discharge care plan total time today 65 minutes between myself and Ms Stacy DEXTER MD (Brad Dexter MD)
[2017-04-21] MEDS: SENNA 8.6 MG TAB PO SCH (21:18)
[2017-04-21] MEDS: HYDROXYCHLOROQUINE SULFATE 200 MG TAB PO SCH (21:19)
[2017-04-21] MEDS: METHIMAZOLE 5 MG TAB PO SCH (21:20)
[2017-04-21] MEDS: MoRPHine SULFATE 5 MG/0.25 ML UDP PO PRN (23:23)
[2017-04-22] VITALS (7 sets, daily range): BP systolic 111–137; BP diastolic 67–83; PULSE 83–119; TEMP 36.7–36.9; O2SAT 95–100
[2017-04-22] MEDS: LEVALBUTEROL 1.25MG/3ML NEB INH SCH ×3 (01:49→15:00)
[2017-04-22] MEDS: MoRPHine SULFATE 5 MG/0.25 ML UDP PO PRN ×3 (04:15→14:55)
[2017-04-22 08:31] LABS: CREATININE 0.32 mg/dl (0.60-1.20); POTASSIUM 4.1 mmol/L (3.5-5.1)
[2017-04-22] MEDS: SODIUM CHLORIDE 1 GM TAB PO SCH (08:47)
[2017-04-22] MEDS: METOPROLOL TARTRATE 25 MG TAB PO SCH (08:47)
[2017-04-22] MEDS: PANTOprazole SOD 40 MG TAB PO SCH (08:48)
[2017-04-22] MEDS: HEPARIN SOD 5000 UNIT/0.5 ML CARP SQ SCH (08:48)
[2017-04-22] MEDS: BENZONATATE 100MG CAP PO SCH (08:48)
[2017-04-22] MEDS: CHOLECALCIFEROL 1000 INTER.UNIT TAB PO SCH (08:48)
[2017-04-22] MEDS: POTASSIUM CHLORIDE 20 MEQ TABCR PO SCH (08:49)
[2017-04-22] MEDS: LIDODERM (LIDOCAINE) PATCH 5% TD SCH (08:50)
[2017-04-22] MEDS ORDERED: ONDA8TAB62 SL (13:30)
[2017-04-22] MEDS ORDERED: RXNS10 PO (13:30)
[2017-04-22] MEDS ORDERED: SENN-61 PO (13:30)
[2017-04-22] MEDS ORDERED: ATV5 PO (13:30)
[2017-04-22] MEDS ORDERED: MRLP17X PO (13:30)
[2017-04-22] MEDS ORDERED: LPR25 PO (13:30)
[2017-04-22] MEDS ORDERED: GUAISYP4 PO (13:30)
[2017-04-22] MEDS ORDERED: LDDP5 TD (13:30)
--- NOTE | 2017-04-22 13:47 | Discharge Instructions ---
Discharge Instructions Date of Service Apr 22, 2017. Admission Reason for Admission: Shortness Of Breath Discharge Discharge Diagnosis / Problem: Shortness of breath due to large right-sided pleural effusion Discharge Goals Goal(s): Decrease discomfort, Diagnostic testing Activity Recommendations Activity Limitations: resume your previous activity (as tolerated and/or desired) . Instructions / Follow-Up Instructions / Follow-Up From Dr. Dexter - If you have any questions, concerns, problems, lack of good pain control, difficulty breathing - any concerns - please contact the hospice agency. They will be your point of contact and can address most if not all of your questions/ problems. 1. For pain or difficulty breathing - * please use liquid morphine (roxanol) 5mg every 3 hours as needed 2. For anxiety, sleep troubles, agitation, stress - * please use ativan (lorazepam) 0.25mg every 8 hours as needed 3. For chest wall pain or pain in other sites you may use lidoderm patches - up to 3 patches at a time - place on for 12 hours, remove for 12 hours. You may also use [id number] motrin every 6 hours as needed. 4. For nausea or vomiting - * zofran ODT - 1 tab every 6 hours as needed 5. Use your oxygen as needed and as desired for trouble breathing/air hunger/ etc. 6. Please drain your pleurX catheter daily and as needed. 7. For constipation - * miralax once daily - you can purchase [id number] * senna (senakot) - 2 tablets once a day - you can purchase [id number] * you can also use dulcolax suppository every 12 hours as needed for severe constipation 8. We have increased your metoprolol to 37.5mg twice a day. I have provided a new prescription for you if you need a refill. 9. For cough - * robitussin ac (codeine-based cough syrup) 1 teaspoon every 4 hours as needed It was my pleasure caring for you! -Dr. Dexter Current Hospital Diet Patient's current hospital diet: Regular Diet Discharge Diet Recommended Diet: Regular Diet Procedures Procedures Performed: Insertion of right pleurx catheter CAT scan of the lungs MRI of the brain Pending Studies Studies pending at discharge: no Medical Emergencies . Who to Call and When: Medical Emergencies: If at any time you feel your situation is an emergency, please call 911 immediately. . Non-Emergent Contact Non-Emergency issues call your: Specialist (HOSPICE ) Call Non-Emergent contact if: temperature is above 100.5, your pain is not controlled, your pain is worsening, your pain is unusual for you, your pain is concerning you, you have any medication questions . . "Provider Documentation" section prepared by Brad Dexter. .
--- NOTE | 2017-04-25 11:49 | Discharge Summary ---
Discharge Summary Date of Service Apr 25, 2017. 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 stage 4 lung cancer 2. hyponatremia - likely SIADH from her lung cancer 3. h/o breast cancer 4. h/o uterine cancer 5. h/o melanoma 6. constipation 7. hyperthyroidism 8. anemia of chronic disease 9. severe protein calorie malnutrition 10. sjogren's syndrome 11. rheumatoid arthritis Procedures: 1. CTA chest - IMPRESSION: 1. Motion degraded exam. Moderate to large right-sided pleural effusion with near-total right upper lobe and total right middle lobe collapse with atelectasis demonstrating heterogeneous enhancement suggesting associated airspace disease. 2. Scattered multifocal groundglass and consolidative opacities throughout the lungs bilaterally suggest infectious or inflammatory pneumonitis with metastatic disease also in the differential. 3. Multiple lytic destructive bony lesions compatible with metastasis. 4. Prior right-sided mastectomy with bilateral axillary node dissection. 5. Cardiomegaly without acute aortic pathology or evidence of pulmonary thromboembolic disease. 2. MRI brain - IMPRESSION: 1. 9 mm enhancing lesion along the undersurface of the left tentorium which is likely extra-axial. This favors a meningioma although a metastasis could appear similar. No associated edema. No additional intracranial masses. 2. 1.8 cm focus of marrow placement within the right occipital condyle consistent with a skeletal metastasis. Minimal extension into the adjacent soft tissues. 3. Possible 5 mm calvarial metastasis within the right parietal bone. 3. pleurX catheter insertion, right - Micah Delacruz MD Consultations: palliative care thoracic surgery - Micah Delacruz MD PT, OT Medication Reconciliation New Medications: Guaifenesin/Codeine (Robitussin-Ac Syrup) Syrp 5 ML PO Q4H PRN for Cough, #120 ML 0 Refills Lidocaine (Lidocaine) 1 Patch Tdsy 3 PATCH TD QAM, #60 PATCH 2 Refills may use up to 3 patches at site(s) of pain; place for 12 hours, remove for 12 hrs Lorazepam (Lorazepam) 0.5 Mg Tab 0.25 MG PO Q8H PRN for Anxiety, #30 TAB 0 Refills Morphine Sulfate (Morphine Sulfate) 10 Mg/0.5 Ml Soln 5 MG PO Q3H PRN for Pain or Air Hunger, #25 ML 0 Refills Polyethylene (Miralax) 17 Gm Pow 17 GM PO DAILY, #1 BTL 0 Refills can purchase [id number] Senna (Senokot) 8.6 Mg Tab 17.2 MG PO QAM, #60 TAB 0 Refills can purchase [id number] Changed Medications: Metoprolol Tartrate (Lopressor) 25 Mg Tab 37.5 MG PO BID for 30 Days, #90 TAB 1 Refill (Changed from: 25 MG; 60; Refills: ) Ondansetron Odt (Zofran Odt) 8 Mg Soltab 8 MG SL Q6H PRN for Nausea, #20 TAB 0 Refills (Changed from: Ondansetron ( Ondansetron HCl) 4 Mg Tab 4 Mg PO Q4H PRN Nausea) Continued Medications: Acetaminophen (Tylenol) Unknown Strength Tab 1 DOSE PO UD PRN for Pain or Fever, TAB Amitriptyline Hcl (Elavil) 10 Mg Tab 20 MG PO HS PRN for Sleep Cyclosporine (Ophth) (Restasis) 0.05 % Emu 1 DROP OPB Q12H, BTL Hydroxychloroquine Sulfate (Plaquenil) 200 Mg Tab 100 MG PO HS, TAB Melatonin (Melatonin) 3 Mg Tab 3 MG PO HS PRN for Sleep Methimazole (Methimazole) 5 Mg Tab 5 MG PO HS Pantoprazole (Pantoprazole Sodium) 40 Mg Tab 40 MG PO QAM for 30 Days, #30 TAB Ranitidine HCl (Ranitidine HCl) 150 Mg Tab 150 MG PO DAILY PRN for Heartburn/Indigestion Discontinued Medications: Benzonatate (Benzonatate) 100 Mg Cap 100-200 MG PO TID PRN for Cough Dexamethasone (Decadron) 4 Mg Tab 4 MG PO UD PRN for Chemo Treatment TAKE 4 MG ORALLY 2 TIMES PER DAY STARTING THE DAY BEFORE TREATMENT, DAY OF TREATMENT AND DAY AFTER TREATMENT Folic Acid (Folic Acid) 1 Mg Tab 1 MG PO DAILY Prochlorperazine Maleate (Prochlorperazine Maleate) 10 Mg Tab 10 MG PO Q6H PRN for Nausea Tramadol HCl (Tramadol HCl) 50 Mg Tab 50 MG PO Q6H PRN for Pain [Tube Feed] () Discharge Exam Physical Exam: General Appearance: no apparent distress, + cachetic, + thin ENT: pharynx normal Neck: no JVD Respiratory/Chest: no respiratory distress, no accessory muscle use, + decreased breath sounds (right chest, anterior & posterior), + crackles (b/l ) Cardiovascular: no gallop, no murmur, normal peripheral pulses, + tachycardia Abdomen / GI: normal bowel sounds, non tender, no organomegaly, + distended , + pertinent finding (PEG tube in place) Extremities: no pedal edema Neurologic/Psychiatric: alert, oriented x 3 Hospital Course HISTORY OF PRESENT ILLNESS: This is a 72 yo F with PMHx of breast cancer, endometrial cancer, melanoma, and fairly recent diagnosis of metastatic lung adenocarcinoma confirmed on biopsy/ pathology 02/15/17 with multiple mets to the bones. She has completed 10 radiation treatments to the spine for pain relief. Pt has commenced a [place] -based chemo regimen and follows with Dr. Valdovinos. Past medical history also includes anemia, osteoporosis, vitamin D deficiency, Sjogrens syndrome and rheumatoid arthritis. Pt notes her shortness of breath started last evening and has worsened over the last 24 hours. She denies any sick or ill contacts and has not ventured outside her home recently. Patient notes that she has been unable to participate in minimal activity due to her dyspnea. She does not wear supplemental O2 at baseline. Patient reports feeling extremely short of breath and is unable to talk in long sentences without feeling winded. She also describes a chest pressure however denies any pain. Patient has a dry cough which has been slightly relieved with taking tramadol for her pain at night. She has tried other agents such as Tessalon Perles and Robitussin but without relief. She recently had chemotherapy last , cycle 2/, and this was the first session since previous admission. She has been using a feeding tube as directed for daily nutritional supplementation, and using free water flushes 4-5x per day. She denies any issues with the tube itself. She denies any difficulty with swallowing food or medications. Recent admits: Mar 07-Mar 10 for influenza, pneumonia, pancytopenia Mar 20-14 for pneumonia and had tube feed placed for poor intake/nutritional deficiency HOSPITAL COURSE: The patient underwent pleurX catheter insertion by Dr. Delacruz for her large right-sided pleural effusion with improvement in her pulmonary symptoms. Fluid was exudative, and although no malignant cells were seen on cytology, the fluid was highly suspicious for a malignant effusion. There was no evidence of any infectious process. The patient had considerable pain in her right chest cavity following pleurX placement. This was treated with a combination of narcotics, NSAIDs, and lidoderm patches. She used O2 via NC for comfort & dyspnea. The patient also underwent MRI brain which demonstrated bony mets to the skull. As her hospitalization went on it became clear that the patient and her family desired to transition to palliative care/hospice. Palliative care was formally consulted, and at discharge she will return home with hospice services in place. The patient will not be pursing any further chemotherapy in the future. The patient has been provided NC O2, a hospital bed, morphine elixir, ativan, and other medications to treat symptoms at home. Her was provided with pleurX catheter teaching. Unnecessary medications that would not provide comfort/benefit have been discontinued at discharge. Total Time Spent: Greater than 30 minutes This includes examination of the patient, discharge planning, medication reconciliation, and communication with other providers. Discharge Instructions Please refer to the electronic Patient Visit Report (Discharge Instructions) for additional information. Follow-Up f/u with Hospice at home Additional Copies To Oni Cortes Jr,D.O.; Abraham Valdovinos MD
== END 2017-04-22 14:50 | disposition hospice, home (50) | DRG 180 ==
LOC: C.EDB 13:56 → C.2E 17:59 → ENRESERV 18:38
PROVIDERS: ADMIT Internal Medicine; ATTEND Internal Medicine
PROC: 0W9930Z Drainage of Right Pleural Cavity with Drainage Device, Percutaneous Approach (ICD-10-PCS; principal; 2017-04-18)
DX: C34.91 Malignant neoplasm of unspecified part of right bronchus or lung (principal); E43 Unspecified severe protein-calorie malnutrition; C79.51 Secondary malignant neoplasm of bone; E22.2 Syndrome of inappropriate secretion of antidiuretic hormone; J91.0 Malignant pleural effusion; J96.01 Acute respiratory failure with hypoxia; J93.9 Pneumothorax, unspecified; Z51.5 Encounter for palliative care; Z85.3 Personal history of malignant neoplasm of breast; Z85.42 Personal history of malignant neoplasm of other parts of uterus; I10 Essential (primary) hypertension; E05.90 Thyrotoxicosis, unspecified without thyrotoxic crisis or storm; Z85.820 Personal history of malignant melanoma of skin; M06.9 Rheumatoid arthritis, unspecified; M81.0 Age-related osteoporosis without current pathological fracture; K59.00 Constipation, unspecified; E53.9 Vitamin B deficiency, unspecified; M35.00 Sjogren syndrome, unspecified; D64.9 Anemia, unspecified; Z88.0 Allergy status to penicillin; Z88.5 Allergy status to narcotic agent; Z92.3 Personal history of irradiation